=== PATIENT | female | born 1950 | race Caucasian/White ===

== ENCOUNTER → 2017-12-05 09:52 | Outpatient (CLI) | payer MEDICARE, OTHER, SELFPAY ==
[2017-12-05 10:16] LABS: Blood Urea Nitrogen 11 mg/dL (7-18); Creatinine,Serum 0.86 mg/dL (0.55-1.02); Estimated Glomerular Filt Rate 66 ml/min (>60); GFR (African American) 80 ML/MIN (>60)
== END ==
PROVIDERS: Visit Provider Family Medicine
DX: R10.84 Generalized abdominal pain (principal)
CPT/HCPCS: 36415; 82565; 84520

== ENCOUNTER → 2017-12-06 09:35 | Outpatient (CLI) | payer MEDICARE, OTHER, SELFPAY ==
--- NOTE | 2017-12-06 09:48 | CT_ITS ---
CT abdomen pelvis w con COMPARISON: None HISTORY: Abdominal pain for couple months, some diarrhea TECHNIQUE: Multiaxial scans obtained from hemidiaphragms the pelvic floor and were performed with IV and oral contrast. Sagittal and coronal reformats were evaluated as well. FINDINGS: The lower lung amaro are clear. There is mild generalized cardio megaly. There is a small hiatal hernia. The liver spleen stomach and pancreas appear normal. There has been a previous cholecystectomy. The adrenal glands are normal. The kidneys are normal size and show symmetrical function both appearing normal. There is diffuse arteriosclerotic calcification of the abdominal aorta and proximal iliac arteries but there is no aneurysm. Small bowel appears normal. The appendix is normal caliber and air-filled and retrocecal in location. There are scattered stool in the ascending and transverse colon. There are scattered diverticuli of the lower descending and sigmoid colon with is no evidence of diverticulitis. There has been a previous hysterectomy. Urinary bladder is partially decompressed. There is no free fluid in the pelvis. There are mild multilevel degenerative changes of the thoracolumbar junction along with a vacuum phenomenon and degenerative disc changes at L4-5 level. IMPRESSION: 1. Diffuse diverticulosis of the lower descending and sigmoid colon without evidence of diverticulitis 2. Small hiatal hernia
--- NOTE | 2017-12-06 10:32 | HMH.ITSHM ---
SIMVASTATIN,LORAZEPAM,GLIPIRIDE,JANUMET,CITALPRAM
== END ==
PROVIDERS: Family Provider Family Medicine; PCP Family Medicine; Visit Provider Family Medicine
DX: R10.84 Generalized abdominal pain (principal)
CPT/HCPCS: 74177; Q9967

== ENCOUNTER → 2018-04-01 06:48 | Outpatient (CLI) | payer MEDICARE, OTHER, SELFPAY ==
--- NOTE | 2018-04-01 06:53 | NM_ITS ---
History and Indications: This study, diabetes, hyperlipidemia, chest pain. Procedure: Patient received a 0.4 mg of Lexiscan, resting heart rate was 76 bpm, resting blood pressure 111/ 54 with Lexiscan maximum heart rate achieved was 98 bpm which is less than 85% of the maximum predicted heart rate and a blood pressure was 116/55. With Lexiscan patient complained of shortness of breath and nausea. Electrocardiogram: Resting electrocardiogram showed sinus rhythm, rightward bundle-branch block, with Lexiscan there is less than 1.[address] segment depression noted from the baseline EKG. The EKG portion of the Lexiscan Myoview is nondiagnostic. Cardiac stress and resting SPECT images: Cardiac stress and rest SPECT images were obtained using technetium 99 Myoview 31.5 mCi stress and 9.8 mCi at rest. Gated SPECT further analysis of segmental wall motion and calculation of the ejection also done. Cardiac stress and resting SPECT images show decreased tracer activity in the anteroapical and anteroseptal wall which improves on the resting images suggestive of reversible ischemia, computer derived ejection fraction is 55% with mild anteroapical and anteroseptal wall hypokinesis, right ventricle is normal size and contractility. Conclusion: 1. The EKG portion of the Lexiscan Myoview is nondiagnostic. 2. Scintigraphic evidence of mild reversible is involving the anteroapical and anteroseptal wall, computer derived ejection fraction is 55% with segmental wall motion abnormality described above, right ventricle is normal size and contractility. 3. Abnormal Lexiscan Myoview study.
--- NOTE | 2018-04-01 07:14 | HMH.ITSHM ---
SIMVASTATIN CITALOPRAM LORAZEPAM JANUMET GLIPIZIDE
== END ==
PROVIDERS: Family Provider Family Medicine; PCP Family Medicine; Visit Provider Family Medicine
DX: Z00.00 Encounter for general adult medical examination without abnormal findings (principal); R07.9 Chest pain, unspecified
CPT/HCPCS: 78451; 93017; A9502; J2785

== ENCOUNTER → 2018-07-22 11:22 | Outpatient (CLI) | payer MEDICARE, OTHER, SELFPAY ==
[2018-07-22 12:52] LABS: Anion Gap 10.9 mEq/L (5-15); Blood Urea Nitrogen 10 mg/dL (7-18); Calcium 9.1 mg/dL (8.5-10.1); Carbon Dioxide 32 mmol/L (21.0-32.0); Chloride 98 mmol/L (98-107); Creatinine,Serum 0.96 mg/dL (0.55-1.02); Estimated Glomerular Filt Rate 58 ml/min (>60); GFR (African American) 70 ML/MIN (>60); Glucose 280 mg/dL (74-106); Potassium 3.9 mmoL/L (3.5-5.1); Sodium 137 mmol/L (136-145)
== END ==
PROVIDERS: Visit Provider Physician Assistant
DX: I11.9 Hypertensive heart disease without heart failure (principal)
CPT/HCPCS: 36415; 80048

== ENCOUNTER → 2019-01-01 09:54 | Outpatient (CLI) | payer MEDICARE, OTHER, SELFPAY | PROVIDERS: PCP Family Medicine; Visit Provider Family Medicine | DX: R06.02 Shortness of breath (principal); Z87.891 Personal history of nicotine dependence | CPT/HCPCS: 94060 ==

== ENCOUNTER → 2019-01-26 08:55 | Outpatient (CLI) | payer MEDICARE, OTHER, SELFPAY ==
[2019-01-26 10:27] LABS: Anion Gap 11.1 mEq/L (5-15); Blood Urea Nitrogen 7 mg/dL (7-18); Calcium 8.8 mg/dL (8.5-10.1); Carbon Dioxide 35 mmol/L (21.0-32.0); Chloride 101 mmol/L (98-107); Creatinine,Serum 0.85 mg/dL (0.55-1.02); Estimated Glomerular Filt Rate 67 ml/min (>60); GFR (African American) 81 ML/MIN (>60); Glucose 202 mg/dL (74-106); Potassium 4.1 mmoL/L (3.5-5.1); Sodium 143 mmol/L (136-145)
== END ==
PROVIDERS: Visit Provider Urology
DX: E78.5 Hyperlipidemia, unspecified (principal); I11.9 Hypertensive heart disease without heart failure; I25.10 Atherosclerotic heart disease of native coronary artery without angina pectoris; I45.10 Unspecified right bundle-branch block
CPT/HCPCS: 36415; 80048

== ENCOUNTER 2019-05-07 14:00 | Outpatient (RCR) | payer MEDICARE, OTHER, SELFPAY ==
--- NOTE | 2019-04-07 11:05 | HMH.PTOPEV ---
PT Outpatient Evaluation Rehab PT Outpatient Evaluation Start: 04/07/19 10:50 Freq: Status: Active Protocol: Document 04/07/19 10:51 GENINAYLA (Rec: 04/07/19 11:03 GENIJOSSELINEMARRY [id number]) Electronically Signed By José Miguel Mario, PT 04/07/19 10:51 Outpatient Therapy Subjective History Subjective History Patient is a 68 year old female presenting to outpatient PT with reports of chronic L sided cervical spine pain radiating to L upper trapezius mm starting approximately 3 months ago of insidious onset. No recent diagnostics to report. Comorbidities include diabetes , previous heart cath, R TKA and hysterectomy. Chief Complaint Pain Symptom Type Ache,Burning Symptoms Relieved By Rest/Positioning,Prescription Meds Symptoms Aggravated By Physical Activity,Lifting Prior Functional Limitations None Current Functional Limitations Reaching,Lifting,Housework, Recreation Activity Symptom Description Intermittent Level of pain today (0-10) 5 Pain scale - at its best (0-10) 0 Pain scale - at its worst (0-10) 5 Cervical Eval Palpation Cervical Muscles L Upper Trapezius Cervical/Thoracic Palpation Findings Tenderness Posture Head/C-Spine Posture Sitting Position C-Spine Flattened Head/C-Spine Posture Standing Position C-Spine Flattened Flexibility Deficits Upper Trapezius Muscle Length (R) Moderate Tightness,(L) Moderate Tightness Levaetor Scapulae Muscle Length (R) Moderate Tightness,(L) Moderate Tightness Scalene Group Muscle Length (R) Mild Tightness,(L) Mild Tightness Pectoralis Minor Muscle Length (R) Moderate Tightness,(L) Moderate Tightness Passive Joint Mobility Cervical PIVM Dec: R C2/3 L C2/3 R C3/4 L C3/4 R C4/5 L C4/5 R C5/6 L C5/6 R C6/7 L C6/7 R C7/T1 L C7/T1 WNL: R OA L OA
== END 2019-05-07 14:05 | disposition home or self-care (01) ==
LOC: PT 14:00
PROVIDERS: Visit Provider Family Medicine
DX: M54.12 Radiculopathy, cervical region (principal)
CPT/HCPCS: 97010; 97014; 97110; 97163; G0283

== ENCOUNTER → 2019-06-01 09:14 | Outpatient (CLI) | payer MEDICARE, OTHER, SELFPAY ==
--- NOTE | 2019-06-01 09:19 | XR_ITS ---
PROCEDURE: XR CERVICAL SPINE 5V CLINICAL INDICATION: SPONDYLOSIS Neck pain COMPARISON: No exams were available for comparison FINDINGS: Normal alignment. No fracture or dislocation. There is slight decrease in the disc space at C3-C4 C4-C5 and C5-C6 with small anterior osteophytes at C5-C6. Mild foraminal narrowing is noted on the right at C4-C5 and C5-C6 and on the left at C4-C5 and C5-C6. There is mild cervical curvature convex left. Carotid artery calcifications are present. IMPRESSION: 1. Cervical spondylosis as detailed above with degenerative disc disease and foraminal narrowing 2. Carotid artery calcification Dictated by: Benny Herrera MD 06/01/2019 10:34 Electronically signed by Benny Herrera MD in [place] 06/01/2019 10:34
--- NOTE | 2019-06-01 09:19 | XR_ITS ---
PROCEDURE: XR SHOULDER LT MIN 2V CLINICAL INDICATION: BILAT SHOULDER PAIN Left shoulder pain COMPARISON: SHOU3R [id number] VIEWS from 11/13/2016 FINDINGS: No fracture, dislocation, lytic change, or blastic change evident. No significant degenerative change IMPRESSION: Negative left shoulder Dictated by: Benny Herrera MD 06/01/2019 10:35 Electronically signed by Benny Herrera MD in [place] 06/01/2019 10:35
--- NOTE | 2019-06-01 09:19 | XR_ITS ---
PROCEDURE: XR SHOULDER RT MIN 2V CLINICAL INDICATION: BILAT SHOULDER PAIN Right shoulder pain COMPARISON: SHOU3R [id number] VIEWS from 11/13/2016 FINDINGS: There are mild osteoarthritic changes of the glenohumeral joint and acromioclavicular joint with some spurring at the AC joint. Hypertrophic changes are present along the inferior aspect of the a chromium causing subacromial stenosis. These findings are similar when compared to the previous exam. No acute fracture or dislocation. IMPRESSION: Osteoarthritic change with subacromial stenosis Dictated by: Benny Herrera MD 06/01/2019 10:36 Electronically signed by Benny Herrera MD in [place] 06/01/2019 10:36
== END ==
PROVIDERS: PCP Family Medicine; Visit Provider Family Medicine
DX: M25.511 Pain in right shoulder (principal); M25.512 Pain in left shoulder; M47.812 Spondylosis without myelopathy or radiculopathy, cervical region
CPT/HCPCS: 72050; 73030

== ENCOUNTER → 2019-06-11 09:56 | Outpatient (CLI) | payer MEDICARE, OTHER, SELFPAY ==
--- NOTE | 2019-06-11 | CA_ITS ---
APPROVED REPORT EXAM: Comprehensive 2D, Doppler, and color-flow Echocardiogram [employer] Worker: Haylee Wisdom, RT(R) Ht: 5 ft 6 in Wt: 243lbs BSA: 2.17 BP: 143/63 mmHg Indications: Chest Pain, COPD, Murmur, Diabetes, Obesity, Atrial Fibrillation (new onset), Fatigue, Peripheral Edema, Hyperlipidemia, Hypertension/HDD, RBBB 2D Dimensions IVSd 1.30 cm F: 0.6-1.0 LVEF (Visual) 51.30 % PWd 1.30 cm F: 0.6 - 1.0 LVDd 4.60 cm F: 3.9 - 5.3 LVDs 3.40 cm F: 2.2 - 3.5 LVOT 2.00 cm (M/F) 1.5-2.5 M-Mode Dimensions LA Diam 3.80 cm (1.9-4.0) Ao Diam 3.40 cm (2.0-3.7) AV Cusp 2.20 cm (1.5-2.6) LV Diastology E/A Ratio 1.2 MED E' 7.21 (< 7 cm/sec) E'/MED E' Ratio 12.60 (>14) LAT E' 11.50 (<10 cm/sec) E/LAT E' Ratio 7.90 (>14) Mitral Valve MV E Max Reginald. 90.80 (40-130 cm/s) MV A Velocity 75.50 (40-130 cm/s) E/A Ratio 1.20 Tricuspid Valve TR P. Velocity 254.00 cm/s RAP Estimate 15.00 mmHg RVSP 41.00 mmHg Left Ventricle Left atrium is mildly enlarged, left ventricle is normal size, mild concentric left ventricular hypertrophy, visually estimated ejection fraction 55% with no regional wall motion abnormality. Diastolic parameters are within normal range. Right Ventricle Right atrium and right ventricle mildly enlarged with normal contractility. Aortic Valve Aortic valve is minimally thickened and fibrosed, there is no aortic stenosis aortic insufficiency. Mitral Valve Mitral valve is grossly normal, there is mild mitral regurgitation. Tricuspid Valve Tricuspid valve is grossly normal, there is mild tricuspid regurgitation, calculated right ventricular systolic pressure is 44 mmHg consistent with moderately elevated right ventricular systolic pressure. Pulmonic Valve Pulmonic valve is poorly visualized. Great Vessels Aortic root is normal size. Pericardium No significant pericardial effusion noted. Conclusion 1. Mildly enlarged left atrium, normal left ventricular size, visually estimated ejection fraction 55% with no regional wall motion abnormality, diastolic parameters are within normal range. 2. Mildly enlarged right ventricle with normal contractility. 3. Mild mitral and tricuspid regurgitation, calculated right ventricular systolic pressure is 44 mmHg consistent with moderately elevated right ventricular systolic pressure. 4. No significant pericardial effusion noted. Electronically signed by : Jorge Henderson, 06/12/2019 15:25:58
== END ==
PROVIDERS: PCP Family Medicine; Visit Provider Family Medicine
DX: R07.9 Chest pain, unspecified (principal); R07.89 Other chest pain; R06.02 Shortness of breath; R60.9 Edema, unspecified; I48.91 Unspecified atrial fibrillation
CPT/HCPCS: 93306

== ENCOUNTER → 2019-09-08 12:59 | Outpatient (CLI) | payer MEDICARE, OTHER, SELFPAY ==
--- NOTE | 2019-09-08 13:05 | XR_ITS ---
PROCEDURE: XR KNEE LT 3V CLINICAL INDICATION: LT ANTERIOR KNEE Twisting injury COMPARISON: No exams were available for comparison FINDINGS: No fracture or dislocation. No lytic or blastic change. There is normal mineralization. There are mild osteoarthritic changes involving all 3 compartments. A longitudinal lucency is present along the superior lateral aspect of patella. This could represent a nondisplaced fracture or an ununited ossification center. CT may add further evaluation if clinically desired. Other findings:None. IMPRESSION: Mild osteoarthritic changes with lucency along the superior lateral aspect of the patella which could be due to a nondisplaced fracture or ununited area of ossification. Dictated by: Benny Herrera MD 09/08/2019 14:04 Electronically signed by Benny Herrera MD in [place] 09/08/2019 14:04
== END ==
PROVIDERS: PCP Family Medicine; Visit Provider Family Medicine
DX: M25.562 Pain in left knee (principal)
CPT/HCPCS: 73562

== ENCOUNTER → 2019-10-26 08:46 | Outpatient (CLI) | payer MEDICARE, OTHER, SELFPAY ==
[2019-10-26 09:10] LABS: Anion Gap 10.9 mEq/L (5-15); Blood Urea Nitrogen 9 mg/dL (7-18); Calcium 8.9 mg/dL (8.5-10.1); Carbon Dioxide 32 mmol/L (21.0-32.0); Chloride 100 mmol/L (98-107); Creatinine,Serum 0.86 mg/dL (0.55-1.02); Estimated Glomerular Filt Rate 66 ml/min (>60); GFR (African American) 79 ML/MIN (>60); Glucose 193 mg/dL (74-106); Potassium 3.9 mmoL/L (3.5-5.1); Sodium 139 mmol/L (136-145)
== END ==
PROVIDERS: Visit Provider Nurse Practitioner Family
DX: E78.5 Hyperlipidemia, unspecified (principal); I11.9 Hypertensive heart disease without heart failure; I25.10 Atherosclerotic heart disease of native coronary artery without angina pectoris; I45.10 Unspecified right bundle-branch block; I48.91 Unspecified atrial fibrillation
CPT/HCPCS: 36415; 80048

== ENCOUNTER → 2020-02-22 08:38 | Outpatient (CLI) | payer MEDICARE, OTHER, SELFPAY ==
[2020-02-22 09:00] LABS: Chloride 88 mmol/L (98-107); Sodium 135 mmol/L (136-145)
[2020-02-22 09:03] LABS: Blood Urea Nitrogen 13 mg/dl (7-17); Estimated Glomerular Filt Rate 71 ml/min (>60); GFR (African American) 86 ML/MIN (>60)
[2020-02-22 09:04] LABS: Calcium 8.5 mg/dl (8.4-10.2); Glucose 223 mg/dl (74-100)
[2020-02-22 09:11] LABS: Anion Gap 10.6 mEq/L (5-15); Carbon Dioxide 39 mmol/L (22.0-30.0)
[2020-02-22 09:13] LABS: NT Pro Brain Natriuretic Pep. 1030 pg/mL (0-125)
[2020-02-22 09:50] LABS: Potassium 2.6 mmoL/L (3.5-5.1)
== END ==
PROVIDERS: Visit Provider Nurse Practitioner Family
DX: E78.2 Mixed hyperlipidemia (principal); I11.9 Hypertensive heart disease without heart failure; I25.10 Atherosclerotic heart disease of native coronary artery without angina pectoris; R06.00 Dyspnea, unspecified
CPT/HCPCS: 36415; 80048; 83880

== ENCOUNTER → 2020-02-29 11:17 | Outpatient (CLI) | payer MEDICARE, OTHER, SELFPAY ==
[2020-02-29 13:06] LABS: Anion Gap 13.3 mEq/L (5-15); Blood Urea Nitrogen 10 mg/dl (7-17); Calcium 9.4 mg/dl (8.4-10.2); Carbon Dioxide 38 mmol/L (22.0-30.0); Chloride 89 mmol/L (98-107); Estimated Glomerular Filt Rate 71 ml/min (>60); GFR (African American) 86 ML/MIN (>60); Glucose 209 mg/dl (74-100); Potassium 3.3 mmoL/L (3.5-5.1); Sodium 137 mmol/L (136-145)
== END ==
PROVIDERS: Visit Provider Nurse Practitioner Family
DX: I25.10 Atherosclerotic heart disease of native coronary artery without angina pectoris (principal); R06.00 Dyspnea, unspecified; I48.91 Unspecified atrial fibrillation; I45.10 Unspecified right bundle-branch block; I11.9 Hypertensive heart disease without heart failure; E78.5 Hyperlipidemia, unspecified
CPT/HCPCS: 36415; 80048

== ENCOUNTER → 2020-03-08 11:19 | Outpatient (CLI) | payer MEDICARE, OTHER, SELFPAY ==
[2020-03-08 12:44] LABS: Chloride 95 mmol/L (98-107); Potassium 3.3 mmoL/L (3.5-5.1); Sodium 136 mmol/L (136-145)
[2020-03-08 12:47] LABS: Anion Gap 8.3 mEq/L (5-15); Blood Urea Nitrogen 7 mg/dl (7-17); Calcium 8.4 mg/dl (8.4-10.2); Carbon Dioxide 36 mmol/L (22.0-30.0); Estimated Glomerular Filt Rate 83 ml/min (>60); GFR (African American) 101 ML/MIN (>60); Glucose 240 mg/dl (74-100)
== END ==
PROVIDERS: Visit Provider Nurse Practitioner Family
DX: I25.10 Atherosclerotic heart disease of native coronary artery without angina pectoris; R06.00 Dyspnea, unspecified; E78.5 Hyperlipidemia, unspecified; I11.9 Hypertensive heart disease without heart failure; I45.10 Unspecified right bundle-branch block; I48.91 Unspecified atrial fibrillation
CPT/HCPCS: 36415; 80048

== ENCOUNTER → 2020-03-22 13:54 | Outpatient (CLI) | payer MEDICARE, OTHER, SELFPAY ==
[2020-03-22 15:15] LABS: Chloride 91 mmol/L (98-107); Potassium 4.4 mmoL/L (3.5-5.1); Sodium 135 mmol/L (136-145)
[2020-03-22 15:18] LABS: Anion Gap 15.4 mEq/L (5-15); Blood Urea Nitrogen 16 mg/dl (7-17); Calcium 9.9 mg/dl (8.4-10.2); Carbon Dioxide 33 mmol/L (22.0-30.0); Estimated Glomerular Filt Rate 62 ml/min (>60); GFR (African American) 75 ML/MIN (>60); Glucose 224 mg/dl (74-100)
== END ==
PROVIDERS: Visit Provider Nurse Practitioner Family
DX: I10 Essential (primary) hypertension (principal)
CPT/HCPCS: 36415; 80048

== ENCOUNTER → 2020-03-23 10:42 | Outpatient (CLI) | payer MEDICARE, OTHER, SELFPAY | PROVIDERS: PCP Family Medicine; Visit Provider Urology | DX: E78.5 Hyperlipidemia, unspecified (principal); I11.9 Hypertensive heart disease without heart failure; I20.9 Angina pectoris, unspecified; I48.91 Unspecified atrial fibrillation; R00.0 Tachycardia, unspecified; R06.00 Dyspnea, unspecified | CPT/HCPCS: 93270 ==

== ENCOUNTER → 2020-03-30 14:10 | Outpatient (CLI) | payer MEDICARE, OTHER, SELFPAY ==
[2020-03-30 15:04] LABS: Chloride 95 mmol/L (98-107); Potassium 4.3 mmoL/L (3.5-5.1); Sodium 134 mmol/L (136-145)
[2020-03-30 15:07] LABS: Anion Gap 13.3 mEq/L (5-15); Blood Urea Nitrogen 18 mg/dl (7-17); Carbon Dioxide 30 mmol/L (22.0-30.0); Estimated Glomerular Filt Rate 71 ml/min (>60); GFR (African American) 86 ML/MIN (>60)
[2020-03-30 15:08] LABS: Calcium 9.2 mg/dl (8.4-10.2); Glucose 273 mg/dl (74-100)
== END ==
PROVIDERS: Visit Provider Urology
DX: R06.00 Dyspnea, unspecified; E78.5 Hyperlipidemia, unspecified; I11.9 Hypertensive heart disease without heart failure; I20.9 Angina pectoris, unspecified; I48.91 Unspecified atrial fibrillation; R00.0 Tachycardia, unspecified
CPT/HCPCS: 36415; 80048

== ENCOUNTER → 2020-05-10 11:01 | Outpatient (CLI) | payer MEDICARE, OTHER, SELFPAY ==
--- NOTE | 2020-05-10 11:05 | CA_ITS ---
APPROVED REPORT EXAM: Comprehensive 2D, Doppler, and color-flow Echocardiogram [employer] Rolling Machine Operator: Haylee Wisdom RT(R) Ht: 5 ft 6 in Wt: 231lbs BSA: 2.13 BP: 142/40 mmHg Indications: HTN, DM, SOB, hyperlipidemia, SOA, CAD, RBBB, PAF 2D Dimensions LVOT 2.29 cm (M/F) 1.5-2.5 M-Mode Dimensions RVDd 1.44 cm (0.9-2.6) LVDd 5.39 cm (3.5-5.7) LVDs 3.78 cm (3.5-5.7) IVSd 1.10 cm (0.6-1.1) PWd 0.93 cm (0.6-1.1) EF (Teich) 56.50% FS 29.90% EDV (Teich) 140.70 mL ESV (Teich) 61.20 mL LV Diastology E/A Ratio 1.69 Mitral Valve MV A Velocity 67.00 (40-130 cm/s) Left Ventricle Left atrium is mildly enlarged, left ventricle is normal size, mild concentric left ventricular hypertrophy, visually estimated ejection fraction 55% with no regional wall motion abnormality, diastolic parameters are inconclusive. Right Ventricle Right atrium and right ventricular mildly enlarged with normal contractility. Aortic Valve Aortic valve is minimally thickened and fibrosed, there is no aortic stenosis or aortic insufficiency. Mitral Valve Mitral valve leaflets are minimally thickened, there is mild mitral regurgitation. Tricuspid Valve Tricuspid valve is grossly normal, there is mild tricuspid regurgitation, calculated right ventricular systolic pressure is 39 mmHg. Pulmonic Valve Pulmonic valve is poorly visualized. Great Vessels Aortic root is normal size. Pericardium No significant pericardial effusion noted Conclusion 1. Mild biatrial enlargement, normal left ventricular size, mild concentric left ventricular hypertrophy, visually estimated ejection fraction 55% with no regional wall motion abnormality, diastolic parameters are inconclusive. 2. Mildly enlarged right ventricle with normal contractility. 3. Mild mitral and tricuspid regurgitation, calculated right ventricular systolic pressure 39 mmHg. 4. No significant pericardial effusion noted. Electronically signed by : Jorge Henderson, 05/11/2020 05:59:42
== END ==
PROVIDERS: PCP Family Medicine; Visit Provider Nurse Practitioner Family
DX: R06.02 Shortness of breath (principal); E78.2 Mixed hyperlipidemia; I11.9 Hypertensive heart disease without heart failure; I25.10 Atherosclerotic heart disease of native coronary artery without angina pectoris; I45.10 Unspecified right bundle-branch block; I48.0 Paroxysmal atrial fibrillation; I51.89 Other ill-defined heart diseases
CPT/HCPCS: 93306

== ENCOUNTER → 2020-06-22 14:47 | Outpatient (CLI) | payer MEDICARE, OTHER, SELFPAY ==
[2020-06-22 15:49] LABS: Basophils # 0.1 K/mm3 (0-0.2); Basophils % 0.9 % (0.1-2.0); Eosinophils # 0.3 K/mm3 (0.0-0.4); Eosinophils % 3.3 % (0.1-12.0); Hematocrit 30.9 % (37.0-47.0); Hemoglobin 8.9 g/dL (12.2-16.2); Lymphocytes # 1.5 K/mm3 (0.7-4.5); Lymphocytes % 16.9 % (10-50); Mean Corpuscular HGB Conc 28.8 g/dL (31.8-35.4); Mean Corpuscular Hemoglobin 21.6 pg (27.0-31.2); Mean Corpuscular Volume 74.9 fl (81-99); Mean Platelet Volume 7.6 fl (7.4-10.4); Monocytes # 0.4 K/mm3 (0.1-1.0); Neutrophils # 6.5 K/mm3 (1.8-7.8); Neutrophils % 74.9 % (37.0-80.0); Platelet Count 304 K/mm3 (142-424); Red Blood Count 4.12 M/mm3 (4.20-5.40); Red Cell Distribution Width 19.1 % (11.5-17.5); White Blood Count 8.7 K/mm3 (4.8-10.8)
[2020-06-22 16:19] LABS: Chloride 96 mmol/L (98-107); Potassium 4.6 mmoL/L (3.5-5.1); Sodium 138 mmol/L (136-145)
[2020-06-22 16:22] LABS: Anion Gap 15.6 mEq/L (5-15); Blood Urea Nitrogen 13 mg/dl (7-17); Carbon Dioxide 31 mmol/L (22.0-30.0); Estimated Glomerular Filt Rate 71 ml/min (>60); GFR (African American) 86 ML/MIN (>60)
[2020-06-22 16:23] LABS: Calcium 9.5 mg/dl (8.4-10.2); Glucose 351 mg/dl (74-100)
[2020-06-22 16:51] LABS: Thyroid Stimulating Hormone 2.18 uIU/mL (0.465-4.68)
== END ==
PROVIDERS: Visit Provider Nurse Practitioner Family
DX: E78.2 Mixed hyperlipidemia (principal); I11.9 Hypertensive heart disease without heart failure; I25.10 Atherosclerotic heart disease of native coronary artery without angina pectoris; I48.0 Paroxysmal atrial fibrillation; R06.02 Shortness of breath
CPT/HCPCS: 36415; 80048; 84439; 84443; 85025

== ENCOUNTER → 2020-08-01 10:31 | Outpatient (CLI) | payer MEDICARE, OTHER, SELFPAY | PROVIDERS: Visit Provider Surgery | DX: D64.9 Anemia, unspecified (principal) ==

== ENCOUNTER 2020-08-02 08:29 | Day surgery (SDC) | payer MEDICARE, OTHER, SELFPAY ==
[2020-07-28 14:38] VITALS: BMI 36.4
[2020-08-02 08:48] VITALS: BP 126/67; PULSE 77; RESP 18; O2SAT 95
[2020-08-02 09:02] LABS: POC Glucose,Bedside 274 (70-110)
--- NOTE | 2020-08-02 09:18 | HMH.ANESCL ---
[facility] Anesthesia Checklist - Patient Identification Patient Identification: Arm Band - Structural Data Admitted From: Home Planned Operative Procedure/s: EGD Consent for Planned Operative Procedure(s) Verified: Yes Verified Documents: Surgical Consent, History and Physical - NPO Status Verified Time NPO: 00:00 - Additional verifications Anesthesia Reactions: No - Airway Assessment C-Spine Mobility Assessed: Yes (mp2) TMJ Mobility Assessed: Yes Dentition: Edentulous - Neurological Assessment Level of Consciousness: Awake, Alert - Anesthesia Plan Anesthesia Risk discussed: Yes Anesthesia Plan: Verified ASA Class: III Anesthesia Type: MAC [facility] History I have reviewed the patient's past medical history: Yes Medical History: Reports:: Anxiety, Atrial Fibrillation, Chronic Obstructive Pulmonary Disease (COPD), Coronary Artery Disease, Diabetes Mellitus Type 2, Hyperlipidemia, Hypertension Denies:: Cancer, Diabetes Mellitus Type 1, Internal Pacemaker, MRSA, Seizures *Have you ever received a pneumonia vaccine?: Yes *Have you received a flu vaccine this season?: Yes Anesthesia experience/problems:: nac Laterality Cases: Right: Arthroscopy Knee, Total Knee Replacement, Bilateral: Carpal Tunnel Release, Tonsillectomy Other Surgeries: Yes: Cardiac Catheterization, Cholecystectomy, Colonoscopy, Hysterectomy-Total, Other. No: Pacemaker Amputation: No Fractures: No - *Social History Last grade of school completed: 9th or 10th Smoking Status: Never smoker #Yrs smoked (if former smoker): 50 Alcohol Intake: never Alcohol Intake Frequency:: other Substance Use Type: denies use *Occupational Status:: other Housing: house Household Members: spouse *Travel in the last 8 weeks: None - Psychiatric History Pschychiatric History:: Reports:: Anxiety Family Hx:: Cancer
[2020-08-02 09:36] LABS: Coronavirus 19 IgG Antibody Negative (Negative); Coronavirus 19 IgM Antibody Negative (Negative)
[2020-08-02 09:43] VITALS: O2SAT 97
--- NOTE | 2020-08-02 09:53 | HMH.SCOPE ---
- Procedure: Date: 08/02/20 Patient Date of :: 1950 Procedure Performed:: Esophagogastroduodenoscopy with biopsies Indications:: Patient is a 69-year-old female referred by Dr. Rowley for upper endoscopy. Patient is on chronic warfarin anticoagulation therapy. I have performed a couple of colonoscopies on her. Several years ago she had colonoscopy and had sessile serrated adenoma. Earlier this year she had colonoscopy which revealed several adenomatous polyps including 12 mm tubulovillous adenoma. She does have a family history of colon cancer. Recommendation was for 1 year follow-up colonoscopy. Recent blood work reportedly revealed anemia. Review of the chart reveals a hemoglobin of 8.9. She also had iron deficiency. She denies any symptoms of melena but has been started on iron supplementation and states that she subsequently had black stools. She describes symptoms similar to feeling hungry or starving . She states that when she eats something this helps. Her symptoms sounded potentially suspicious for gastric ulcer versus gastritis. I do feel that upper endoscopy would be reasonable. Patient is hesitant to proceed with this as she has had issues with the Lovenox injections causing pain and knots . I do feel that upper endoscopy would be warranted given her constellation of symptoms. This is to be arranged with cardiology managing Lovenox bridge. She has been on iron supplementation. She denies melena prior to iron supplementation. She has been off of her warfarin for 3 days. Performing Provider:: Alverto Crump MD Referring Provider:: Estevan Rowley MD Sedation:: MAC sedation Procedure:: Patient was taken to endoscopy procedure room. She was positioned in a lateral decubitus position. Adequate intravenous sedation was achieved with anesthesia titration of propofol. Olympus endoscope was inserted via the oropharynx advanced through the esophagus. Gastroesophageal junction was encountered at approximately 40 cm from the incisors. Stomach was cannulated and insufflated. Retroflexion revealed moderate sliding hiatal hernia. There was some diffuse moderate nonerosive gastritis. Pylorus was traversed. Duodenal bulb and duodenal sweep are unremarkable. Endoscope was withdrawn into the stomach. Gastric antral mucosal biopsies obtained for KARLI testing for H. pylori. Biopsy was obtained of the mid body for histopathologic analysis of the gastritis. Stomach was desufflated and the endoscope was withdrawn. Findings:: Gastritis Sliding hiatal hernia Recommendations:: No obvious etiology on upper endoscopy to account for iron deficiency anemia. May need capsule endoscopy. Patient is due for a follow-up colonoscopy next year. Complications:: None immediately apparent Estimated blood obtained (mL): 2
[2020-08-02 09:55] VITALS: BP 123/46; PULSE 74; RESP 18; TEMP 36.2; O2SAT 91
[2020-08-02 10:05] VITALS: BP 111/53; PULSE 69; RESP 16; O2SAT 91
[2020-08-02 10:25] VITALS: BP 141/59; PULSE 68; RESP 16; O2SAT 93
== END 2020-08-02 10:25 | disposition home or self-care (01) ==
LOC: OUTP 08:31
PROVIDERS: PCP Family Medicine; Visit Provider Surgery
PROC: 0DJ08ZZ Inspection of Upper Intestinal Tract, Via Natural or Artificial Opening Endoscopic (ICD-10-PCS; CPT 43235; principal; 2020-08-02 09:30)
DX: K29.70 Gastritis, unspecified, without bleeding; K44.9 Diaphragmatic hernia without obstruction or gangrene; Z87.19 Personal history of other diseases of the digestive system; Z80.0 Family history of malignant neoplasm of digestive organs; Z79.01 Long term (current) use of anticoagulants; D50.9 Iron deficiency anemia, unspecified; Z09 Encounter for follow-up examination after completed treatment for conditions other than malignant neoplasm
CPT/HCPCS: 43239; 82962; 86328; 87339

== ENCOUNTER → 2020-08-24 10:13 | Outpatient (CLI) | payer MEDICARE, OTHER, SELFPAY ==
[2020-08-26 05:14] LABS: H. pylori Breath Test Negative (Negative)
== END ==
PROVIDERS: Visit Provider Surgery
DX: D50.9 Iron deficiency anemia, unspecified (principal); Z87.19 Personal history of other diseases of the digestive system
CPT/HCPCS: 83013

== ENCOUNTER → 2020-10-11 11:08 | Outpatient (POV) | payer MEDICARE, OTHER, SELFPAY | PROVIDERS: Visit Provider Dermatology | DX: Z00.00 Encounter for general adult medical examination without abnormal findings (principal) ==

== ENCOUNTER → 2020-12-05 14:40 | Outpatient (CLI) | payer MEDICARE, OTHER, SELFPAY ==
[2020-12-05 17:52] LABS: Coronavirus 19 IgG Antibody Negative (Negative); Coronavirus 19 IgM Antibody Negative (Negative)
== END ==
PROVIDERS: Visit Provider Surgery
DX: Z01.818 Encounter for other preprocedural examination (principal); Z11.52 Encounter for screening for COVID-19; Z12.11 Encounter for screening for malignant neoplasm of colon; K29.70 Gastritis, unspecified, without bleeding
CPT/HCPCS: 36415; 86328

== ENCOUNTER 2020-12-07 06:24 | Day surgery (SDC) | payer MEDICARE, OTHER, SELFPAY ==
[2020-12-01 13:10] VITALS: BMI 35.8
[2020-12-07 06:56] VITALS: BP 134/63; PULSE 65; RESP 18; TEMP 36.2; O2SAT 95
[2020-12-07 07:11] LABS: POC Glucose,Bedside 171 (70-110)
[2020-12-07 07:24] VITALS: O2SAT 97
--- NOTE | 2020-12-07 07:42 | P.PN_ITS ---
[facility] Anesthesia Checklist - Structural Data Admitted From: Home Planned Operative Procedure/s: egd,colonoscopy Consent for Planned Operative Procedure(s) Verified: Yes - Additional verifications Anesthesia Reactions: No - Airway Assessment C-Spine Mobility Assessed: Yes TMJ Mobility Assessed: Yes Dentition: Poor Dentition - Neurological Assessment Level of Consciousness: Awake, Alert, Appropriate - Anesthesia Plan Anesthesia Risk discussed: Yes Anesthesia Plan: Verified ASA Class: III Anesthesia Type: MAC [facility] History I have reviewed the patient's past medical history: Yes Medical History: Reports:: Anxiety, Atrial Fibrillation, Chronic Obstructive Pulmonary Disease (COPD), Coronary Artery Disease, Diabetes Mellitus Type 2, Hyperlipidemia, Hypertension Denies:: Cancer, Diabetes Mellitus Type 1, Internal Pacemaker, MRSA, Seizures *Have you ever received a pneumonia vaccine?: No *Have you received a flu vaccine this season?: Yes Anesthesia experience/problems:: none Laterality Cases: Right: Arthroscopy Knee, Carpal Tunnel Release, Bilateral: Tonsillectomy Other Surgeries: Yes: No Previous Surgery, Cardiac Catheterization, Cholecystectomy, Colonoscopy, Hysterectomy-Total, Other. No: Pacemaker Amputation: No Fractures: No - *Social History Last grade of school completed: High school graduate Smoking Status: Never smoker #Yrs smoked (if former smoker): 50 Alcohol Intake: never Alcohol Intake Frequency:: other Substance Use Type: denies use *Occupational Status:: retired Housing: house Household Members: spouse *Travel in the last 8 weeks: None - Psychiatric History Pschychiatric History:: Reports:: Anxiety Family Hx:: Cancer
[2020-12-07 08:30] VITALS: BP 164/99; PULSE 57; RESP 18; TEMP 36.4; O2SAT 97
--- NOTE | 2020-12-07 08:33 | HMH.SCOPE ---
- Procedure: Date: 12/07/20 Patient Date of :: 1950 Procedure Performed:: 1. Esophagogastroduodenoscopy with biopsies 2. Total colonoscopy with biopsies and multiple polypectomy Indications:: Patient is a 70 year old who presents for followup colonoscopy. She has a history of atrial fibrillation with rapid ventricular response and RBBB and is on chronic warfarin anticoagulation therapy. I had performed previous colonoscopies on her in 2016 and 2019. More recently the patient was noted to have some iron deficiency anemia. She also gave symptoms of epigastric pains and discomfort which was actually improved with eating. Upper endoscopy was performed 08/02/20 which revealed chronic active gastritis and positive H. pylori. She was treated for H. pylori therapy. She had follow-up urease breath test which shows negative H. pylori. She has a family history of colon cancer in her mother who had been diagnosed about 30 years ago. I had performed colonoscopy in December 2016. Colonoscopy was somewhat difficult due to tortuosity and floppiness of the colon as well as some diverticulosis. She had numerous polyps removed at least 4 of which were sessile serrated adenomas and at least 4 tubular adenomas. Follow-up colonoscopy done on 10/27/2019 revealed at least 4 tubular adenomas and a rectal tubulovillous adenoma. Colonoscopy last year was done with a Lovenox bridge. However, patient states that prior to upper endoscopy she merely held her Coumadin. Performing Provider:: Alverto Crump MD Referring Provider:: None Sedation:: MAC sedation Procedure:: Patient was taken to endoscopy procedure room. She was positioned lateral decubitus position. Adequate intravenous sedation was achieved with anesthesia titration of propofol. Olympus endoscope was inserted via the oropharynx. Advanced to the esophagus. Gastroesophageal junction was encountered at approximately 40 cm from the incisors. Stomach was cannulated and insufflated. There was some diffuse moderate nonerosive gastritis. Gastric mucosal biopsies obtained for CLOtest for H. pylori. Pylorus was traversed. There was some mild duodenitis. Biopsy was performed. Additional gastric biopsy was obtained in the mid body for histopathologic analysis. Couple biopsies were obtained at the gastroesophageal junction to rule out Umaña's esophagus. Endoscope was withdrawn. Patient was repositioned for colonoscopy. Variable stiffness Olympus colonoscope was inserted via the anus. It was advanced to the cecum with some difficulty due to floppiness and tortuosity of the colon. Colonic preparation was fair but adequate visualization was achieved with thorough irrigation and suctioning. Ileocecal valve and appendiceal orifice were identified. Colonoscope was withdrawn through the colon with careful surveillance. In the cecum there was a small adenomatous polyp removed with cold cutting snare. In the sigmoid colon there was a tiny diminutive polyp removed with cold biopsy forceps. In the distal sigmoid polyp there was some prominent irregular mucosa. This was likely inconsequential but biopsies were performed to rule out adenomatous change. In the rectosigmoid region there is a small polyp which appeared hyperplastic which was removed with cold cutting snare. Within the rectum site of the previous removal of tubulovillous adenoma was noted with clip still adherent. There was some possible adenomatous change at the base of the clip. This was removed in its entirety with hot snare. Retroflexion did reveal some internal anal papillae. Colonoscope was withdrawn. Findings:: Gastritis Duodenitis Severe diverticulosis Polyps as noted above Distal sigmoid irregular mucosa (biopsy) Recommendations:: Pending the pathology likely repeat colonoscopy 2 or 3 years. However, if the distal sigmoid biopsy revealed adenomatous change may require early interventional follow-up. Complicatio
[2020-12-07 08:40] VITALS: BP 134/69; PULSE 53; RESP 18; TEMP 36.4; O2SAT 96
[2020-12-07 08:50] VITALS: BP 140/72; PULSE 55; RESP 18; TEMP 36.4; O2SAT 99
[2020-12-07 09:00] VITALS: BP 144/78; PULSE 58; RESP 18; TEMP 36.4; O2SAT 99
== END 2020-12-07 09:02 | disposition home or self-care (01) ==
LOC: OUTP 06:26
PROVIDERS: PCP Family Medicine; Visit Provider Surgery
PROC: 0DJ08ZZ Inspection of Upper Intestinal Tract, Via Natural or Artificial Opening Endoscopic (ICD-10-PCS; CPT 43235; principal; 2020-12-07 07:30)
DX: Z12.11 Encounter for screening for malignant neoplasm of colon (principal); K63.5 Polyp of colon; K63.9 Disease of intestine, unspecified; K57.30 Diverticulosis of large intestine without perforation or abscess without bleeding; K29.70 Gastritis, unspecified, without bleeding; K29.80 Duodenitis without bleeding; Z80.0 Family history of malignant neoplasm of digestive organs; Z87.19 Personal history of other diseases of the digestive system; Z86.010 Personal history of colon polyps; Z79.01 Long term (current) use of anticoagulants; I48.20 Chronic atrial fibrillation, unspecified; D50.9 Iron deficiency anemia, unspecified; I45.10 Unspecified right bundle-branch block
CPT/HCPCS: 43239; 45385; 82962; 87339; 88305; 88342

== ENCOUNTER → 2021-02-21 15:07 | Outpatient (POV) | payer MEDICARE, OTHER, SELFPAY | PROVIDERS: Visit Provider Dermatology | DX: Z00.00 Encounter for general adult medical examination without abnormal findings (principal) ==

== ENCOUNTER → 2021-04-28 06:11 | Outpatient (CLI) | payer MEDICARE, OTHER, SELFPAY ==
--- NOTE | 2021-04-28 06:15 | CA_ITS ---
APPROVED REPORT Exam: Pharmacologic Technologist: Juliana Lopez, Ht: 5 ft 5 in Wt: 218 lbs BSA: 2.05 m2 HR: 61 bpm BP: 90/60 mmHg Rhythm: A-FIB WITH RVR,RBBB Medical History Medical History: HTN, Diabetic ??? Insulin Medications: Lorazepam,,,,, Warfarin,,,,, Asa,,,,, Metformin,,,,, Lasix,,,,, INSULIN,,,,, Lipitor,,,,, SpirOLACTONE,,,,, Digoxin,,,,, Venlafaxine,,,,, Ferrous GLUCONATE,,,,, LansAPRAZOLE,,,,, Allergies: LATEX,SULFA,PCN Stress Test Details Test: LEXISCAN HR Resting HR: 71 bpm Max Heart Rate (APMHR): 151.627801 bpm Max HR Achieved: 98 bpm Target HR (85% APMHR): 128.418637 bpm % of APMHR: 64.90 Recovery HR: 66 bpm BP Resting BP: 90.0/60.0 mmHg Max BP: 106.0/57.0 mmHg Recovery BP: 91.0/43.0 mmHg ECG Resting ECG: A-FIB WITH RVR,RBBB Clinical Reason for Termination: Completed Protocol Exercise duration: 04:04 min Highest Stage Achieved: Exercise capacity: 1.0 METs Stress ECG Conclusion DURING INFUSION PATIENT HAD NO SYMPTOMS. NO ARRHYTHMIAS/ECTOPY. <1.[address] SEGMENT CHANGES. NON-DIAGNOSTIC TEST Electronically signed by : Jorge Henderson MD 04/28/2021 13:27:17
--- NOTE | 2021-04-28 06:15 | CA_ITS ---
APPROVED REPORT EXAM: Comprehensive 2D, Doppler, and color-flow Echocardiogram Refueler: Cici Carroll RVT Ht: 5 ft 6 in Wt: 231lbs BSA: 2.13 BP: 142/40 mmHg Indications: CP,CAD,RBBB,PAF,DM,HTN,SOA,HLD TDS 2D Dimensions IVSd 2.69 cm F: 0.6-1.0 LVEF (Visual) 33.10 % PWd 0.86 cm F: 0.6 - 1.0 LA Volume 44.60 mL LVDd 3.47 cm F: 3.9 - 5.3 LA Volume Index 21.03 mL/m2 (M/F) 16-34 LVDs 2.94 cm F: 2.2 - 3.5 LVOT 2.66 cm (M/F) 1.5-2.5 M-Mode Dimensions LA Diam 4.40 cm (1.9-4.0) Ao Diam 3.27 cm (2.0-3.7) TAPSE 2.06 (<1.7) LV Diastology MED E' 10.50 (< 7 cm/sec) LAT E' 9.60 (<10 cm/sec) Aortic Valve AO Peak GR. 5.60 mmHg Pulmonary Valve PV Peak Velocity 60.00 (50-150 cm/s) Tricuspid Valve TR P. Velocity 248.00 cm/s RAP Estimate 10.00 mmHg RVSP 34.60 mmHg Left Ventricle Left atrium is mildly enlarged, left ventricle is normal size, mild concentric left ventricular hypertrophy, visually estimated ejection fraction 55% with no regional wall motion abnormality, diastolic parameters are inconclusive. Right Ventricle Right atrium and right ventricle mildly enlarged with normal contractility. Aortic Valve Aortic valve is minimally thickened and fibrosed, there is no aortic stenosis or aortic insufficiency. Mitral Valve Mitral valve has mitral calcification, leaflets are minimally thickened, there is mild mitral regurgitation. Tricuspid Valve Tricuspid grossly normal, there is mild tricuspid regurgitation, tricuspid regurgitation jet velocity is inadequate for calculation of the right ventricular systolic pressure. Pulmonic Valve Pulmonic valve is poorly visualized. Great Vessels Aortic root is normal size. Pericardium No significant pericardial effusion noted. Conclusion 1. Mild biatrial enlargement, normal left ventricular size, mild concentric left ventricular hypertrophy, visually estimated ejection fraction 55% with no regional wall motion abnormality, diastolic parameters are inconclusive. 2. Mildly enlarged right ventricle with normal contractility. 3. Mild mitral and tricuspid regurgitation. 4. No significant pericardial effusion noted. Electronically signed by : Jorge Henderson MD 04/28/2021 13:55:20
--- NOTE | 2021-04-28 06:15 | NM_ITS ---
APPROVED REPORT Exam: Nuclear Stress Test Indication: HTN, D.M., HYPERLIPIDEMIA, ANGINA, A-FIB, C.P. Patient Location: Outpatient Stress Tech: Maria Del Carmen Arredondonkson NM Tech:RANDY Pickens RT (R)(N)(M) Ht: 5 ft 5 in Wt: 215 lbs Bra Size: 2x HR: 61 bpm BP: 90/60 mmHg BSA: 2.04 m2 BMI: 35.7 History: HTN, D.M., HYPERLIPIDEMIA, ANGINA, A-FIB, C.P. PT COULD NOT LAY PRONE Procedure: Patient received a 0.4 mg of intravenous Lexiscan, resting heart rate 61 bpm, resting blood pressure 90/60 mmHg, with Lexiscan maximum heart rate achived was 77 bpm which is Less than 85 % of the maximum predicted heart rate and blood pressure was 101/61 mmHg. With Lexiscan, patient denied any complaint of chest pain. Electrocardiogram Resting electrocardiogram showed A. fib, with Lexiscan there is less than 1.[address] segment depression noted from the baseline EKG. The EKG portion of the Lexiscan is nondiagnostic. Cardiac Stress and Resting SPECT Images: Cardiac Stress and Resting SPECT images were obtained using technetium 99m Myoview 31.2 mCi stress and 10.34 mCi at rest. Gated SPECT for analysis of segmental wall motion and calculation of the ejection fraction also done, prone images were not obtained. Cardiac stress and rest SPECT pressure fixed defect in the inferior wall with normal contractility on the gated SPECT is likely secondary to soft tissue attenuation, no reversible ischemia seen, computer derived ejection fraction is 53% with no regional wall motion abnormality, right ventricle is mildly enlarged with normal contractility. Conclusion: 1. The EKG portion of the Lexiscan is nondiagnostic. 2. No scintigraphic evidence of reversible ischemia seen, computer derived ejection fraction 53% with no regional wall motion abnormality, right ventricle is mildly enlarged with normal contractility 3. Likely normal myocardial perfusion imaging. Electronically signed by : Jorge Henderson MD 04/28/2021 14:18:49
== END ==
PROVIDERS: PCP Family Medicine; Visit Provider Physician Assistant
DX: E78.2 Mixed hyperlipidemia (principal); I11.9 Hypertensive heart disease without heart failure; I25.118 Atherosclerotic heart disease of native coronary artery with other forms of angina pectoris; I48.0 Paroxysmal atrial fibrillation
CPT/HCPCS: 78452; 93017; 93306; A9502; J2785

== ENCOUNTER → 2022-05-24 06:58 | Outpatient (CLI) | payer MEDICARE, SELFPAY ==
[2022-05-24 11:05] LABS: Alanine Aminotransferase 21 U/L (12-78); Albumin Level 4.4 g/dl (3.5-5.0); Alkaline Phosphatase 95 U/L (38-126); Aspartate Amino Transferase 28 U/L (14-36); Bilirubin,Direct 0.2 mg/dl (0.0-0.4); Bilirubin,Total 0.2 mg/dl (0.2-1.3); Chol/HDL Ratio 5.3 (1-3.5); Cholesterol 132 mg/dl (140-200); HDL Cholesterol 25 mg/dl (40-60); Total Protein,Serum 7.3 g/dl (6.3-8.2); Triglycerides 241 mg/dl (30-150); VLDL Cholesterol 48 mg/dL (0-40)
[2022-05-26 08:28] LABS: Direct LDL Cholesterol 60 mg/dL (100-129)
== END ==
PROVIDERS: PCP Family Medicine; Visit Provider Nurse Practitioner Family
DX: E78.5 Hyperlipidemia, unspecified (principal); G47.33 Obstructive sleep apnea (adult) (pediatric); G47.9 Sleep disorder, unspecified; I11.9 Hypertensive heart disease without heart failure; I25.10 Atherosclerotic heart disease of native coronary artery without angina pectoris; I45.10 Unspecified right bundle-branch block; I48.91 Unspecified atrial fibrillation; R06.00 Dyspnea, unspecified; R40.0 Somnolence; R42 Dizziness and giddiness; R53.83 Other fatigue; R60.9 Edema, unspecified
CPT/HCPCS: 36415; 80061; 80076

== ENCOUNTER → 2022-06-26 15:08 | Outpatient (CLI) | payer MEDICARE, SELFPAY ==
--- NOTE | 2022-06-26 15:12 | XR_ITS ---
FINAL REPORT CLINICAL HISTORY: wrist pain FINDINGS: LEFT WRIST Three views demonstrate no acute fracture or dislocation. The visualized joint spaces are normally aligned. There are mild degenerative changes with moderate degenerative changes of the 1st CMC joint. The soft tissues are unremarkable. IMPRESSION: Mild degenerative change with no acute bony abnormality. Reviewed, Interpreted and Dictated by Alverto Noble III, MD Transcribed by Gabriela Conklin Authenticated and [facility]
== END ==
PROVIDERS: PCP Family Medicine; Visit Provider Orthopaedic Surgery
DX: M25.532 Pain in left wrist (principal)
CPT/HCPCS: 73110

== ENCOUNTER 2022-07-05 15:10 | Outpatient (CLI) | payer MEDICARE, SELFPAY ==
[2022-07-05 15:36] LABS: PHA INR Fingerstick 1.6 (0.9-1.1)
== END 2022-07-05 15:42 ==
LOC: ACC 15:12
PROVIDERS: PCP Family Medicine; Visit Provider Family Medicine
DX: Z79.01 Long term (current) use of anticoagulants (principal); Z51.81 Encounter for therapeutic drug level monitoring
CPT/HCPCS: 85610; G0463

== ENCOUNTER 2022-07-11 15:19 | Outpatient (CLI) | payer MEDICARE, SELFPAY ==
[2022-07-11 15:56] LABS: PHA INR Fingerstick 1.9 (0.9-1.1)
== END 2022-07-11 15:57 ==
LOC: ACC 15:21
PROVIDERS: PCP Family Medicine; Visit Provider Family Medicine
DX: Z51.81 Encounter for therapeutic drug level monitoring (principal); Z79.01 Long term (current) use of anticoagulants
CPT/HCPCS: 85610; 99211; G0463

== ENCOUNTER 2022-08-01 15:18 | Outpatient (CLI) | payer MEDICARE, SELFPAY ==
[2022-08-01 15:56] LABS: PHA INR Fingerstick 1.6 (0.9-1.1)
== END 2022-08-01 15:59 ==
LOC: ACC 15:19
PROVIDERS: PCP Family Medicine; Visit Provider Family Medicine
DX: Z51.81 Encounter for therapeutic drug level monitoring (principal); Z79.01 Long term (current) use of anticoagulants
CPT/HCPCS: 85610; 99211; G0463

== ENCOUNTER 2022-08-15 15:28 | Outpatient (CLI) | payer MEDICARE, SELFPAY ==
[2022-08-15 15:54] LABS: PHA INR Fingerstick 2.8 (0.9-1.1)
== END 2022-08-15 15:56 ==
LOC: ACC 15:28
PROVIDERS: PCP Family Medicine; Visit Provider Family Medicine
DX: Z51.81 Encounter for therapeutic drug level monitoring (principal); Z79.01 Long term (current) use of anticoagulants; I48.91 Unspecified atrial fibrillation
CPT/HCPCS: 85610; 99211; G0463

== ENCOUNTER 2022-08-29 15:23 | Outpatient (CLI) | payer MEDICARE, SELFPAY ==
[2022-08-29 15:44] LABS: PHA INR Fingerstick 2.5 (0.9-1.1)
== END 2022-08-29 15:45 ==
LOC: ACC 15:25
PROVIDERS: PCP Family Medicine; Visit Provider Family Medicine
DX: Z51.81 Encounter for therapeutic drug level monitoring (principal); Z79.01 Long term (current) use of anticoagulants
CPT/HCPCS: 85610; 99211; G0463

== ENCOUNTER → 2022-09-11 10:51 | Outpatient (CLI) | payer MEDICARE, SELFPAY ==
[2022-09-11 11:37] LABS: Basophils # 0.2 K/mm3 (0-0.2); Basophils % 1.9 % (0.1-2.0); Eosinophils # 0.5 K/mm3 (0.0-0.4); Eosinophils % 5.8 % (0.1-12.0); Hematocrit 41.2 % (37.0-47.0); Hemoglobin 14.2 g/dL (12.2-16.2); Lymphocytes # 2.2 K/mm3 (0.7-4.5); Lymphocytes % 27.7 % (10-50); Mean Corpuscular HGB Conc 34.4 g/dL (31.8-35.4); Mean Corpuscular Hemoglobin 31.7 pg (27.0-31.2); Mean Corpuscular Volume 92.3 fl (81-99); Mean Platelet Volume 10.7 fl (7.4-10.4); Monocytes # 0.4 K/mm3 (0.1-1.0); Monocytes % 4.8 % (1.7-9.3); Neutrophils # 4.8 K/mm3 (1.8-7.8); Neutrophils % 59.7 % (37.0-80.0); Platelet Count 204 K/mm3 (142-424); Red Blood Count 4.46 M/mm3 (4.20-5.40); White Blood Count 8.1 K/mm3 (4.8-10.8)
[2022-09-11 11:58] LABS: Chloride 100 mmol/L (98-107)
[2022-09-11 11:59] LABS: Potassium 3.9 mmoL/L (3.5-5.1); Sodium 142 mmol/L (136-145)
[2022-09-11 12:01] LABS: Alanine Aminotransferase 22 U/L (12-78); Anion Gap 10.9 mEq/L (5-15); Aspartate Amino Transferase 24 U/L (14-36); Bilirubin,Unconjugated 0.3 mg/dL (0.0-1.1); Blood Urea Nitrogen 18 mg/dl (7-17); Carbon Dioxide 35 mmol/L (22.0-30.0); Cholesterol 137 mg/dl (140-200); Estimated Glomerular Filt Rate 55 ml/min (>60); GFR (African American) 66 ML/MIN (>60); Triglycerides 190 mg/dl (30-150); VLDL Cholesterol 38 mg/dL (0-40)
[2022-09-11 12:02] LABS: Albumin Level 4.1 g/dl (3.5-5.0); Alkaline Phosphatase 120 U/L (38-126); Bilirubin,Direct 0.1 mg/dl (0.0-0.4); Bilirubin,Indirect 0.2 mg/dL (0.0-0.9); Bilirubin,Total 0.3 mg/dl (0.2-1.3); Calcium 9.5 mg/dl (8.4-10.2); Chol/HDL Ratio 4.9 (1-3.5); Glucose 102 mg/dl (74-100); HDL Cholesterol 28 mg/dl (40-60); Magnesium 1.9 mg/dl (1.6-2.3); Total Protein,Serum 6.8 g/dl (6.3-8.2)
[2022-09-11 12:14] LABS: Direct LDL Cholesterol 58.91 mg/dL (100-129)
[2022-09-11 12:15] LABS: Free T4 (Free Thyroxine) 0.83 ng/dl (0.78-2.19)
[2022-09-11 12:34] LABS: Thyroid Stimulating Hormone 2.85 uIU/mL (0.465-4.68)
== END ==
PROVIDERS: PCP Family Medicine; Visit Provider Nurse Practitioner
DX: E78.2 Mixed hyperlipidemia (principal); I11.9 Hypertensive heart disease without heart failure; I48.0 Paroxysmal atrial fibrillation; I20.8 Other forms of angina pectoris
CPT/HCPCS: 36415; 80048; 80061; 80076; 83735; 84439; 84443; 85025

== ENCOUNTER 2022-10-12 15:17 | Outpatient (CLI) | payer MEDICARE, SELFPAY ==
[2022-10-12 16:14] LABS: PHA INR Fingerstick 1.6 (0.9-1.1)
== END 2022-10-12 16:16 ==
LOC: ACC 15:18
PROVIDERS: PCP Family Medicine; Visit Provider Family Medicine
DX: Z51.81 Encounter for therapeutic drug level monitoring (principal); Z79.01 Long term (current) use of anticoagulants
CPT/HCPCS: 85610; 99211; G0463

== ENCOUNTER 2022-11-05 14:18 | Outpatient (CLI) | payer MEDICARE, SELFPAY | END 2022-11-05 14:56 | LOC: ACC 14:19 | PROVIDERS: PCP Family Medicine; Visit Provider Family Medicine | DX: Z51.81 Encounter for therapeutic drug level monitoring (principal); Z79.01 Long term (current) use of anticoagulants | CPT/HCPCS: 85610; 99211; G0463 ==

== ENCOUNTER 2022-12-03 15:31 | Outpatient (CLI) | payer MEDICARE, SELFPAY ==
[2022-12-03 16:04] LABS: PHA INR Fingerstick 1.8 (0.9-1.1)
== END 2022-12-03 16:06 ==
LOC: ACC 15:31
PROVIDERS: PCP Family Medicine; Visit Provider Family Medicine
DX: Z51.81 Encounter for therapeutic drug level monitoring (principal); Z79.01 Long term (current) use of anticoagulants
CPT/HCPCS: 85610; 99211; G0463

== ENCOUNTER → 2022-12-19 08:40 | Outpatient (CLI) | payer MEDICARE, SELFPAY ==
--- NOTE | 2022-12-19 08:53 | XR_ITS ---
FINAL REPORT TECHNIQUE: Bone mineral density was calculated of the lumbar spine and hip. CLINICAL HISTORY: . post menopausal screening FINDINGS: DEXA BONE DENSITY AXIAL SKELETON Using L1-4, the bone mineral density of the spine is 1.101 g/cm2, corresponding to T-score of 0.5 with a Z-score of 2.7. Using the left hip, the bone mineral density of the femoral neck is 0.772 g/cm2, corresponding to a T-score of -0.7 with a Z-score of 1.2. Using the right hip, the bone mineral density of the femoral neck is 0.685 g/cm2, corresponding to a T-score of -1.5 with a Z-score of 0.4. NOTE: T-score: Standard deviation compared with peak bone mass of young adult mean. *Following the recommendations of the International Society of Bone densitometry, classification of hip BMD is based on the lower of two T-scores; total hip or femoral neck. IMPRESSION: Diminished bone mineral density of the right hip consistent with osteoporosis. FRAX 10 year fracture risk is 1.2% for a hip fracture and 9.1% for a major osteoporotic fracture. Normal bone mineral density of the lumbar spine and left hip. Reviewed, Interpreted and Dictated by Karlee Bruno MD Transcribed by Gabriela Conklin Authenticated and . [facility]
== END ==
PROVIDERS: PCP Family Medicine; Visit Provider Family Medicine
DX: Z78.0 Asymptomatic menopausal state (principal); Z13.820 Encounter for screening for osteoporosis
CPT/HCPCS: 77080

== ENCOUNTER → 2022-12-27 15:16 | Outpatient (CLI) | payer MEDICARE, SELFPAY ==
[2022-12-27 15:54] LABS: Basophils # 0.2 K/mm3 (0-0.2); Basophils % 1.6 % (0.1-2.0); Eosinophils # 0.4 K/mm3 (0.0-0.4); Eosinophils % 3.9 % (0.1-12.0); Hematocrit 48.7 % (37.0-47.0); Hemoglobin 15.5 g/dL (12.2-16.2); Lymphocytes # 1.8 K/mm3 (0.7-4.5); Lymphocytes % 18.6 % (10-50); Mean Corpuscular HGB Conc 31.9 g/dL (31.8-35.4); Mean Corpuscular Hemoglobin 30.5 pg (27.0-31.2); Mean Corpuscular Volume 95.5 fl (81-99); Mean Platelet Volume 9.8 fl (7.4-10.4); Monocytes # 0.4 K/mm3 (0.1-1.0); Monocytes % 4.1 % (1.7-9.3); Neutrophils # 6.9 K/mm3 (1.8-7.8); Neutrophils % 71.8 % (37.0-80.0); Platelet Count 220 K/mm3 (142-424); Red Cell Distribution Width 15.3 % (11.5-17.5); White Blood Count 9.6 K/mm3 (4.8-10.8)
[2022-12-27 16:35] LABS: Chloride 101 mmol/L (98-107); Sodium 141 mmol/L (136-145)
[2022-12-27 16:38] LABS: Blood Urea Nitrogen 15 mg/dl (7-17); Carbon Dioxide 33 mmol/L (22.0-30.0); Estimated Glomerular Filt Rate 55 ml/min (>60); GFR (African American) 66 ML/MIN (>60)
[2022-12-27 16:39] LABS: Calcium 8.8 mg/dl (8.4-10.2); Glucose 145 mg/dl (74-100)
[2022-12-29 15:25] LABS: Peripheral Smear Review Scanned Result
== END ==
PROVIDERS: PCP Family Medicine; Visit Provider Nurse Practitioner
DX: E78.2 Mixed hyperlipidemia (principal); I11.9 Hypertensive heart disease without heart failure; I25.118 Atherosclerotic heart disease of native coronary artery with other forms of angina pectoris; I48.0 Paroxysmal atrial fibrillation; D75.1 Secondary polycythemia
CPT/HCPCS: 36415; 80048; 85025

== ENCOUNTER 2022-12-31 15:18 | Outpatient (CLI) | payer MEDICARE, SELFPAY ==
[2022-12-31 16:09] LABS: PHA INR Fingerstick 2.6 (0.9-1.1)
== END 2022-12-31 16:24 ==
LOC: ACC 15:19
PROVIDERS: PCP Family Medicine; Visit Provider Family Medicine
DX: Z51.81 Encounter for therapeutic drug level monitoring (principal); Z79.01 Long term (current) use of anticoagulants
CPT/HCPCS: 85610; 99211; G0463

== ENCOUNTER 2023-01-28 15:20 | Outpatient (CLI) | payer MEDICARE, SELFPAY ==
[2023-01-28 15:50] LABS: PHA INR Fingerstick 2.4 (0.9-1.1)
== END 2023-01-28 15:52 ==
LOC: ACC 15:21
PROVIDERS: PCP Family Medicine; Visit Provider Family Medicine
DX: Z51.81 Encounter for therapeutic drug level monitoring (principal); Z79.01 Long term (current) use of anticoagulants
CPT/HCPCS: 85610; 99211; G0463

== ENCOUNTER → 2023-02-05 13:41 | Outpatient (POV) | payer MEDICARE, SELFPAY | PROVIDERS: Visit Provider Dermatology | DX: Z00.00 Encounter for general adult medical examination without abnormal findings (principal) ==

== ENCOUNTER 2023-03-13 15:22 | Outpatient (CLI) | payer MEDICARE, SELFPAY ==
[2023-03-13 15:49] LABS: PHA INR Fingerstick 2.8 (0.9-1.1)
== END 2023-03-13 15:52 ==
LOC: ACC 15:23
PROVIDERS: PCP Family Medicine; Visit Provider Family Medicine
DX: Z51.81 Encounter for therapeutic drug level monitoring (principal); Z79.01 Long term (current) use of anticoagulants
CPT/HCPCS: 85610; 99211; G0463

== ENCOUNTER 2023-04-24 15:20 | Outpatient (CLI) | payer MEDICARE, SELFPAY ==
[2023-04-24 15:49] LABS: PHA INR Fingerstick 3.4 (0.9-1.1)
== END 2023-04-24 15:51 ==
LOC: ACC 15:21
PROVIDERS: PCP Family Medicine; Visit Provider Family Medicine
DX: Z79.01 Long term (current) use of anticoagulants (principal); Z51.81 Encounter for therapeutic drug level monitoring
CPT/HCPCS: 85610; 99211; G0463

== ENCOUNTER 2023-05-22 15:25 | Outpatient (CLI) | payer MEDICARE, SELFPAY ==
[2023-05-22 16:13] LABS: PHA INR Fingerstick 2.5 (0.9-1.1)
== END 2023-05-22 16:14 ==
LOC: ACC 15:25
PROVIDERS: PCP Family Medicine; Visit Provider Family Medicine
DX: Z79.01 Long term (current) use of anticoagulants (principal); Z51.81 Encounter for therapeutic drug level monitoring
CPT/HCPCS: 85610; 99211; G0463

== ENCOUNTER 2023-07-29 15:23 | Outpatient (CLI) | payer MEDICARE, SELFPAY ==
[2023-07-29 16:18] LABS: PHA INR Fingerstick 4.3 (0.9-1.1)
[2023-07-29 16:25] LABS: INR 4.78 (0.9-1.1)
[2023-07-29 17:13] LABS: Prothrombin Time 46.6 seconds (10.1-12.5)
== END 2023-07-29 16:25 ==
PROVIDERS: PCP Family Medicine; Visit Provider Family Medicine
DX: Z51.81 Encounter for therapeutic drug level monitoring; Z79.01 Long term (current) use of anticoagulants
CPT/HCPCS: 36415; 85610; 99211; G0463

== ENCOUNTER 2023-08-09 15:18 | Outpatient (CLI) | payer MEDICARE, SELFPAY ==
[2023-08-09 16:02] LABS: PHA INR Fingerstick 2.1 (0.9-1.1)
== END 2023-08-09 16:10 ==
LOC: ACC 15:20
PROVIDERS: PCP Family Medicine; Visit Provider Family Medicine
DX: Z79.01 Long term (current) use of anticoagulants (principal); Z51.81 Encounter for therapeutic drug level monitoring
CPT/HCPCS: 85610; 99211; G0463

== ENCOUNTER 2023-09-13 15:22 | Outpatient (CLI) | payer MEDICARE, SELFPAY ==
[2023-09-13 16:00] LABS: PHA INR Fingerstick 2.8 (0.9-1.1)
== END 2023-09-13 16:03 ==
LOC: ACC 15:23
PROVIDERS: PCP Family Medicine; Visit Provider Family Medicine
DX: Z79.01 Long term (current) use of anticoagulants (principal); Z51.81 Encounter for therapeutic drug level monitoring
CPT/HCPCS: 85610; 99211; G0463

== ENCOUNTER 2023-11-25 10:47 | Outpatient (POV) | payer MEDICARE, SELFPAY ==
[2023-11-25 11:20] VITALS: BP 132/70; PULSE 89; RESP 18; BMI 34.1
--- NOTE | 2023-11-25 11:26 | A.OFFVIS_ITS ---
HPI Data of Consult Patient: new to practice Consult date: 11/25/23 Requesting Physician: Kamryn Charles APRN Primary Care Provider: Estevan Rowley MD Consult Narrative Reason for consult: Low back pain, right hip pain History of present illness: Ms. Davidson is a 73 year old female who presents today as a new patient. She is a referral from [facility]. Today she rates her pain a 9 out of 10. Patient states her pain is all in her low back along her right hip. She describes this as a sharp achy sensation that is worse with increased activity. She states this has been going on for longer than a month with no improvement. Patient denies any specific trauma or injury that initially led to her symptoms. She does state that there is nothing she can do that does not cause worsening pain. She states that she cannot sit or lay or stand without having significant pain. She states the pain does interfere with her ability to perform activities of daily living such as cooking and cleaning. Patient states that the pain is constant. She states that she gets some improvement with elevation of her leg. Patient has tried [id number] medications such as Tylenol along with heat and ice and topicals with minimal relief. Patient was prescribed baclofen and Casmalia however states this did not do anything for the pain. Patient does state that it is throughout her buttocks area on the right side. Patient does have a history of heart disease and cannot tolerate any NSAIDs. Her Connor has been reviewed and is appropriate. CC: Kamryn Charles APRN [facility] Disclaimer: The information contained in this section may have been updated after the patient was seen, as this information can be updated by other users. Medical History CAD (coronary artery disease) Daytime somnolence Diastolic dysfunction Dizziness Edema HHD (hypertensive heart disease) HLD (hyperlipidemia) SHSOHANA (obstructive sleep apnea) Preoperative clearance Restless sleeper Right bundle branch block (RBBB) Family History (Updated 11/25/23 @ 11:20 by Diamond Ramsey RN) Other No significant family history Social History Smoking Status: Never smoker second hand exposure: No alcohol intake: never substance use type: denies use current occupational status: retired Travel in the last 8 weeks: None household members: spouse housing: house current occupation: [employer] current occupational exposures/hazards: No caffeine: Yes Review of Systems Review of Systems Review of systems:: pertinent systems reviewed and negative unless documented below Review of systems (narrative): Review of Systems: General: No recent weight changes, no fever, no sleep disturbances Respiratory: No cough, no shortness of air, no recurring pulmonary infections Cardiovascular/peripheral vascular: No chest pain, no palpitations, no edema, no shortness of breath Gastrointestinal: No new onset incontinence, normal bowel movements reported Genitourinary: No new onset incontinence Musculoskeletal: Low back pain, right hip pain, right buttocks pain Psychiatric: [Normal mood/affect] Neurological: [Denies weakness in extremities], [denies balance issues] Meds Home Medications and Allergies Home Medications Medication Instructions Recorded Confirmed Type lorazepam 1 mg tablet 1 mg PO TID nerves 04/09/18 08/26/23 History aspirin 81 mg tablet,delayed 81 mg PO DAILY Heart. 04/22/18 08/26/23 History release (Adult Low Dose Aspirin) atorvastatin 40 mg tablet 40 mg PO DAILY Cholesterol 01/20/19 08/26/23 History venlafaxine 75 mg capsule,extended 75 mg PO DAILY Depression 02/08/20 08/26/23 History release 24 hr metformin 500 mg tablet 1,000 mg PO BID Diabetes 03/23/20 08/26/23 History insulin human U-100 NPH-regulr 100 unit SQ AM Diabetes 06/22/20 08/26/23 History 70-30 mix 100 unit/mL subcutaneous susp (Novolin 70/30 U-100 Insulin) ferrous sulfate 325 mg (65 mg 325 mg PO DAILY ANEMIA 07/28/20 08/26/23 History iron) tablet warfarin 6 mg tablet 7.5 mg PO DIRECTED a fib 10/19/20 08/26/23 History lansoprazole 30 mg capsule,delayed 30 mg PO DAILY 01/18/21 08/26/23 History release spironolactone 100 mg tablet See Rx Instructions .Route 06/08/21 08/26/23 Rx .COMPLEX #180 tabs sitagliptin phosphate 100 mg 100 mg PO DAILY 12/12/21 08/26/23 History tablet (Januvia) digoxin 125 mcg (0.125 mg) tablet See Rx Instructions .Route 04/17/23 08/26/23 Rx .COMPLEX #90 tabs furosemide 80 mg tablet See Rx Instructions .Route 04/17/23 08/26/23 Rx .COMPLEX #180 tabs metoprolol succinate 50 mg 50 mg PO DAILY #90 tabs 09/30/23 Rx tablet,extended release 24 hr (Toprol XL) New Prescriptions to Start Prescriptions: Allergies Allergy/AdvReac Type Severity Reaction Status Date / Time latex [LATEX] Allergy Unknown I-ITCHING Verified 08/26/23 13:35 Penicillins [PENICILLINS] Allergy Unknown BREAKS OUT Verified 08/26/23 13:35 MOUTH Sulfa (Sulfonamide Allergy Unknown I-ITCHING Verified 08/26/23 13:35 Antibiotics) [SULFA (SULFONAMIDE ANTIBIOTICS)] Objective Vital signs: Pulse Resp BP 89 18 132/70 11/25/23 11:20 11/25/23 11:20 11/25/23 11:20 Narrative: Physical Exam: General: Alert and oriented x3, no acute distress, pleasant and cooperative Lungs: Respirations even and unlabored, symmetrical chest expansion Eyes: PERRL Musculoskeletal: Flexion and extension of lumbar [spine] somewhat guarded secondary to pain, [antalgic gait noted] point tenderness along right SI with positive right Ramesh's, Vidhi's, Gaenslen's, compression and distraction exam Neurological: Speech clear, no gross sensory deficit Assessment and Plan *Assessment and plan (1) Low back pain: Status: Acute Qualifiers: Chronicity: acute Back pain laterality: right Sciatica presence: with sciatica Sciatica laterality: sciatica of right side Qualified Code(s): M54.41 - Lumbago with sciatica, right side Category: Medical Code(s): M54.50 - Low back pain, unspecified (2) Sacroiliitis: Status: Acute Category: Medical Code(s): M46.1 - Sacroiliitis, not elsewhere classified (3) Right hip pain: Status: Acute Category: Medical Code(s): M25.551 - Pain in right hip (4) Right buttock pain: Status: Acute Category: Medical Code(s): M79.18 - Myalgia, other site Plan Patient is experiencing worsening pain in her low back along her right hip and into her buttocks. Patient did have limited range of motion of her lumbar spine along with point tenderness at her right SI and a positive right Ramesh's, Vidhi's, Gaenslen's, compression and distraction exam. I have discussed with the patient that she may benefit from right SI injection. Risk and benefits were discussed with patient and she would like to proceed forward with this plan of care. I will also order the patient a compounded cream. Patient will be scheduled for a right SI injection under fluoroscopy. Patient has been instructed to contact the clinic with any concerns before the n ext appointment. Dr. Slaughter has reviewed this note and agrees with this plan of care. This note was dictated using voice recognition software and make contain errors or omissions.
== END 2023-11-25 23:59 ==
LOC: SC.PAIN 10:50
PROVIDERS: PCP Family Medicine; Visit Provider Nurse Practitioner Family
DX: M54.41 Lumbago with sciatica, right side (principal); M46.1 Sacroiliitis, not elsewhere classified; M25.551 Pain in right hip; M79.18 Myalgia, other site
CPT/HCPCS: 99202; G0463

== ENCOUNTER 2023-12-07 16:13 | Emergency (ER) | payer MEDICARE, SELFPAY ==
[2023-12-07] VITALS (10 sets, daily range): BP systolic 108–196; BP diastolic 55–88; PULSE 71–89; RESP 16; TEMP 36.7–37.1; O2SAT 92–99; BMI 32.3
--- NOTE | 2023-12-07 16:52 | ED_ITS ---
Discharge Plan Disposition Patient Disposition: Home, Self-Care Condition: Fair Prescriptions Prescriptions: New methocarbamol 500 mg tablet 250 mg PO Q12H Qty: 15 0RF lidocaine 5 % adhesive patch,medicated 1 patch topical DAILY Qty: 15 0RF Rx Instructions: leave on most painful area for up to 12 hrs. remove after 12 hours. Leave off for 12 hours before applying a new patch. No Action lorazepam 1 mg tablet 1 mg PO TID aspirin [Adult Low Dose Aspirin] 81 mg tablet,delayed release (DR/EC) 81 mg PO DAILY lansoprazole 30 mg capsule,delayed release(DR/EC) 30 mg PO DAILY Novolin 70/30 U-100 Insulin 100 unit/mL (70-30) suspension 100 unit SQ AM Patient Comments: 30 units PM atorvastatin 40 mg tablet 40 mg PO DAILY warfarin 6 mg tablet 7.5 mg PO DIRECTED venlafaxine 75 mg capsule,extended release 24hr 75 mg PO DAILY metformin 500 mg tablet 1,000 mg PO BID Januvia 100 mg tablet 100 mg PO DAILY spironolactone 100 mg tablet See Rx Instructions .ROUTE .COMPLEX Qty: 180 1RF Dose Instruction: TAKE ONE TABLET BY MOUTH TWICE A DAY Rx Instructions: TAKE ONE TABLET BY MOUTH TWICE A DAY furosemide 80 mg tablet See Rx Instructions .ROUTE .COMPLEX Qty: 180 0RF Dose Instruction: TAKE 1 TABLET TWICE DAILY Rx Instructions: TAKE 1 TABLET TWICE DAILY digoxin 125 mcg (0.125 mg) tablet See Rx Instructions .ROUTE .COMPLEX Qty: 90 1RF Dose Instruction: TAKE 1 TABLET EVERY DAY FOR HEART DISEASE Rx Instructions: TAKE 1 TABLET EVERY DAY FOR HEART DISEASE metoprolol succinate [Toprol XL] 50 mg tablet extended release 24 hr 50 mg PO DAILY Qty: 90 2RF ferrous sulfate 325 MG tablet 325 mg PO DAILY Referrals Follow up/Referrals: Estevan Rowley MD [Primary Care Provider] - See instructions Activity Restrictions/Add. Instructions Additional Instructions/Restrictions: You were evaluated in the ER. Take the newly prescribed medications as directed. Continue taking your home medications as directed. Call the pain clinic and ask for your appointment to be moved up. Make an appointment with your primary care physician for reevaluation in 2 to 3 days. Return to the ER with new, worsening, or otherwise concerning symptoms. Clinical Impressions Clinical Impression: Sacroiliac joint pain, Arthralgia of right hip Discharge ED Provider: Amanuel García Adult HPI General Chief complaint: PAIN Stated complaint: Right hip and leg pain Time Seen by Provider: 12/07/23 16:33 Mode of Arrival: Wheelchair Source of Information: Patient and Spouse Limitations: No Limitations Description of Symptoms (Recalled from ER Triage Doc. by RN): pt presents to ED with c/o right hip pain radiating down leg. pt reports pain ongoing for the past 3-4 months. pt has seen pain management, and does have follow up on december 16. pt reports pain has been unbearable for the past 2-3 days. History of Present Illness HPI narrative: 73-year-old female presents to the ER with concerns of pain in the right lower extremity starting at the right hip radiating all the way down to the foot. Patient states has been going on for multiple months. She states that she has seen pain management and is scheduled to have follow-up for a pain injection but cannot bear the pain anymore. She states she was prescribed hydrocodone at 1 point but they were not able to fill it because of her other prescription for lorazepam. Patient states the pain is unbearable despite having tried heat, ice, topicals. She has also tried Tylenol. Related Data Home Medications Medication Instructions Recorded Confirmed lorazepam 1 mg tablet 1 mg PO TID nerves 04/09/18 08/26/23 aspirin 81 mg tablet,delayed 81 mg PO DAILY Heart. 04/22/18 08/26/23 release (Adult Low Dose Aspirin) atorvastatin 40 mg tablet 40 mg PO DAILY Cholesterol 01/20/19 08/26/23 venlafaxine 75 mg capsule,extended 75 mg PO DAILY Depression 02/08/20 08/26/23 release 24 hr metformin 500 mg tablet 1,000 mg PO BID Diabetes 03/23/20 08/26/23 insulin human U-100 NPH-regulr 100 unit SQ AM Diabetes 06/22/20 08/26/23 70-30 mix 100 unit/mL subcutaneous susp (Novolin 70/30 U-100 Insulin) ferrous sulfate 325 mg (65 mg 325 mg PO DAILY ANEMIA 07/28/20 08/26/23 iron) tablet warfarin 6 mg tablet 7.5 mg PO DIRECTED a fib 10/19/20 08/26/23 lansoprazole 30 mg capsule,delayed 30 mg PO DAILY 01/18/21 08/26/23 release sitagliptin phosphate 100 mg 100 mg PO DAILY 12/12/21 08/26/23 tablet (Januvia) Previous Rx's Medication Instructions Recorded spironolactone 100 mg tablet See Rx Instructions .Route 06/08/21 .COMPLEX #180 tabs digoxin 125 mcg (0.125 mg) tablet See Rx Instructions .Route 04/17/23 .COMPLEX #90 tabs furosemide 80 mg tablet See Rx Instructions .Route 04/17/23 .COMPLEX #180 tabs metoprolol succinate 50 mg 50 mg PO DAILY #90 tabs 09/30/23 tablet,extended release 24 hr (Toprol XL) lidocaine 5 % topical patch 1 patch topical DAILY #15 ea 12/07/23 methocarbamol 500 mg tablet 250 mg (1/2 x 500 mg) PO Q12H #15 12/07/23 tabs Allergies Allergy/AdvReac Type Severity Reaction Status Date / Time latex [LATEX] Allergy Unknown I-ITCHING Verified 08/26/23 13:35 Penicillins [PENICILLINS] Allergy Unknown BREAKS OUT Verified 08/26/23 13:35 MOUTH Sulfa (Sulfonamide Allergy Unknown I-ITCHING Verified 08/26/23 13:35 Antibiotics) [SULFA (SULFONAMIDE ANTIBIOTICS)] [facility] Disclaimer: The information contained in this section may have been updated after the patient was seen, as this information can be updated by other users. Medical History CAD (coronary artery disease) Daytime somnolence Diastolic dysfunction Dizziness Edema HHD (hypertensive heart disease) HLD (hyperlipidemia) SHOSHANA (obstructive sleep apnea) Preoperative clearance Restless sleeper Right bundle branch block (RBBB) Family History (Updated 11/25/23 @ 11:20 by Diamond Ramsey RN) Other No significant family history Social History Smoking Status: Former smoker second hand exposure: No alcohol intake: never substance use type: denies use current occupational status: retired Travel in the last 8 weeks: None household members: spouse housing: house current occupation: [employer] current occupational exposures/hazards: No caffeine: Yes ROS Obtained: Yes All systems reviewed & no additional complaints except as documented Musculoskeletal Musculoskeletal: Reports arthralgias and Reports back pain Physical Exam General General appearance: alert and in no apparent distress Head Head exam: atraumatic and normocephalic Eye Eye exam: Present PERRL and EOMI ENT ENT exam: Present mucous membranes moist Neck Neck exam: Present normal inspection and full ROM Chest Chest inspection: Present symmetric chest wall rise Respiratory Respiratory exam: Absent respiratory distress or stridor Cardiovascular Cardiovascular exam: Present regular rate and normal rhythm Abdominal Exam Abdominal exam: Present soft; Absent distention or tenderness Extremities Exam Extremities exam: Present full ROM and other (Area of swelling versus muscle spasm of the right lateral femur without findings of bruising, deformity, or other signs of trauma) Back Exam Back exam: Present sciatic notch tenderness (R) and straight leg raise (R); Absent sciatic notch tenderness (L) or straight leg raise (L) Comment: Tenderness to palpation near right SI joint, tenderness radiates through the right glutes and down the posterior lateral aspect of the right femur and leg Neurological Exam Neurological exam: Present alert and oriented X3; Absent motor sensory deficit Psychiatric Psychiatric exam: Present normal affect and normal mood Skin Skin exam: Present warm and dry Medical Decision Making Medical Records Medical records reviewed: Yes I reviewed the patient's medical records. Connor Inquiry Pt receiving controlled substance: No Vital Signs: 12/07/23 16:14 12/07/23 16:45 12/07/23 17:00 Temperature 98.8 F Temperature Source Oral Pulse Rate 87 89 Pulse Rate [Left Radial] 71 Respiratory Rate 16 Blood Pressure 133/76 125/78 Blood Pressure [Right Arm] 111/71 Blood Pressure Mean 95 86 Blood Pressure Mean [Right Arm] 84 02 Sat by Pulse Oximetry 95 96 96 Oxygen Delivery Method Room Air Room Air Room Air 12/07/23 17:17 12/07/23 17:39 12/07/23 18:01 Temperature Temperature Source Pulse Rate 88 85 Pulse Rate [Left Radial] Respiratory Rate Blood Pressure 177/70 H 196/88 H 108/66 L Blood Pressure [Right Arm] Blood Pressure Mean 98 80 Blood Pressure Mean [Right Arm] 02 Sat by Pulse Oximetry 94 L 92 L Oxygen Delivery Method Room Air 12/07/23 18:18 12/07/23 18:30 12/07/23 18:45 Temperature Temperature Source Pulse Rate 88 89 Pulse Rate [Left Radial] Respiratory Rate Blood Pressure 108/65 L 120/55 L 112/64 Blood Pressure [Right Arm] Blood Pressure Mean 73 72 76 Blood Pressure Mean [Right Arm] 02 Sat by Pulse Oximetry 98 99 Oxygen Delivery Method Room Air Room Air 12/07/23 19:09 Temperature 98.0 F Temperature Source Pulse Rate 89 Pulse Rate [Left Radial] Respiratory Rate 16 Blood Pressure 112/64 Blood Pressure [Right Arm] Blood Pressure Mean Blood Pressure Mean [Right Arm] 02 Sat by Pulse Oximetry Oxygen Delivery Method Orders (Tests/Meds): ED MEDICATIONS Discontinued Medications Generic Name Dose Route Start Last Admin Trade Name Karla PRN Reason Stop Dose Admin Lidocaine 1 each 12/07/23 16:54 12/07/23 17:06 Lidocaine 5% Transdermal Patch TP 12/07/23 16:55 1 each ONCE ONE Administration Methocarbamol 250 mg 12/07/23 16:54 12/07/23 17:05 Methocarbamol 500mg Tablet PO 12/07/23 16:55 250 mg ONCE ONE Administration ORDERS Category Date Time Status Femur XR right 2 views [XR femur RT 2V] Stat Exams 12/07/23 16:53 Completed Hip XR right minimum 2 views [XR hip RT 2-3V w/pelvis] Exams 12/07/23 16:53 Completed Stat Medical Decision Narrative: In summary, this 73year old female presents to the emergency department today with back pain/hip pain/right leg pain. On initial evaluation patient is hemodynamically stable, afebrile, is resting in bed with her leg up on a pillow. Range of motion through the hip is full with passive movements though patient complains of pain with every movement. There is no deformity. Patient does have focal tenderness of the right SI as well as through the right glutes. I do appreciate an area of swelling versus muscle spasm in the right femur though there is no deformity, bruising, or other sign of trauma. I reviewed prior records including the most recent pain clinic note which demonstrates patient is scheduled for SI injection under fluoroscopy. Differential diagnosis includes but is not limited to fracture, dislocation, sacroiliitis, arthritis, radiculopathy. Patient has no red flag signs for cauda equina. Positive straight leg raise. Based on these concerns, I ordered x-ray of the right hip and right lower extremity as well as pain control medications. Patient received lidocaine patch and low-dose Robaxin. X-ray right hip, pelvis, femur demonstrates degenerative changes on my personal interpretation, I do not appreciate any obvious fracture, dislocation, or other acute osseous abnormality. See radiology read for final interpretation. Radiology read does discuss facet arthropathy in the lower lumbar spine which is likely contributing to patient's ongoing symptoms. On reassessment patient had initially had improvement of symptoms after receiving Robaxin and lidocaine patch, however it again worsened after ambulating to the restroom. Patient is frustrated but reassured by workup. She is appropriate for discharge at this time. I prescribed lidocaine patch and low-dose Robaxin for outpatient management until she is able to get into her pain management clinic. Patient was given instructions on symptomatic management, follow up instructions, and return precautions for the emergency department. Patient indicated understanding and was discharged in stable condi tion. Critical Care Critical Care Time Critical Care Time: No
--- NOTE | 2023-12-07 16:53 | XR_ITS ---
PROCEDURE INFORMATION: Exam: XR Right Femur Exam date and time: 12/07/2023 5:02 PM Age: 73 years old Clinical indication: Pain; Thigh; Right; Additional info: Pain, swollen area R thigh TECHNIQUE: Imaging protocol: Radiologic exam of the right femur. Views: 2 views. COMPARISON: CR XR HIP RT 2-3V W/PELVIS 12/07/2023 5:02 PM FINDINGS: Bones/joints: No fracture or subluxation. Knee prosthesis components appear unremarkable. Soft tissues: No radiopaque foreign body. No definite plain film evidence of soft tissue gas. CT would be more sensitive. IMPRESSION: 1. No fracture or subluxation. Knee prosthesis components appear unremarkable. 2. No radiopaque foreign body. No definite plain film evidence of soft tissue gas. CT would be more sensitive. Mild osteoarthritis of the hips.
--- NOTE | 2023-12-07 16:53 | XR_ITS ---
PROCEDURE INFORMATION: Exam: XR Right Hip Exam date and time: 12/07/2023 5:02 PM Age: 73 years old Clinical indication: Hip pain; Right hip TECHNIQUE: Imaging protocol: Radiologic exam of the right hip. Views: 2 or 3 views hip with pelvis when performed. COMPARISON: [id number] CT abdomen pelvis w con 12/06/2017 10:16 AM FINDINGS: Bones/joints: Mild degenerative changes with no fracture or focal bony lesion seen. Nondisplaced pelvic fractures can be initially occult on xray. Follow up as clinically indicated. Severe facet arthropathy lower lumbar spine. Soft tissues: Unremarkable. IMPRESSION: Mild degenerative changes with no fracture or focal bony lesion seen. Nondisplaced pelvic fractures can be initially occult on xray. Follow up as clinically indicated.
[2023-12-07] MEDS: METHOCARBAMOL 500MG TABLET 250 MG PO (17:05)
[2023-12-07] MEDS: LIDOCAINE 5% TRANSDERMAL PATCH 1 EACH TP (17:06)
== END 2023-12-07 19:10 | disposition home or self-care (01) ==
PROVIDERS: Emergency Provider Emergency Medicine; PCP Family Medicine
DX: M25.551 Pain in right hip (principal); M79.604 Pain in right leg; I25.10 Atherosclerotic heart disease of native coronary artery without angina pectoris; I11.9 Hypertensive heart disease without heart failure; E78.5 Hyperlipidemia, unspecified; G47.30 Sleep apnea, unspecified; Z87.891 Personal history of nicotine dependence
CPT/HCPCS: 73502; 73552; 99284

== ENCOUNTER 2023-12-17 10:12 | Day surgery (SDC) | payer MEDICARE, SELFPAY ==
[2023-12-17 10:39] VITALS: BP 97/64; PULSE 82; RESP 18; TEMP 36.1; O2SAT 97; BMI 32.3
--- NOTE | 2023-12-17 10:51 | P.PCN_ITS ---
Procedure Date: 12/17/23 Time: 10:45 Anesthesiologist:: Ikre Aponte CRNA Complications:: None Pre-procedure Diagnosis:: Right sacroiliitis Post-procedure Diagnosis:: Same. Indications for Procedure:: Patient is a wheelchair-bound female that comes our clinic today for right sacroiliac joint injection. Patient unable to access the fluoroscopy table. We were able to get her to stand and the injection was given in that manner. Patient tolerated procedure without difficulty. There are no complications. Procedure Details:: Procedure: Right sacroliliac joint injection under fluoroscopy Informed consent was obtained and the risk and benefits of the procedure were explained to the patient.~ The patient was taken to the procedure room and noninvasive monitors were placed including noninvasive blood pressure cuff and pulse oximeter.~ The patient was placed prone on the procedure table.~ The~ right hip was cleansed using Betadine as a cleansing solution.~ .~ The skin and subcutaneous tissues were anesthetized using Lidocaine 1.5% and a 25-gauge needle.~ After this, a 22-gauge spinal needle was inserted under fluoroscopic guidance into the inferior aspect of the right SI joint.~ Omnipaque dye was injected and a good spread was seen throughout the joint.~ After this, approximately 5 mL of bupivacaine 0.25% and Depo-Medrol 40 mg was incrementally injected into the sacroiliac joint.~ The patient tolerated the procedure well wi th no complications.~ The patient was observed in the Pain Clinic, then discharged home neurologically intact.~ Plan and Disposition:: Patient was discharged without incident.
[2023-12-17] MEDS: methylPREDNISolone ACETATE 80MG/ML VIAL 80 MG (10:53)
[2023-12-17] MEDS: LIDOCAINE 1% 5ML PF VIAL 5 ML (10:53)
[2023-12-17] MEDS: BUPIVACAINE 0.25% 10ML INJ 25 MG IJ (10:54)
[2023-12-17 11:00] VITALS: BP 131/60; PULSE 80; RESP 18; O2SAT 97
== END 2023-12-17 11:00 | disposition home or self-care (01) ==
PROVIDERS: PCP Family Medicine; Visit Provider Nurse Anesthetist, Certified Registered
DX: M46.1 Sacroiliitis, not elsewhere classified (principal)
CPT/HCPCS: 27096; 77002; G0260; J1040

== ENCOUNTER 2023-12-24 18:31 | Emergency (ER) | payer MEDICARE, SELFPAY ==
[2023-12-24 18:31] VITALS: BP 99/66; PULSE 103; RESP 29; TEMP 36.8; O2SAT 97; BMI 32.3
--- NOTE | 2023-12-24 18:48 | ED_ITS ---
<Statement entered by Kamryn Conner DO - 12/24/23 22:33> I was consulted by the ADAM, and we discussed the complexity of the problems being addressed. I approved the treatment and management plan for this patient's care in the emergency department, thus performing a substantive portion of the medical decision making. Patient arrives critically ill with multiple areas of hematoma, including the right neck, right upper extremity, and right posterior thigh/buttocks. She recently had an injection in that right buttocks. She is also on Coumadin. Concern for supratherapeutic INR at this time. She also has a tight compartment in the right lower extremity at this area of swelling/hematoma, so high concern for compartment syndrome. Ultimately, patient required transfer to higher level of care at [facility] for surgical evaluation and management in the setting of compartment syndrome and supratherapeutic INR. She was transported by EMS in stable condition after anticoagulation reversal with vitamin K and Kcentra. Kamryn Conner DO Discharge Plan Disposition Patient Disposition: Xfer Other Condition: Critical Prescriptions Prescriptions: No Action lorazepam 1 mg tablet 1 mg PO TID aspirin [Adult Low Dose Aspirin] 81 mg tablet,delayed release (DR/EC) 81 mg PO DAILY lansoprazole 30 mg capsule,delayed release(DR/EC) 30 mg PO DAILY Novolin 70/30 U-100 Insulin 100 unit/mL (70-30) suspension 100 unit SQ AM Patient Comments: 30 units PM atorvastatin 40 mg tablet 40 mg PO DAILY warfarin 6 mg tablet 7.5 mg PO DIRECTED venlafaxine 75 mg capsule,extended release 24hr 75 mg PO DAILY metformin 500 mg tablet 1,000 mg PO BID Januvia 100 mg tablet 100 mg PO DAILY spironolactone 100 mg tablet See Rx Instructions .ROUTE .COMPLEX Qty: 180 1RF Dose Instruction: TAKE ONE TABLET BY MOUTH TWICE A DAY Rx Instructions: TAKE ONE TABLET BY MOUTH TWICE A DAY furosemide 80 mg tablet See Rx Instructions .ROUTE .COMPLEX Qty: 180 0RF Dose Instruction: TAKE 1 TABLET TWICE DAILY Rx Instructions: TAKE 1 TABLET TWICE DAILY digoxin 125 mcg (0.125 mg) tablet See Rx Instructions .ROUTE .COMPLEX Qty: 90 1RF Dose Instruction: TAKE 1 TABLET EVERY DAY FOR HEART DISEASE Rx Instructions: TAKE 1 TABLET EVERY DAY FOR HEART DISEASE metoprolol succinate [Toprol XL] 50 mg tablet extended release 24 hr 50 mg PO DAILY Qty: 90 2RF methocarbamol 500 mg tablet 250 mg PO Q12H Qty: 15 0RF lidocaine 5 % adhesive patch,medicated 1 patch topical DAILY Qty: 15 0RF Rx Instructions: leave on most painful area for up to 12 hrs. remove after 12 hours. Leave off for 12 hours before applying a new patch. ferrous sulfate 325 MG tablet 325 mg PO DAILY Referrals Follow up/Referrals: Estevan Rowley MD [Primary Care Provider] - See instructions Clinical Impressions Clinical Impression: Supratherapeutic INR, Compartment syndrome Stand Alone Forms Stand Alone Forms: Transfer Record - ED Discharge ED Provider: Kamryn Conner General Adult HPI General Chief complaint: PAIN Stated complaint: headache Time Seen by Provider: 12/24/23 18:46 History of Present Illness HPI narrative: Patient presents for increasing right hip pain. Patient reports that she fell in June of last year and has had intermittent problems with her right hip since then. Her PCP referred her to pain management and patient received an injection for her right hip pain on Saturday. Patient reports no improvement in fact reports increasing pain and inability to get out of bed or bear weight although she denies trauma. Patient denies chest pain fever chills hemoptysis hematochezia melena nausea vomiting diarrhea. Related Data Home Medications Medication Instructions Recorded Confirmed lorazepam 1 mg tablet 1 mg PO TID nerves 04/09/18 12/17/23 aspirin 81 mg tablet,delayed 81 mg PO DAILY Heart. 04/22/18 12/17/23 release (Adult Low Dose Aspirin) atorvastatin 40 mg tablet 40 mg PO DAILY Cholesterol 01/20/19 12/17/23 venlafaxine 75 mg capsule,extended 75 mg PO DAILY Depression 02/08/20 12/17/23 release 24 hr metformin 500 mg tablet 1,000 mg PO BID Diabetes 03/23/20 12/17/23 insulin human U-100 NPH-regulr 100 unit SQ AM Diabetes 06/22/20 12/17/23 70-30 mix 100 unit/mL subcutaneous susp (Novolin 70/30 U-100 Insulin) ferrous sulfate 325 mg (65 mg 325 mg PO DAILY ANEMIA 07/28/20 12/17/23 iron) tablet warfarin 6 mg tablet 7.5 mg PO DIRECTED a fib 10/19/20 12/17/23 lansoprazole 30 mg capsule,delayed 30 mg PO DAILY 01/18/21 12/17/23 release sitagliptin phosphate 100 mg 100 mg PO DAILY 12/12/21 12/17/23 tablet (Januvia) Previous Rx's Medication Instructions Recorded spironolactone 100 mg tablet See Rx Instructions .Route 06/08/21 .COMPLEX #180 tabs digoxin 125 mcg (0.125 mg) tablet See Rx Instructions .Route 04/17/23 .COMPLEX #90 tabs furosemide 80 mg tablet See Rx Instructions .Route 04/17/23 .COMPLEX #180 tabs metoprolol succinate 50 mg 50 mg PO DAILY #90 tabs 09/30/23 tablet,extended release 24 hr (Toprol XL) lidocaine 5 % topical patch 1 patch topical DAILY #15 ea 12/07/23 methocarbamol 500 mg tablet 250 mg (1/2 x 500 mg) PO Q12H #15 12/07/23 tabs Allergies Allergy/AdvReac Type Severity Reaction Status Date / Time latex [LATEX] Allergy Unknown I-ITCHING Verified 12/17/23 10:39 Penicillins [PENICILLINS] Allergy Unknown BREAKS OUT Verified 12/17/23 10:39 MOUTH Sulfa (Sulfonamide Allergy Unknown I-ITCHING Verified 12/17/23 10:39 Antibiotics) [SULFA (SULFONAMIDE ANTIBIOTICS)] [facility] Disclaimer: The information contained in this section may have been updated after the patient was seen, as this information can be updated by other users. Medical History CAD (coronary artery disease) Daytime somnolence Diastolic dysfunction Dizziness Edema HHD (hypertensive heart disease) HLD (hyperlipidemia) SHOSHANA (obstructive sleep apnea) Preoperative clearance Restless sleeper Right bundle branch block (RBBB) Family History Other No significant family history Social History Smoking Status: Former smoker second hand exposure: No alcohol intake: never substance use type: denies use current occupational status: retired Travel in the last 8 weeks: None household members: spouse housing: house current occupation: [employer] current occupational exposures/hazards: No caffeine: Yes ROS Obtained: Yes Systems reviewed as appropriate & no additional complaints except as documented Physical Exam General General appearance: alert and in no apparent distress Head Head exam: atraumatic and normal inspection Eye Eye exam: Present normal appearance, PERRL and EOMI ENT ENT exam: Present normal exam, normal oropharynx and mucous membranes moist Neck Neck exam: Present normal inspection and full ROM Respiratory Respiratory exam: Present normal lung sounds bilaterally Cardiovascular Cardiovascular exam: Present normal rhythm, tachycardia, normal heart sounds, +S1 and +S2 Abdominal Exam Abdominal exam: Present soft (Obese) and normal bowel sounds; Absent tenderness, guarding or rebound Extremities Exam Extremities exam: Present tenderness; Absent normal inspection or full ROM Back Exam Back exam: Present normal inspection and tenderness; Absent full ROM Neurological Exam Neurological exam: Present alert and oriented X3 Psychiatric Psychiatric exam: Present normal affect and normal mood Skin Skin exam: Present warm, dry and intact Lymphatic Lymphatic Findings: no adenopathy Other Other exam information: Patient has extensive ecchymosis at the right neck, right upper extremity, bilateral lower extremities, right greater than left, and with extreme tautness in the proximal medial right thigh. She has distal pulses on the PT and DP bilaterally is neurovascularly intact distally bilaterally. Medical Decision Making Medical Records Medical records reviewed: Yes I reviewed the patient's medical records. Connor Inquiry Pt receiving controlled substance: No Vital Signs: 12/24/23 18:31 12/24/23 21:24 Temperature 98.3 F 98 F Temperature Source Oral Oral Pulse Rate 94 H Pulse Rate [Right Radial] 103 H Respiratory Rate 29 H 24 Blood Pressure 112/72 Blood Pressure [Right Arm] 99/66 L Blood Pressure Mean [Right Arm] 77 Blood Pressure Source Automatic Cuff Blood Pressure Source [Right Arm] Automatic Cuff Blood Pressure Position Supine 02 Sat by Pulse Oximetry 97 Oxygen Delivery Method Room Air Room Air Lab Data Lab results reviewed: Yes I reviewed the patient's lab results. Lab Results 12/24/23 18:56: WBC 19.0 H, RBC 3.20 L, Hgb 9.9 L, Hct 33.7 L, MCV 105.0 H, MCH 31.0, MCHC 29.5 L, RDW 19.2 H, Plt Count 611 H, MPV 9.3, Neut % (Auto) 87.2 H, L ymph % (Auto) 7.3 L, Taliaferro % (Auto) 3.3, Eos % (Auto) 1.5, Baso % (Auto) 0.6, N eut # (Auto) 16.6 H, Lymph # (Auto) 1.4, Taliaferro # (Auto) 0.6, Eos # (Auto) 0.3, Baso # (Auto) 0.1, Total Counted 100, Neutrophils % (Manual) 88 H, Lymphocytes % (Manual) 10, Monocytes % (Manual) 2, Platelet Estimate Slight increase, Polychromasia 1+, Hypochromasia 1+, Anisocytosis 3+, Macrocytosis 1+, PT 90.0 H, INR 8.00 H, APTT 118.8 H* D, Sodium 134 L, Potassium 4.1, Chloride 102, Carbon Dioxide 25, Anion Gap 11.1, BUN 21 H, Creatinine 0.80, Estimated Creat Clear 73, Estimated GFR 71, Est GFR ( Amer) 85, Glucose 278 H, Calcium 8.9, Total Bilirubin 1.6 H, AST 56 H, ALT 44, Alkaline Phosphatase 116, Total Creatine Kinase 393 H, Total Protein 6.5, Albumin 3.5, Globulin 3.0, Albumin/Globulin Ratio 1.2 12/24/23 19:02: Blood Type B Positive, Antibody Screen Negative 12/24/23 19:47: Lactate 4.1 H 12/24/23 18:56 12/24/23 18:56 Orders (Tests/Meds): ED MEDICATIONS Discontinued Medications Generic Name Dose Route Start Last Admin Trade Name Freq PRN Reason Stop Dose Admin Acetaminophen 1,000 mg 12/24/23 19:15 12/24/23 19:36 Acetaminophen 1,000mg/100ml Vial IV 12/24/23 19:16 1,000 mg ONCE ONE Administration Lactated Ringer's 1,000 mls @ 999 mls/hr 12/24/23 19:15 12/24/23 19:36 Lactated Ringer's 1000 Ml Bag IV 12/24/23 20:15 999 mls/hr .Q1H1M ONE Administration Phytonadione 10 mg/ Sodium 51 mls @ 100 mls/hr 12/24/23 20:12 12/24/23 20:42 Chloride IV 12/24/23 20:42 100 mls/hr ONCE ONE Administration Prothrombin Complex Concent ( 200 mls @ 8.4 mls/min 12/24/23 21:00 12/24/23 21:15 Human) 4,500 unit/ IV 12/24/23 21:23 8.4 mls/min Miscellaneous ONCE ONE Administration Lorazepam 1 mg 12/24/23 21:26 12/24/23 21:28 Lorazepam 2mg/Ml Vial IV 12/24/23 21:27 1 mg ONCE ONE Administration Sodium Chloride 10 ml 12/24/23 21:26 Sodium Chloride 0.9% 10ml Vial IV 01/23/24 21:25 NEEDED PRN to Dilute Lorazepam inj ORDERS Category Date Time Status Type and Screen Stat BBK 12/24/23 19:02 Completed Femur XR right 2 views [XR femur RT 2V] Stat Exams 12/24/23 19:10 Completed Hip XR right minimum 2 views [XR hip RT 2-3V w/pelvis] Exams 12/24/23 19:10 Completed Stat Activated Partial Thrombo Time Stat Lab 12/24/23 18:56 Completed CK [Creatine Kinase] Stat Lab 12/24/23 18:56 Completed Complete Blood Count Auto Diff Stat Lab 12/24/23 18:56 Completed Comprehensive Metabolic Panel Stat Lab 12/24/23 18:56 Completed Lactic Acid Stat Lab 12/24/23 19:47 Completed PT/INR [Prothrombin Time INR] Stat Lab 12/24/23 18:56 Completed Medical Decision Narrative: In summary patient is a 73-year-old female who presents to the emergency department for evaluation of right hip pain . Patient is hypotensive tachycardic upon arrival, and afebrile on arrival. Physical exam is remarkable for multiple areas of ecchymosis. Differential diagnosis includes supratherapeutic INR, occult fracture, sciatica, hemarthrosis etc. Initial workup will be conducted with mental logic labs plain film x-rays. Initial interventions include crystalloid bolus and acetaminophen. Initial workup reviewed by me shows a supratherapeutic INR and no acute fracture. Patient has been given a dose of vitamin K type and screen and we are waiting Kcentra administration. Upon repeat evaluation patient has questionable compartment syndrome in the right upper medial thigh. Given this I discussed patient management with the [facility] and she has been accepted to the [facility] Critical Care Critical Care Time Critical Care Time: Yes Attestation: On 12/24/23, the high probability of a clinically significant, sudden or life threatening deterioration of the following system(s) required my full and direct attention, intervention and personal management. The time I documented below is in addition to time spent performing reported procedures but includes the following listed in this critical care notation. Total Time Total Critical Care Time: 30
[2023-12-24 18:56] VITALS: BMI 32.3
--- NOTE | 2023-12-24 18:57 | PC.NURSE ---
contacted lab that [facility] verbal order for type & screen
--- NOTE | 2023-12-24 19:10 | XR_ITS ---
PROCEDURE INFORMATION: Exam: XR Right Femur Exam date and time: 12/24/2023 7:15 PM Age: 73 years old Clinical indication: Pain; Thigh; Right; Additional info: Right hip pain TECHNIQUE: Imaging protocol: Radiologic exam of the right femur. Views: 2 views. COMPARISON: CR XR FEMUR RT 2V 12/07/2023 5:02 PM FINDINGS: Bones/joints: Postoperative changes consistent with total right knee arthroplasty incompletely visualized. Soft tissues: Unremarkable. IMPRESSION: 1. No evidence of acute osseous injury. 2. Postoperative changes consistent with total right knee arthroplasty incompletely visualized.
--- NOTE | 2023-12-24 19:10 | XR_ITS ---
PROCEDURE INFORMATION: Exam: XR Right Hip Exam date and time: 12/24/2023 7:14 PM Age: 73 years old Clinical indication: Hip pain; Right hip; Additional info: Right hip pain TECHNIQUE: Imaging protocol: Radiologic exam of the right hip. Views: 2 or 3 views hip with pelvis when performed. COMPARISON: CR XR HIP RT 2-3V W/PELVIS 12/07/2023 5:02 PM FINDINGS: Bones/joints: Generalized osteopenia. Mild narrowing involving both hip joints. Soft tissues: Unremarkable. IMPRESSION: 1. No evidence of acute osseous injury. 2. Findings compatible with mild changes of degenerative osteoarthritis. 3. Consider follow-up with magnetic resonance imaging to exclude trochanteric bursitis as well as possible labral tear.
--- NOTE | 2023-12-24 19:17 | PC.NURSE ---
received report on pt at this time.
[2023-12-24 19:19] LABS: Basophils # 0.1 K/mm3 (0-0.2); Basophils % 0.6 % (0.1-2.0); Eosinophils # 0.3 K/mm3 (0.0-0.4); Eosinophils % 1.5 % (0.1-12.0); Hematocrit 33.7 % (37.0-47.0); Hemoglobin 9.9 g/dL (12.2-16.2); Lymphocytes # 1.4 K/mm3 (0.7-4.5); Lymphocytes % 7.3 % (10-50); Mean Corpuscular HGB Conc 29.5 g/dL (31.8-35.4); Mean Platelet Volume 9.3 fl (7.4-10.4); Monocytes # 0.6 K/mm3 (0.1-1.0); Monocytes % 3.3 % (1.7-9.3); Neutrophils # 16.6 K/mm3 (1.8-7.8); Neutrophils % 87.2 % (37.0-80.0); Platelet Count 611 K/mm3 (142-424); Red Cell Distribution Width 19.2 % (11.5-17.5)
[2023-12-24 19:20] LABS: MANUAL DIFFERENTIAL MANUAL DIFFERENTIAL (MANUAL DIFF)
[2023-12-24 19:22] LABS: Chloride 102 mmol/L (98-107); Potassium 4.1 mmoL/L (3.5-5.1); Sodium 134 mmol/L (136-145)
[2023-12-24 19:24] LABS: Blood Urea Nitrogen 21 mg/dl (7-17); Creatinine Clearance Estimated 73 mL/min (50-200); Estimated Glomerular Filt Rate 71 ml/min (>60); GFR (African American) 85 ML/MIN (>60)
[2023-12-24 19:25] LABS: Alanine Aminotransferase 44 U/L (12-78); Albumin Level 3.5 g/dl (3.5-5.0); Albumin/Globulin Ratio 1.2 (1.1-1.8); Alkaline Phosphatase 116 U/L (38-126); Anion Gap 11.1 mEq/L (5-15); Aspartate Amino Transferase 56 U/L (14-36); Bilirubin,Total 1.6 mg/dl (0.2-1.3); Calcium 8.9 mg/dl (8.4-10.2); Carbon Dioxide 25 mmol/L (22.0-30.0); Creatine Kinase 393 U/L (30-135); Glucose 278 mg/dl (74-100); Total Protein,Serum 6.5 g/dl (6.3-8.2)
--- NOTE | 2023-12-24 19:28 | PC.NURSE ---
MD Conner spoke with radiology and requested for images to be power shared to [facility] at this time
[2023-12-24] MEDS: LACTATED RINGERS 1000ML 1,000 ML 999 ML IV (19:36)
[2023-12-24] MEDS: ACETAMINOPHEN 1,000MG/100ML VIAL 1000 MG IV (19:36)
[2023-12-24 19:53] LABS: Anisocytosis 3+; Lymphocytes % 10 % (10-50); Monocytes % 2 % (2-9); Neutrophils % 88 % (42-76); Platelet Estimate Slight Increase; Total Cells Counted 100
[2023-12-24 19:54] LABS: Hypochromasia 1+; Macrocytosis 1+; Polychromasia 1+
--- NOTE | 2023-12-24 19:55 | PC.NURSE ---
[facility] contacted re transfer to [facility]
[2023-12-24 20:12] LABS: Lactic Acid 4.1 mmol/L (0.7-2.1)
--- NOTE | 2023-12-24 20:12 | PC.NURSE ---
Jessica Lau took critical and gave to
--- NOTE | 2023-12-24 20:13 | PC.NURSE ---
called pharmacy at this time per MD Conner to consult on pts pt / inr. to see if they suggest k centra or ffp
--- NOTE | 2023-12-24 20:15 | PC.NURSE ---
Melonie @[facility] pharmacy recommends keiko.
--- NOTE | 2023-12-24 20:32 | PC.NURSE ---
spoke with nisha at [facility]. going to call back with jennifer.
[2023-12-24 20:34] LABS: Activated Partial Thrombo Time 118.8 seconds (22.8-30.6)
--- NOTE | 2023-12-24 20:34 | PC.NURSE ---
notified MD silva of critical ptt of 118.8
[2023-12-24] MEDS: PHYTONADIONE 10 MG in 0.9 % SODIUM CHLORIDE 50 ML 100 MG IV (20:42)
--- NOTE | 2023-12-24 20:43 | PC.NURSE ---
Addendum entered by Maribel Vicente RN 12/24/23 20:45: aware of pts pt and inr, and dx of compartment syndrome Original Note: Melonie with [facility] called back and now not recommending k centra d/t pt not having gi or brain bleed.
--- NOTE | 2023-12-24 20:46 | PC.NURSE ---
Spoke to Melonie with [facility] pharmacy and updated regarding patient condition and that [facility] was recommending Kcentra to be started. Melonie is going to dose this patient and will place the order now. Attending notified
--- NOTE | 2023-12-24 20:53 | PC.NURSE ---
I rounded on the pt. I took her a small amount of ice chips per OK from Dr. Conner. no needs voiced. call turner in reach.
[2023-12-24] MEDS: [UNRECOGNIZED DRUG - OTHER] IV (21:15)
[2023-12-24] MEDS: HUM PROTHROMBIN CPLX IV (21:15)
--- NOTE | 2023-12-24 21:20 | PC.NURSE ---
report given to Genoveva Dixon emtp. pt transferring to [facility] at this time.
[2023-12-24 21:24] VITALS: BP 112/72; PULSE 94; RESP 24; TEMP 36.6; O2SAT 96
[2023-12-24] MEDS: LORazepam 2MG/ML VIAL 1 MG IV (21:28)
--- NOTE | 2023-12-24 21:31 | PC.NURSE ---
Per medic, they are waiting to transport pt until kcentra is finished since it is almost done.
[2023-12-24 23:51] LABS: Reflex Lactic Add Lactic Reflex
== END 2023-12-24 21:34 | disposition other institution (70) ==
PROVIDERS: Physician Assistant; Emergency Provider Emergency Medicine; PCP Family Medicine
DX: T79.A21A Traumatic compartment syndrome of right lower extremity, initial encounter (principal); R79.1 Abnormal coagulation profile; I11.9 Hypertensive heart disease without heart failure; I25.119 Atherosclerotic heart disease of native coronary artery with unspecified angina pectoris; E78.5 Hyperlipidemia, unspecified; W19.XXXA Unspecified fall, initial encounter
CPT/HCPCS: 73502; 73552; 80053; 82550; 83605; 85007; 85025; 85610; 85730; 86850; 96365; 96375; 99285; J0131; J7168

== ENCOUNTER 2024-01-08 13:03 | Outpatient (POV) | payer MEDICARE, SELFPAY ==
[2024-01-08 13:25] VITALS: BP 107/60; PULSE 89; RESP 18; O2SAT 96; BMI 30.7
--- NOTE | 2024-01-08 13:51 | EXP.PAIN.SOA ---
[facility] Pain Management SOAP Note Subjective:: Patient is a pleasant 73-year-old female who presents today for follow-up of right SI injection on 12/17/2023. Patient rates her pain today a 7 out of 10. Patient does state from our last visit that she ended up having to be hospitalized for 5 days at related to a hematoma in her right leg. Patient at that time was on warfarin and states that there were several occasions that she was supposed to come in for lab work to check her PT and INR however due to her worsening pain she was unable to make it in. Patient states that her levels ended up being over 8 and that that was what ended up causing the hematoma. She does state that she now has been switched to Eliquis and seems to be doing well with this. Patient does state that the right SI injection gave no additional relief. She does describe her current pain as an aching, throbbing sensation that does interfere with her ability perform activities of daily living such as cooking and cleaning. Patient is interested in any help we may be able to provide. Patient does state that the compounded cream we ordered in the past did not seem to make much difference. Patient has tried and failed conservative therapy. Patient has been prescribed lorazepam and oxycodone recently from outside providers. Her Connor has been reviewed and is appropriate. Review of Systems: General: No recent weight changes, no fever, no sleep disturbances Respiratory: No cough, no shortness of air, no recurring pulmonary infections Cardiovascular/peripheral vascular: No chest pain, no palpitations, no edema, no shortness of breath Gastrointestinal: No new onset incontinence, normal bowel movements reported Genitourinary: No new onset incontinence Musculoskeletal: Right hip pain, right buttocks pain Psychiatric: [Normal mood/affect] Neurological: [Denies weakness in extremities], [denies balance issues] Objective:: Physical Exam: General: Alert and oriented x3, no acute distress, pleasant and cooperative Lungs: Respirations even and unlabored, symmetrical chest expansion Eyes: PERRL Musculoskeletal: Flexion and extension of lumbar [spine] somewhat guarded secondary to pain, [antalgic gait noted] point tenderness along right piriformis muscle Neurological: Speech clear, no gross sensory deficit Assessment:: Low back pain, right hip pain, right sacroiliitis, right piriformis muscle inflammation Plan:: Patient is experiencing worsening pain in her low back and right hip/buttocks area. Patient continues to have limited range of motion of her lumbar spine but also had point tenderness along her right piriformis muscle. I have discussed with patient that she might benefit from a right piriformis injection. Risk and benefits were discussed with patient and she would like to proceed forward with this plan of care. Patient will be scheduled for right piriformis injection. Patient has been instructed to contact the clinic with any concerns before the next appointment. Dr. Slaughter has reviewed this note and agrees with this plan of care. This note was dictated using voice recognition software and make contain errors or omissions. [facility] Disclaimer: The information contained in this section may have been updated after the patient was seen, as this information can be updated by other users. Medical History CAD (coronary artery disease) Daytime somnolence Diastolic dysfunction Dizziness Edema HHD (hypertensive heart disease) HLD (hyperlipidemia) SHOSHANA (obstructive sleep apnea) Preoperative clearance Restless sleeper Right bundle branch block (RBBB) Family History Other No significant family history Social History Smoking Status: Former smoker second hand exposure: No alcohol intake: never substance use type: denies use current occupational status: unemployed Travel in the last 8 weeks: None household members: spouse housing: house current occupation: [employer] current occupational exposures/hazards: No caffeine: Yes
== END 2024-01-08 23:59 ==
LOC: SC.PAIN 13:03
PROVIDERS: PCP Family Medicine; Visit Provider Nurse Practitioner Family
DX: M54.50 Low back pain, unspecified (principal); M25.551 Pain in right hip; M46.1 Sacroiliitis, not elsewhere classified; M79.18 Myalgia, other site
CPT/HCPCS: 99212; G0463

== ENCOUNTER 2024-01-14 09:00 | Day surgery (SDC) | payer MEDICARE, SELFPAY ==
[2024-01-14 09:15] VITALS: BP 103/62; PULSE 73; RESP 16; O2SAT 97; BMI 30.7
[2024-01-14] MEDS: LIDOCAINE 1% 5ML PF VIAL 5 ML (09:20)
[2024-01-14] MEDS: methylPREDNISolone ACETATE 80MG/ML VIAL 80 MG (09:20)
[2024-01-14 09:21] VITALS: BP 122/76; PULSE 84; RESP 18; O2SAT 98
[2024-01-14] MEDS: BUPIVACAINE 0.25% 10ML INJ 25 MG IJ (09:21)
[2024-01-14 09:22] VITALS: BP 122/76; PULSE 84; RESP 18; O2SAT 95
--- NOTE | 2024-01-14 09:26 | EXP.PAIN.PRO ---
Procedure Date: 01/14/24 Time: 09:22 Anesthesiologist:: Iker Aponte CRNA Complications:: None Pre-procedure Diagnosis:: Right sacroiliitis. Right piriformis syndrome. Chronic right posterior hip pain. Post-procedure Diagnosis:: Same. Indications for Procedure:: Patient is a pleasant 73-year-old female that comes our clinic today with right posterior hip pain. Right buttock pain. Upon examination she has extreme point tenderness over the right sacroiliac joint. She has positive Ramesh's test on the right. Positive right sacroiliac joint compression test. Patient reports having the right piriformis joint injected in the past with minimal to no relief. Procedure Details:: Details of the procedure explained to the patient. The patient taken the procedure room placed in the prone position. The area over the right buttock was cleaned using chlorhexidine as a cleansing solution. The exact point of tenderness was identified using fluoroscopy guidance. This point of tenderness and pain is over the inferior aspect of the sacroiliac joint. Using a 22-gauge 3 and half inch spinal needle the right sacroiliac joint was accessed in the inferior portion. After negative aspiration 3 cc of 1% lidocaine +20 mg of Depo-Medrol was injected. At this time using fluoroscopy guidance the right piriformis muscle was accessed with ease. Needle position was confirmed using contrast dye. 3 cc of 1% lidocaine and 20 mg of Depo-Medrol was injected after negative aspiration. Patient tolerated procedure without difficulty. There are no complications. Plan and Disposition:: Patient was reevaluated 10 minutes post procedure. She reports minimal to no pain in the right posterior hip or right buttock area. She was discharged without incident.
[2024-01-14 09:27] VITALS: BP 113/55; PULSE 73; RESP 18; O2SAT 97
[2024-01-14] MEDS: IOPAMIDOL-200 (41%);10ML VIAL 10 ML IV (09:28)
== END 2024-01-14 09:27 | disposition home or self-care (01) ==
PROVIDERS: PCP Family Medicine; Visit Provider Nurse Anesthetist, Certified Registered
DX: M46.1 Sacroiliitis, not elsewhere classified (principal); G57.01 Lesion of sciatic nerve, right lower limb; M25.551 Pain in right hip; G89.29 Other chronic pain; M79.18 Myalgia, other site
CPT/HCPCS: 20552; 27096; 77002; G0260; J1010; Q9966

== ENCOUNTER 2024-01-27 10:21 | Outpatient (POV) | payer MEDICARE, SELFPAY ==
--- NOTE | 2024-01-27 10:30 | A.OFFVIS_ITS ---
[facility] Pain Management SOAP Note Subjective:: Patient is a pleasant 73-year-old female who presents today for follow-up of right piriformis injection on 01/14/2024. Today she rates her pain a 10 out of 10. Patient states this injection over the last 1 has made any additional improvement. Patient feels like overall her pain is worse. Patient states her pain is all into her lower buttocks area still along the right side. Patient describes it as a constant pain that is worsened with prolonged positioning. She does state it interferes with her ability perform activities of daily living such as cooking and cleaning. Patient did just get diagnosed for a blood clot in her right leg back in November and is on blood thinner. Patient has tried compounded cream with no additional relief. Patient has been prescribed lorazepam from her primary care provider and oxycodone and [place] in the past. Her Connor has been reviewed and is appropriate. Review of Systems: General: No recent weight changes, no fever, no sleep disturbances Respiratory: No cough, no shortness of air, no recurring pulmonary infections Cardiovascular/peripheral vascular: No chest pain, no palpitations, no edema, no shortness of breath Gastrointestinal: No new onset incontinence, normal bowel movements reported Genitourinary: No new onset incontinence Musculoskeletal: Right buttocks pain Psychiatric: [Normal mood/affect] Neurological: [Denies weakness in extremities], [denies balance issues] Objective:: Physical Exam: General: Alert and oriented x3, no acute distress, pleasant and cooperative Lungs: Respirations even and unlabored, symmetrical chest expansion Eyes: PERRL Musculoskeletal: Flexion and extension of lumbar [spine] somewhat guarded secondary to pain, [antalgic gait noted] point tenderness along right lower sacrum Neurological: Speech clear, no gross sensory deficit Assessment:: Low back pain, right hip pain, right buttocks pain, right sacroiliitis, right piriformis syndrome Plan:: Patient continues to experience significant pain in her buttocks area along the right side. Patient did have limited range of motion of her lumbar spine along with point tenderness of her lower right sacrum. I have discussed with patient in future we may be able to try caudal epidural however due to her recent blood clot and being put on blood thinners that we will not be able to do this for at least a couple of months. I will send in a 5-day dose of prednisone 20 mg twice daily and baclofen 10 mg 3 times daily as needed. I will also order the patient x-ray imaging of her lumbar and sacral spine. Patient will return to clinic in 1 week for reevaluation of symptoms and plan of care. Patient has been instructed to contact the clinic with any concerns before the next appointment. Dr. Slaughter has reviewed this note and agrees with this plan of care. This note was dictated using voice recognition software and make contain errors or omissions. [facility] Disclaimer: The information contained in this section may have been updated after the patient was seen, as this information can be updated by other users. Medical History CAD (coronary artery disease) Daytime somnolence Diastolic dysfunction Dizziness Edema HHD (hypertensive heart disease) HLD (hyperlipidemia) SHOSHANA (obstructive sleep apnea) Preoperative clearance Restless sleeper Right bundle branch block (RBBB) Family History Other No significant family history Social History Smoking Status: Former smoker second hand exposure: No alcohol intake: never substance use type: denies use current occupational status: retired Travel in the last 8 weeks: None household members: spouse housing: house current occupation: [employer] current occupational exposures/hazards: No caffeine: Yes
[2024-01-27 10:32] VITALS: BP 139/68; PULSE 81; RESP 18; TEMP 36.6; O2SAT 98; BMI 29.0
== END 2024-01-27 23:59 | disposition home or self-care (01) ==
PROVIDERS: PCP Family Medicine; Visit Provider Nurse Practitioner Family
DX: M54.50 Low back pain, unspecified (principal); M25.551 Pain in right hip; M79.18 Myalgia, other site; M46.1 Sacroiliitis, not elsewhere classified; G57.01 Lesion of sciatic nerve, right lower limb
CPT/HCPCS: 99212; G0463

== ENCOUNTER 2024-01-27 10:55 | Outpatient (CLI) | payer MEDICARE, SELFPAY ==
--- NOTE | 2024-01-27 11:07 | XR_ITS ---
FINAL REPORT CLINICAL HISTORY: LBP AND BUTTOCK PAIN FINDINGS: SACRUM AND COCCYX 2 views were obtained. There is no acute fracture or dislocation. Visualized joint spaces are normally aligned. There are degenerative changes of the SI joints. Soft tissues are unremarkable. IMPRESSION: No acute bony abnormality. Reviewed, Interpreted and Dictated by Alverto Noble III, MD Transcribed by Izzy Merrill Authenticated and [facility]
--- NOTE | 2024-01-27 11:07 | XR_ITS ---
FINAL REPORT TECHNIQUE: 5 views CLINICAL HISTORY: LBP AND BUTTOCK PAIN FINDINGS: 5 views of the lumbar spine were obtained. There is a moderate L3 compression fracture which is age-indeterminate but favored to be chronic. No other fracture is identified. There is levoscoliosis. Diffuse vascular calcifications are noted. IMPRESSION: Moderate L3 compression fracture, age-indeterminate. Consider MRI if clinical concern persists. Reviewed, Interpreted and Dictated by Alverto Noble III, MD Transcribed by Izzy Merrill Authenticated and [facility]
== END 2024-01-27 23:59 | disposition home or self-care (01) ==
LOC: RAD 10:56
PROVIDERS: PCP Family Medicine; Visit Provider Nurse Practitioner Family
DX: M54.50 Low back pain, unspecified (principal); M25.551 Pain in right hip; M79.18 Myalgia, other site; M46.1 Sacroiliitis, not elsewhere classified; G57.01 Lesion of sciatic nerve, right lower limb
CPT/HCPCS: 72110; 72220; 99212; G0463

== ENCOUNTER 2024-02-03 09:50 | Outpatient (POV) | payer MEDICARE, SELFPAY ==
--- NOTE | 2024-02-03 10:35 | A.OFFVIS_ITS ---
[facility] Pain Management SOAP Note Subjective:: Patient is a pleasant 73-year-old female who presents today for x-ray follow-up of lumbar and sacral spine. Today she rates her pain an 8 out of 10. Patient denies any new trauma or injury. She states she still has significant pain that goes from her low back into primarily her right hip and down her leg to the right knee. Patient states that it is an aching, throbbing sensation with increased pain with ambulation or activity. She states the pain does interfere with her ability to perform activities of daily living. Patient is prescribed compounded cream however states it really did not do a whole lot. Patient is prescribed lorazepam from her primary care provider. Patient is requesting if we can possibly do some injections but as well as some pain medicine. Her Connor has been reviewed and is appropriate. Review of Systems: General: No recent weight changes, no fever, no sleep disturbances Respiratory: No cough, no shortness of air, no recurring pulmonary infections Cardiovascular/peripheral vascular: No chest pain, no palpitations, no edema, no shortness of breath Gastrointestinal: No new onset incontinence, normal bowel movements reported Genitourinary: No new onset incontinence Musculoskeletal: Low back pain, right hip pain, right leg pain Psychiatric: [Normal mood/affect] Neurological: [Denies weakness in extremities], [denies balance issues] Objective:: Physical Exam: General: Alert and oriented x3, no acute distress, pleasant and cooperative Lungs: Respirations even and unlabored, symmetrical chest expansion Eyes: PERRL Musculoskeletal: Flexion and extension of lumbar [spine] somewhat guarded secondary to pain, [antalgic gait noted] positive right leg raise with decreased sensation to light touch and decreased reflexes Neurological: Speech clear, no gross sensory deficit Assessment:: Degenerative disc disease of lumbar spine with lumbar radiculopathy symptoms, right hip pain, right buttock pain, right sacroiliitis, right piriformis syndrome, right knee pain, right leg pain Plan:: Patient is experiencing worsening pain low back radiates down her entire right extremity. Patient did have limited range of motion of her lumbar spine along with a positive right leg raise and decreased sensation light touch and decreased reflexes. I have discussed with patient that she may benefit from a right transforaminal epidural steroid injection. Risk and benefits were discussed with the patient and she would like to proceed forward with this plan of care. Patient is currently on blood thinners with Eliquis that is prescribed by Dr. Panda. We will reach out to this office to confirm she can stop this medication prior to this injection. I have also went over with her current x-ray findings that did pull up a age-indeterminate compression fracture of L3. Patient does state that this was from a fall last June and that they were already aware of it. I have discussed with the patient that she may benefit from advanced imaging such as an MRI. We will hold off at this time but may do this in future. I will send in a 2-week supply of tramadol 50 mg twice a day. Patient denies any heart or kidney issues. Patient will be scheduled for a right transforaminal epidural steroid injection L4-L5 and L5-S1 under fluoroscopy. Patient has been instructed to contact the clinic with any concerns before the next appointment. Dr. Slaughter has reviewed this note and agrees with this plan of care. This note was dictated using voice recognition software and make contain errors or omissions. [facility] Disclaimer: The information contained in this section may have been updated after the victor manuel merchant was seen, as this information can be updated by other users. Medical History CAD (coronary artery disease) Daytime somnolence Diastolic dysfunction Dizziness Edema HHD (hypertensive heart disease) HLD (hyperlipidemia) SHOSHANA (obstructive sleep apnea) Preoperative clearance Restless sleeper Right bundle branch block (RBBB) Family History Other No significant family history Social History Smoking Status: Former smoker second hand exposure: No alcohol intake: never substance use type: denies use current occupational status: retired Travel in the last 8 weeks: None household members: spouse housing: house current occupation: [email or web address] current occupational exposures/hazards: No caffeine: Yes
[2024-02-03 10:42] VITALS: BP 119/62; PULSE 60; RESP 18; O2SAT 96; BMI 29.2
== END 2024-02-03 23:59 | disposition home or self-care (01) ==
PROVIDERS: PCP Family Medicine; Visit Provider Nurse Practitioner Family
DX: M51.16 Intervertebral disc disorders with radiculopathy, lumbar region (principal); M25.551 Pain in right hip; M79.18 Myalgia, other site; M46.1 Sacroiliitis, not elsewhere classified; G57.01 Lesion of sciatic nerve, right lower limb; M25.561 Pain in right knee; M79.604 Pain in right leg
CPT/HCPCS: 99212; G0463

== ENCOUNTER 2024-03-11 11:14 | Outpatient (POV) | payer MEDICARE, SELFPAY ==
[2024-03-11 11:30] VITALS: BP 150/71; PULSE 84; RESP 16; O2SAT 93; BMI 28.8
--- NOTE | 2024-03-11 12:04 | A.OFFVIS_ITS ---
[facility] Pain Management SOAP Note Subjective:: Patient is a pleasant 73-year-old female who presents today for transforaminal epidural denial. Today she rates her pain an 8 out of 10. Patient states she continues to experience excruciating pain on a daily basis. Patient states that the last medication of tramadol we sent did not absolutely nothing and that she does not want to continue that medication. Patient states the pain is excruciating and severe and radiates from her low back down into her right leg. She states the pain interferes with her ability to perform activities of daily living. Patient states that the compounded cream we tried did not really seem to make a difference. Patient has had x-ray imaging however has not had any updated advanced imaging of her low back. Her Connor has been reviewed. Review of Systems: General: No recent weight changes, no fever, no sleep disturbances Respiratory: No cough, no shortness of air, no recurring pulmonary infections Cardiovascular/peripheral vascular: No chest pain, no palpitations, no edema, no shortness of breath Gastrointestinal: No new onset incontinence, normal bowel movements reported Genitourinary: No new onset incontinence Musculoskeletal: Low back pain, right leg pain Psychiatric: [Normal mood/affect] Neurological: [Denies weakness in extremities], [denies balance issues] Objective:: Physical Exam: General: Alert and oriented x3, no acute distress, pleasant and cooperative Lungs: Respirations even and unlabored, symmetrical chest expansion Eyes: PERRL Musculoskeletal: Flexion and extension of lumbar [spine] somewhat guarded secondary to pain, [antalgic gait noted] positive right leg raise with decreased sensation to light touch and decreased reflexes Neurological: Speech clear, no gross sensory deficit Assessment:: Degenerative disc disease of lumbar spine with lumbar radiculopathy symptoms, right hip pain, right buttocks pain, right sacroiliitis, right piriformis syndrome, right knee pain, right leg pain Plan:: patient continues to experience significant pain throughout her low back and into her leg. I have discussed with the patient that I will order advanced imaging with MRI without contrast and we will follow-up with this after to review findings. Patient was denied her transforaminal epidural because there was not the advanced imaging to match our assessment findings. We will plan on resubmitting for the transforaminal epidural in future if her symptoms continue to persist. Patient does have significant heart history and I have talked to her that we may be able to send in something however at this time we were only able to send in [place] 5 mg twice a day with a 14-day supply. Patient will return to clinic in 1 month for evaluation of symptoms and plan of care. Risks and benefits of the medication have been explained in detail to the patient. The patient does understand the risk of dependence on the medication when given over a prolonged period. Patient has been advised of risks of oversedation with the prescribed medication. Narcan has been offered to the paitent in the event of oversedation. Patient has been advised that a family member should also be educated regarding administration of Narcan. The patient has been advised to consult with his/her primary care provider and pharmacist regarding drug-drug interaction of medications currently prescribed. Patient has been prescribed a controlled substance after being counseled on the medication, medication safety, and possible side effects. Opioid contract was reviewed and signed by the patient, and that they have agreed to all of the terms set forth by our compliance program. Patient has been instructed to contact the clinic with any concerns before the next appointment. Dr. Slaughter has reviewed this note and agrees with this plan of care. This note was dictated using voice recognition software and make contain errors or omissions. [facility] Disclaimer: The information contained in this section may have been updated after the patient was seen, as this information can be updated by other users. Medical History Restless sleeper SHOSHANA (obstructive sleep apnea) Daytime somnolence Edema Dizziness Preoperative clearance Right bundle branch block (RBBB) Diastolic dysfunction HLD (hyperlipidemia) HHD (hypertensive heart disease) CAD (coronary artery disease) Family History Other No significant family history Social History Smoking Status: Former smoker second hand exposure: No alcohol intake: never substance use type: denies use current occupational status: other Travel in the last 8 weeks: None household members: spouse housing: house current occupation: [employer] current occupational exposures/hazards: No caffeine: Yes
== END 2024-03-11 23:59 | disposition home or self-care (01) ==
PROVIDERS: PCP Family Medicine; Visit Provider Nurse Practitioner Family
DX: M51.16 Intervertebral disc disorders with radiculopathy, lumbar region (principal); M25.551 Pain in right hip; M79.18 Myalgia, other site; M46.1 Sacroiliitis, not elsewhere classified; G57.01 Lesion of sciatic nerve, right lower limb; M25.561 Pain in right knee; M79.604 Pain in right leg
CPT/HCPCS: 99212; G0463

== ENCOUNTER 2024-03-25 08:53 | Outpatient (CLI) | payer MEDICARE, SELFPAY | END 2024-03-25 23:59 | disposition home or self-care (01) | LOC: RAD 08:53 | PROVIDERS: PCP Family Medicine; Visit Provider Nurse Practitioner Family | DX: M54.50 Low back pain, unspecified (principal) ==

== ENCOUNTER 2024-04-09 10:38 | Outpatient (POV) | payer MEDICARE, SELFPAY ==
[2024-04-09 10:54] VITALS: BP 123/57; PULSE 84; RESP 18; O2SAT 93; BMI 28.0
--- NOTE | 2024-04-09 11:46 | EXP.PAIN.SOA ---
[facility] Disclaimer: The information contained in this section may have been updated after the patient was seen, as this information can be updated by other users. Medical History Restless sleeper SHOSHANA (obstructive sleep apnea) Daytime somnolence Edema Dizziness Preoperative clearance Right bundle branch block (RBBB) Diastolic dysfunction HLD (hyperlipidemia) HHD (hypertensive heart disease) CAD (coronary artery disease) Family History Other No significant family history Social History Smoking Status: Former smoker second hand exposure: No alcohol intake: never substance use type: denies use current occupational status: retired Travel in the last 8 weeks: None household members: spouse housing: house current occupation: [employer] current occupational exposures/hazards: No caffeine: Yes PM Subjective & Objective Subjective Subjective:: Patient is a pleasant 73-year-old female who presents today for follow-up of lumbar MRI. Today she rates her pain a 6 out of 10. Patient denies any new trauma or or injury. Patient states that she continues to have significant pain throughout her back. Patient states the pain is severe and does interfere with her activity of daily living such as cooking and cleaning. She states it does radiate down with numbness and tingling. Patient does state that the last medication we sent in of Latonia did help however she ran out of this medication and is back to being in more severe pain. She is interested in refilling this prescription. Her Connor has been reviewed and is appropriate. Review of Systems: General: No recent weight changes, no fever, no sleep disturbances Respiratory: No cough, no shortness of air, no recurring pulmonary infections Cardiovascular/peripheral vascular: No chest pain, no palpitations, no edema, no shortness of breath Gastrointestinal: No new onset incontinence, normal bowel movements reported Genitourinary: No new onset incontinence Musculoskeletal: Low back pain, leg pain Psychiatric: [Normal mood/affect] Neurological: [Denies weakness in extremities], [denies balance issues] Pain at rest (0-10 scale): 6 Objective Objective:: Physical Exam: General: Alert and oriented x3, no acute distress, pleasant and cooperative Lungs: Respirations even and unlabored, symmetrical chest expansion Eyes: PERRL Musculoskeletal: Flexion and extension of lumbar [spine] somewhat guarded secondary to pain, [antalgic gait noted] Neurological: Speech clear, no gross sensory deficit Lumbar MRI April 08, 2024 Findings: There are 5 lumbar-type vertebral bodies. Cord and epidural space: Spinal cord terminates at L1 and has normal signal. Nerve roots of the cauda equina are normal in morphology. Localizer sequences demonstrate a convex left lumbar curve, considering standing plain film correlation. There is lumbar lordosis, grade 1 anterior listhesis of L5 on S1 presumably degenerative due to facet arthrosis. Burst fracture deformity of L3 with severe 55% vertebral body height loss and a 6 mm of posterior cortical retropulsion contributing to 40% osseous canal stenosis. There is a T1 hypointensity within the L3 vertebral body which has a relatively geographic margin at its interface with an inferior L3 endplate with mixed T2/STIR hyperintense and hypointense signal. The background bone marrow signal is normal. Diffuse disc desiccation and lower lumbar predominant disc height loss with osteophyte formation. T12-L1: Maintained disc height with shallow central disc protrusion. Mild facet arthrosis L1-L2: Maintained disc height with shallow disc bulge. No canal or foraminal stenosis mild to moderate facet arthrosis L2-L3: Disc engorgement due to inferior L3 endplate height loss and shallow disc bulge. L3 vertebral body substance is a primary contributor to mild right foraminal stenosis. No significant canal or left foraminal stenosis. Moderate facet arthrosis L3-L4: Maintained disc height with shallow disc bulge. L3 vertebral body subsidence is a primary contributor to the mild right foraminal stenosis, no canal significance or left foraminal stenosis. Moderate facet arthrosis L4-L5: Moderate to severe disc height loss and asymmetric right disc osteophyte complex results in moderate right foraminal stenosis with contact of the right L4 nerve at the extraforaminal zone and a mild left foraminal stenosis. Superimposed right subarticular zone caudally migrated and disc extrusion to the L5 pedicular level with contact of the descending right L5 nerve root. No significant canal stenosis. Advanced facet arthrosis L5-S1: Mild to moderate disc height loss with disc space unroofing due to anterior listhesis and asymmetric left disc osteophyte complex contributing to mild right and moderate left foraminal stenosis with contact of the left L5 nerve at the extraforaminal zone. No significant canal stenosis. If patient's facet arthrosis Has patient had previous pain injection?: No Conservative treatment options previously tried: Home exercise plan Length of treatment: Longer than 6 weeks Meds Home Medications and Allergies Home Medications Medication Instructions Recorded Confirmed Type lorazepam 1 mg tablet 1 mg PO TID nerves 04/09/18 04/09/24 History atorvastatin 40 mg tablet 40 mg PO DAILY Cholesterol 01/20/19 04/09/24 History metformin 500 mg tablet 1,000 mg PO BID Diabetes 03/23/20 04/09/24 History insulin human U-100 NPH-regulr 100 unit SQ AM Diabetes 06/22/20 04/09/24 History 70-30 mix 100 unit/mL subcutaneous susp (Novolin 70/30 U-100 Insulin) ferrous sulfate 325 mg (65 mg 325 mg PO DAILY ANEMIA 07/28/20 04/09/24 History iron) tablet lansoprazole 30 mg capsule,delayed 30 mg PO DAILY 01/18/21 04/09/24 History release spironolactone 100 mg tablet See Rx Instructions .Route 06/08/21 04/09/24 Rx .COMPLEX #180 tabs sitagliptin phosphate 100 mg 100 mg PO DAILY 12/12/21 04/09/24 History tablet (Januvia) furosemide 80 mg tablet See Rx Instructions .Route 04/17/23 04/09/24 Rx .COMPLEX #180 tabs metoprolol succinate 50 mg 50 mg PO DAILY #90 tabs 09/30/23 04/09/24 Rx tablet,extended release 24 hr (Toprol XL) lidocaine 5 % topical patch 1 patch topical DAILY #15 ea 12/07/23 04/09/24 Rx methocarbamol 500 mg tablet 250 mg (1/2 x 500 mg) PO Q12H #15 12/07/23 04/09/24 Rx tabs apixaban 5 mg tablet (Eliquis) 5 mg PO DIRECTED Blood Thinner 01/08/24 04/09/24 History baclofen 10 mg tablet 10 mg PO TID #42 tabs 01/27/24 04/09/24 Rx prednisone 20 mg tablet 20 mg PO BID #14 tabs 01/27/24 04/09/24 Rx alendronate 70 mg tablet 70 mg PO DIRECTED 02/24/24 04/09/24 History tramadol 50 mg tablet 50 mg PO BID PRN pain #60 tabs 02/24/24 04/09/24 Rx venlafaxine 150 mg 150 mg PO DIRECTED 02/24/24 04/09/24 History capsule,extended release 24 hr hydrocodone 5 mg-acetaminophen 325 1 tab PO BID #28 tabs 03/11/24 04/09/24 Rx mg tablet New Prescriptions to Start Prescriptions: Allergies Allergy/AdvReac Type Severity Reaction Status Date / Time latex [LATEX] Allergy Unknown I-ITCHING Verified 02/24/24 14:23 Penicillins [PENICILLINS] Allergy Unknown BREAKS OUT Verified 02/24/24 14:23 MOUTH Sulfa (Sulfonamide Allergy Unknown I-ITCHING Verified 02/24/24 14:23 Antibiotics) [SULFA (SULFONAMIDE ANTIBIOTICS)] Assessment and Plan *Assessment and plan (1) Burst fracture of lumbar vertebra: Status: Acute Qualifiers: Encounter type: subsequent encounter Fracture type: open Fracture healing: with routine healing Qualified Code(s): S32.001D - Stable burst fracture of unspecified lumbar vertebra, subsequent encounter for fracture with routine healing Category: Medical Code(s): S32.001A - Stable burst fracture of unspecified lumbar vertebra, initial encounter for closed fracture (2) Degenerative disc disease, lumbar: Status: Acute Category: Medical Code(s): M51.36 - Other intervertebral disc degeneration, lumbar region (3) Lumbar radiculopathy: Status: Acute Category: Medical Code(s): M54.16 - Radiculopathy, lumbar region Plan Patient continues to experience significant pain throughout her low back and legs. I did review with her significant lumbar imaging that did show a acute to subacute L3 burst fracture. I have discussed with the patient unfortunately due to the extent of this fracture that we do not typically treat this conservatively with injection therapy such as a lumbar epidural. Risk and benefits were discussed with patient and she would like to proceed forward with this plan of care. Patient is currently on Eliquis that is written by Dr. Rowley's office and we will reach out to their office to confirm that she can stop this medication prior to her injection. I have also discussed with the patient due to the extent of her overall lumbar spine that I do think that she may be a beneficial candidate of a intrathecal pain pump trial in the future. Risk and benefits were explained to the patient and she would also like to proceed forward with this option. We will submit for psychological evaluation and if she is deemed an appropriate candidate we will proceed forward with a trial at a later date. I have also discussed at length with the patient that I do think it would be beneficial for her to follow-up with neurosurgery to see all of her options. Patient is in agreement. We will send her for referral to Jeffrey Malcolm at [facility]. I will refill the Latonia 5 mg and change it to 3 times a day and provide a 30-day supply of this medication. Patient will be submitted for lumbar epidural steroid injection L3 under fluoroscopy. Patient has tried and failed conservative therapy and cannot tolerate current physical therapy due to the recent burst fracture. Risks and benefits of the medication have been explained in detail to the patient. The patient does understand the risk of dependence on the medication when given over a prolonged period. Patient has been advised of risks of oversedation with the prescribed medication. Narcan has been offered to the paitent in the event of oversedation. Patient has been advised that a family member should also be educated regarding administration of Narcan. The patient has been advised to consult with his/her primary care provider and pharmacist regarding drug-drug interaction of medications currently prescribed. Patient has been prescribed a controlled substance after being counseled on the medication, medication safety, and possible side effects. Opioid contract was reviewed and signed by the patient, and that they have agreed to all of the terms set forth by our compliance program. Patient has been instructed to contact the clinic with any concerns before the next appointment. Dr. Slaughter has reviewed this note and agrees with this plan of care. This note was dictated using voice recognition software and make contain errors or omissions.
== END 2024-04-09 23:59 | disposition home or self-care (01) ==
PROVIDERS: PCP Family Medicine; Visit Provider Nurse Practitioner Family
DX: M51.36 Other intervertebral disc degeneration, lumbar region; M54.16 Radiculopathy, lumbar region; S32.001A Stable burst fracture of unspecified lumbar vertebra, initial encounter for closed fracture
CPT/HCPCS: 99212; G0463

== ENCOUNTER 2024-04-09 11:24 | Outpatient (CLI) | payer MEDICARE, SELFPAY ==
[2024-04-09 12:21] LABS: Basophils # 0.1 K/mm3 (0-0.2); Basophils % 1.6 % (0.1-2.0); Eosinophils # 0.2 K/mm3 (0.0-0.4); Eosinophils % 3.3 % (0.1-12.0); Hematocrit 43.9 % (37.0-47.0); Hemoglobin 14.3 g/dL (12.2-16.2); Lymphocytes # 1.4 K/mm3 (0.7-4.5); Lymphocytes % 26.4 % (10-50); Mean Corpuscular HGB Conc 32.6 g/dL (31.8-35.4); Mean Corpuscular Hemoglobin 31.3 pg (27.0-31.2); Mean Corpuscular Volume 96.2 fl (81-99); Mean Platelet Volume 8.8 fl (7.4-10.4); Monocytes # 0.2 K/mm3 (0.1-1.0); Monocytes % 3.7 % (1.7-9.3); Neutrophils # 3.5 K/mm3 (1.8-7.8); Platelet Count 253 K/mm3 (142-424); Red Blood Count 4.57 M/mm3 (4.20-5.40); Red Cell Distribution Width 16.7 % (11.5-17.5); White Blood Count 5.5 K/mm3 (4.8-10.8)
[2024-04-09 12:42] LABS: Alanine Aminotransferase 16 U/L (12-78); Albumin Level 3.6 g/dl (3.5-5.0); Alkaline Phosphatase 87 U/L (38-126); Anion Gap 9.9 mEq/L (5-15); Aspartate Amino Transferase 18 U/L (14-36); Bilirubin,Indirect 0.6 mg/dL (0.0-0.9); Bilirubin,Total 0.6 mg/dl (0.2-1.3); Bilirubin,Unconjugated 0.8 mg/dL (0.0-1.1); Blood Urea Nitrogen 7 mg/dl (7-17); Calcium 9.4 mg/dl (8.4-10.2); Carbon Dioxide 32 mmol/L (22.0-30.0); Chloride 104 mmol/L (98-107); Chol/HDL Ratio 2.9 (1-3.5); Cholesterol 105 mg/dl (140-200); Estimated Glomerular Filt Rate 98 ml/min (>60); GFR (African American) 119 ML/MIN (>60); Glucose 199 mg/dl (74-100); HDL Cholesterol 36 mg/dl (40-60); Magnesium 1.7 mg/dl (1.6-2.3); Sodium 143 mmol/L (136-145); Total Protein,Serum 6.1 g/dl (6.3-8.2); Triglycerides 102 mg/dl (30-150); VLDL Cholesterol 20 mg/dL (0-40)
[2024-04-09 12:53] LABS: Direct LDL Cholesterol 40.79 mg/dL (100-129)
[2024-04-09 12:57] LABS: Potassium 2.9 mmoL/L (3.5-5.1)
[2024-04-09 13:01] LABS: Free T4 (Free Thyroxine) 1.06 ng/dl (0.78-2.19)
[2024-04-09 13:13] LABS: Thyroid Stimulating Hormone 0.99 uIU/mL (0.465-4.68)
== END 2024-04-09 23:59 | disposition home or self-care (01) ==
LOC: LAB 11:26
PROVIDERS: PCP Family Medicine; Visit Provider Physician Assistant
DX: E78.2 Mixed hyperlipidemia (principal); I25.118 Atherosclerotic heart disease of native coronary artery with other forms of angina pectoris; I11.9 Hypertensive heart disease without heart failure; I48.0 Paroxysmal atrial fibrillation; S32.001A Stable burst fracture of unspecified lumbar vertebra, initial encounter for closed fracture; M51.36 Other intervertebral disc degeneration, lumbar region; M54.16 Radiculopathy, lumbar region
CPT/HCPCS: 36415; 80048; 80061; 80076; 83735; 84439; 84443; 85025; 99212; G0463

== ENCOUNTER 2024-04-21 10:20 | Day surgery (SDC) | payer MEDICARE, SELFPAY ==
[2024-04-21 10:48] VITALS: BP 100/61; PULSE 87; RESP 18; TEMP 36.3; O2SAT 96; BMI 28.2
[2024-04-21 11:17] VITALS: BP 122/71; PULSE 83; RESP 18; O2SAT 96
[2024-04-21] MEDS: methylPREDNISolone ACETATE 80MG/ML VIAL 80 MG (11:17)
[2024-04-21 11:19] VITALS: BP 122/71; PULSE 98; RESP 18; O2SAT 94
--- NOTE | 2024-04-21 11:24 | EXP.PAIN.PRO ---
Procedure Date: 04/21/24 Time: 11:10 Anesthesiologist:: Iker Aponte CRNA Complications:: None Pre-procedure Diagnosis:: Degenerative disc lumbar spine multilevels. Lumbar radiculopathy. Lumbar spine spondylosis. Lumbar facet arthropathy. Disc bulge multilevel lumbar spine. Post-procedure Diagnosis:: Same. Indications for Procedure:: Patient is a pleasant 73-year-old female comes our clinic today for lumbar epidural steroid injection at the L3-4 level. Patient describes low back pain as constant, dull, aching. Patient also reports bilateral hip and leg radicular symptoms. She rates her pain 8/10. Procedure Details:: Procedure: Lumbar epidural steroid injection under fluoroscopy Informed consent was obtained and the risks and benefits of the procedure were explained to the patient. The patient was taken to the procedure room and noninvasive monitors placed, including noninvasive blood pressure cuff and pulse oximeter. The back was viewed using C-arm Fluoroscopy and prepped using Chloraprep as a cleansing solution and the L4-L5 interspace was palpated. Skin and subcutaneous tissues were anesthetized using lidocaine 1.5% and a 25-gauge needle. After this, an 18-gauge Touhy epidural needle was placed into the L4-L5 interspace and advanced using fluoroscopic guidance and loss of resistance to air until the epidural space was encountered. After confirmation of needle placement in the epidural space, with dye, a solution containing normal saline, 3 mL and Depo-Medrol 80 mg were incrementally injected into the lumbar epidural space. The patient tolerated the procedure well with no complications. The patient was observed in the Pain Clinic and then discharged home neurologically intact. I was unable to access the L3-4 intervertebral space. The epidural was given at the L4-5 level. Patient tolerated procedure without difficulty. Plan and Disposition:: Patient was discharged without incident.
[2024-04-21 11:29] VITALS: BP 128/76; PULSE 79; RESP 18; O2SAT 97
== END 2024-04-21 11:31 | disposition home or self-care (01) ==
PROVIDERS: PCP Family Medicine; Visit Provider Nurse Anesthetist, Certified Registered
DX: M47.26 Other spondylosis with radiculopathy, lumbar region (principal); M51.36 Other intervertebral disc degeneration, lumbar region
CPT/HCPCS: 62323; J1010

== ENCOUNTER 2024-05-13 13:35 | Outpatient (POV) | payer MEDICARE, SELFPAY ==
[2024-05-13 14:06] VITALS: BP 132/53; PULSE 57; RESP 16; O2SAT 96; BMI 28.4
--- NOTE | 2024-05-13 15:51 | A.OFFVIS_ITS ---
[facility] Disclaimer: The information contained in this section may have been updated after the patient was seen, as this information can be updated by other users. Medical History Restless sleeper SHOSHANA (obstructive sleep apnea) Daytime somnolence Edema Dizziness Preoperative clearance Right bundle branch block (RBBB) Diastolic dysfunction HLD (hyperlipidemia) HHD (hypertensive heart disease) CAD (coronary artery disease) Family History Other No significant family history Social History Smoking Status: Former smoker second hand exposure: No alcohol intake: never substance use type: denies use current occupational status: unemployed Travel in the last 8 weeks: None household members: spouse housing: house current occupation: [employer] current occupational exposures/hazards: No caffeine: Yes PM Subjective & Objective Subjective Subjective:: Patient is a pleasant 73-year-old female who presents today for follow-up of psychological evaluation and lumbar epidural steroid injection. Today she rates her pain a 4 out of 10. Patient does state that the lumbar epidural of L4-L5 did provide 50% improvement in the pain is not as severe or as constant. Patient states she has been able to increase her activity somewhat with overall decreased pain. Patient does state that she is still interested in proceeding forward with the pain pump trial. Patient does state the pain is constant when it is present and that it can be very severe and interfere with her ability perform activities of daily living such as cooking and cleaning. Patient has tried and failed conservative therapy including continued at home stretching exercise for longer than 6 weeks. Patient was even tried on oral pain medications 3 times a day however states that that seemed to make no difference. Patient has tried other oral medications, heat and ice and topicals with no changes. Patient was sent for referral to neurosurgery last month however states she has not gotten any additional updates. Her Connor has been reviewed and is appropriate. Review of Systems: General: No recent weight changes, no fever, no sleep disturbances Respiratory: No cough, no shortness of air, no recurring pulmonary infections Cardiovascular/peripheral vascular: No chest pain, no palpitations, no edema, no shortness of breath Gastrointestinal: No new onset incontinence, normal bowel movements reported Genitourinary: No new onset incontinence Musculoskeletal: Chronic low back pain Psychiatric: [Normal mood/affect] Neurological: [Denies weakness in extremities], [denies balance issues] Pain at rest (0-10 scale): 4 Objective Objective:: Physical Exam: General: Alert and oriented x3, no acute distress, pleasant and cooperative Lungs: Respirations even and unlabored, symmetrical chest expansion Eyes: PERRL Musculoskeletal: Flexion and extension of lumbar [spine] somewhat guarded secondary to pain, [antalgic gait noted] Neurological: Speech clear, no gross sensory deficit Has patient had previous pain injection?: Yes Percent improvement in pain since last injection: 50% Conservative treatment options previously tried: Home exercise plan Length of treatment: Longer than 6 weeks Meds Home Medications and Allergies Home Medications ?Medication ?Instructions ?Recorded ?Confirmed ?Type lorazepam 1 mg tablet 1 mg PO TID nerves 04/09/18 05/13/24 History atorvastatin 40 mg tablet 40 mg PO DAILY Cholesterol 01/20/19 05/13/24 History metformin 500 mg tablet 1,000 mg PO BID Diabetes 03/23/20 05/13/24 History insulin human U-100 NPH-regulr 100 unit SQ AM Diabetes 06/22/20 05/13/24 History 70-30 mix 100 unit/mL subcutaneous susp (Novolin 70/30 U-100 Insulin) ferrous sulfate 325 mg (65 mg 325 mg PO DAILY ANEMIA 07/28/20 05/13/24 History iron) tablet lansoprazole 30 mg capsule,delayed 30 mg PO DAILY 01/18/21 05/13/24 History release spironolactone 100 mg tablet See Rx Instructions .Route 06/08/21 05/13/24 Rx .COMPLEX #180 tabs sitagliptin phosphate 100 mg 100 mg PO DAILY 12/12/21 05/13/24 History tablet (Januvia) furosemide 80 mg tablet See Rx Instructions .Route 04/17/23 05/13/24 Rx .COMPLEX #180 tabs lidocaine 5 % topical patch 1 patch topical DAILY #15 ea 12/07/23 05/13/24 Rx methocarbamol 500 mg tablet 250 mg (1/2 x 500 mg) PO Q12H #15 12/07/23 05/13/24 Rx tabs apixaban 5 mg tablet (Eliquis) 5 mg PO DIRECTED Blood Thinner 01/08/24 05/13/24 History baclofen 10 mg tablet 10 mg PO TID #42 tabs 01/27/24 05/13/24 Rx prednisone 20 mg tablet 20 mg PO BID #14 tabs 01/27/24 05/13/24 Rx alendronate 70 mg tablet 70 mg PO DIRECTED 02/24/24 05/13/24 History tramadol 50 mg tablet 50 mg PO BID PRN pain #60 tabs 02/24/24 05/13/24 Rx venlafaxine 150 mg 150 mg PO DIRECTED 02/24/24 05/13/24 History capsule,extended release 24 hr hydrocodone 5 mg-acetaminophen 325 1 tab PO BID #28 tabs 03/11/24 05/13/24 Rx mg tablet metoprolol succinate 50 mg 50 mg PO DAILY #90 tabs 04/21/24 05/13/24 Rx tablet,extended release 24 hr (Toprol XL) metoprolol succinate 50 mg 50 mg PO DAILY #90 tabs 04/21/24 05/13/24 Rx tablet,extended release 24 hr (Toprol XL) New Prescriptions to Start Prescriptions: Allergies Allergy/AdvReac Type Severity Reaction Status Date / Time latex [LATEX] Allergy Unknown I-ITCHING Verified 04/21/24 10:50 Penicillins [PENICILLINS] Allergy Unknown BREAKS OUT Verified 04/21/24 10:50 MOUTH Sulfa (Sulfonamide Allergy Unknown I-ITCHING Verified 04/21/24 10:50 Antibiotics) [SULFA (SULFONAMIDE ANTIBIOTICS)] Assessment and Plan *Assessment and plan (1) Degenerative disc disease, lumbar: Status: Acute Category: Medical Code(s): M51.36 - Other intervertebral disc degeneration, lumbar region (2) Chronic pain syndrome: Status: Acute Category: Medical Code(s): G89.4 - Chronic pain syndrome Plan Patient did have some improvement following her lumbar epidural however does state that she continues to have chronic daily pain throughout her low back. Patient did have a psychological evaluation and was deemed an appropriate candidate for the intrathecal pain pump trial. I did review over with the patient regarding the risk and benefits of this procedure and she would like to proceed forward with this plan of care. Patient has tried and failed conservative therapy including continued at home stretching exercise for longer than 6 weeks. Patient will be submitted for the intrathecal pain pump trial under fluoroscopy. Patient is currently on blood thinners and we will reach out to her provider to confirm she can stop this medication prior to this procedure. Patient agrees with this plan of care. Patient has been instructed to contact the clinic with any concerns before the next appointment. Dr. Slaughter has reviewed this note and agrees with this plan of care. This note was dictated using voice recognition software and make contain errors or omissions. All injections are used with Lidocaine or Bupivacaine and Depo Medrol.
== END 2024-05-13 23:59 | disposition home or self-care (01) ==
LOC: SC.PAIN 13:35
PROVIDERS: PCP Family Medicine; Visit Provider Nurse Practitioner Family
DX: M51.36 Other intervertebral disc degeneration, lumbar region (principal); G89.4 Chronic pain syndrome; I25.10 Atherosclerotic heart disease of native coronary artery without angina pectoris; I11.9 Hypertensive heart disease without heart failure; Z73.89 Other problems related to life management difficulty; Z79.01 Long term (current) use of anticoagulants; Z79.899 Other long term (current) drug therapy; Z87.891 Personal history of nicotine dependence
CPT/HCPCS: 99212; G0463

== ENCOUNTER 2024-05-19 08:07 | Outpatient (CLI) | payer MEDICARE, SELFPAY ==
--- NOTE | 2024-05-19 | CT_ITS ---
FINAL REPORT TECHNIQUE: After the administration of oral and intravenous contrast, axial images were obtained through the abdomen and pelvis by computed tomography. The study was performed with techniques to keep radiation dose as low as reasonably achievable, (ALARA). Individual dose reduction techniques using automated exposure control or adjustment of mA and/or kV according to the patient's size were employed. CLINICAL HISTORY: ABNORMAL WEIGHT LOSS/ABD PAIN FINDINGS: Abdomen: There is scarring in the lung bases. The liver parenchyma is homogeneous. The gallbladder is absent. The spleen, pancreas, adrenals and kidneys appear unremarkable. The aorta is normal in caliber. There is no free fluid or adenopathy. There is a large retroaortic left renal vein. Pelvis: The GI tract demonstrates no obstruction. There is scattered diverticula throughout the sigmoid colon. The appendix is not identified. The urinary bladder is incompletely distended. There is no free fluid or adenopathy. IMPRESSION: Large retroaortic left renal vein. Mild sigmoid diverticulosis. Reviewed, Interpreted and Dictated by Oumar Jain MD Transcribed by Jody Carter Authenticated and [facility]
[2024-05-19 08:37] LABS: Blood Urea Nitrogen 8 mg/dl (7-17); Estimated Glomerular Filt Rate 98 ml/min (>60); GFR (African American) 119 ML/MIN (>60)
[2024-05-19] MEDS: SODIUM CHLORIDE 0.9% 10ML SYR (RAD ONLY) 10 ML IV (09:41)
[2024-05-19] MEDS: IOPAMIDOL-370 (76%);100ML BOTTLE 75 ML IV (09:41)
== END 2024-05-19 23:59 | disposition home or self-care (01) ==
LOC: RAD 08:08
PROVIDERS: PCP Family Medicine; Visit Provider Family Medicine
DX: R10.84 Generalized abdominal pain (principal); R63.4 Abnormal weight loss; Z68.29 Body mass index [BMI] 29.0-29.9, adult
CPT/HCPCS: 36415; 74177; 82565; 84520; Q9967

== ENCOUNTER 2024-06-05 08:48 | Day surgery (SDC) | payer MEDICARE, SELFPAY ==
[2024-06-05] VITALS (7 sets, daily range): BP systolic 105–144; BP diastolic 54–70; PULSE 50–59; RESP 16–18; TEMP 36.5; O2SAT 94–98; BMI 29.7
[2024-06-05 09:18] LABS: POC Glucose,Bedside 150 (70-110)
[2024-06-05] MEDS: CLINDAMYCIN PHOSPHATE/D5W 900 MG/50 ML PIGGYBACK 100 MG IV (09:59)
[2024-06-05] MEDS: FENTANYL 100MCG/2ML VIAL 100 MCG (10:02)
[2024-06-05] MEDS: LIDOCAINE 1% 30ML PF VIAL 30 ML (10:02)
[2024-06-05] MEDS: diphenhydrAMINE 25MG CAPSULE 25 MG PO (10:19)
--- NOTE | 2024-06-05 10:37 | PC.NURSE ---
Pt sitting up in recliner, drinking water. at BS. Reports pain 0 out of 10. Pt was medication per MAR for itching, reports itching is improving.
--- NOTE | 2024-06-05 11:15 | PC.NURSE ---
Dr. Slaughter at BS speaking with pt.
--- NOTE | 2024-06-05 11:17 | PC.NURSE ---
Pt reports 0 out of 10
--- NOTE | 2024-06-05 15:20 | EXP.PAIN.PRO ---
Procedure Date: 06/05/24 Time: 15:20 Anesthesiologist:: Cesar Slaughter MD Complications:: None Pre-procedure Diagnosis:: Degenerative disc disease of lumbar spine with lumbar radiculopathy symptoms Post-procedure Diagnosis:: Same Indications for Procedure:: This patient is a pleasant 73-year-old white female who we are treating for low back pain with lumbar radiculopathy symptoms. She has increasing pain in her back radiating into both hips and down her legs. She has failed all previous conservative treatments including injections, oral medications, physical therapy and she is not a candidate for back surgery surgery given her age and comorbidities. She has had a successful psychological evaluation. She presents for intrathecal pump trial today. Procedure Details:: Procedure Details:: Pain pump trial Informed consent was obtained and the risk and benefits of the procedure was explained to the patient. The patient was taken to the procedure room and placed prone on the procedure table. Patient was prepped and draped in sterile fashion. C-arm fluoroscopy was used to view the lumbar spine. The skin and subcutaneous tissues were anesthetized using lidocaine. I placed a 18-gauge spinal needle into the L4-5 interspace and advanced until clear CSF was obtained. After this intrathecal catheter was inserted and advanced very easily to the L1 vertebral body. The needle was withdrawn. We were able to freely withdraw clear CSF through the catheter. We then injected intrathecal opioid single shot bolus of 25 mcg followed by saline and followed by the previous CSF that was withdrawn. The needle and catheter were then removed and a Band-Aid was placed. Patient tolerated the procedure well with no complications. Plan and Disposition:: Plan and Disposition:: Will follow-up with this patient in 1 week to assess efficacy of this trial. If successful we will plan on permanent implant with intrathecal morphine 1 mg/mL discharge at 100 mcg/day. Catheter tip will be at the T8 vertebral body.
== END 2024-06-05 11:30 | disposition home or self-care (01) ==
PROVIDERS: PCP Family Medicine; Visit Provider Anesthesiology
DX: M51.16 Intervertebral disc disorders with radiculopathy, lumbar region (principal)
CPT/HCPCS: 62323; 82962; J3010

== ENCOUNTER 2024-06-11 12:54 | Outpatient (POV) | payer MEDICARE, SELFPAY ==
--- NOTE | 2024-06-11 13:18 | A.OFFVIS_ITS ---
[facility] Disclaimer: The information contained in this section may have been updated after the patient was seen, as this information can be updated by other users. Medical History Restless sleeper SHOSHANA (obstructive sleep apnea) Daytime somnolence Edema Dizziness Preoperative clearance Right bundle branch block (RBBB) Diastolic dysfunction HLD (hyperlipidemia) HHD (hypertensive heart disease) CAD (coronary artery disease) Family History Other No significant family history Social History Smoking Status: Former smoker second hand exposure: No alcohol intake: never substance use type: denies use current occupational status: other Travel in the last 8 weeks: None household members: spouse housing: house current occupation: [employer] current occupational exposures/hazards: No caffeine: Yes PM Subjective & Objective Subjective Subjective:: Patient is a pleasant 73-year-old female who presents today for follow-up of pain pump trial. Today she rates her pain a 5 out of 10. Patient denies any new trauma or injury. Patient does state that she had 100% relief following this procedure and it did last for 7 hours. Patient states she was able to move around easier with overall decreased pain and felt much more functional. Patient does however state that she is back to her baseline today and states she continues to have the constant pain that is throughout her overall back. Patient has tried and failed conservative therapy including oral medication, heat and ice, topicals, injection therapy and continued at home stretching exercise for longer than 12 weeks.Her Connor has been reviewed and is appropriate. Review of Systems: General: No recent weight changes, no fever, no sleep disturbances Respiratory: No cough, no shortness of air, no recurring pulmonary infections Cardiovascular/peripheral vascular: No chest pain, no palpitations, no edema, no shortness of breath Gastrointestinal: No new onset incontinence, normal bowel movements reported Genitourinary: No new onset incontinence Musculoskeletal: Low back pain Psychiatric: [Normal mood/affect] Neurological: [Denies weakness in extremities], [denies balance issues] Pain at rest (0-10 scale): 5 Objective Objective:: Physical Exam: General: Alert and oriented x3, no acute distress, pleasant and cooperative Lungs: Respirations even and unlabored, symmetrical chest expansion Eyes: PERRL Musculoskeletal: Flexion and extension of lumbar [spine] somewhat guarded secondary to pain, [antalgic gait noted] Neurological: Speech clear, no gross sensory deficit Has patient had previous pain injection?: Yes Percent improvement in pain since last injection: 100% Conservative treatment options previously tried: Home exercise plan Length of treatment: Longer than 12 weeks Meds Home Medications and Allergies Home Medications ?Medication ?Instructions ?Recorded ?Confirmed ?Type lorazepam 1 mg tablet 1 mg PO TID nerves 04/09/18 06/11/24 History atorvastatin 40 mg tablet 40 mg PO DAILY Cholesterol 01/20/19 06/11/24 History metformin 500 mg tablet 1,000 mg PO BID Diabetes 03/23/20 06/11/24 History insulin human U-100 NPH-regulr 100 unit SQ AM Diabetes 06/22/20 06/11/24 History 70-30 mix 100 unit/mL subcutaneous susp (Novolin 70/30 U-100 Insulin) ferrous sulfate 325 mg (65 mg 325 mg PO DAILY ANEMIA 07/28/20 06/11/24 History iron) tablet lansoprazole 30 mg capsule,delayed 30 mg PO DAILY 01/18/21 06/11/24 History release spironolactone 100 mg tablet See Rx Instructions .Route 06/08/21 06/11/24 Rx .COMPLEX #180 tabs sitagliptin phosphate 100 mg 100 mg PO DAILY 12/12/21 06/11/24 History tablet (Januvia) furosemide 80 mg tablet See Rx Instructions .Route 04/17/23 06/11/24 Rx .COMPLEX #180 tabs lidocaine 5 % topical patch 1 patch topical DAILY #15 ea 12/07/23 06/11/24 Rx methocarbamol 500 mg tablet 250 mg (1/2 x 500 mg) PO Q12H #15 12/07/23 06/11/24 Rx tabs baclofen 10 mg tablet 10 mg PO TID #42 tabs 01/27/24 06/11/24 Rx prednisone 20 mg tablet 20 mg PO BID #14 tabs 01/27/24 06/11/24 Rx alendronate 70 mg tablet 70 mg PO DIRECTED 02/24/24 06/11/24 History tramadol 50 mg tablet 50 mg PO BID PRN pain #60 tabs 02/24/24 06/11/24 Rx venlafaxine 150 mg 150 mg PO DIRECTED 02/24/24 06/11/24 History capsule,extended release 24 hr hydrocodone 5 mg-acetaminophen 325 1 tab PO BID #28 tabs 03/11/24 06/11/24 Rx mg tablet metoprolol succinate 50 mg 50 mg PO DAILY #90 tabs 04/21/24 06/11/24 Rx tablet,extended release 24 hr (Toprol XL) metoprolol succinate 50 mg 50 mg PO DAILY #90 tabs 04/21/24 06/11/24 Rx tablet,extended release 24 hr (Toprol XL) apixaban 5 mg tablet (Eliquis) 5 mg PO BID Blood Thinner #60 tabs 06/01/24 06/11/24 Rx New Prescriptions to Start Prescriptions: Allergies Allergy/AdvReac Type Severity Reaction Status Date / Time latex [LATEX] Allergy Unknown I-ITCHING Verified 06/11/24 13:29 Penicillins [PENICILLINS] Allergy Unknown BREAKS OUT Verified 06/11/24 13:29 MOUTH Sulfa (Sulfonamide Allergy Unknown I-ITCHING Verified 06/11/24 13:29 Antibiotics) [SULFA (SULFONAMIDE ANTIBIOTICS)] Assessment and Plan *Assessment and plan (1) Chronic pain syndrome: Status: Acute Category: Medical Code(s): G89.4 - Chronic pain syndrome (2) Lumbar radiculopathy: Status: Acute Category: Medical Code(s): M54.16 - Radiculopathy, lumbar region (3) Degenerative disc disease, lumbar: Status: Acute Category: Medical Code(s): M51.36 - Other intervertebral disc degeneration, lumbar region (4) Burst fracture of lumbar vertebra: Status: Acute Qualifiers: Encounter type: subsequent encounter Fracture healing: with routine healing Fracture type: open Qualified Code(s): S32.001D - Stable burst fracture of unspecified lumbar vertebra, subsequent encounter for fracture with routine healing Category: Medical Code(s): S32.001A - Stable burst fracture of unspecified lumbar vertebra, initial encounter for closed fracture Plan Patient did undergo a intrathecal pump trial with significant improvement in the patient would like to proceed forward with the intrathecal implant. Risk and benefits have been discussed and they still wish to continue with this plan of care. Patient has tried and failed conservative therapies. Patient does have a signed agreement that if we proceed forward with the intrathecal pump that there will be a decrease in oral pain medications if this is applicable with the overall goal 2-no oral opioids once the intrathecal pain pump is established. Prior to the intrathecal trial patient was on a fixed schedule with her medications and patient has been compliant with her medication regimen. Patient has been tried on tramadol and [place] with minimal relief. We will submit for the intrathecal pain pump implant. Patient is currently on blood thinner written by Dr. Chang's office. We will reach out to this provider and confirm she can stop this medication prior to her procedure. Patient has been instructed to contact the clinic with any concerns before the next appointment. Dr. Slaughter has reviewed this note and agrees with this plan of care. This note was dictated using voice recognition software and make contain errors or omissions. All injections are used with Lidocaine or Bupivacaine and Depo Medrol.
[2024-06-11 13:29] VITALS: BP 117/63; PULSE 63; RESP 16; O2SAT 93; BMI 29.8
== END 2024-06-11 23:59 | disposition home or self-care (01) ==
LOC: SC.PAIN 12:55
PROVIDERS: PCP Family Medicine; Visit Provider Nurse Practitioner Family
DX: G89.4 Chronic pain syndrome (principal); S32.001D Stable burst fracture of unspecified lumbar vertebra, subsequent encounter for fracture with routine healing; M51.16 Intervertebral disc disorders with radiculopathy, lumbar region; Z79.899 Other long term (current) drug therapy; Z87.891 Personal history of nicotine dependence
CPT/HCPCS: 99212; G0463

== ENCOUNTER 2024-06-30 14:32 | Outpatient (CLI) | payer MEDICARE, SELFPAY ==
[2024-06-30 14:46] VITALS: BMI 29.3
[2024-06-30 16:46] LABS: Basophils # 0.1 K/mm3 (0-0.2); Basophils % 1.3 % (0.1-2.0); Eosinophils # 0.3 K/mm3 (0.0-0.4); Eosinophils % 3.3 % (0.1-12.0); Hematocrit 42.6 % (37.0-47.0); Hemoglobin 14.4 g/dL (12.2-16.2); Lymphocytes # 1.9 K/mm3 (0.7-4.5); Lymphocytes % 25.1 % (10-50); Mean Corpuscular HGB Conc 33.7 g/dL (31.8-35.4); Mean Corpuscular Hemoglobin 32.2 pg (27.0-31.2); Mean Corpuscular Volume 95.4 fl (81-99); Mean Platelet Volume 9.4 fl (7.4-10.4); Monocytes # 0.4 K/mm3 (0.1-1.0); Monocytes % 5.3 % (1.7-9.3); Neutrophils % 64.9 % (37.0-80.0); Platelet Count 243 K/mm3 (142-424); Red Blood Count 4.46 M/mm3 (4.20-5.40); Red Cell Distribution Width 14.6 % (11.5-17.5); White Blood Count 7.7 K/mm3 (4.8-10.8)
[2024-06-30 16:55] LABS: Chloride 95 mmol/L (98-107); Potassium 3.9 mmoL/L (3.5-5.1); Sodium 138 mmol/L (136-145)
[2024-06-30 16:58] LABS: Anion Gap 11.9 mEq/L (5-15); Blood Urea Nitrogen 15 mg/dl (7-17); Carbon Dioxide 35 mmol/L (22.0-30.0); Creatinine Clearance Estimated 66 mL/min (50-200); Estimated Glomerular Filt Rate 82 ml/min (>60); GFR (African American) 100 ML/MIN (>60)
[2024-06-30 16:59] LABS: Calcium 9.6 mg/dl (8.4-10.2); Glucose 224 mg/dl (74-100)
== END 2024-06-30 23:59 | disposition home or self-care (01) ==
LOC: PREOP 14:33
PROVIDERS: PCP Family Medicine; Visit Provider Anesthesiology
DX: I25.10 Atherosclerotic heart disease of native coronary artery without angina pectoris (principal)
CPT/HCPCS: 80048; 85025

== ENCOUNTER 2024-07-03 06:46 | Day surgery (SDC) | payer MEDICARE, SELFPAY ==
[2024-06-30 12:47] VITALS: BMI 29.3
[2024-06-30 15:01] VITALS: BMI 30.4
[2024-07-03 07:28] VITALS: BP 122/56; PULSE 59; RESP 18; TEMP 36.2; O2SAT 95
[2024-07-03] MEDS: LACTATED RINGERS 1000ML 1,000 ML 25 ML IV (07:39)
[2024-07-03 07:41] LABS: POC Glucose,Bedside 131 (70-110)
[2024-07-03] MEDS: VANCOMYCIN HCL 1,500 MG in 0.9 % SODIUM CHLORIDE 250 ML 125 MG IV (09:05)
[2024-07-03] MEDS: SODIUM CHLORIDE 0.9% 20ML VIAL 40 ML IV (09:25)
[2024-07-03] MEDS: LIDOCAINE 1% W/EPI 1:100,000 20ML VIAL 20 ML ×2 (09:25)
[2024-07-03] MEDS: GENTAMICIN 80 MG/2 ML VIAL (09:25)
--- NOTE | 2024-07-03 09:29 | EXP.ANES.CKL ---
[facility] Disclaimer: The information contained in this section may have been updated after the patient was seen, as this information can be updated by other users. Medical History A-fib Restless sleeper SHOSHANA (obstructive sleep apnea) Daytime somnolence Edema Dizziness Preoperative clearance Right bundle branch block (RBBB) Diastolic dysfunction HLD (hyperlipidemia) HHD (hypertensive heart disease) CAD (coronary artery disease) Surgical History History of cholecystectomy History of bilateral breast reduction surgery History of hysterectomy History of knee replacement Family History Other Family history of cancer Social History (Updated 07/03/24 @ 07:29 by Maria Del Carmen Mccullough RN) Smoking Status: Former smoker second hand exposure: No alcohol intake: never substance use type: denies use current occupational status: retired Travel in the last 8 weeks: None household members: spouse housing: house current occupation: [employer] current occupational exposures/hazards: No caffeine: Yes [facility] Anesthesia Checklist Patient Identification Patient Identification: Verbal (Name & ) Structural Data Admitted From: Home Planned Operative Procedure/s: pain pump implant Consent for Planned Operative Procedure(s) Verified: Yes NPO Status Verified Time NPO: 00:00 Additional verifications Anesthesia Reactions: No Hx Blood Transfusions: Yes Blood Transfusion Reaction: No Airway Assessment Mallampati Score:: Class II C-Spine Mobility Assessed: Yes TMJ Mobility Assessed: Yes Dentition: Edentulous Neurological Assessment Level of Consciousness: Awake, Alert and Appropriate Anesthesia Plan Anesthesia Risk discussed: Yes Anesthesia Plan: Verified ASA Class: III Anesthesia Type: MAC
[2024-07-03 10:03] VITALS: BP 124/50; PULSE 60; RESP 16; TEMP 36.4; O2SAT 99
--- NOTE | 2024-07-03 10:07 | P.OP_ITS ---
Date of procedure: 07/03/24 Pre-op Diagnosis:: Degenerative disc disease of lumbar spine with lumbar radiculopathy symptom Post-op Diagnosis:: Same Procedure performed:: Permanent placement intrathecal pain pump with tunneled intrathecal catheter and pain pump generator placement Surgeon:: Cesar Slaughter MD COMMUNITY ENGAGEMENT MANAGER:: Syd Salinas Anesthesia: MAC Estimated blood loss (mL): 5 Clinical Note:: This patient is a pleasant 73-year-old white female who we are treating for low back pain with lumbar radiculopathy symptoms. She has failed all previous conservative treatments including injections, oral medications, physical therapy and she is not a surgical candidate. She has had a successful psychological evaluation and a successful intrathecal pump trial. She presents for permanent placement of her intrathecal pain pump today. Operative findings:: None Operative note:: Informed consent was obtained the risk and benefits of the procedure was explained to the patient. The patient was taken to the procedure room and placed prone on the procedure table. The patient was prepped and draped in sterile fashion. C arm fluoroscopy was used to view the right flank. [place] between the 12th rib and iliac crest the skin and subcutaneous tissues were anesthetized using lidocaine. I made an incision and dissected out the pump generator pocket. C-arm fluoroscopy was then used to view the lumbar spine. The skin and subcutaneous tissues adjacent to the L4-5 and L5-S1 interspace were anesthetized using lidocaine. I made incision dissected down to the lumbar paraspinous fascia. A 17-gauge spinal needle was inserted and advanced into the L5-S1 interspace until clear CSF was obtained. After this intrathecal catheter was inserted and advanced to the T8 vertebral body. Catheter was in good position it was midline and posterior. The stylet of the catheter and the needle withdrawn. The catheter was secured to the fascia with an anchor device and 2-0 Prolene. I filled the pump with 20 mL of intrathecal morphine 1 mg/mL. I tunneled the catheter from the back to the pump pocket and attached catheter to the pump. We were able to freely withdraw clear CSF through the sideport. The pump was then placed in the pocket with an antibiotic pouch. Both incisions were then closed with 2-0 Vicryl followed by 4-0 nylon and hoa. The pump was interrogated and started at 100 mcg/day. The patient was brought to recovery in stable condition in an abdominal binder. Patient tolerated the procedure well with no complications. Patient was discharged home neurologic intact with good relief of pain symptoms. Plan and disposition: Will follow-up with this patient in 1 week for wound check. Will follow-up in 2 to 3 weeks for suture and staple removal. Condition: stable Disposition: PACU Complications:: None
[2024-07-03 10:13] VITALS: BP 118/63; PULSE 59; RESP 16; TEMP 36.4; O2SAT 97
[2024-07-03 10:23] VITALS: BP 100/46; PULSE 60; RESP 16; TEMP 36.4; O2SAT 95
[2024-07-03 10:33] VITALS: BP 117/49; PULSE 58; RESP 16; TEMP 36.4; O2SAT 95
== END 2024-07-03 10:45 | disposition home or self-care (01) ==
PROVIDERS: PCP Family Medicine; Visit Provider Anesthesiology
PROC: (CPT 62350; principal; 2024-07-03 08:30)
DX: M51.16 Intervertebral disc disorders with radiculopathy, lumbar region (principal)
CPT/HCPCS: 62350; 62362; 82962; 96374; C1755; C1772; J1580; J3370; J7120

== ENCOUNTER 2024-07-09 12:56 | Outpatient (POV) | payer MEDICARE, SELFPAY ==
[2024-07-09 13:42] VITALS: BP 102/53; PULSE 74; RESP 18; O2SAT 93; BMI 33.3
--- NOTE | 2024-07-09 14:07 | EXP.PAIN.SOA ---
[facility] Disclaimer: The information contained in this section may have been updated after the patient was seen, as this information can be updated by other users. Medical History A-fib Restless sleeper SHOSHANA (obstructive sleep apnea) Daytime somnolence Edema Dizziness Preoperative clearance Right bundle branch block (RBBB) Diastolic dysfunction HLD (hyperlipidemia) HHD (hypertensive heart disease) CAD (coronary artery disease) Surgical History History of cholecystectomy History of bilateral breast reduction surgery History of hysterectomy History of knee replacement Family History Other Family history of cancer Social History (Updated 07/03/24 @ 07:29 by Maria Del Carmen Mccullough RN) Smoking Status: Former smoker second hand exposure: No alcohol intake: never substance use type: denies use current occupational status: retired Travel in the last 8 weeks: None household members: spouse housing: house current occupation: [employer] current occupational exposures/hazards: No caffeine: Yes PM Subjective & Objective Subjective Subjective:: Patient is a pleasant 73-year-old female who presents today for 1 week postop of intrathecal pain pump implant. Today she rates her pain a 1 out of 10. Patient states overall she is doing well. Patient states that she feels like a lot of her pain is more incisional and that she is experiencing some itching. She states it has improved some but she did also have this even with the trial. Patient is currently managed with morphine 1 mg/mL with a daily dose of 0.0999 mg/day. She denies any side effects from this medication. Her Connor has been reviewed and is appropriate. Review of Systems: General: No recent weight changes, no fever, no sleep disturbances Respiratory: No cough, no shortness of air, no recurring pulmonary infections Cardiovascular/peripheral vascular: No chest pain, no palpitations, no edema, no shortness of breath Gastrointestinal: No new onset incontinence, normal bowel movements reported Genitourinary: No new onset incontinence Musculoskeletal: Low back pain Psychiatric: [Normal mood/affect] Neurological: [Denies weakness in extremities], [denies balance issues] Pain at rest (0-10 scale): 1 Objective Objective:: Physical Exam: General: Alert and oriented x3, no acute distress, pleasant and cooperative Lungs: Respirations even and unlabored, symmetrical chest expansion Eyes: PERRL Musculoskeletal: Flexion and extension of lumbar [spine] somewhat guarded secondary to pain, [antalgic gait noted] Neurological: Speech clear, no gross sensory deficit Skin: Incision sites are clean, dry, well-approximated with sutures and hoa intact, right lateral incision does have moderate erythema noted Has patient had previous pain injection?: No Conservative treatment options previously tried: Home exercise plan Length of treatment: Longer than 12 weeks Meds Home Medications and Allergies Home Medications ?Medication ?Instructions ?Recorded ?Confirmed ?Type lorazepam 1 mg tablet 1 mg PO TID nerves 04/09/18 07/09/24 History atorvastatin 40 mg tablet 40 mg PO DAILY Cholesterol 01/20/19 07/09/24 History metformin 500 mg tablet 500 mg PO DAILY Diabetes 03/23/20 07/09/24 History ferrous sulfate 325 mg (65 mg 325 mg PO DAILY ANEMIA 07/28/20 07/09/24 History iron) tablet lansoprazole 30 mg capsule,delayed 30 mg PO DAILY 01/18/21 07/09/24 History release spironolactone 100 mg tablet See Rx Instructions .Route 06/08/21 07/09/24 Rx .COMPLEX #180 tabs furosemide 80 mg tablet See Rx Instructions .Route 04/17/23 07/09/24 Rx .COMPLEX #180 tabs alendronate 70 mg tablet 70 mg PO DIRECTED 02/24/24 07/09/24 History tramadol 50 mg tablet 50 mg PO BID PRN pain #60 tabs 02/24/24 07/09/24 Rx metoprolol succinate 50 mg 50 mg PO DAILY #90 tabs 04/21/24 07/09/24 Rx tablet,extended release 24 hr (Toprol XL) apixaban 5 mg tablet (Eliquis) 5 mg PO BID Blood Thinner #60 tabs 06/15/24 07/09/24 Rx fluoxetine 40 mg capsule (Prozac) 60 mg PO DAILY 06/30/24 07/09/24 History clindamycin HCl 300 mg capsule 300 mg PO TID #21 caps 07/03/24 07/09/24 Rx insulin human U-100 NPH-regulr 20 unit SQ BID 07/03/24 07/09/24 History 70-30 mix 100 unit/mL subcutaneous susp (Humulin 70/30 U-100 Insulin) New Prescriptions to Start Prescriptions: Allergies Allergy/AdvReac Type Severity Reaction Status Date / Time latex [LATEX] Allergy Unknown I-ITCHING Verified 07/03/24 07:18 Penicillins [PENICILLINS] Allergy Unknown BREAKS OUT Verified 07/03/24 07:18 MOUTH Sulfa (Sulfonamide Allergy Unknown I-ITCHING Verified 07/03/24 07:18 Antibiotics) [SULFA (SULFONAMIDE ANTIBIOTICS)] Assessment and Plan *Assessment and plan (1) Lumbar radiculopathy: Status: Acute Category: Medical Code(s): M54.16 - Radiculopathy, lumbar region (2) Degenerative disc disease, lumbar: Status: Acute Category: Medical Code(s): M51.36 - Other intervertebral disc degeneration, lumbar region Plan Patient is doing well overall following her intrathecal pain pump implant. I did discuss with patient to continue her postop restrictions the full 6 weeks. Patient acknowledges understanding agrees with care. Patient was counseled regarding the erythema around her lateral incision. Patient does state that the abdominal binder does seem to be irritating over that incision. Patient was counseled that she can add a padded dressing or 4x4 gauze to help cushion this. Patient agrees with this plan of care. Patient will return to clinic in 2 weeks for suture and staple removal. We will see the patient back in the clinic at the next intrathecal refill. Patient has been instructed to contact the clinic with any concerns before the next appointment. Dr. Slaughter has reviewed this note and agrees with this plan of care. This note was dictated using voice recognition software and make contain errors or omissions. -- It Is medically necessary for this patient to continue to have their intrathecal pump refilled at regular intervals. This patient had an intrathecal pain pump implanted after meeting criteria of chronic intractable pain for greater than 3 months and failing conservative treatments. Patient has committed and been compliant to the treatment plan and all planned follow up care. Since implantation of the intrathecal pain pump, the patient has had decreased pain and been more functional. Oral medications have been reduced including intake of oral opioids. Patient continues to do well with intrathecal therapy with decrease in pain symptoms and increase in functional status. Stopping intrathecal medications can lead to life threatening withdrawal, seizures, cardiac arrest, severe pain, and possible . Pumps that are not refilled at regular intervals can be damages and cause and need for replacement. We continually titrate dose and concentration to optimize pain relief and function. We are limited in concentration for certain drugs to safely deliver medications through the pump and stay within the recommendations from the Polyanalgesic Consensus Committee Guidelines. Depending on dose and concentration these pumps may need to be refilled sooner than 3 months as we titrate.
== END 2024-07-09 23:59 | disposition home or self-care (01) ==
LOC: SC.PAIN 12:57
PROVIDERS: PCP Family Medicine; Visit Provider Nurse Practitioner Family
DX: M51.16 Intervertebral disc disorders with radiculopathy, lumbar region (principal); I25.10 Atherosclerotic heart disease of native coronary artery without angina pectoris; I10 Essential (primary) hypertension; Z96.659 Presence of unspecified artificial knee joint; Z87.891 Personal history of nicotine dependence; Z79.899 Other long term (current) drug therapy
CPT/HCPCS: 99212; G0463

== ENCOUNTER 2024-07-17 11:10 | Outpatient (POV) | payer MEDICARE, SELFPAY ==
[2024-07-17 11:42] VITALS: BP 115/55; PULSE 58; RESP 18; TEMP 36.8; O2SAT 99; BMI 32.3
--- NOTE | 2024-07-17 12:24 | A.OFFVIS_ITS ---
[facility] Disclaimer: The information contained in this section may have been updated after the patient was seen, as this information can be updated by other users. Medical History A-fib Restless sleeper SHOSHANA (obstructive sleep apnea) Daytime somnolence Edema Dizziness Preoperative clearance Right bundle branch block (RBBB) Diastolic dysfunction HLD (hyperlipidemia) HHD (hypertensive heart disease) CAD (coronary artery disease) Surgical History History of cholecystectomy History of bilateral breast reduction surgery History of hysterectomy History of knee replacement Family History Other Family history of cancer Social History (Updated 07/03/24 @ 07:29 by Maria Del Carmen Mccullough RN) Smoking Status: Former smoker second hand exposure: No alcohol intake: never substance use type: denies use current occupational status: other Travel in the last 8 weeks: None household members: spouse housing: house current occupation: [employer] current occupational exposures/hazards: No caffeine: Yes PM Subjective & Objective Subjective Subjective:: Patient is a pleasant 73-year-old female who presents today for worsening pain at her incision site. Today she rates her pain a 5 out of 10. Patient denies any new falls or injuries. She does state that she feels like all of it is they are at her lateral incision. Patient states that it is more swollen and has had redness and drainage since our last visit. Patient is currently managed with morphine 1 mg/mL with a daily dose of 0.0999 mg/day. She denies any side effects from this medication. Her Connor has been reviewed and is appropriate. Review of Systems: General: No recent weight changes, no fever, no sleep disturbances Respiratory: No cough, no shortness of air, no recurring pulmonary infections Cardiovascular/peripheral vascular: No chest pain, no palpitations, no edema, no shortness of breath Gastrointestinal: No new onset incontinence, normal bowel movements reported Genitourinary: No new onset incontinence Musculoskeletal: Incisional pain Psychiatric: [Normal mood/affect] Neurological: [Denies weakness in extremities], [denies balance issues] Pain at rest (0-10 scale): 5 Objective Objective:: Physical Exam: General: Alert and oriented x3, no acute distress, pleasant and cooperative Lungs: Respirations even and unlabored, symmetrical chest expansion Eyes: PERRL Musculoskeletal: Flexion and extension of lumbar [spine] somewhat guarded secondary to pain, [antalgic gait noted] Neurological: Speech clear, no gross sensory deficit Skin: Lateral incision is well-approximated with moderate erythema and mild seroma anteriorly, serous drainage noted Has patient had previous pain injection?: No Conservative treatment options previously tried: Home exercise plan Length of treatment: Longer than 6 weeks Meds Home Medications and Allergies Home Medications ?Medication ?Instructions ?Recorded ?Confirmed ?Type lorazepam 1 mg tablet 1 mg PO TID nerves 04/09/18 07/09/24 History atorvastatin 40 mg tablet 40 mg PO DAILY Cholesterol 01/20/19 07/09/24 History metformin 500 mg tablet 500 mg PO DAILY Diabetes 03/23/20 07/09/24 History ferrous sulfate 325 mg (65 mg 325 mg PO DAILY ANEMIA 07/28/20 07/09/24 History iron) tablet lansoprazole 30 mg capsule,delayed 30 mg PO DAILY 01/18/21 07/09/24 History release spironolactone 100 mg tablet See Rx Instructions .Route 06/08/21 07/09/24 Rx .COMPLEX #180 tabs furosemide 80 mg tablet See Rx Instructions .Route 04/17/23 07/09/24 Rx .COMPLEX #180 tabs alendronate 70 mg tablet 70 mg PO DIRECTED 02/24/24 07/09/24 History tramadol 50 mg tablet 50 mg PO BID PRN pain #60 tabs 02/24/24 07/09/24 Rx metoprolol succinate 50 mg 50 mg PO DAILY #90 tabs 04/21/24 07/09/24 Rx tablet,extended release 24 hr (Toprol XL) apixaban 5 mg tablet (Eliquis) 5 mg PO BID Blood Thinner #60 tabs 06/15/24 07/09/24 Rx fluoxetine 40 mg capsule (Prozac) 60 mg PO DAILY 06/30/24 07/09/24 History insulin human U-100 NPH-regulr 20 unit SQ BID 07/03/24 07/09/24 History 70-30 mix 100 unit/mL subcutaneous susp (Humulin 70/30 U-100 Insulin) clindamycin HCl 300 mg capsule 300 mg PO TID #21 caps 07/17/24 Rx New Prescriptions to Start Prescriptions: clindamycin HCl Kamryn Charles Allergies Allergy/AdvReac Type Severity Reaction Status Date / Time latex [LATEX] Allergy Unknown I-ITCHING Verified 07/03/24 07:18 Penicillins [PENICILLINS] Allergy Unknown BREAKS OUT Verified 07/03/24 07:18 MOUTH Sulfa (Sulfonamide Allergy Unknown I-ITCHING Verified 07/03/24 07:18 Antibiotics) [SULFA (SULFONAMIDE ANTIBIOTICS)] Assessment and Plan *Assessment and plan (1) Degenerative disc disease, lumbar: Status: Acute Category: Medical Code(s): M51.36 - Other intervertebral disc degeneration, lumbar region Plan I did discuss with the patient due to the moderate erythema and drainage that I will send in a 7-day dose of clindamycin 300 mg 3 times daily. Patient does have an allergy to sulfa and cannot tolerate Bactrim. Patient will return to clinic on next for reevaluation of symptoms and plan of care. We will see the patient back in the clinic at the next intrathecal refill. Patient has been instructed to contact the clinic with any concerns before the next appointment. Dr. Slaughter has reviewed this note and agrees with this plan of care. This note was dictated using voice recognition software and make contain errors or omissions. -- It Is medically necessary for this patient to continue to have their intrathecal pump refilled at regular intervals. This patient had an intrathecal pain pump implanted after meeting criteria of chronic intractable pain for greater than 3 months and failing conservative treatments. Patient has committed and been compliant to the treatment plan and all planned follow up care. Since implantation of the intrathecal pain pump, the patient has had decreased pain and been more functional. Oral medications have been reduced including intake of oral opioids. Patient continues to do well with intrathecal therapy with decrease in pain symptoms and increase in functional status. Stopping intrathecal medications can lead to life threatening withdrawal, seizures, cardiac arrest, severe pain, and possible . Pumps that are not refilled at regular intervals can be damages and cause and need for replacement. We continually titrate dose and concentration to optimize pain relief and function. We are limited in concentration for certain drugs to safely deliver medications through the pump and stay within the recommendations from the Polyanalgesic Consensus Committee Guidelines. Depending on dose and concentration these pumps may need to be refilled sooner than 3 months as we titrate.
== END 2024-07-17 23:59 | disposition home or self-care (01) ==
PROVIDERS: PCP Family Medicine; Visit Provider Nurse Practitioner Family
DX: M51.369 Other intervertebral disc degeneration, lumbar region without mention of lumbar back pain or lower extremity pain (principal); Z96.659 Presence of unspecified artificial knee joint; Z87.891 Personal history of nicotine dependence
CPT/HCPCS: 99212; G0463

== ENCOUNTER 2024-07-23 10:27 | Outpatient (POV) | payer MEDICARE, SELFPAY ==
[2024-07-23 10:42] VITALS: BP 110/39; PULSE 59; RESP 16; O2SAT 94; BMI 32.3
--- NOTE | 2024-07-23 10:55 | P.PCN_ITS ---
Procedure Date: 07/23/24 Time: 10:55 Anesthesiologist:: Kamryn Charles APRN Complications:: None Pre-procedure Diagnosis:: Degenerative disc disease of lumbar spine with lumbar radiculopathy symptoms Post-procedure Diagnosis:: Same Indications for Procedure:: Patient is a pleasant 73-year-old female who presents today for 1 week follow- up. Today she rates her pain a 2 out of 10. She does state that she has had some improvement of her overall incisional pain from her last visit. She does also state that the incision itself does seem to be doing better but does still have some drainage. Patient has been taking her clindamycin as prescribed. She does state that she has noticed a little bit more swelling in her left hip and left leg. Patient does state that she has had swelling in the past and that she is on a daily fluid pill however she is unsure whether or not if this has an ything to do with the pump. Patient is currently managed with morphine 1 mg/mL with a daily dose of 0.0999 mg/day. She denies any side effects from this medication. Her Connor has been reviewed and is appropriate. Physical Exam: General: Alert and oriented x3, no acute distress, pleasant and cooperative Lungs: Respirations even and unlabored, symmetrical chest expansion Eyes: PERRL Musculoskeletal: Flexion and extension of lumbar [spine] somewhat guarded secondary to pain, [antalgic gait noted] Neurological: Speech clear, no gross sensory deficit Skin: Incision sites are well-approximated with sutures and hoa intact mild erythema at the right lateral incision in the center with some serous drainage noted on dressing Procedure Details:: Informed consent was obtained and the risk and benefits of the procedure were explained to the patient. Patient was taken to the procedure room where noninvasive monitoring was placed including noninvasive blood pressure cuff and pulse oximeter. Patient's pump was interrogated and was reprogrammed to morphine 0.1098 mg/day. The patient tolerated the procedure well with no complications. Plan and Disposition:: Patient tolerated her intrathecal adjustment and reprogram with no complications and was discharged neurologically intact. I did discuss with the patient that her incision does look better from last week and that I do still want her to continue take her clindamycin for the next 3 days. Patient was counseled to contact us if any additional signs and symptoms of infection may present. Patient was counseled to continue her postop restrictions the full 6 weeks. She acknowledges understanding. We will plan on leaving the sutures and hoa in a little bit longer due to the irritation in her incision site along the lateral side. Patient's lower incision is doing well with no complications.Patientwasalsocounseledtokeepusp ostedwhetherornotwiththeincreasetodayifshenoticesanyadditionalswelling in future we may have to switch the medication if it does appear that the swelling is related to the pump medication. Patient will return to clinic in 1 week for reevaluation of symptoms and plan of care. We will see the patient back in the clinic at the next intrathecal refill. Patient has been instructed to contact the clinic with any concerns before the next appointment. Dr. Slaughter has reviewed this note and agrees with this plan of care. This note was dictated using voice recognition software and make contain errors or omissions. -- It Is medically necessary for this patient to continue to have their intrathecal pump refilled at regular intervals. This patient had an intrathecal pain pump implanted after meeting criteria of chronic intractable pain for greater than 3 months and failing conservative treatments. Patient has committed and been compliant to the treatment plan and all planned follow up care. Since implantation of the intrathecal pain pump, the patient has had decreased pain and been more functional. Oral medications have been reduced including intake of oral opioids. Patient continues to do well with intrathecal therapy with decrease in pain symptoms and increase in functional status. Stopping intrathecal medications can lead to life threatening withdrawal, seizures, cardiac arrest, severe pain, and possible . Pumps that are not refilled at regular intervals can be damages and cause and need for replacement. We continually titrate dose and concentration to optimize pain relief and function. We are limited in concentration for certain drugs to safely deliver medications through the pump and stay within the recommendations from the Polyanalgesic Consensus Committee Guidelines. Depending on dose and concentration these pumps may need to be refilled sooner than 3 months as we titrate.
== END 2024-07-23 23:59 | disposition home or self-care (01) ==
PROVIDERS: PCP Family Medicine; Visit Provider Nurse Practitioner Family
DX: M51.16 Intervertebral disc disorders with radiculopathy, lumbar region (principal)
CPT/HCPCS: 62368; 99212; 99213; G0463

== ENCOUNTER 2024-07-30 14:09 | Outpatient (POV) | payer MEDICARE, SELFPAY ==
[2024-07-30 14:49] VITALS: BP 123/63; PULSE 68; RESP 16; O2SAT 94; BMI 34.7
--- NOTE | 2024-07-30 14:55 | A.OFFVIS_ITS ---
[facility] Disclaimer: The information contained in this section may have been updated after the patient was seen, as this information can be updated by other users. Medical History A-fib Restless sleeper SHOSHANA (obstructive sleep apnea) Daytime somnolence Edema Dizziness Preoperative clearance Right bundle branch block (RBBB) Diastolic dysfunction HLD (hyperlipidemia) HHD (hypertensive heart disease) CAD (coronary artery disease) Surgical History History of cholecystectomy History of bilateral breast reduction surgery History of hysterectomy History of knee replacement Family History Other Family history of cancer Social History (Updated 07/03/24 @ 07:29 by Maria Del Carmen Mccullough RN) Smoking Status: Former smoker second hand exposure: No alcohol intake: never substance use type: denies use current occupational status: other Travel in the last 8 weeks: None household members: spouse housing: house current occupation: [employer] current occupational exposures/hazards: No caffeine: Yes PM Subjective & Objective Subjective Subjective:: Patient is a pleasant 73-year-old female who presents today for follow-up. Today she rates her pain a 0 out of 10. She states that her pain level is doing really well with the pump however she did have 2 episodes of falling between our last visit. She states that once she tripped over things around the house causing her to fall and the second 1 when she was getting out of her vehicle or walking outside that she stumbled over some broken concrete causing her to lose her balance. Patient states that she did not have any significant injury however just felt super sore and she feels like she has a lot of stiffness in her hips and legs. Patient states that she really does not feel like this was an issue as much before. She is currently managed with morphine 1 mg/mL with a daily dose of 0.1098 mg/day. She denies any side effects from this medication. Her Connor has been reviewed and is appropriate. Review of Systems: General: No recent weight changes, no fever, no sleep disturbances Respiratory: No cough, no shortness of air, no recurring pulmonary infections Cardiovascular/peripheral vascular: No chest pain, no palpitations, no edema, no shortness of breath Gastrointestinal: No new onset incontinence, normal bowel movements reported Genitourinary: No new onset incontinence Musculoskeletal: Back pain, leg stiffness/weakness Psychiatric: [Normal mood/affect] Neurological: [Denies weakness in extremities], [denies balance issues] Pain at rest (0-10 scale): 0 Objective Objective:: Physical Exam: General: Alert and oriented x3, no acute distress, pleasant and cooperative Lungs: Respirations even and unlabored, symmetrical chest expansion Eyes: PERRL Musculoskeletal: Flexion and extension of [] [spine] somewhat guarded secondary to pain, [antalgic gait noted] Neurological: Speech clear, no gross sensory deficit Skin: Incision sites have intact hoa and suture, midline incision is clean, dry, well-approximated; right lateral incision does have mild erythema noted towards the center of the incision with a small area less than a centimeter of purulent drainage Has patient had previous pain injection?: No Conservative treatment options previously tried: Home exercise plan Length of treatment: Longer than 12 weeks Meds Home Medications and Allergies Home Medications ?Medication ?Instructions ?Recorded ?Confirmed ?Type lorazepam 1 mg tablet 1 mg PO TID nerves 04/09/18 07/30/24 History atorvastatin 40 mg tablet 40 mg PO DAILY Cholesterol 01/20/19 07/30/24 History metformin 500 mg tablet 500 mg PO DAILY Diabetes 03/23/20 07/30/24 History ferrous sulfate 325 mg (65 mg 325 mg PO DAILY ANEMIA 07/28/20 07/30/24 History iron) tablet lansoprazole 30 mg capsule,delayed 30 mg PO DAILY 01/18/21 07/30/24 History release spironolactone 100 mg tablet See Rx Instructions .Route 06/08/21 07/30/24 Rx .COMPLEX #180 tabs furosemide 80 mg tablet See Rx Instructions .Route 04/17/23 07/30/24 Rx .COMPLEX #180 tabs alendronate 70 mg tablet 70 mg PO DIRECTED 02/24/24 07/30/24 History tramadol 50 mg tablet 50 mg PO BID PRN pain #60 tabs 02/24/24 07/30/24 Rx apixaban 5 mg tablet (Eliquis) 5 mg PO BID Blood Thinner #60 tabs 06/15/24 07/30/24 Rx fluoxetine 40 mg capsule (Prozac) 60 mg PO DAILY 06/30/24 07/30/24 History insulin human U-100 NPH-regulr 20 unit SQ BID 07/03/24 07/30/24 History 70-30 mix 100 unit/mL subcutaneous susp (Humulin 70/30 U-100 Insulin) clindamycin HCl 300 mg capsule 300 mg PO TID #21 caps 07/17/24 07/30/24 Rx metoprolol succinate 50 mg 50 mg PO DAILY #90 tabs 07/28/24 07/30/24 Rx tablet,extended release 24 hr (Toprol XL) New Prescriptions to Start Prescriptions: Allergies Allergy/AdvReac Type Severity Reaction Status Date / Time latex [LATEX] Allergy Unknown I-ITCHING Verified 07/03/24 07:18 Penicillins [PENICILLINS] Allergy Unknown BREAKS OUT Verified 07/03/24 07:18 MOUTH Sulfa (Sulfonamide Allergy Unknown I-ITCHING Verified 07/03/24 07:18 Antibiotics) [SULFA (SULFONAMIDE ANTIBIOTICS)] Assessment and Plan *Assessment and plan (1) Lumbar radiculopathy: Status: Acute Category: Medical Code(s): M54.16 - Radiculopathy, lumbar region (2) Degenerative disc disease, lumbar: Status: Acute Category: Medical Code(s): M51.36 - Other intervertebral disc degeneration, lumbar region (3) Chronic pain syndrome: Status: Acute Category: Medical Code(s): G89.4 - Chronic pain syndrome Plan Patient's incisions overall are doing well. Patient is still currently on clindamycin 300 mg 3 times daily to minimize infection risk. Patient was counseled that I believe part of the reason with the right lateral incision is that the Band-Aid adhesive is right over top of that area of irritation. Patient was counseled that we will cleanse the lateral incision with some Hibiclens and add a covaderm. Patient was counseled on one of the dressing to be left alone until her visit next week. Patient is only having very scant drainage. Patient was counseled to continue her antibiotic. I did discuss with the patient due to her history of falls and increased stiffness that I do think she would benefit from physical therapy as we discussed at her last visit however I do want to make sure that her incisions are healing. We will plan on ordering physical therapy in the very near future. patient's current dosage is working well for her in her intrathecal pump and does not need adjustment. Patient was counseled to continue her postop restrictions the full 6 weeks. Patient will return to clinic in 1 week for reevaluation of symptoms and plan of care. We will see the patient back in the clinic at the next intrathecal refill. Patient has been instructed to contact the clinic with any concerns before the next appointment. Dr. Slaughter has reviewed this note and agrees with this plan of care. This note was dictated using voice recognition software and make contain errors or omissions. -- It Is medically necessary for this patient to continue to have their intrathecal pump refilled at regular intervals. This patient had an intrathecal pain pump implanted after meeting criteria of chronic intractable pain for greater than 3 months and failing conservative treatments. Patient has committed and been compliant to the treatment plan and all planned follow up care. Since implantation of the intrathecal pain pump, the patient has had decreased pain and been more functional. Oral medications have been reduced including intake of oral opioids. Patient continues to do well with intrathecal therapy with decrease in pain symptoms and increase in functional status. Stopping intrathecal medications can lead to life threatening withdrawal, seizures, cardiac arrest, severe pain, and possible . Pumps that are not refilled at regular intervals can be damages and cause and need for replacement. We c ontinually titrate dose and concentration to optimize pain relief and function. We are limited in concentration for certain drugs to safely deliver medications through the pump and stay within the recommendations from the Polyanalgesic Consensus Committee Guidelines. Depending on dose and concentration these pumps may need to be refilled sooner than 3 months as we titrate.
== END 2024-07-30 23:59 | disposition home or self-care (01) ==
LOC: SC.PAIN 14:10
PROVIDERS: PCP Family Medicine; Visit Provider Nurse Practitioner Family
DX: G89.4 Chronic pain syndrome; M51.16 Intervertebral disc disorders with radiculopathy, lumbar region; Z96.659 Presence of unspecified artificial knee joint
CPT/HCPCS: 99212; G0463

== ENCOUNTER 2024-08-14 15:00 | Outpatient (POV) | payer MEDICARE, SELFPAY ==
--- NOTE | 2024-08-14 15:22 | A.OFFVIS_ITS ---
[facility] Disclaimer: The information contained in this section may have been updated after the patient was seen, as this information can be updated by other users. Medical History A-fib Restless sleeper SHOSHANA (obstructive sleep apnea) Daytime somnolence Edema Dizziness Preoperative clearance Right bundle branch block (RBBB) Diastolic dysfunction HLD (hyperlipidemia) HHD (hypertensive heart disease) CAD (coronary artery disease) Surgical History History of cholecystectomy History of bilateral breast reduction surgery History of hysterectomy History of knee replacement Family History Other Family history of cancer Social History (Updated 07/03/24 @ 07:29 by Maria Del Carmen Mccullough RN) Smoking Status: Former smoker second hand exposure: No alcohol intake: never substance use type: denies use current occupational status: other household members: spouse housing: house current occupation: [employer] current occupational exposures/hazards: No caffeine: Yes PM Subjective & Objective Subjective Subjective:: Patient is a pleasant 73-year-old female who presents today for follow-up. Today she rates her pain a 3 or 4 out of 10. She states that most of her pain is just at the site of her incisions. Patient still states that the lateral incision has been draining and they do try and keep it covered. Patient was sent and with clindamycin and states that she is completely done with this medication they will. She is currently managed with morphine 1 mg/mL with a daily dose of 0.1098 mg/day. Patient does states she just feels like she is a lot more fatigued since getting this pump and unsteady on her feet. Patient does also make mention that she still feels like that she has been having more swelling in her hip and leg area. Patient does have a longstanding history of swelling and would occasionally be on fluid pills. Patient states from the fall she had in the past she still feels like she has a hard spot on her hip area and is not sure whether or not that was related to the fall. Her Connor has been reviewed and is appropriate. Review of Systems: General: No recent weight changes, no fever, no sleep disturbances Respiratory: No cough, no shortness of air, no recurring pulmonary infections Cardiovascular/peripheral vascular: No chest pain, no palpitations, no edema, no shortness of breath Gastrointestinal: No new onset incontinence, normal bowel movements reported Genitourinary: No new onset incontinence Musculoskeletal: Low back pain Psychiatric: [Normal mood/affect] Neurological: [Denies weakness in extremities], [denies balance issues] Pain at rest (0-10 scale): 3 Objective Objective:: Physical Exam: General: Alert and oriented x3, no acute distress, pleasant and cooperative Lungs: Respirations even and unlabored, symmetrical chest expansion Eyes: PERRL Musculoskeletal: Flexion and extension of lumbar [spine] somewhat guarded secondary to pain, [antalgic gait noted] Neurological: Speech clear, no gross sensory deficit Skin: Lateral incision is draining with serous fluid, sutures and hoa intact mild erythema noted with some skin breakdown below the staple line; midline incision is clean, dry, well-approximated with hoa intact Has patient had previous pain injection?: No Conservative treatment options previously tried: Home exercise plan Length of treatment: Longer than 12 weeks Meds Home Medications and Allergies Home Medications ?Medication ?Instructions ?Recorded ?Confirmed ?Type lorazepam 1 mg tablet 1 mg PO TID nerves 04/09/18 07/30/24 History atorvastatin 40 mg tablet 40 mg PO DAILY Cholesterol 01/20/19 07/30/24 History metformin 500 mg tablet 500 mg PO DAILY Diabetes 03/23/20 07/30/24 History ferrous sulfate 325 mg (65 mg 325 mg PO DAILY ANEMIA 07/28/20 07/30/24 History iron) tablet lansoprazole 30 mg capsule,delayed 30 mg PO DAILY 01/18/21 07/30/24 History release spironolactone 100 mg tablet See Rx Instructions .Route 06/08/21 07/30/24 Rx .COMPLEX #180 tabs furosemide 80 mg tablet See Rx Instructions .Route 04/17/23 07/30/24 Rx .COMPLEX #180 tabs alendronate 70 mg tablet 70 mg PO DIRECTED 02/24/24 07/30/24 History tramadol 50 mg tablet 50 mg PO BID PRN pain #60 tabs 02/24/24 07/30/24 Rx apixaban 5 mg tablet (Eliquis) 5 mg PO BID Blood Thinner #60 tabs 06/15/24 07/30/24 Rx fluoxetine 40 mg capsule (Prozac) 60 mg PO DAILY 10/08/24 11/07/24 History insulin human U-100 NPH-regulr 20 unit SQ BID 07/03/24 07/30/24 History 70-30 mix 100 unit/mL subcutaneous susp (Humulin 70/30 U-100 Insulin) clindamycin HCl 300 mg capsule 300 mg PO TID #21 caps 07/17/24 07/30/24 Rx metoprolol succinate 50 mg 50 mg PO DAILY #90 tabs 07/28/24 07/30/24 Rx tablet,extended release 24 hr (Toprol XL) New Prescriptions to Start Prescriptions: Allergies Allergy/AdvReac Type Severity Reaction Status Date / Time latex (LATEX) Allergy Unknown I-ITCHING Verified 07/03/24 07:18 Penicillins (PENICILLINS) Allergy Unknown BREAKS OUT Verified 07/03/24 07:18 MOUTH Sulfa (Sulfonamide Allergy Unknown I-ITCHING Verified 07/03/24 07:18 Antibiotics) (SULFA (SULFONAMIDE ANTIBIOTICS)) Assessment and Plan *Assessment and plan (1) Lumbar radiculopathy: Status: Acute Category: Medical Code(s): M54.16 - Radiculopathy, lumbar region (2) Degenerative disc disease, lumbar: Status: Acute Category: Medical Code(s): M51.36 - Other intervertebral disc degeneration, lumbar region Plan I did discuss at length with the patient that I will get a copy of her primary care's last note with her most recent lab work. Patient was counseled that we will take out the hoa in the midline incision and take the sutures out of the lateral incision however we are going to leave the hoa still in place. Patient was counseled that the skin breakdown below her hoa does appear to be more related to having the lateral incision constantly covered and the moisture is breaking down the skin. I did discuss with patient and her that I would like her to leave it open to air and make sure before she covers it that it is completely dry in order to prevent any additional skin breakdown. I did review over the fatigue and edema with the patient and did probation counselor them that we may proceed forward with changing her pump medication to Dilaudid as a precaution to see if it makes any additional changes. Patient's incision itself does look better from the last appointment however I will send in 1 additional week of the clindamycin 300 mg 3 times daily. Patient will return to clinic on August 24 for reevaluation of symptoms and plan of care. Patient was also counseled to continue her postop restrictions the full 6 weeks. Patient agrees with this plan of care. We will see the patient back in the clinic at the next intrathecal refill. Patient has been instructed to contact the clinic with any concerns before the next appointment. Dr. Slaughter has reviewed this note and agrees with this plan of care. This note was dictated using voice recognition software and make contain errors or omissions. -- It Is medically necessary for this patient to continue to have their intrathecal pump refilled at regular intervals. This patient had an intrathecal pain pump implanted after meeting criteria of chronic intractable pain for greater than 3 months and failing conservative treatments. Patient has committed and been compliant to the treatment plan and all planned follow up care. Since implantation of the intrathecal pain pump, the patient has had decreased pain and been more functional. Oral medications have been reduced including intake of oral opioids. Patient continues to do well with intrathecal therapy with decrease in pain symptoms and increase in functional status. Stopping intrathecal medications can lead to life threatening withdrawal, seizures, cardiac arrest, severe pain, and possible . Pumps that are not refilled at regular intervals can be damages and cause and need for replacement. We continually titrate dose and concentration to optimize pain relief and function. We are limited in concentration for certain drugs to safely deliver medications through the pump and stay within the recommendations from the Polyanalges[employer] Consensus Committee Guidelines. Depending on dose and concentration these pumps may need to be refilled sooner than 3 months as we titrate.
[2024-08-14 15:38] VITALS: BP 138/78; PULSE 72; RESP 16; O2SAT 96; BMI 32.3
== END 2024-08-14 23:59 | disposition home or self-care (01) ==
PROVIDERS: PCP Family Medicine; Visit Provider Nurse Practitioner Family
DX: M51.16 Intervertebral disc disorders with radiculopathy, lumbar region (principal); Z96.659 Presence of unspecified artificial knee joint; Z87.891 Personal history of nicotine dependence
CPT/HCPCS: 99212; G0463

== ENCOUNTER 2024-08-24 15:03 | Outpatient (POV) | payer MEDICARE, SELFPAY ==
[2024-08-24 15:27] VITALS: BP 113/63; PULSE 59; RESP 14; O2SAT 93; BMI 35.0
--- NOTE | 2024-08-24 16:06 | A.OFFVIS_ITS ---
[facility] Disclaimer: The information contained in this section may have been updated after the patient was seen, as this information can be updated by other users. Medical History A-fib Restless sleeper SHOSHANA (obstructive sleep apnea) Daytime somnolence Edema Dizziness Preoperative clearance Right bundle branch block (RBBB) Diastolic dysfunction HLD (hyperlipidemia) HHD (hypertensive heart disease) CAD (coronary artery disease) Surgical History History of cholecystectomy History of bilateral breast reduction surgery History of hysterectomy History of knee replacement Family History Other Family history of cancer Social History (Updated 08/14/24 @ 15:31 by Kamryn Charles APRN) Smoking Status: Former smoker second hand exposure: No alcohol intake: never substance use type: denies use current occupational status: other Travel in the last 8 weeks: None household members: spouse housing: house current occupation: [employer] current occupational exposures/hazards: No caffeine: Yes PM Subjective & Objective Subjective Subjective:: Patient is a pleasant 73-year-old female who presents today for 2-week follow- up. Today she rates her pain a 2 out of 10. She denies any new trauma or injury. She does state that her incision is still draining and that they have been trying to leave it open to air from time to time as well as keeping it covered when she is up moving. She states that her did clean it really good last night and reapply the bandage. Patient states overall her pain is still doing well with the current dosage. She is currently managed with morphine 1 mg/mL with a daily dose of 0.1098 mg/day. Patient states that she does still feel tired but denies any worsening symptoms and feels like overall it is just more weakness when she is up walking. Her Connor has been reviewed and is appropriate. Review of Systems: General: No recent weight changes, no fever, no sleep disturbances Respiratory: No cough, no shortness of air, no recurring pulmonary infections Cardiovascular/peripheral vascular: No chest pain, no palpitations, no edema, no shortness of breath Gastrointestinal: No new onset incontinence, normal bowel movements reported Genitourinary: No new onset incontinence Musculoskeletal: Low back pain Psychiatric: [Normal mood/affect] Neurological: [Denies weakness in extremities], [denies balance issues] Pain at rest (0-10 scale): 2 Objective Objective:: Physical Exam: General: Alert and oriented x3, no acute distress, pleasant and cooperative Lungs: Respirations even and unlabored, symmetrical chest expansion Eyes: PERRL Musculoskeletal: Flexion and extension of lumbar [spine] somewhat guarded secondary to pain, [antalgic gait noted] Neurological: Speech clear, no gross sensory deficit Skin: Right lateral incision has moderate erythema noted with some bruising and skin breakdown around site of tape, hoa intact Has patient had previous pain injection?: No Conservative treatment options previously tried: Home exercise plan Length of treatment: Longer than 12 weeks Meds Home Medications and Allergies Home Medications ?Medication ?Instructions ?Recorded ?Confirmed ?Type lorazepam 1 mg tablet 1 mg PO TID nerves 04/09/18 08/24/24 History atorvastatin 40 mg tablet 40 mg PO DAILY Cholesterol 01/20/19 08/24/24 History metformin 500 mg tablet 500 mg PO DAILY Diabetes 03/23/20 08/24/24 History ferrous sulfate 325 mg (65 mg 325 mg PO DAILY ANEMIA 07/28/20 08/24/24 History iron) tablet lansoprazole 30 mg capsule,delayed 30 mg PO DAILY 01/18/21 08/24/24 History release spironolactone 100 mg tablet See Rx Instructions .Route 06/08/21 08/24/24 Rx .COMPLEX #180 tabs furosemide 80 mg tablet See Rx Instructions .Route 04/17/23 08/24/24 Rx .COMPLEX #180 tabs alendronate 70 mg tablet 70 mg PO DIRECTED 02/24/24 08/24/24 History tramadol 50 mg tablet 50 mg PO BID PRN pain #60 tabs 02/24/24 08/24/24 Rx apixaban 5 mg tablet (Eliquis) 5 mg PO BID Blood Thinner #60 tabs 06/15/24 08/24/24 Rx fluoxetine 40 mg capsule (Prozac) 60 mg PO DAILY 06/30/24 08/24/24 History insulin human U-100 NPH-regulr 20 unit SQ BID 07/03/24 08/24/24 History 70-30 mix 100 unit/mL subcutaneous susp (Humulin 70/30 U-100 Insulin) metoprolol succinate 50 mg 50 mg PO DAILY #90 tabs 07/28/24 08/24/24 Rx tablet,extended release 24 hr (Toprol XL) clindamycin HCl 300 mg capsule 300 mg PO TID #21 caps 08/14/24 08/24/24 Rx New Prescriptions to Start Prescriptions: Allergies Allergy/AdvReac Type Severity Reaction Status Date / Time latex (LATEX) Allergy Unknown I-ITCHING Verified 07/03/24 07:18 Penicillins (PENICILLINS) Allergy Unknown BREAKS OUT Verified 07/03/24 07:18 MOUTH Sulfa (Sulfonamide Allergy Unknown I-ITCHING Verified 07/03/24 07:18 Antibiotics) (SULFA (SULFONAMIDE ANTIBIOTICS)) Assessment and Plan *Assessment and plan (1) Lumbar radiculopathy: Status: Acute Category: Medical Code(s): M54.16 - Radiculopathy, lumbar region (2) Degenerative disc disease, lumbar: Status: Acute Category: Medical Code(s): M51.36 - Other intervertebral disc degeneration, lumbar region Plan Patient's incision is still draining and does have continued skin breakdown. I did discuss with the patient that due to this fact we will still wait before removing her hoa. I did also discuss with Dr. Slaughter regarding this patient's incision and we will leave the dressing completely off. Patient was counseled to not put any dressing over the incision at all over the next week and that we will plan on seeing her back at that time for possible staple removal. Patient was counseled to continue her postop restrictions. Patient will return to clinic in 1 week for reevaluation of symptoms and plan of care. We will see the patient back in the clinic at the next intrathecal refill. Patient has been instructed to contact the clinic with any concerns before the next appointment. Dr. Slaughter has reviewed this note and agrees with this plan of care. This note was dictated using voice recognition software and make contain errors or omissions. -- It Is medically necessary for this patient to continue to have their intrathecal pump refilled at regular intervals. This patient had an intrathecal pain pump implanted after meeting criteria of chronic intractable pain for greater than 3 months and failing conservative treatments. Patient has committed and been compliant to the treatment plan and all planned follow up care. Since implantation of the intrathecal pain pump, the patient has had decreased pain and been more functional. Oral medications have been reduced including intake of oral opioids. Patient continues to do well with intrathecal therapy with decrease in pain symptoms and increase in functional status. Stopping intrathecal medications can lead to life threatening withdrawal, seizures, cardiac arrest, severe pain, and possible . Pumps that are not refilled at regular intervals can be damages and cause and need for replacement. We continually titrate dose and concentration to optimize pain relief and function. We are limited in concentration for certain drugs to safely deliver medications through the pump and stay within the recommendations from the Polyanalgesic Consensus Committee Guidelines. Depending on dose and concentration these pumps may need to be refilled sooner than 3 months as we titrate.
== END 2024-08-24 23:59 | disposition home or self-care (01) ==
LOC: SC.PAIN 15:05
PROVIDERS: PCP Family Medicine; Visit Provider Nurse Practitioner Family
DX: M51.16 Intervertebral disc disorders with radiculopathy, lumbar region (principal); Z96.659 Presence of unspecified artificial knee joint; Z87.891 Personal history of nicotine dependence; Z79.01 Long term (current) use of anticoagulants
CPT/HCPCS: 99212; G0463

== ENCOUNTER 2024-08-31 14:04 | Outpatient (POV) | payer MEDICARE, SELFPAY ==
[2024-08-31 14:43] VITALS: BP 109/57; PULSE 64; RESP 14; O2SAT 96; BMI 34.3
--- NOTE | 2024-08-31 14:44 | EXP.PAIN.PRO ---
Procedure Date: 08/31/24 Time: 14:35 Anesthesiologist:: Kamryn Charles APRN Complications:: None Pre-procedure Diagnosis:: Degenerative disc disease of lumbar spine with lumbar radiculopathy symptoms Post-procedure Diagnosis:: Same Indications for Procedure:: Patient is a pleasant 73-year-old female who presents today for intrathecal adjustment and follow-up. Today she rates her pain a 0 out of 10. Patient denies any new falls or injuries from our last visit. Patient has been making sure not to cover her lateral incision site and does feel like it is doing a little bit better. She states that overall the only pain she really has is the incision pain when she is laying down. She does state that it is still draining a little bit. Patient is currently managed with morphine 1 mg/mL with a daily dose of 0.1098 mg/day. She does state that she still feels like she has increased fatigue. We have discussed at previous visits about decreasing the pump down to see if she notices any additional changes to rule out the pump causing this fatigue. Patient does states she would like to see about doing this today. Her Connor has been reviewed and is appropriate. Physical Exam: General: Alert and oriented x3, no acute distress, pleasant and cooperative Lungs: Respirations even and unlabored, symmetrical chest expansion Eyes: PERRL Musculoskeletal: Flexion and extension of lumbar [spine] somewhat guarded secondary to pain, [antalgic gait noted] Neurological: Speech clear, no gross sensory deficit Procedure Details:: Informed consent was obtained and the risk and benefits of the procedure were explained to the patient. Patient did have noninvasive monitoring was placed including noninvasive blood pressure cuff and pulse oximeter. Patient's pump was interrogated and was reprogrammed to morphine 0.1043mg/day. The patient tolerated the procedure well with no complications. Plan and Disposition:: Patient tolerated her intrathecal decrease with no complications and was discharged neurologically intact. Her incision site does look better today from last week and I did review over with the patient that I do still want to wait before we take the hoa out due to still having a couple of areas that are draining. I did dependency counselor her that she has 1 area that is scabbed over which is what we are hoping to have the entire incision to do in order to proceed forward with the staple removal. Patient acknowledges understanding agrees with this plan of care. We will decrease her down by 5% and see if this makes any additional changes on the fatigue. I did discuss with patient about decreasing it additionally however they wanted to only do with small amount at this time. We will follow-up at future visits. Patient will return to clinic in 1 week. We will see the patient back in the clinic at the next intrathecal refill. Patient has been instructed to contact the clinic with any concerns before the next appointment. Dr. Slaughter has reviewed this note and agrees with this plan of care. This note was dictated using voice recognition software and make contain errors or omissions. -- It Is medically necessary for this patient to continue to have their intrathecal pump refilled at regular intervals. This patient had an intrathecal pain pump implanted after meeting criteria of chronic intractable pain for greater than 3 months and failing conservative treatments. Patient has committed and been compliant to the treatment plan and all planned follow up care. Since implantation of the intrathecal pain pump, the patient has had decreased pain and been more functional. Oral medications have been reduced including intake of oral opioids. Patient continues to do well with intrathecal therapy with decrease in pain symptoms and increase in functional status. Stopping intrathecal medications can lead to life threatening withdrawal, seizures, cardiac arrest, severe pain, and possible . Pumps that are not refilled at regular intervals can be damages and cause and need for replacement. We continually titrate dose and concentration to optimize pain relief and function. We are limited in concentration for certain drugs to safely deliver medications through the pump and stay within the recommendations from the Polyanalgesic Consensus Committee Guidelines. Depending on dose and concentration these pumps may need to be refilled sooner than 3 months as we titrate.
== END 2024-08-31 23:59 | disposition home or self-care (01) ==
PROVIDERS: PCP Family Medicine; Visit Provider Nurse Practitioner Family
DX: M51.16 Intervertebral disc disorders with radiculopathy, lumbar region (principal)
CPT/HCPCS: 62368; 99213; G0463

== ENCOUNTER 2024-09-07 14:05 | Outpatient (POV) | payer MEDICARE, SELFPAY ==
--- NOTE | 2024-09-07 14:22 | A.OFFVIS_ITS ---
[facility] Disclaimer: The information contained in this section may have been updated after the patient was seen, as this information can be updated by other users. Medical History A-fib Restless sleeper SHOSHANA (obstructive sleep apnea) Daytime somnolence Edema Dizziness Preoperative clearance Right bundle branch block (RBBB) Diastolic dysfunction HLD (hyperlipidemia) HHD (hypertensive heart disease) CAD (coronary artery disease) Surgical History History of cholecystectomy History of bilateral breast reduction surgery History of hysterectomy History of knee replacement Family History Other Family history of cancer Social History (Updated 08/14/24 @ 15:31 by Kamryn Charles APRN) Smoking Status: Former smoker second hand exposure: No alcohol intake: never substance use type: denies use current occupational status: other Travel in the last 8 weeks: None household members: spouse housing: house current occupation: [employer] current occupational exposures/hazards: No caffeine: Yes PM Subjective & Objective Subjective Subjective:: Patient is a pleasant 73-year-old female who presents today for follow-up. Today she rates her pain a 1 out of 10. She denies any new trauma or injury. She does state that at her last appointment we did decrease her down that she really did not notice any additional changes with her fatigue. Patient states that she still just remains tired. Patient is currently managed with morphine 1 mg/mL with a daily dose of 0.1043 mg/day. She denies any side effects. Her Connor has been reviewed and is appropriate. Review of Systems: General: No recent weight changes, no fever, no sleep disturbances Respiratory: No cough, no shortness of air, no recurring pulmonary infections Cardiovascular/peripheral vascular: No chest pain, no palpitations, no edema, no shortness of breath Gastrointestinal: No new onset incontinence, normal bowel movements reported Genitourinary: No new onset incontinence Musculoskeletal: Low back pain Psychiatric: [Normal mood/affect] Neurological: [Denies weakness in extremities], [denies balance issues] Pain at rest (0-10 scale): 1 Objective Objective:: Physical Exam: General: Alert and oriented x3, no acute distress, pleasant and cooperative Lungs: Respirations even and unlabored, symmetrical chest expansion Eyes: PERRL Musculoskeletal: Flexion and extension of lumbar [spine] somewhat guarded secondary to pain, [antalgic gait noted] Neurological: Speech clear, no gross sensory deficit Skin: Lateral incision is clean, dry, well-approximated with hoa intact and scabbing present on medial and lateral aspects Has patient had previous pain injection?: No Conservative treatment options previously tried: Home exercise plan Length of treatment: Longer than 12 weeks Meds Home Medications and Allergies Home Medications ?Medication ?Instructions ?Recorded ?Confirmed ?Type lorazepam 1 mg tablet 1 mg PO TID nerves 04/09/18 08/31/24 History atorvastatin 40 mg tablet 40 mg PO DAILY Cholesterol 01/20/19 08/31/24 History metformin 500 mg tablet 500 mg PO DAILY Diabetes 03/23/20 08/31/24 History ferrous sulfate 325 mg (65 mg 325 mg PO DAILY ANEMIA 07/28/20 08/31/24 History iron) tablet lansoprazole 30 mg capsule,delayed 30 mg PO DAILY 01/18/21 08/31/24 History release spironolactone 100 mg tablet See Rx Instructions .Route 06/08/21 08/31/24 Rx .COMPLEX #180 tabs furosemide 80 mg tablet See Rx Instructions .Route 04/17/23 08/31/24 Rx .COMPLEX #180 tabs alendronate 70 mg tablet 70 mg PO DIRECTED 02/24/24 08/31/24 History tramadol 50 mg tablet 50 mg PO BID PRN pain #60 tabs 02/24/24 08/31/24 Rx apixaban 5 mg tablet (Eliquis) 5 mg PO BID Blood Thinner #60 tabs 06/15/24 08/31/24 Rx fluoxetine 40 mg capsule (Prozac) 60 mg PO DAILY 06/30/24 08/31/24 History insulin human U-100 NPH-regulr 20 unit SQ BID 07/03/24 08/31/24 History 70-30 mix 100 unit/mL subcutaneous susp (Humulin 70/30 U-100 Insulin) metoprolol succinate 50 mg 50 mg PO DAILY #90 tabs 07/28/24 08/31/24 Rx tablet,extended release 24 hr (Toprol XL) clindamycin HCl 300 mg capsule 300 mg PO TID #21 caps 08/14/24 08/31/24 Rx New Prescriptions to Start Prescriptions: Allergies Allergy/AdvReac Type Severity Reaction Status Date / Time latex (LATEX) Allergy Unknown I-ITCHING Verified 07/03/24 07:18 Penicillins (PENICILLINS) Allergy Unknown BREAKS OUT Verified 07/03/24 07:18 MOUTH Sulfa (Sulfonamide Allergy Unknown I-ITCHING Verified 07/03/24 07:18 Antibiotics) (SULFA (SULFONAMIDE ANTIBIOTICS)) Assessment and Plan *Assessment and plan (1) Lumbar radiculopathy: Status: Acute Category: Medical Code(s): M54.16 - Radiculopathy, lumbar region (2) Degenerative disc disease, lumbar: Status: Acute Category: Medical Code(s): M51.369 - Other intervertebral disc degeneration, lumbar region without mention of lumbar back pain or lower extremity pain Plan I did discuss with the patient and her that we are still going to baby her incision due to the fact that she did have more irritation and draining. We have already removed all of her sutures and part of her hoa however have a left and portions of it to allow for additional healing and to make sure that it does not dehiscence. Patient was counseled that everything does look like it is going the right direction and that we will still plan on leaving the hoa intact at this appointment. Patient was counseled to continue her postop restrictions and that we will have her return to clinic in 2 weeks and at that visit if everything is looking good we will start to remove the other hoa. Patient agrees with this plan of care. Patient will return to clinic in 2 weeks for reevaluation of symptoms and plan of care. We will see the patient back in the clinic at the next intrathecal refill. Patient has been instructed to contact the clinic with any concerns before the next appointment. Dr. Slaughter has reviewed this note and agrees with this plan of care. This note was dictated using voice recognition software and make contain errors or omissions. -- It Is medically necessary for this patient to continue to have their intrathecal pump refilled at regular intervals. This patient had an intrathecal pain pump implanted after meeting criteria of chronic intractable pain for greater than 3 months and failing conservative treatments. Patient has committed and been compliant to the treatment plan and all planned follow up care. Since implantation of the intrathecal pain pump, the patient has had decreased pain and been more functional. Oral medications have been reduced including intake of oral opioids. Patient continues to do well with intrathecal therapy with decrease in pain symptoms and increase in functional status. Stopping intrathecal medications can lead to life threatening withdrawal, seizures, cardiac arrest, severe pain, and possible . Pumps that are not refilled at regular intervals can be damages and cause and need for replacement. We continually titrate dose and concentration to optimize pain relief and function. We are limited in concentration for certain drugs to safely deliver medications through the pump and stay within the recommendations from the Polyanalges[employer] Committee Guidelines. Depending on dose and concentration these pumps may need to be refilled sooner than 3 months as we titrate. A UDS is needed to verify patient's compliance with our office pain contract. This is ordered based off specific treatments related to chronic pain with the potential to abuse certain medications.
[2024-09-07 15:51] VITALS: BP 106/63; PULSE 64; RESP 18; O2SAT 92; BMI 34.0
== END 2024-09-07 23:59 | disposition home or self-care (01) ==
LOC: SC.PAIN 14:06
PROVIDERS: PCP Family Medicine; Visit Provider Nurse Practitioner Family
DX: M51.16 Intervertebral disc disorders with radiculopathy, lumbar region (principal); Z87.891 Personal history of nicotine dependence; Z79.01 Long term (current) use of anticoagulants
CPT/HCPCS: 99212; G0463

== ENCOUNTER 2024-09-24 12:49 | Outpatient (POV) | payer MEDICARE, SELFPAY ==
[2024-09-24 13:30] VITALS: BP 102/59; PULSE 60; RESP 14; O2SAT 92; BMI 32.8
--- NOTE | 2024-09-24 13:43 | P.PCN_ITS ---
Procedure Date: 09/24/24 Time: 13:43 Anesthesiologist:: Kamryn Charles APRN Complications:: None Pre-procedure Diagnosis:: Degenerative disc disease of lumbar spine with lumbar radiculopathy symptoms Post-procedure Diagnosis:: Same Indications for Procedure:: Patient is a pleasant 74-year-old female who presents today for intrathecal adjustment and reprogram. Today she rates her pain a 3 out of 10. She denies any new trauma or injury. She does state that she still feels like she is tired a lot with decreased appetite. Patient states that she is unsure if it is related to the pump medication. Patient does also state that her incision has been doing really well and look great later this week. She states that she did end up snacking what she believed was one of the hoa and it bled just a little bit. She denies any other issues. Patient is currently managed with morphine 1 mg/mL with a daily dose of 0.1043 mg/day. Her Connor has been reviewed and is appropriate. Physical Exam: General: Alert and oriented x3, no acute distress, pleasant and cooperative Lungs: Respirations even and unlabored, symmetrical chest expansion Eyes: PERRL Musculoskeletal: Flexion and extension of lumbar [spine] somewhat guarded secondary to pain, [antalgic gait noted] Neurological: Speech clear, no gross sensory deficit Skin: Incision site is clean, dry, well-approximated with hoa intact Procedure Details:: Informed consent was obtained and the risk and benefits of the procedure were explained to the patient. Patient did have noninvasive monitoring was placed including noninvasive blood pressure cuff and pulse oximeter. Patient's pump was interrogated and was reprogrammed to morphine 0.0938 mg/day. The patient tolerated the procedure well with no complications. Plan and Disposition:: I did discuss at length with the patient due to her concerns regarding fatigue and decreased appetite that I would like to see her primary care order some updated labs. She does state that she is seeing him tomorrow and that she is due for lab work. I have requested if she can have the primary care also send our office a copy. We did discuss that she has a longstanding history of c hronic anemia and takes iron daily. Patient was counseled that other factors may be playing a role with the fatigue and decreased appetite. I did compliance counsel the patient that we would decrease her down today and see how she does with the next week. Patient is scheduled to return to clinic next week for her pump refill. Patient was also counseled that we will take out all her hoa today and applied skin glue and Steri-Strips. She was counseled to continue her postop restrictions until her incision is completely healed. She acknowledges understanding agrees with plan of care. Patient was counseled if she does not notice any additional improvements with her symptoms next week however has increased pain that we can increase her back to her prior dosage. We will follow-up with this next week. We will see the patient back in the clinic at the next intrathecal refill. Patient has been instructed to contact the clinic with any concerns before the next appointment. Dr. Slaughter has reviewed this note and agrees with this plan of care. This note was dictated using voice recognition software and make contain errors or omissions. -- It Is medically necessary for this patient to continue to have their intrathecal pump refilled at regular intervals. This patient had an intrathecal pain pump implanted after meeting criteria of chronic intractable pain for greater than 3 months and failing conservative treatments. Patient has committed and been compliant to the treatment plan and all planned follow up care. Since implantation of the intrathecal pain pump, the patient has had decreased pain and been more functional. Oral medications have been reduced including intake of oral opioids. Patient continues to do well with intrathecal therapy with decrease in pain symptoms and increase in functional status. Stopping intrathecal medications can lead to life threatening withdrawal, seizures, cardiac arrest, severe pain, and possible . Pumps that are not refilled at regular intervals can be damages and cause and need for replacement. We continually titrate dose and concentration to optimize pain relief and function. We are limited in concentration for certain drugs to safely deliver medications through the pump and stay within the recommendations from the Polyanalgesic Consensus Committee Guidelines. Depending on dose and concentration these pumps may need to be refilled sooner than 3 months as we titrate. A UDS is needed to verify patient's compliance with our office pain contract. This is ordered based off specific treatments related to chronic pain with the potential to abuse certain medications.
== END 2024-09-24 23:59 | disposition home or self-care (01) ==
PROVIDERS: PCP Family Medicine; Visit Provider Nurse Practitioner Family
DX: M51.16 Intervertebral disc disorders with radiculopathy, lumbar region (principal)
CPT/HCPCS: 62368; 99212; 99213; G0463

== ENCOUNTER 2024-09-29 10:28 | Day surgery (SDC) | payer MEDICARE, SELFPAY ==
[2024-09-29 10:38] VITALS: BP 128/70; PULSE 53; RESP 16; TEMP 36.6; O2SAT 93; BMI 32.5
[2024-09-29 11:05] VITALS: BP 150/72; PULSE 57; RESP 18; O2SAT 95
[2024-09-29 11:11] VITALS: BP 125/69; PULSE 57; RESP 18; O2SAT 93
[2024-09-29 11:15] VITALS: BP 128/70; PULSE 55; RESP 16; O2SAT 94
--- NOTE | 2024-09-29 11:18 | P.PCN_ITS ---
Procedure Date: 09/29/24 Time: 11:10 Anesthesiologist:: Kamryn Charles APRN Complications:: None Pre-procedure Diagnosis:: Degenerative disc disease of lumbar spine with lumbar radiculopathy symptoms Post-procedure Diagnosis:: Same Indications for Procedure:: Patient is a pleasant 74-year-old female who presents today for intrathecal refill and reprogram and follow-up. Today she rates her pain a 0 out of 10. At our last visit we did decrease her pump by 10% to see if it made any additional improvement on her overall fatigue and lack of appetite. Patient states that she noticed no additional changes. She does state that she did end up having blood work at her primary care on Saturday and that he did take her off her iron tablets, metformin and another medication that she cannot remember. She states that these were all removed to see if they would make any difference on her fati alona symptoms. Patient is currently managed with morphine 1 mg/mL with a daily dose of 0.1043 mg/day. She denies any side effects from this medication. Her Connor has been reviewed and is appropriate. Physical Exam: General: Alert and oriented x3, no acute distress, pleasant and cooperative Lungs: Respirations even and unlabored, symmetrical chest expansion Eyes: PERRL Musculoskeletal: Flexion and extension of lumbar [spine] somewhat guarded secondary to pain, [antalgic gait noted] Neurological: Speech clear, no gross sensory deficit Procedure Details:: Informed consent was obtained and the risk and benefits of the procedure were explained to the patient. The patient had noninvasive monitoring placed including noninvasive blood pressure cuff and pulse oximeter. Patient's pump was interrogated. The area over the pump was cleansed with chlorhexidine as a cleansing solution. In sterile fashion the pump was accessed with a 22-gauge ne edle. Approximately 11.1 mls of the pump solution was removed and discarded appropriately. The pump was then refilled with 20 mL's of morphine 1 mg/mL. The needle was withdrawn and a bandage was placed over the puncture site. The infusion rate was reprogrammed and continued at morphine 0.1043 mg/day the patient tolerated well with no complication. Plan and Disposition:: Patient tolerated her procedure well with no complications and was discharged neurologically intact. I did discuss with the patient that we will send for a copy of her most recent labs to review over. We will follow-up with the patient in 2 weeks. Patient was counseled that we could bring her pump to minimal flow to see if this does improve any of her fatigue however at this time she is declined. Patient will not have her next intrathecal refill for another 3 months. Patient agrees with this plan of care. We will see the patient back in the clinic at the next intrathecal refill. Patient has been instructed to contact the clinic with any concerns before the next appointment. Dr. Slaughter has reviewed this note and agrees with this plan of care. This note was dictated using voice recognition software and make contain errors or omissions. -- It Is medically necessary for this patient to continue to have their intrathecal pump refilled at regular intervals. This patient had an intrathecal pain pump implanted after meeting criteria of chronic intractable pain for greater than 3 months and failing conservative treatments. Patient has committed and been c ompliant to the treatment plan and all planned follow up care. Since implantation of the intrathecal pain pump, the patient has had decreased pain and been more functional. Oral medications have been reduced including intake of oral opioids. Patient continues to do well with intrathecal therapy with decrease in pain symptoms and increase in functional status. Stopping intrathecal medications can lead to life threatening withdrawal, seizures, cardiac arrest, severe pain, and possible . Pumps that are not refilled at regular intervals can be damages and cause and need for replacement. We co ntinually titrate dose and concentration to optimize pain relief and function. We are limited in concentration for certain drugs to safely deliver medications through the pump and stay within the recommendations from the Polyanalgesic Consensus Committee Guidelines. Depending on dose and concentration these pumps may need to be refilled sooner than 3 months as we titrate. A UDS is needed to verify patient's compliance with our office pain contract. This is ordered based off specific treatments related to chronic pain with the potential to abuse certain medications.
== END 2024-09-29 11:15 | disposition home or self-care (01) ==
LOC: SC.PAINP 10:32 → SC.PAIN 10:32
PROVIDERS: PCP Family Medicine; Visit Provider Nurse Practitioner Family
DX: M51.16 Intervertebral disc disorders with radiculopathy, lumbar region (principal)
CPT/HCPCS: 62370

== ENCOUNTER 2024-10-13 10:48 | Outpatient (POV) | payer MEDICARE, SELFPAY ==
[2024-10-13 11:28] VITALS: BP 124/58; PULSE 56; RESP 18; TEMP 36.4; O2SAT 91; BMI 32.3
--- NOTE | 2024-10-13 11:36 | EXP.PAIN.SOA ---
[facility] Disclaimer: The information contained in this section may have been updated after the patient was seen, as this information can be updated by other users. Medical History A-fib Restless sleeper SHOSHANA (obstructive sleep apnea) Daytime somnolence Edema Dizziness Preoperative clearance Right bundle branch block (RBBB) Diastolic dysfunction HLD (hyperlipidemia) HHD (hypertensive heart disease) CAD (coronary artery disease) Surgical History History of cholecystectomy History of bilateral breast reduction surgery History of hysterectomy History of knee replacement Family History Other Family history of cancer Social History (Updated 10/13/24 @ 11:31 by Janie Gibbons RN) Smoking Status: Former smoker second hand exposure: No alcohol intake: never substance use type: denies use current occupational status: retired Travel in the last 8 weeks: None household members: spouse housing: house current occupation: [employer] current occupational exposures/hazards: No caffeine: Yes PM Subjective & Objective Subjective Subjective:: Patient is a pleasant 74-year-old female who presents today for 2-week follow-up. Today she does rate her pain a 6 however states it is probably more like L4. She just states that she has more heaviness in her bilateral hips and does state that the hips will increase when she is up walking and moving. She does state from her last appointment that she has continued to do well and feels like her pump site is doing great. She states that Dr. Rowley is still adjusting some of her medication to see if it may be playing a role in her fatigue and decreased appetite. Patient states that she really has not noticed any changes at this point. Patient is currently managed with morphine 1 mg/mL with a daily dose of 0.1043 mg/day. She denies any side effects. Her Connor has been reviewed and is appropriate. Review of Systems: General: No recent weight changes, no fever, no sleep disturbances Respiratory: No cough, no shortness of air, no recurring pulmonary infections Cardiovascular/peripheral vascular: No chest pain, no palpitations, no edema, no shortness of breath Gastrointestinal: No new onset incontinence, normal bowel movements reported Genitourinary: No new onset incontinence Musculoskeletal: Low back pain Psychiatric: [Normal mood/affect] Neurological: [Denies weakness in extremities], [denies balance issues] Pain at rest (0-10 scale): 4 Objective Objective:: Physical Exam: General: Alert and oriented x3, no acute distress, pleasant and cooperative Lungs: Respirations even and unlabored, symmetrical chest expansion Eyes: PERRL Musculoskeletal: Flexion and extension of lumbar [spine] somewhat guarded secondary to pain, [antalgic gait noted] Neurological: Speech clear, no gross sensory deficit Has patient had previous pain injection?: No Conservative treatment options previously tried: Home exercise plan Length of treatment: Longer than 12 weeks Meds Home Medications and Allergies Home Medications ?Medication ?Instructions ?Recorded ?Confirmed ?Type lorazepam 1 mg tablet 1 mg PO TID nerves 04/09/18 10/13/24 History atorvastatin 40 mg tablet 40 mg PO DAILY Cholesterol 01/20/19 10/13/24 History lansoprazole 30 mg capsule,delayed 30 mg PO DAILY 01/18/21 10/13/24 History release spironolactone 100 mg tablet See Rx Instructions .Route 06/08/21 10/13/24 Rx .COMPLEX #180 tabs furosemide 80 mg tablet See Rx Instructions .Route 04/17/23 10/13/24 Rx .COMPLEX #180 tabs alendronate 70 mg tablet 70 mg PO DIRECTED 02/24/24 10/13/24 History tramadol 50 mg tablet 50 mg PO BID PRN pain #60 tabs 02/24/24 10/13/24 Rx apixaban 5 mg tablet (Eliquis) 5 mg PO BID Blood Thinner #60 tabs 06/15/24 10/13/24 Rx fluoxetine 40 mg capsule (Prozac) 60 mg PO DAILY 06/30/24 10/13/24 History insulin human U-100 NPH-regulr 20 unit SQ BID 07/03/24 10/13/24 History 70-30 mix 100 unit/mL subcutaneous susp (Humulin 70/30 U-100 Insulin) metoprolol succinate 50 mg 50 mg PO DAILY #90 tabs 07/28/24 10/13/24 Rx tablet,extended release 24 hr (Toprol XL) New Prescriptions to Start Prescriptions: Allergies Allergy/AdvReac Type Severity Reaction Status Date / Time latex (LATEX) Allergy Unknown I-ITCHING Verified 07/03/24 07:18 Penicillins (PENICILLINS) Allergy Unknown BREAKS OUT Verified 07/03/24 07:18 MOUTH Sulfa (Sulfonamide Allergy Unknown I-ITCHING Verified 07/03/24 07:18 Antibiotics) (SULFA (SULFONAMIDE ANTIBIOTICS)) Assessment and Plan *Assessment and plan (1) Lumbar radiculopathy: Status: Acute Category: Medical Code(s): M54.16 - Radiculopathy, lumbar region (2) Degenerative disc disease, lumbar: Status: Acute Category: Medical Code(s): M51.369 - Other intervertebral disc degeneration, lumbar region without mention of lumbar back pain or lower extremity pain Plan I did discuss with the patient due to still feeling like she has a lot of fatigue and appetite issues that we can decrease her pump down however she has declined this option. Patient would like to wait. We will follow-up with this at future visits. Patient's incision is doing well and completely healed. Patient was counseled that I would like to see her back in 1 month to see how she is progressing and that we did talk about home PT and OT. Patient is requesting if we can wait until the weather warms up and that she will decide between her and her whether or not they want to do it at home or here in the hospital. We will see the patient back in the clinic at the next intrathecal refill. Patient has been instructed to contact the clinic with any concerns before the next appointment. Dr. Slaughter has reviewed this note and agrees with this plan of care. This note was dictated using voice recognition software and make contain errors or omissions. -- It Is medically necessary for this patient to continue to have their intrathecal pump refilled at regular intervals. This patient had an intrathecal pain pump implanted after meeting criteria of chronic intractable pain for greater than 3 months and failing conservative treatments. Patient has committed and been compliant to the treatment plan and all planned follow up care. Since implantation of the intrathecal pain pump, the patient has had decreased pain and been more functional. Oral medications have been reduced including intake of oral opioids. Patient continues to do well with intrathecal therapy with decrease in pain symptoms and increase in functional status. Stopping intrathecal medications can lead to life threatening withdrawal, seizures, cardiac arrest, severe pain, and possible . Pumps that are not refilled at regular intervals can be damages and cause and need for replacement. We continually titrate dose and concentration to optimize pain relief and function. We are limited in concentration for certain drugs to safely deliver medications through the pump and stay within the recommendations from the [employer] Consensus [employer] Guidelines. Depending on dose and concentration these pumps may need to be refilled sooner than 3 months as we titrate. A UDS is needed to verify patient's compliance with our office pain contract. This is ordered based off specific treatments related to chronic pain with the potential to abuse certain medications.
== END 2024-10-13 23:59 | disposition home or self-care (01) ==
LOC: SC.PAIN 10:49
PROVIDERS: PCP Family Medicine; Visit Provider Nurse Practitioner Family
DX: M51.16 Intervertebral disc disorders with radiculopathy, lumbar region (principal); Z87.891 Personal history of nicotine dependence; Z96.659 Presence of unspecified artificial knee joint; Z79.01 Long term (current) use of anticoagulants
CPT/HCPCS: 99212; G0463

== ENCOUNTER 2024-11-13 13:29 | Outpatient (POV) | payer MEDICARE, SELFPAY ==
[2024-11-13 13:45] VITALS: BP 142/74; PULSE 73; RESP 16; O2SAT 94; BMI 34.3
--- NOTE | 2024-11-13 13:49 | P.PCN_ITS ---
Procedure Date: 11/13/24 Time: 13:49 Anesthesiologist:: Kamryn Charles APRN Complications:: None Pre-procedure Diagnosis:: Degenerative disc disease of lumbar spine with lumbar radiculopathy symptoms, chronic pain syndrome Post-procedure Diagnosis:: Same Indications for Procedure:: Patient is a pleasant 74-year-old female who presents today for 1 month follow- up and worsening pain. Today she rates her pain a 7 out of 10. She denies any new trauma or injury. Patient does state that she is just recently had more pain in her low back. She states overall she is continued to do well from her pump implant and states that the incision does seem to be fully healed now. Patient is currently managed with intrathecal morphine 1 mg/mL with a daily dose of 0. 0938 mg/day. She denies any side effects from this medication. She is requesting an increase if possible today. Her Connor has been reviewed and is appropriate. Physical Exam: General: Alert and oriented x3, no acute distress, pleasant and cooperative Lungs: Respirations even and unlabored, symmetrical chest expansion Eyes: PERRL Musculoskeletal: Flexion and extension of lumbar [spine] somewhat guarded secondary to pain, [antalgic gait noted] Neurological: Speech clear, no gross sensory deficit Procedure Details:: informed consent was obtained and the risk and benefits of the procedure were explained to the patient. Patient did have noninvasive monitoring was placed including noninvasive blood pressure cuff and pulse oximeter. Patient's pump was interrogated and was reprogrammed to morphine 0.1033 mg/day. The patient tolerated the procedure well with no complications. Plan and Disposition:: Patient tolerated the procedure well with no complications and was discharged neurologically intact. Patient was counseled that we will plan on having her back in 2 weeks for possible readjustment of her pump settings. Patient agrees with this plan of care. Patient's incision is fully healed and she has been counseled that she is no longer on postop restrictions. Patient does state that from her last appointment her appetite has resumed and she has not had any issues with this. Patient does state that she still has fatigue but seems unrelated to any adjustments on her pump. We will see the patient back in the clinic at the next intrathecal refill. Patient has been instructed to contact the clinic with any concerns before the next appointment. Dr. Slaughter has reviewed this note and agrees with this plan of care. This note was dictated using voice recognition software and make contain errors or omissions. -- It Is medically necessary for this patient to continue to have their intrathecal pump refilled at regular intervals. This patient had an intrathecal pain pump implanted after meeting criteria of chronic intractable pain for greater than 3 months and failing conservative treatments. Patient has committed and been compliant to the treatment plan and all planned follow up care. Since implan tation of the intrathecal pain pump, the patient has had decreased pain and been more functional. Oral medications have been reduced including intake of oral opioids. Patient continues to do well with intrathecal therapy with decrease in pain symptoms and increase in functional status. Stopping intrathecal medications can lead to life threatening withdrawal, seizures, cardiac arrest, severe pain, and possible . Pumps that are not refilled at regular intervals can be damages and cause and need for replacement. We continually titrate dose and concentration to optimize pain relief and function. We are limited in concentration for certain drugs to safely deliver medications through the pump and stay within the recommendations from the Polyanalges[employer] Consensus Committee Guidelines. Depending on dose and concentration these pumps may need to be refilled sooner than 3 months as we titrate. A UDS is needed to verify patient's compliance with our office pain contract. This is ordered based off specific treatments related to chronic pain with the potential to abuse certain medications.
== END 2024-11-13 23:59 | disposition home or self-care (01) ==
PROVIDERS: PCP Family Medicine; Visit Provider Nurse Practitioner Family
DX: M51.16 Intervertebral disc disorders with radiculopathy, lumbar region (principal); G89.4 Chronic pain syndrome
CPT/HCPCS: 62368; 99212; G0463

== ENCOUNTER 2024-11-27 14:15 | Outpatient (POV) | payer MEDICARE, SELFPAY ==
[2024-11-27 14:23] VITALS: BP 109/51; PULSE 53; RESP 14; O2SAT 95; BMI 34.3
--- NOTE | 2024-11-27 14:33 | EXP.PAIN.PRO ---
Procedure Date: 11/27/24 Time: 14:20 Anesthesiologist:: Kamryn Charles APRN Complications:: None Pre-procedure Diagnosis:: Degenerative disc disease of lumbar spine with lumbar radiculopathy symptoms Post-procedure Diagnosis:: Same Indications for Procedure:: HerPatient is a pleasant 74-year-old female who presents today for intrathecal adjustment and reprogram. Today she rates her pain a 2 or 3 out of 10. She denies any new trauma or injury. She does state that she is having a little bit more pain in and around the low back and bilateral hips. Patient does state that she would like to see about getting an increase on her pump. Patient is currently managed with intrathecal morphine 1 mg/mL with a daily dose of morphine 0.1033 mg/day. She denies any side effects. Her has been reviewed and is appropriate. Physical Exam: General: Alert and oriented x3, no acute distress, pleasant and cooperative Lungs: Respirations even and unlabored, symmetrical chest expansion Eyes: PERRL Musculoskeletal: Flexion and extension of lumbar [spine] somewhat guarded secondary to pain, [antalgic gait noted] Neurological: Speech clear, no gross sensory deficit Procedure Details:: Informed consent was obtained and the risk and benefits of the procedure were explained to the patient. Patient did have noninvasive monitoring was placed including noninvasive blood pressure cuff and pulse oximeter. Patient's pump was interrogated and was reprogrammed to morphine 0.1137 mg/day. The patient tolerated the procedure well with no complications. Plan and Disposition:: Patient tolerated the procedure well with no complications and was discharged neurologically intact. Patient will return to clinic on or before their next intrathecal refill date. We will see the patient back in the clinic at the next intrathecal refill. Patient has been instructed to contact the clinic with any concerns before the next appointment. Dr. Slaughter has reviewed this note and agrees with this plan of care. This note was dictated using voice recognition software and make contain errors or omissions. -- It Is medically necessary for this patient to continue to have their intrathecal pump refilled at regular intervals. This patient had an intrathecal pain pump implanted after meeting criteria of chronic intractable pain for greater than 3 months and failing conservative treatments. Patient has committed and been compliant to the treatment plan and all planned follow up care. Since implantation of the intrathecal pain pump, the patient has had decreased pain and been more functional. Oral medications have been reduced including intake of oral opioids. Patient continues to do well with intrathecal therapy with decrease in pain symptoms and increase in functional status. Stopping intrathecal medications can lead to life threatening withdrawal, seizures, cardiac arrest, severe pain, and possible . Pumps that are not refilled at regular intervals can be damages and cause and need for replacement. We continually titrate dose and concentration to optimize pain relief and function. We are limited in concentration for certain drugs to safely deliver medications through the pump and stay within the recommendations from the Polyanalgesic Consensus Committee Guidelines. Depending on dose and concentration these pumps may need to be refilled sooner than 3 months as we titrate. A UDS is needed to verify patient's compliance with our office pain contract. This is ordered based off specific treatments related to chronic pain with the potential to abuse certain medications.
== END 2024-11-27 23:59 | disposition home or self-care (01) ==
PROVIDERS: PCP Family Medicine; Visit Provider Nurse Practitioner Family
DX: M51.16 Intervertebral disc disorders with radiculopathy, lumbar region (principal)
CPT/HCPCS: 62368; 99212; 99213; G0463

== ENCOUNTER 2025-01-01 08:59 | Day surgery (SDC) | payer MEDICARE, SELFPAY ==
--- NOTE | 2025-01-01 09:02 | P.PCN_ITS ---
Procedure Date: 01/01/25 Time: 09:20 Anesthesiologist:: Kamryn Charles APRN Complications:: None Pre-procedure Diagnosis:: Degenerative disc disease of lumbar spine with lumbar radiculopathy symptoms Post-procedure Diagnosis:: Same Indications for Procedure:: Patient is a pleasant 74-year-old female who presents today for intrathecal refill and reprogram. Today she rates her pain a 9 out of 10. She denies any new trauma or injury. She does state for the last visit she has been having a lot more hip pain bilaterally. She states that it is tender to touch and anytime she is up and moving or prolonged positioning that they just throb and ache. Patient states the pain does interfere with her ability perform activities of daily living such as cooking and cleaning. Patient is interested in additional injection therapy. Patient is currently managed with morphine 1 mg/mL with a daily dose of 0.1137 mg/day. She denies any side effects from this medication. Her Connor has been reviewed and is appropriate. Physical Exam: General: Alert and oriented x3, no acute distress, pleasant and cooperative Lungs: Respirations even and unlabored, symmetrical chest expansion Eyes: PERRL Musculoskeletal: Flexion and extension of lumbar [spine] somewhat guarded secondary to pain, [antalgic gait noted] Neurological: Speech clear, no gross sensory deficit Procedure Details:: Informed consent was obtained and the risk and benefits of the procedure were explained to the patient. The patient had noninvasive monitoring placed including noninvasive blood pressure cuff and pulse oximeter. Patient's pump was interrogated. The area over the pump was cleansed with chlorhexidine as a cleansing solution. In sterile fashion the pump was accessed with a 22-gauge needle. Approximately 11.5 mls of the pump solution was removed and discarded appropriately. The pump was then refilled with 20 mL's of morphine 1 mg/mL. The needle was withdrawn and a bandage was placed over the puncture site. The infusion rate was reprogrammed and increased 10% to morphine 0.1251 mg/day. The patient tolerated well with no complication. Plan and Disposition:: Patient tolerated the procedure well with no complications and was discharged neurologically intact. Patient was counseled due to her increased pain in her bilateral hips with point tenderness along her greater trochanteric bursa's that she may benefit from additional injection therapy at these locations. Risk and benefits were discussed with the patient and she would like to proceed forward with this plan of care. Patient has tried and failed conservative therapy including oral medications, heat and ice, topicals, at home stretching exercise for longer than 12 weeks that was physician guided. We will schedule the patient for bilateral greater trochanteric bursa injections under fluoroscopy. Patient will also be given a second appointment for her pump refill date. We will see the patient back in the clinic at the next intrathecal refill. Patient has been instructed to contact the clinic with any concerns before the next appointment. Dr. Slaughter has reviewed this note and agrees with this plan of care. This note was dictated using voice recognition software and make contain errors or omissions. -- It Is medically necessary for this patient to continue to have their intrathecal pump refilled at regular intervals. This patient had an intrathecal pain pump implanted after meeting criteria of chronic intractable pain for greater than 3 months and failing conservative treatments. Patient has committed and been compl iant to the treatment plan and all planned follow up care. Since implantation of the intrathecal pain pump, the patient has had decreased pain and been more functional. Oral medications have been reduced including intake of oral opioids. Patient continues to do well with intrathecal therapy with decrease in pain symptoms and increase in functional status. Stopping intrathecal medications can lead to life threatening withdrawal, seizures, cardiac arrest, severe pain, and possible . Pumps that are not refilled at regular intervals can be damages and cause and need for replacement. We continually titrate dose and concentration to optimize pain relief and function. We are limited in concentration for certain drugs to safely deliver medications through the pump and stay within the recommendations from the Polyanalges[employer] Consensus Committee Guidelines. Depending on dose and concentration these pumps may need to be refilled sooner than 3 months as we titrate. A UDS is needed to verify patient's compliance with our office pain contract. This is ordered based off specific treatments related to chronic pain with the potential to abuse certain medications.
[2025-01-01 09:09] VITALS: BP 114/64; PULSE 64; RESP 16; TEMP 36.8; O2SAT 98; BMI 30.3
[2025-01-01 09:13] VITALS: BP 114/64; PULSE 71; RESP 18; O2SAT 95
[2025-01-01 09:15] VITALS: BP 114/64; PULSE 71; RESP 18; O2SAT 95
[2025-01-01 09:29] VITALS: BP 104/55; PULSE 64; RESP 16; O2SAT 90
== END 2025-01-01 09:29 | disposition home or self-care (01) ==
PROVIDERS: PCP Family Medicine; Visit Provider Nurse Practitioner Family
DX: M51.16 Intervertebral disc disorders with radiculopathy, lumbar region (principal); Z73.89 Other problems related to life management difficulty
CPT/HCPCS: 62370; 99212; G0463

== ENCOUNTER → 2025-02-02 11:42 | Day surgery (SDC) | payer MEDICARE, SELFPAY ==
[2025-02-02 11:51] VITALS: BP 171/86; PULSE 56; RESP 16; TEMP 36.8; O2SAT 93; BMI 34.3
--- NOTE | 2025-02-02 12:10 | PC.NURSE ---
PROVIDER SPOKE WITH PT. PROCEDURE RESCHEDULED DUE TO PT BLOOD SUGAR
[2025-02-02 15:24] LABS: POC Glucose,Bedside 262 (70-110)
== END ==
LOC: SC.PAINP 11:43
PROVIDERS: PCP Family Medicine; Visit Provider Nurse Anesthetist, Certified Registered
DX: Z53.09 Procedure and treatment not carried out because of other contraindication (principal); R73.9 Hyperglycemia, unspecified
CPT/HCPCS: 82962

== ENCOUNTER 2025-03-09 08:28 | Day surgery (SDC) | payer MEDICARE, SELFPAY ==
[2025-03-09 08:37] VITALS: BP 126/56; PULSE 61; RESP 16; TEMP 36.7; O2SAT 96; BMI 32.3
--- NOTE | 2025-03-09 08:50 | P.PCN_ITS ---
Procedure Date: 03/09/25 Time: 08:50 Anesthesiologist:: Iker Aponte CRNA Complications:: None Pre-procedure Diagnosis:: Bilateral trochanteric bursitis Post-procedure Diagnosis:: Same Indications for Procedure:: This patient is a very pleasant 74-year-old female who comes our clinic today for bilateral trochanteric bursa injections of cortisone local anesthetic. Patient describes bilateral lateral hip pain as constant, dull, aching. She reports having difficulty with ambulation due to the bilateral lateral hip pain. She has extreme point tenderness over the bilateral trochanteric bursa areas. We also managed the patient with intrathecal morphine sulfate 1 mg/mL at a rate of 0.1137 mg/day. She is doing very well with her current settings. She is not reporting side effects or complications. She is not requesting any changes. Patient is awake alert oriented x 3. No acute distress. Flexion-extension lumbar spine guarded secondary to pain. Deep tendon reflexes upper and lower extremities normal. Motor strength upper lower extremities normal. There is no gross sensory deficit. Patient presents in a wheelchair today. She reports using a cane for stability with ambulation. Procedure Details:: Procedure: Bilateral trochanteric bursa joint injections under fluoroscopy Informed consent was obtained and the risks and benefits of the procedure were explained to the patient.~ The patient was taken to the procedure room and noninvasive monitors were placed including a noninvasive blood pressure cuff and pulse oximeter.~ The patient was placed prone on the procedure table. Both hips were cleansed using Betadine as a cleansing solution. C-arm fluoroscopy was used to view the right trochanteric bursa joint.~ The skin and subcutaneous tissues were anesthetized using lidocaine 1.5% and a 25-gauge needle.~ After this, a 22- gauge spinal needle was inserted under fluoroscopic guidance into the inferior aspect of the right trochanteric bursa.~ Omnipaque dye was injected and good spread was seen throughout the joint.~ After this, approximately 5 mL of bupivacaine, 0.25% and Depo-Medrol, 40 mg was incrementally injected into the right sacroiliac joint. We then moved to the left trochanteric bursa joint.~ The skin and subcutaneous tissues were anesthetized using lidocaine 1.5% and a 25-gauge needle.~ After this, a 22-gauge spinal needle was inserted under fluoroscopic guidance into the inferior aspect of the left trochanteric bursa joint.~ Omnipaque dye was injected and good spread was seen throughout the joint. After this, approximately 5 mL of bupivacaine, 0.25% and Depo-Medrol, 40 mg was incrementally injected into the left sacroiliac joint.~ The patient tolerated the procedure well with no complications. The patient was observed in the Pain Clinic and then was discharged home neurologically intact. Plan and Disposition:: Patient was discharged without incident.
[2025-03-09] MEDS: DEXAMETHASONE 10MG/ML 1ML VIAL 10 MG (08:52)
[2025-03-09] MEDS: BUPIVACAINE 0.25% 10ML INJ 25 MG IJ (08:52)
[2025-03-09] MEDS: LIDOCAINE 1% 5ML PF VIAL 5 ML (08:52)
[2025-03-09 08:53] VITALS: BP 91/53; PULSE 66; RESP 18; O2SAT 90
[2025-03-09 08:56] LABS: POC Glucose,Bedside 96 (70-110)
[2025-03-09 08:57] VITALS: BP 91/53; PULSE 59; RESP 18; O2SAT 90
[2025-03-09 08:59] VITALS: BP 101/59; PULSE 56; RESP 16; O2SAT 91
== END 2025-03-09 08:59 | disposition home or self-care (01) ==
PROVIDERS: PCP Family Medicine; Visit Provider Nurse Anesthetist, Certified Registered
DX: M70.62 Trochanteric bursitis, left hip (principal); M70.61 Trochanteric bursitis, right hip; I25.10 Atherosclerotic heart disease of native coronary artery without angina pectoris; I48.91 Unspecified atrial fibrillation; I11.9 Hypertensive heart disease without heart failure; E78.5 Hyperlipidemia, unspecified; G47.33 Obstructive sleep apnea (adult) (pediatric); Z88.2 Allergy status to sulfonamides; Z88.0 Allergy status to penicillin; Z87.891 Personal history of nicotine dependence; Z91.040 Latex allergy status; Z79.01 Long term (current) use of anticoagulants; Z79.899 Other long term (current) drug therapy
CPT/HCPCS: 20610; 82962; J0665; J1100; J2003

== ENCOUNTER 2025-03-17 12:49 | Outpatient (CLI) | payer MEDICARE, SELFPAY ==
--- OUTSIDE RECORDS SUMMARY | 2025-03-17 12:53 | XMS_ITS | Clinical Summary ---
Author Organization Healthcare Address [address] [place] [address] Care Team Providers Care Dental Aide Name Role Phone Unavailable Primary Care Provider Unavailabl e Allergies Active Allergy Reactions Criticality Noted Date Comments Latex Itching Medium 12/24/2023 Penicillins Shortness of breath High 12/24/2023 Sulfa Drugs Itching Medium 12/24/2023 Medications alendronate (Fosamax) 70 MG tablet Take 1 tablet (70 mg) by mouth every 7 (seven) days. Take in the morning with a full glass of water, on an empty stomach, and do not take anything else by mouth or lie down for the next 30 min. Active atorvastatin (Lipitor) 40 MG tablet Take 1 tablet (40 mg) by mouth 1 (one) time each day. Active LORazepam (Ativan) 1 MG tablet Take one-half tablet (0.5 mg) by mouth in the morning and afternoon as needed and take one tablet (1 mg) by mouth at bedtiime Active metFORMIN (Glucophage) 500 MG tablet Take 1 tablet (500 mg) by mouth 1 (one) time each day. Active metoprolol succinate XL (Toprol-XL) 50 MG 24 hr tablet Take 1 tablet (50 mg) by mouth 1 (one) time each day. Do not crush or chew. Active venlafaxine XR (Effexor-XR) 75 MG 24 hr capsule Take 1 capsule (75 mg) by mouth 1 (one) time each day. Do not crush or chew. Active insulin NPH-insulin regular (Novolin 70-30,Humulin 70-30) (70-30) 100 UNIT/ML injection vial Subcutaneously inject 100 units in the morning and 80 units in the evening. Pt stated dose keeps changing, now 30 to 40 units Active ferrous sulfate 325 (65 Fe) MG tablet Take 1 tablet (325 mg) by mouth 1 (one) time each day. Active albuterol 108 (90 Base) MCG/ACT inhaler Inhale 2 puffs every 6 (six) hours if needed for wheezing. Active multivitamin (Theragran) tablet Take 1 tablet by mouth 1 (one) time each day. Active apixaban (Eliquis) 5 MG tabletIndication s:Permanent atrial fibrillation (CMS/HCC) Take 1 tablet (5 mg) by mouth 2 (two) times a day. 180 tablet 02/26/20 Active Active Problems Problem Noted Date Diagnosed Date Right bundle branch block (RBBB) 02/26/2024 SHOSHANA (obstructive sleep apnea) 02/26/2024 HLD (hyperlipidemia) 02/26/2024 HHD (hypertensive heart disease) 02/26/2024 Diastolic dysfunction 02/26/2024 CAD (coronary artery disease) 02/26/2024 Supratherapeutic INR 12/26/2023 Intramuscular hematoma 12/25/2023 Venous stasis dermatitis of both lower extremiti es 09/30/2023 Overview (02/26/2024): Last Assessment & Plan: Use topical triamcinolone cream twice daily Stage 3a chronic kidney disease (CKD) 09/30/2023 Permanent atrial fibrillation 03/08/2022 Overview (02/26/2024): Last Assessment & Plan: Refer to [facility] for Warfarin Managment. Rate controlled. Follow-up with H&H cardiology as instructed Panlobular emphysema 03/08/2022 Overview (02/26/2024): Last Assessment & Plan: COPD is stable . Continue current medications. Essential hypertension 03/08/2022 Overview (02/26/2024): Last Assessment & Plan: Hypertension is unchanged. Continue current treatment regimen. Blood pressure will be reassessed in 3 months. Anxiety 03/08/2022 Overview (02/26/2024): Last Assessment & Plan: Refilled lorazepam. Patient has been asked to reduce her dose to 2 mg twice daily or 1/2 mg at a time. Follow-up in 3 months Immunizations Immunization Administration Dates Next Due Influenza, injectable, quadrivalent 08/14/2016 Influenza, injectable, quadr ivalent, preservative free 08/08/2023,07/11/2022,08/14/2016 Moderna COVID-19 Vaccine Bivalent 6months+ 07/11 Moderna Covid-19 Vaccine 12y +, Ck Protein, Preservative free 08/08/2023 Pneumococcal, Unspecified 02/23/2016 Tdap 01/29/2017 Family History Medical History Relation Name Comments Diabetes Maternal Grandmother Relation Name Status Comments Maternal Grandmother Social History Tobacco Use Types Packs/Day Years Used Date Smoking Tobacco: Former Cigarettes 2 20 Smokeless Tobacco: Never Tobacco Cessation:Counseling Given: Not Answered Comments:Quit 8 yr ago Alcohol Use Standard Drinks/Week Comments Never 0 (1 standard drink = 0.6 oz pur e alcohol) Humiliation, Afraid, Rape, and Kick questionnair e Answer Date Recorded Within the last year, have y ou been afraid of your partner or ex-partner? No 12/26/2023 Within the last year, have y ou been humiliated or emotionally abused in other ways by your partner or ex-partner? No Within the last year, have y ou been kicked, hit, slapped, or otherwise physically hurt by your partner or ex-partner? No 12/26/2023 Within the last year, have y ou been raped or forced to have any kind of sexual activity by your partner or ex-partner? No 12/26/2023 Social Connection and Isolation Panel Answer Date Recorded In a typical week, how many times do you talk on the phone with family, friends, or neighbors? Three times a week 02/26/20 24 How often do you get togethe r with friends or relatives? Three times a week 02/26/2024 How often do you attend [facility] or spiritism services? 1 to 4 times per year 02/26/2024 Do you belong to any clubs o r organizations such as latter-day groups, unions, fraternal or athletic groups, or school groups? No 02/26/2024 How often do you attend meet ings of the clubs or organizations you belong to? 1 to 4 times per year 02/26/2024 Are you , , di vorced, , never , or living with a partner? 02/26/2024 Overall Financial Resource Strain (CARDIA) Answe r Date Recorded How hard is it for you to pa y for the very basics like food, housing, medical care, and heating? Not hard at all 02/26/2024 PHQ-2 Answer Date Recorded Patient Health Questionnaire-2 Score 2 02/26/2024 [facility] - Occupational Stress Questionnaire Answer Date Recorded Do you feel stress - tense, restless, nervous, or anxious, or unable to sleep at night because your mind is troubled all the time - these days? Not at all 02/26/2024 Exercise Vital Sign Answer Date Recorde d On average, how many days pe r week do you engage in moderate to strenuous exercise (like a brisk walk)? 0 days 02/26/2024 On average, how many minutes do you engage in exercise at this level? 0 min 02/26/2024 Hunger Vital Sign Answer Date Recorded Within the past 12 months, y ou worried that your food would run out before you got the money to buy more. Never true 12/26/19 24 Within the past 12 months, t he food you bought just didn't last and you didn't have money to get more. Never true 12/26/2023 PRAPARE - Transportation Answer Date Re corded In the past 12 months, has l ack of transportation kept you from medical appointments or from getting medications? No 12/2023 In the past 12 months, has l ack of transportation kept you from meetings, work, or from getting things needed for daily living? No 12/26/2023 Housing Stability Vital Sign Answer Jeremy e Recorded In the last 12 months, was t here a time when you were not able to pay the mortgage or rent on time? No 12/26/2023 In the last 12 months, how many places have you lived? 1 12/26/2023 In the last 12 months, was t here a time when you did not have a steady place to sleep or slept in a longterm (including now)? No 12/26/2023 CAGE ASSESSMENT Answer Date Recorded Cage unable to access Not on file 12/26/2023 Cage max number of drinks Not on file 2023 Cage Beverages a week Not on file 12/26/2023 Have you ever felt you should CUT down on your d rinking? 0 12/26/2023 Have you been ANNOYED by people criticizing your drinking? 0 12/26/2023 Have you felt GUILTY about your drinking? 0 12/26/2023 Have you had a drink first t abilio in the morning (EYE-SLOT ATTENDANT) to steady your nerves or to get rid of a hangover? 0 12/26/2023 CAGE Questionnaire Score 0 024 Utilities Answer Date Recorded In the past 12 months has e [employer], gas, oil, or water company threatened to shut off services in your home? No 12/26/2023 Comments No Sex and Gender Information Value Date Recorded Sex Assigned at Not on file Legal Sex Female 8:53 PM EDT Gender Identity Not on file Sexual Orientation Not on file Last Filed Vital Signs Vital Sign Reading Time Taken Comments Blood Pressure 100/64 02/26/2024 2:24 PM EDT Pulse 92 02/26/2024 2:24 PM EDT Temperature 36.7 C (98 F) 12/29/2023 3:54 PM EDT Respiratory Rate 20 12/26/2023 10:13 PM EDT Oxygen Saturation 92% 02/26/2024 2:24 PM EDT Inhaled Oxygen Concentration - - Weight 81.2 kg (179 lb 0.2 oz) 02/26/2024 2:24 P M EDT Height 167.6 cm (5' 6 ) 02/26/2024 2:24 PM EDT Body Mass Index 28.89 02/26/2024 2:24 PM EDT Plan of Treatment Health Maintenance Due Date Last Done Comments [facility]-Infant/Child/Adol SDOH Screenings 1950 [facility]- SDOH Screenings 1969 [facility]-Adult SDOH Screenings 1969 [facility]-Pneumococcal Vaccine: 50+ Years (1 of 2 - PCV) 1970 02/23/2016 CT Colonography 1996 Colonoscopy 1996 FIT-DNA 1996 FIT 1996 FOBT 1996 Sigmoidoscopy 1996 [facility]-Colorectal Cancer Screening 1996 [facility]-Breast Cancer Screening 2001 [facility]-Zoster Vaccines (1 of 2) 2001 [facility]-RSV Vaccine: 60+ Years or (1 - Risk 60-74 years 1-dose series) 2011 [facility]-Bone Density Scan 12/20/2023 12/19/2022, 023 [id number] Vaccine ( season) 2024 08/08/2023, 07/11/2022, 07/26/2021, Additional history exists [facility]-Medicare Annual Wellness (AWV) 06/10/2024 06/10/2023 [facility]-Depression Screening 02/25/2025 02/26/2024 [facility]-Influenza Vaccine (Season Ended) 2025 08/08/2023, 07/11/2022, 08/14/2016, Additional history exists [facility]-DTaP,Tdap,and Td Vaccines (2 - Td or Tdap) 01/29/2027 01/29/2017 [facility]-Diabetes: Hemoglobin A1C Discontinued 06/10/2023 [facility]-Hepatitis C Screening Completed 12/24/2023 [facility]-Obesity Intervention Completed 02/26/2024, 0410/2023 HPV Vaccines Aged Out No longer eligi ble based on patient's age to complete this topic [facility]-HIB Vaccines Aged Out No longer e ligible based on patient's age to complete this topic [facility]-Hepatitis A Vaccines Aged Out No longer eligible based on patient's age to complete this topic [facility]-IPV Vaccines Aged Out No longer e ligible based on patient's age to complete this topic [facility]-Rotavirus Vaccines Aged Out No lo nger eligible based on patient's age to complete this topic Procedures Procedure Name Priority Date/Time Associated Diagnosis Comments HEPATITIS C ANTIBODY - ED W/REFLEX TO HCV QUANT PCR STAT 12/24/2023 11:58 PM EDT from Last 3 Months or Most Recently Relevant to Health Maintenance Results * Hepatitis C Antibody - ED (12/24/2023 11:58 PM EDT) Hepatitis C Antibody Negative Negative 12/25/2023 12:58 AM EDT HEALTHCARE LAB Blood Venous blood specimen / Unknown Venipuncture / Unknown 12/24/2023 11:58 PM EDT 12/25/2023 12:19 AM EDT us Julai Mckeon MD LAB BLOOD ORDERABLES Final Resu lt [facility] [address] [place] [address] from Last 3 Months or Most Recently Relevant to Health [place] [id number] [facility] Advance Directives * Full Code (Latest Code Status on File) Date Activated Date Inactivated Comments 12/25/2023 3:08 AM 12/29/2023 6:13 PM Question Answer Comments Patient has decision-making capacity? Yes
--- NOTE | 2025-03-17 13:00 | CA_ITS ---
FINAL REPORT CLINICAL HISTORY: EDEMA,PT ON ELIQUIS FINDINGS: Multiple transverse and longitudinal scans were performed of the femoral popliteal deep venous system, with augmentation and compression maneuvers. Normal phasic flow was noted in the visualized deep venous system. No intraluminal increased echogenicity is noted to suggest thrombus. There is normal compression and augmentation of the venous structures. No abnormal venous collaterals are seen. IMPRESSION: No evidence of deep venous thrombosis of the bilateral lower extremities. Reviewed, Interpreted and Dictated by Ebony Nava MD Transcribed by Izzy Merrill Authenticated and . [facility]
--- NOTE | 2025-03-17 13:45 | CA_ITS ---
FINAL REPORT TECHNIQUE: Arterial duplex Doppler evaluation of the lower extremities with spectral analysis. CLINICAL HISTORY: CLAUDICATION,DM FINDINGS: Right lower extremity, flow velocities (cm per second): Common femoral artery: 104 Proximal SFA: 113 Distal SFA: 107 Popliteal: 81 Anterior tibial artery: 83 Posterior tibial artery: 101 Left lower extremity, flow velocities (cm per second): Common femoral artery: 96 Proximal SFA: 103 Distal SFA: 85 Popliteal: 77 Anterior tibial artery: 116 Posterior tibial artery: Minimal compressions 64 IMPRESSION: Waveforms are noted to be biphasic and triphasic. No levels of stenosis or occlusion are identified. Reviewed, Interpreted and Dictated by Ebony Nava MD Transcribed by Izzy Merrill Authenticated and [facility]
--- OUTSIDE RECORDS SUMMARY | 2025-03-17 13:52 | XMS_ITS | CCD ---
Author Organization Unknown Care Team Providers Care Bridge Worker Name Role Phone Non Engaged, [facility] Primary Care Provider Unav ailable Unavailable Chronic Care Management Unavaila ble Summary Purpose DataExchange Insurance Providers Payer name Policy type / Coverage type Covered constitution party ID Effective Begin Date Effective End Date [facility] [id number] Unknown Unknown Family History Family History data not found Medication Administered No Medication Administered data Reason For Visit No Reason For Visit data Medical Equipment No Medical Equipment data Advance Directives No Advance Directive data
== END 2025-03-17 23:59 | disposition home or self-care (01) ==
LOC: RT 12:50
PROVIDERS: PCP Family Medicine; Visit Provider Physician Assistant
DX: I73.9 Peripheral vascular disease, unspecified (principal); L81.9 Disorder of pigmentation, unspecified; E11.9 Type 2 diabetes mellitus without complications; R60.0 Localized edema
CPT/HCPCS: 93925; 93970

== ENCOUNTER 2025-03-29 11:28 | Outpatient (POV) | payer MEDICARE, SELFPAY ==
--- OUTSIDE RECORDS SUMMARY | 2025-03-29 11:41 | XMS_ITS | Clinical Summary ---
Author Organization Healthcare Address [address] [place] [address] Care Team Providers Care Garbage Collector Driver Name Role Phone Unavailable Primary Care Provider [...] (02/26/2024): Last Assessment & Plan: Refer to [facility] for Warfarin Managment. Rate [...] How often do you attend [facility] or gnosticism services? 1 to 4 times per year 02/26/2024 Do you belong to any clubs o r organizations such as cheondoism groups, unions, fraternal or athletic groups, or [...] Recorded Patient Health Questionnaire-2 Score 2 02/26/2024 [facility] Occup[facility] ional Health - Occupational Stress [...] place to sleep or slept in a residential (including now)? No 12/26/2023 CAGE ASSESSMENT Answer [...] drink first t abilio in the morning (EYE-CLOTH SPREADER) to steady your nerves or to get rid of a hangover? 0 12/26/2023 CAGE Questionnaire Score 0 024 Utilities Answer Date Recorded In the past 12 months has e [employer], gas, oil, or water company threatened to [...] Health Maintenance Due Date Last Done Comments [facility]-/Child/Adol SDOH Screenings 1950 [facility]- SDOH Screenings 1969 [...] 2011 [facility]-Bone Density Scan 12/20/2023 12/19/2022, 023 [id number] Vaccine ( season) 2024 08/08/2023, 07/11/2022, 07/26/2021, Additional history exists [facility]-Medicare Annual Wellness (AWV) 06/10/2024 06/10/2023 [facility]-Depression Screening 02/25/2025 02/26/2024 [facility]-Influenza Vaccine (#1) 05/24/202508/08, 07/11/2022, 08/14/2016, Additional history exists [facility]-DTaP,Tdap,and Td [...] PM EDT 12/25/2023 12:19 AM EDT us Julia Mckeon MD LAB BLOOD ORDERABLES Final Resu lt [facility] [address] [place] [address] from Last 3 Months or Most Recently Relevant to [place] [id number] [facility] Advance Directives * Full Code (Latest Code Status on File) Date Activated Date Inactivated Comments 12/25/2023 3:08 AM 12/29/2023 6:13 PM Question Answer Comments Patient has decision-making capacity? Yes
--- NOTE | 2025-03-29 12:02 | EXP.PAIN.PRO ---
Procedure Date: 03/29/25 Time: 11:50 Anesthesiologist:: Kamryn Charles APRN Complications:: None Pre-procedure Diagnosis:: Degenerative disc disease of lumbar spine with lumbar radiculopathy symptoms Post-procedure Diagnosis:: Same Indications for Procedure:: Patient is a pleasant 74-year-old female who presents today for follow-up of bilateral bursa injections on 03/09/2025. Today she rates her pain a 5 out of 10. She denies any new injuries or falls. She states that she did not notice any additional improvement with this injections. Patient states she is still having the same pain. Patient is currently managed with morphine 1 mg/mL with a daily dose of 0.1251 mg/day. She denies any side effects. Her Connor has been reviewed and is appropriate. Physical Exam: General: Alert and oriented x3, no acute distress, pleasant and cooperative Lungs: Respirations even and unlabored, symmetrical chest expansion Eyes: PERRL Musculoskeletal: Flexion and extension of lumbar [spine] somewhat guarded secondary to pain, [antalgic gait noted] Neurological: Speech clear, no gross sensory deficit Procedure Details:: informed consent was obtained and the risk and benefits of the procedure were explained to the patient. Patient did have noninvasive monitoring was placed including noninvasive blood pressure cuff and pulse oximeter. Patient's pump was interrogated and was reprogrammed to morphine 0.1314 mg/day. The patient tolerated the procedure well with no complications. Plan and Disposition:: Patient tolerated the procedure well with no complications and was discharged neurologically intact. Patient will return to clinic on her next intrathecal refill later this month. Patient did have low blood pressure during today's visit. I did senior counsel commercial her to continue to monitor this at home and to make sure to follow-up with primary care if it does stay low. Patient felt like this was a random occurrence and generally does not have any problems. We will continue to follow-up with this in future. We will see the patient back in the clinic at the next intrathecal refill. Patient has been instructed to contact the clinic with any concerns before the next appointment. Dr. Slaughter has reviewed this note and agrees with this plan of care. This note was dictated using voice recognition software and make contain errors or omissions. -- It Is medically necessary for this patient to continue to have their intrathecal pump refilled at regular intervals. This patient had an intrathecal pain pump implanted after meeting criteria of chronic intractable pain for greater than 3 months and failing conservative treatments. Patient has committed and been compliant to the treatment plan and all planned follow up care. Since implantation of the intrathecal pain pump, the patient has had decreased pain and been more functional. Oral medications have been reduced including intake of oral opioids. Patient continues to do well with intrathecal therapy with decrease in pain symptoms and increase in functional status. Stopping intrathecal medications can lead to life threatening withdrawal, seizures, cardiac arrest, severe pain, and possible . Pumps that are not refilled at regular intervals can be damages and cause and need for replacement. We continually titrate dose and concentration to optimize pain relief and function. We are limited in concentration for certain drugs to safely deliver medications through the pump and stay within the recommendations from the Polyanalgesic Consensus Committee Guidelines. Depending on dose and concentration these pumps may need to be refilled sooner than 3 months as we titrate. A UDS is needed to verify patient's compliance with our office pain contract. This is ordered based off specific treatments related to chronic pain with the potential to abuse certain medications.
--- OUTSIDE RECORDS SUMMARY | 2025-03-29 12:41 | XMS_ITS | CCD ---
Author Organization Unknown Care Team Providers Care Septic Technician Name Role Phone Non Engaged, [facility] Primary Care Provider Unav ailable Unavailable Chronic Care Management Unavaila ble Summary Purpose DataExchange Insurance Providers Payer name Policy type / Coverage type Covered constitution party ID Effective Begin Date Effective End Date [facility] [id number] Unknown Unknown Family History Family History data not found Medication Administered No Medication Administered data Reason For Visit No Reason For Visit data Medical Equipment No Medical Equipment data Advance Directives No Advance Directive data
--- OUTSIDE RECORDS SUMMARY | 2025-03-29 12:41 | XMS_ITS | CCD ---
Author Organization Unknown Care Team Providers Care Overseer Kosher Kitchen Name Role Phone Non Engaged, [facility] Primary Care Provider Unav ailable Unavailable Chronic Care Management Unavaila ble Summary Purpose DataExchange Insurance Providers Payer name Policy type / Coverage type Covered democrat ID Effective Begin Date Effective End Date [facility] [id number] Unknown Unknown Family History Family History data not found Medication Administered No Medication Administered data Reason For Visit No Reason For Visit data Medical Equipment No Medical Equipment data Advance Directives No Advance Directive data
[2025-03-29 13:11] VITALS: BP 84/44; BP 94/46; PULSE 91; RESP 12; O2SAT 58; BMI 33.3
== END 2025-03-29 23:59 | disposition home or self-care (01) ==
PROVIDERS: PCP Family Medicine; Visit Provider Nurse Practitioner Family
DX: M51.16 Intervertebral disc disorders with radiculopathy, lumbar region (principal)
CPT/HCPCS: 62368; 99213; G0463

== ENCOUNTER 2025-04-08 14:30 | Outpatient (CLI) | payer MEDICARE, SELFPAY ==
--- OUTSIDE RECORDS SUMMARY | 2025-04-08 14:33 | XMS_ITS | Clinical Summary ---
Author Organization Healthcare Address [address] [place] [address] Care Team Providers Care Forming Machine Upkeep Mechanic Helper Name Role Phone Unavailable Primary Care Provider [...] (02/26/2024): Last Assessment & Plan: Refer to [facility] Anticoagulant Clinic for Warfarin Managment. Rate [...] week 02/26/2024 How often do you attend [facility] or temple services? 1 to 4 times per year 02/26/2024 Do you belong to any clubs o r organizations such as yarsani groups, unions, fraternal or athletic groups, or [...] Recorded Patient Health Questionnaire-2 Score 2 02/26/2024 [facility] - Occupational Stress [...] place to sleep or slept in a alf (including now)? No 12/26/2023 CAGE ASSESSMENT Answer [...] drink first t abilio in the morning (EYE-ASSISTANT PROFESSOR OF SPANISH) to steady your nerves or to get rid of a hangover? 0 12/26/2023 CAGE Questionnaire Score 0 024 Utilities Answer Date Recorded In the past 12 months has e [employer], gas, oil, or water company threatened to [...] 2011 [facility]-Bone Density Scan 12/20/2023 12/19/2022, 023 [id number] Vaccine ( season) 2024 08/08/2023, 07/11/2022, 07/26/2021, [...] Final Resu lt [facility] [address] [place] [address] from Last 3 Months or Most Recently Relevant to [place] [id number] [facility] Advance Directives * Full Code (Latest Code Status on File) Date Activated Date Inactivated Comments 12/25/2023 3:08 AM 12/29/2023 6:13 PM Question Answer Comments Patient has decision-making capacity? Yes
--- OUTSIDE RECORDS SUMMARY | 2025-04-08 15:33 | XMS_ITS | CCD ---
Author Organization Unknown Care Team Providers Care Ruling Machine Set Up Operator Name Role Phone Non Engaged, [facility] Primary Care Provider Unav ailable Unavailable Chronic Care Management Unavaila ble Summary Purpose DataExchange Insurance Providers Payer name Policy type / Coverage type Covered green party ID Effective Begin Date Effective End Date [facility] [id number] Unknown Unknown Family History Family History data not found Medication Administered No Medication Administered data Reason For Visit No Reason For Visit data Medical Equipment No Medical Equipment data Advance Directives No Advance Directive data
--- OUTSIDE RECORDS SUMMARY | 2025-04-08 15:33 | XMS_ITS | CCD ---
Author Organization Unknown Care Team Providers Care Forest Science Professor Name Role Phone Non Engaged, [facility] Primary Care Provider Unav ailable Unavailable Chronic Care Management Unavaila ble Summary Purpose DataExchange Insurance Providers Payer name Policy type / Coverage type Covered republican ID Effective Begin Date Effective End Date [facility] [id number] Unknown Unknown Family History Family History data not found Medication Administered No Medication Administered data Reason For Visit No Reason For Visit data Medical Equipment No Medical Equipment data Advance Directives No Advance Directive data
== END 2025-04-08 23:59 | disposition home or self-care (01) ==
LOC: RT 14:30
PROVIDERS: PCP Family Medicine; Visit Provider Physician Assistant
DX: I48.91 Unspecified atrial fibrillation (principal); I48.92 Unspecified atrial flutter; I49.1 Atrial premature depolarization; I47.19 Other supraventricular tachycardia; I49.3 Ventricular premature depolarization; I47.20 Ventricular tachycardia, unspecified
CPT/HCPCS: 93270

== ENCOUNTER 2025-04-16 08:43 | Day surgery (SDC) | payer MEDICARE, SELFPAY ==
[2025-04-16 08:59] VITALS: BP 123/49; PULSE 56; RESP 18; O2SAT 92
[2025-04-16 09:01] VITALS: BP 155/77; PULSE 56; RESP 16; O2SAT 100; BMI 34.3
--- NOTE | 2025-04-16 09:04 | EXP.PM.HP ---
History of Present Illness *Admission Date: 04/16/25 *Reason for visit:: Intrathecal refill; DDD *History of present illness: Same [facility] Disclaimer: The information contained in this section may have been updated after the patient was seen, as this information can be updated by other users. Medical History Claudication Discoloration of skin Pain of intrathecal infusion pump pocket after insertion A-fib Restless sleeper SHOSHANA (obstructive sleep apnea) Daytime somnolence Edema Dizziness Preoperative clearance Right bundle branch block (RBBB) Diastolic dysfunction HLD (hyperlipidemia) HHD (hypertensive heart disease) CAD (coronary artery disease) Surgical History History of cholecystectomy History of bilateral breast reduction surgery History of hysterectomy History of knee replacement Family History Other Family history of cancer Social History Smoking Status: Former smoker second hand exposure: No alcohol intake: never substance use type: denies use current occupational status: other Travel in the last 8 weeks?: None household members: spouse housing: house current occupation: [employer] current occupational exposures/hazards: No caffeine: Yes Have you lived/traveled outside [place] in past 30 days?: No Contact w/someone who lives/traveled outside US past 30 days?: No Exposure to someone with infectious disease in past 14 days?: No Do you have a fever (greater than 100.4 F or 38 C)?: No Have you tested positive for COVID-19?: No Exposed to someone with COVID-19 in past 14 days?: No Do you have a sore throat?: No Do you have a cough?: No Do you have any weakness?: No Do you have any diarrhea?: No Are you experiencing any unusual bleeding?: No Do you have any muscle aches/pain?: No Do you have any abdominal pain?: No Are you experiencing loss of taste or smell?: No Other Medical History Have you received the Flu Vaccine for this season: No Have you received the Pneumonia Vaccine: No Review of Systems Review of Systems Review of systems:: pertinent systems reviewed and negative unless documented below Review of systems (narrative): Review of Systems: General: No recent weight changes, no fever, no sleep disturbances Respiratory: No cough, no shortness of air, no recurring pulmonary infections Cardiovascular/peripheral vascular: No chest pain, no palpitations, no edema, no shortness of breath Gastrointestinal: No new onset incontinence, normal bowel movements reported Genitourinary: No new onset incontinence Musculoskeletal: Chronic back pain Psychiatric: [Normal mood/affect] Neurological: [Denies weakness in extremities], [denies balance issues] Meds Home Medications and Allergies Home Medications ?Medication ?Instructions ?Recorded ?Confirmed ?Type lorazepam 1 mg tablet 1 mg PO TID nerves 04/09/18 04/16/25 History atorvastatin 40 mg tablet 40 mg PO DAILY Cholesterol 01/20/19 04/16/25 History lansoprazole 30 mg capsule,delayed 30 mg PO DAILY 01/18/21 04/16/25 History release spironolactone 100 mg tablet See Rx Instructions .Route 06/08/21 04/16/25 Rx .COMPLEX #180 tabs furosemide 80 mg tablet See Rx Instructions .Route 04/17/23 04/16/25 Rx .COMPLEX #180 tabs fluoxetine 40 mg capsule (Prozac) 60 mg PO DAILY 06/30/24 04/16/25 History insulin human U-100 NPH-regulr 20 unit SQ BID 07/03/24 04/16/25 History 70-30 mix 100 unit/mL subcutaneous susp (Humulin 70/30 U-100 Insulin) metoprolol succinate 50 mg 50 mg PO DAILY #90 tabs 01/19/25 04/16/25 Rx tablet,extended release 24 hr (Toprol XL) apixaban 5 mg tablet (Eliquis) 5 mg PO BID Blood Thinner #180 tabs 02/12/25 04/16/25 Rx New Prescriptions to Start Prescriptions: Allergies Allergy/AdvReac Type Severity Reaction Status Date / Time latex (LATEX) Allergy Unknown I-ITCHING Verified 03/09/25 14:36 Penicillins (PENICILLINS) Allergy Unknown BREAKS OUT Verified 03/09/25 14:36 MOUTH Sulfa (Sulfonamide Allergy Unknown I-ITCHING Verified 03/09/25 14:36 Antibiotics) (SULFA (SULFONAMIDE ANTIBIOTICS)) Exam Data for Last 24 hours Vital signs and Labs for Last 24 Hours: Pulse Resp BP Pulse Ox O2 Del Method 56 L 16 155/77 H 100 Room Air 04/16/25 09:01 04/16/25 09:01 04/16/25 09:01 04/16/25 09:01 04/16/25 09:01 I & O for Last 24 hours: Intake & Output 04/13/25 04/14/25 04/15/25 04/16/25 23:59 23:59 23:59 23:59 Weight 213 lb Constitutional Constitutional: no acute distress *Routine HEENT Exam Head: Present normocephalic and atraumatic Eye: Present PERRL ENT: Present mucous membranes moist *Routine Neck Exam Neck: Present supple *Routine Respiratory Exam Respiratory: Present CTA bilaterally *Routine Cardiovascular Exam Cardiovascular: Present RRR *Routine Abdominal Exam Abdominal: Present soft *Routine Rectal Exam Rectal:: deferred *Routine Genitalia Exam Genitalia:: deferred Routine Back/Spine/Pelvis Exam Back/Spine: Present pain with flexion *Routine Skin Exam Skin: Present intact, dry and warm *Routine Neurological Exam Neurological: Present alert and oriented X3 Routine Psychiatric Exam Psychiatric: Present normal affect and normal thought process Assessment and Plan *Assessment and plan (1) Lumbar radiculopathy: Status: Acute Category: Medical Code(s): M54.16 - Radiculopathy, lumbar region (2) Degenerative disc disease, lumbar: Status: Acute Category: Medical Code(s): M51.369 - Other intervertebral disc degeneration, lumbar region without mention of lumbar back pain or lower extremity pain Plan Patient has been instructed to contact the clinic with any concerns before the next appointment. Dr. Slaughter has reviewed this note and agrees with this plan of care. This note was dictated using voice recognition software and make contain errors or omissions. All injections are used with Lidocaine, Bupivacaine and dexamethasone. Occasionally urine drug screen is needed to verify patient's compliance with our office pain contract. This is ordered based off specific treatments related to chronic pain with the potential to abuse certain medications.
--- NOTE | 2025-04-16 09:06 | P.PCN_ITS ---
Procedure Date: 04/16/25 Time: 08:53 Anesthesiologist:: Kamryn Charles APRN Complications:: None Pre-procedure Diagnosis:: Degenerative disc disease of lumbar spine with lumbar radiculopathy symptoms, chronic pain syndrome Post-procedure Diagnosis:: Same; catheter volume discrepancy, complication of intrathecal catheter Indications for Procedure:: Patient is a pleasant 74-year-old female who presents today for intrathecal refill and reprogram. Today she rates her pain a 7 out of 10. Patient does state that she had a fall a month or so ago. Patient denies any specific injury or trauma from this fall. She does state that she is just had increased pain and is requesting an increase. Patient is currently managed with morphine 1 mg/mL with a daily dose of 0.1314 mg/day. She denies any side effects. Her Connor has been reviewed and is appropriate. Physical Exam: General: Alert and oriented x3, no acute distress, pleasant and cooperative Lungs: Respirations even and unlabored, symmetrical chest expansion Eyes: PERRL Musculoskeletal: Flexion and extension of lumbar [spine] somewhat guarded secondary to pain, [antalgic gait noted] Neurological: Speech clear, no gross sensory deficit Procedure Details:: Informed consent was obtained and the risk and benefits of the procedure were explained to the patient. The patient had noninvasive monitoring placed including noninvasive blood pressure cuff and pulse oximeter. Patient's pump was interrogated. The area over the pump was cleansed with chlorhexidine as a cleansing solution. In sterile fashion the pump was accessed with a 22-gauge needle. Fluoroscopy was used and it was found that her pump had flipped. We did manually manipulate under fluoroscopic guidance to have the pump put up right. Approximately 16.6 mls of the pump solution was removed and discarded appropriately. The pump was then refilled with 20 mL's of morphine 1 mg/mL. The needle was withdrawn and a bandage was placed over the puncture site. The infusion rate was reprogrammed and decreased down to morphine 0.0918 mg/day. The patient tolerated well with no complication. Plan and Disposition:: Patient tolerated the procedure well with no complications and was discharged neurologically intact. I did go over with both the patient and her spouse that her pump had flipped and that I did manually manipulated it back. I was able to fill her pump back up however she did have a large discrepancy which is most likely related to a kink in the catheter when it flipped. Patient was anticipated to have a little over 6 mL of solution and we did end up with 16.6 mL of solution. This would explain her increased pain however as a precaution I have discussed with them both that I would like to get her in for a catheter dye study to confirm that the kink is now resolved. Patient and spouse both agree with this plan of care. Dr. Slaughter is not here until middle of April so we will send her to the [facility] to have this done and follow-up with her here in our office after. Patient was counseled if there is still complications with the catheter that there is a chance that we would have to go in for a revision due to it not functioning correctly or being cannot. We will follow-up with this in future. Patient was counseled that I did decrease her pump down today due to the fact that we do not know if it is functioning correctly. We will see the patient back in the clinic at the next intrathecal refill. Patient has been instructed to contact the clinic with any concerns before the next appointment. Dr. Slaughter has reviewed this note and agrees with this plan of care. This note was dictated using voice recognition software and make contain errors or omissions. -- It Is medically necessary for this patient to continue to have their intrathecal pump refilled at regular intervals. This patient had an intrathecal pain pump implanted after meeting criteria of chronic intractable pain for greater than 3 months and failing conservative treatments. Patient has committed and been compliant to the treatment plan and all planned follow up care. Since implantation of the intrathecal pain pump, the patient has had decreased pain and been more functional. Oral medications have been reduced including intake of oral opioids. Patient continues to do well with intrathecal therapy with decrease in pain symptoms and increase in functional status. Stopping intrathecal medications can lead to life threatening withdrawal, seizures, cardiac arrest, severe pain, and possible . Pumps that are not refilled at regular intervals can be damages and cause and need for replacement. We continually titrate dose and concentration to optimize pain relief and function. We are limited in concentration for certain drugs to safely deliver medications through the pump and stay within the recommendations from the Polyanalges[employer] Consensus Committee Guidelines. Depending on dose and concentration these pumps may need to be refilled sooner than 3 months as we titrate. A UDS is needed to verify patient's compliance with our office pain contract. This is ordered based off specific treatments related to chronic pain with the potential to abuse certain medications.
[2025-04-16 09:47] VITALS: BP 113/74; PULSE 60; RESP 18; O2SAT 93
== END 2025-04-16 09:47 | disposition home or self-care (01) ==
LOC: SC.PAIN 09:09 → SC.PAINP 09:48
PROVIDERS: PCP Family Medicine; Visit Provider Nurse Practitioner Family
DX: Z45.1 Encounter for adjustment and management of infusion pump (principal); M51.16 Intervertebral disc disorders with radiculopathy, lumbar region; G89.4 Chronic pain syndrome; I48.91 Unspecified atrial fibrillation; I25.10 Atherosclerotic heart disease of native coronary artery without angina pectoris; E78.5 Hyperlipidemia, unspecified; I11.9 Hypertensive heart disease without heart failure; G47.33 Obstructive sleep apnea (adult) (pediatric); I45.10 Unspecified right bundle-branch block; Z87.891 Personal history of nicotine dependence; Z88.0 Allergy status to penicillin; Z88.2 Allergy status to sulfonamides; Z91.040 Latex allergy status; Z79.4 Long term (current) use of insulin; Z79.899 Other long term (current) drug therapy
CPT/HCPCS: 62370

== ENCOUNTER 2025-04-19 13:48 | Outpatient (CLI) | payer MEDICARE, SELFPAY ==
--- OUTSIDE RECORDS SUMMARY | 2025-04-19 13:51 | XMS_ITS | Encounter Summary ---
[facility] [address] [place] [address] Care Team Providers Care Golf Teacher Name Role Phone Estevan Rowley MD Primary Care Provider + Reason for Visit * Reason Comments Med Refill Encounter Details Date Type Department Care Team (Late Contact Info) Description 04/01/2025 Refill [facility] [address] [place] [phone] Estevan Rowley MD [address] [facility] [address] Anxiety Social History Tobacco Use Types Packs/Day Years Used Date Smoking Tobacco: Never Smokeless Tobacco: Never Alcohol Use Standard Drinks/Week Comments Never 0 (1 standard drink = 0.6 oz pur e alcohol) PHQ-2 Answer Date Recorded Retired PHQ-9: Brief Depression Severity Measure Score 13 06/10/2023 PHQ-2 Answer Date Recorded Patient Health Questionnaire-2 Score 0 01/18/2025 Comments Unknown Sex and Gender Information Value Date Recorded Sex Assigned at Not on file Legal Sex Female 11:01 AM EDT Gender Identity Not on file Sexual Orientation Not on file documented as of this encounter Plan of Treatment Upcoming Encounters Date Type Department Care Team (Late Contact Info) Description 04/27/2025 9:45 AM EDT Office Visit [facility] [address] [place] [address] Estevan Rowley MD [address] [place] [address] documented as of this encounter Visit Diagnoses Diagnosis Anxiety Anxiety state, unspecified documented in this encounter Additional Health Concerns Assessment Noted Time PHQ-2 Depression Total Score: 1 01/06/20 24 11:09 AM EDT documented as of this encounter Care Teams Golf Teacher Relationship Specialty Start Date End Date Estevan Rowley MD [address] [place] [address] PCP - General Family Medicine 03/08/22 documented as of this encounter
--- OUTSIDE RECORDS SUMMARY | 2025-04-19 13:51 | XMS_ITS | Clinical Summary ---
Author Organization [facility] Address [address] [place] [address] Care Team Providers Care Bible Teacher Name Role Phone Estevan Rowley MD Primary Care Provider + Allergies Active Allergy Reactions Criticality Noted Date Comments Latex Rash Low 03/08/2022 Penicillins Other (See Comments) 03/08/2022 Oral irritation Sulfa Antibiotics Rash Low 03/08/2022 Medications Blood Glucose Monitoring Suppl (Accu-Chek Gi Plus) w/Device kitIndications: Type 2 diabetes mellitus with hyperglycemia, with long-term current use of insulin,Long-te rm insulin use Use device to check glucose twice daily 1 kit 10/18/19 24 Active metoprolol succinate XL (TOPROL-XL) 50 MG 24 hr tablet Take 1 tablet by mouth Daily. 09/30/19 24 Active apixaban (ELIQUIS) 5 MG tablet tablet Take 1 tablet by mouth Every 12 (Twelve) Hours. 02/26/20 24 Active atorvastatin (LIPITOR) 40 MG tabletIndicatio ns:Type 2 diabetes mellitus with diabetic neuropathy, with long-term current use of insulin Take 1 tablet by mouth Every Night. 90 tablet 3 07/13/20 24 Active insulin NPH-insulin regular (HumuLIN 70/30) (70-30) 100 UNIT/ML injectionIndica tions:Type 2 diabetes mellitus with hyperglycemia, with long-term current use of insulin,Long-te rm insulin use Take 40 units in a.m. and 30 units in p.m. 10/19/19 25 Active tiotropium bromide monohydrate (Spiriva Respimat) 2.5 MCG/ACT aerosol solution inhalerIndicati ons:Panlobular emphysema Inhale 2 puffs Daily. 4 g 11 10/19/19 25 Active potassium chloride (KLOR-CON M20) 20 MEQ CR tabletIndicatio ns:Hypokalemia Take 1 tablet by mouth Daily. 30 tablet 2 11/13/19 25 Active BD Veo Insulin Syringe U/F 31G X 15/64 1 ML miscIndications :Type 2 diabetes mellitus with hyperglycemia, with long-term current use of insulin USE DIRECTED TWICE DAILY 200 each 12/25/19 25 Active LORazepam (Ativan) 1 MG tabletIndicatio ns:Anxiety Take 1 tablet by mouth Every 8 (Eight) Hours As Needed for Anxiety. 90 tablet 3 01/19/20 25 Active furosemide (LASIX) 80 MG tablet Take 1 tablet by mouth Daily. Take 1 tablet in a.m. daily 90 tablet 1 01/19/20 25 Active empagliflozin (Jardiance) 10 MG tablet tabletIndicatio ns:Type 2 diabetes mellitus with hyperglycemia, with long-term current use of insulin,Stage 3a chronic kidney disease (CKD) Take 1 tablet by mouth Daily. 30 tablet 3 01/19/20 25 Active glucose blood (Accu-Chek Gi Plus) test stripIndication s:Type 2 diabetes mellitus with hyperglycemia, with long-term current use of insulin,Long-te rm insulin use Used to check glucose TID / Dx: E11.65 300 each 01/19/20 25 Active Accu-Chek Softclix Lancets lancetsIndicati ons:Type 2 diabetes mellitus with hyperglycemia, with long-term current use of insulin,Long-te rm insulin use Use to check glucose TID / Dx: E11.65 300 each 01/19/20 25 Active albuterol sulfate HFA 108 (90 Base) MCG/ACT inhalerIndicati ons:Panlobular emphysema INHALE 2 PUFFS EVERY 4 (FOUR) HOURS NEEDED FOR WHEEZING. 8.5 g 2 02/12/20 25 Active promethazine (PHENERGAN) 12.5 MG tabletIndicatio ns:Nausea TAKE 1 TABLET BY MOUTH EVERY SIX HOURS NEEDED FOR NAUSEA OR VOMITING. 30 tablet 1 03/15/20 25 Active FLUoxetine (PROzac) 20 MG capsuleIndicati ons:Anxiety TAKE 1 CAPSULE BY MOUTH ONCE DAILY (WITH 40 MG CAPSULE) 90 capsule 04/01/20 25 Active FLUoxetine (PROzac) 40 MG capsuleIndicati ons:Anxiety TAKE 1 CAPSULE BY MOUTH ONCE DAILY 90 capsule 04/01/20 25 Active FLUoxetine (PROzac) 40 MG capsuleIndicati ons:Anxiety Take 1 capsule by mouth Daily. 90 capsule 1 07/13/20 24 025 Discontinued FLUoxetine (PROzac) 20 MG capsuleIndicati ons:Anxiety TAKE 1 CAPSULE BY MOUTH ONCE DAILY (WITH 40 MG CAPSULE) 90 capsule 01/16/20 25 025 Discontinued Active Problems Problem Noted Date Diagnosed Date Obesity (BMI 30.0-34.9) 07/13/2024 Venous stasis dermatitis of both lower extremiti es 09/30/2023 Assessment & Plan (09/30/2023 1:14 PM EST): Use topical triamcinolone cream twice daily Stage 3a chronic kidney disease (CKD) 09/30/2023 Assessment & Plan (01/18/2025 11:26 AM EDT): Condition is stable Restart SGLT2 therapy Continue DARCI inhibitor Long-term insulin use 03/12/2023 Type 2 diabetes mellitus wit h hyperglycemia, with long-term current use of insulin 03/08/2022 Assessment & Plan (01/18/2025 11:25 AM EDT): Control of diabetes is stable with minimal increase in A1c. Discontinue metformin due to GI side effect Restart Jardiance 10 mg daily for both glycemic control and stage IIIa CKD. Reduce consumption of ice cream or find a sugar-free alternative Assessment & Plan (10/19/2024 10:16 AM EST): Diabetes is stable. Medication changes per orders. Diabetes will be reassessed in 3 months Restart metformin 500 mg daily Increase a.m. dose of insulin to 40 units RTO 3 months Assessment & Plan (09/30/2023 1:14 PM EST): Diabetes is improving but not at goal . Medication changes per orders. Diabetes will be reassessed in 3 months. Patient will restart metformin at 500 mg daily. Prescription for a CGM will will be sent to a [employer] company. This would likely help improve glycemic control Assessment & Plan (12/10/2022 1:10 PM EDT): Diabetes is worsening. Reminded to get yearly retinal exam. Medication changes per orders. Diabetes will be reassessed in 3 months. CBC has been ordered to rule out erythrocytosis as possible cause of rise in A1c as patient feels like her blood sugars have been stable. Jardiance will be increased to 25 mg Assessment & Plan (09/07/2022 2:45 PM EST): Diabetes is unchanged. Medication changes per orders. Diabetes will be reassessed in 3 months. Patient was unable to take Jardiance as prescribed due to some complications with the patient assistance program. We will have her reapply through patient assistance and she was given a copy of a paper prescription. Assessment & Plan (03/08/2022 12:56 PM EDT): Diabetes is worsening. Medication changes per orders. Diabetes will be reassessed in 3 months. Anxiety 03/08/2022 Assessment & Plan (03/08/2022 12:58 PM EDT): Refilled lorazepam. Patient has been asked to reduce her dose to 2 mg twice daily or 1/2 mg at a time. Follow-up in 3 months Essential hypertension 03/08/2022 Assessment & Plan (10/19/2024 10:16 AM EST): Hypertension is stable and controlled Continue current treatment regimen. Blood pressure will be reassessed in 6 months. Assessment & Plan (09/30/2023 1:15 PM EST): Hypertension is unchanged. Continue current treatment regimen. Blood pressure will be reassessed in 3 months. Assessment & Plan (12/10/2022 1:11 PM EDT): Hypertension is Controlled. Continue current treatment regimen. Blood pressure will be reassessed in 3 months. Blood pressure is good in office. She has symptoms of hypotension. With addition of Jardiance patient may be able to discontinue her furosemide. This will be addressed with cardiology. Assessment & Plan (03/08/2022 12:55 PM EDT): Hypertension is improving with treatment. Continue current treatment regimen. Blood pressure will be reassessed at the next regular appointment. Panlobular emphysema 03/08/2022 Assessment & Plan (10/19/2024 10:17 AM EST): COPD is improving with treatment. Plan: Continue taking the following medication/s; Spiriva and as needed albuterol. Discussed medication dosage, use, side effects, and goals of treatment in detail. Warning signs of respiratory distress were reviewed with the patient. Nightly oxygen ordered . Patient Treatment Goals: symptom prevention, minimizing limitation in activity, prevention of exacerbations and use of ER/inpatient care, maintenance of optimal pulmonary function, and minimization of adverse effects of treatment Followup in 3 months. Due to patient's baseline anxiety it is unlikely she would tolerate CPAP Assessment & Plan (09/30/2023 1:14 PM EST): COPD is stable . Continue current medications. Assessment & Plan (03/08/2022 1:00 PM EDT): COPD is Stable and asymptomatic. Patient remains asymptomatic Permanent atrial fibrillation 03/08/2022 Assessment & Plan (03/08/2022 12:55 PM EDT): Refer to [facility] for Warfarin Managment. Rate controlled. Follow-up with H&H cardiology as instructed Class 2 severe obesity due t o excess calories with serious comorbidity and body mass index (BMI) of 36.0 to 36.9 in adult 03/08/2022 Assessment & Plan (06/08/2022 9:50 AM EDT): Patient's (Body mass index is 35.18 kg/m .) indicates that they are morbidly obese (BMI > 40 or > 35 with obesity - related health condition) with health conditions that include hypertension, diabetes mellitus and dyslipidemias . Weight is improving with treatment. BMI is is above average; BMI management plan is completed. We discussed portion control and increasing exercise. Assessment & Plan (03/08/2022 12:57 PM EDT): Patient's (Body mass index is 36.44 kg/m .) indicates that they are morbidly obese (BMI > 40 or > 35 with obesity - related health condition) with health conditions that include hypertension, diabetes mellitus and dyslipidemias . Weight is unchanged. BMI is is above average; BMI management plan is completed. We discussed portion control and increasing exercise. Type 2 diabetes mellitus wit h diabetic neuropathy, with long-term current use of insulin 03/08/2022 Assessment & Plan (03/08/2022 12:57 PM EDT): Diabetes is worsening. Discussed foot care. Diabetes will be reassessed in 3 months. Refer to podiatry at [facility] Encounters Date Type Department Care Team Description 04/01/2025 Refill [facility] [address] [phone] Estevan Rowley MD Anxiety 03/15/2025 Refill [facility] [address] [phone] Estevan Rowley MD Nausea 02/09/2025 Refill [facility] [address] [phone] Estevan Rowley MD [facility] emphysema 01/21/2025 Telephone [facility] [address] [phone] Estevan Rowley MD 01/18/2025 9:45 AM EDT Office Visit [facility] [address] [phone] Estevan Rowley MD Type 2 diabetes mellitus with hyperglycemia, with long-term current use of insulin (Primary Dx); Anxiety; Stage 3a chronic kidney disease (CKD) 01/18/2025 Travel from Last 3 Months Immunizations Immunization Administration Dates Next Due COVID-19 (ANNA) 07/26/2021,11/30/2020 COVID-19 (MODERNA) 12YRS+ (SPIKEVAX) 06/17/2024, 08/08/2023 COVID-19 (MODERNA) BIVALENT 12+YRS 07/11/2022 Flu Vaccine Quad PF >36MO 08/14/2016 Fluzone >6mos 06/17/2024 Fluzone (or Fluarix & Flulav al for VFC) >6mos 08/08/2023,07/11/2022,08/14/2016 Influenza, Unspecified 07/11/2022 Pneumococcal, Unspecified 02/23/2016 Tdap 01/29/2017 Family History Medical History Relation Name Comments No Known Problems Father Arthritis Mother Diabetes Paternal Grandmother Relation Name Status Comments Father Mother Paternal Grandmother Social History Tobacco Use Types Packs/Day [...] Sign Reading Time Taken Comments Blood Pressure 110/60 01/18/2025 9:34 AM EDT Pulse 56 01/18/2025 9:34 AM EDT Temperature 36.3 C (97.3 F) 01/18/2025 9:34 AM EDT Respiratory Rate 20 01/18/2025 9:34 AM EDT Oxygen Saturation 95% 10/19/2024 8:57 AM EST Inhaled Oxygen Concentration - - Weight 94.4 kg (208 lb 3.2 oz) 01/18/2025 9:34 A M EDT Height 165.1 cm (5' 5 ) 01/18/2025 9:34 AM EDT Body Mass Index 34.65 01/18/2025 9:34 AM EDT Plan of Treatment Upcoming Encounters Date Type Department Care Team (Late st Contact Info) Description 04/27/2025 9:45 AM EDT Office Visit [facility] [address] [place] [phone] Estevan Rowley MD [address] [place] [id number] Health Maintenance Due Date Last Done Comments DIABETIC EYE EXAM 1961 Pneumococcal Vaccine 50+ (1 of 2 - PCV) 1970 02/23/2016 COLOGUARD 1996 COLON CANCER SCREENING [address] COLONOGRAPHY 1996 FECAL OCCULT BLOOD TEST 1996 FIT Testing (1 year) 1996 ZOSTER VACCINE (1 of 2) 2001 COVID-19 Vaccine ( season) 2024 06/17/2024, 08/08/2023, 07/11/2022, Additional history exists DXA SCAN 12/19/2024 12/19/2022, 11/22, 12/19/2022 INFLUENZA VACCINE 06/23/2025 06/17/2024, , 07/11/2022, Additional history exists ANNUAL WELLNESS VISIT 07/13/2025 07/13/2024 , 07/13/2024, 06/10/2023, Additional history exists DIABETIC FOOT EXAM 07/13/2025 07/13/2024, 1 , 07/13/2024, Additional history exists MAMMOGRAM 07/13/2025 Postponed from 1991 (Patient Refused) HEMOGLOBIN A1C 07/20/2025 01/18/2025, 09/24, 07/13/2024, Additional history exists URINE MICROALBUMIN-CREATININE RATIO (uACR) 01/18/2026 01/18/2025 TDAP/TD VACCINES (2 - Td or Tdap) 01/29/2027 01/29/2017 COLONOSCOPY 10/27/2029 10/27/2019 COLORECTAL CANCER SCREENING 10/27/2029 HEPATITIS C SCREENING Completed 12/24/2023 Procedures Procedure Name Priority Date/Time Associated Diagnosis Comments SCANNED - LABS 03/09/2025 SCANNED - LABS 01/31/2025 POCT GLYCOSYLATED HEMOGLOBIN (HGB A1C) Routine 01/18/2025 9:58 AM EDT Type 2 diabetes mellitus with hyperglycemia, with long-term current use of insulin POC ALBUMIN/CREATININE RATIO Routine 01/18/2025 9:55 AM EDT Type 2 diabetes mellitus with hyperglycemia, with long-term current use of insulin DEXA BONE DENSITY AXIAL Routine 12/19/2022 Postmenopausal Screening for osteoporosis from Last 3 Months or Most Recently Relevant to Health Maintenance Results * LABS SCANNED (03/09/2025) Only the most recent of2 resultswithin the time period is included. us Estevan Rowley MD LAB BLOOD ORDERABLES Fin al Result * (ABNORMAL) POC Glycosylated Hemoglobin (Hb A1C) (01/18/2025 9:58 AM EDT) Hemoglobin A1C 8.1(A) 4.5 - 5.7 % [facility] Lot Number [id number] [facility] Expiration Date 08/25/2026 [facility] Blood 01/18/2025 9:58 AM EDT us Estevan Rowley MD POINT OF CARE TEST ORDER KRISTEN Final Result [facility]
[address] [place] [address], * (ABNORMAL) POC Albumin/Creatinine Ratio Urine (01/18/2025 9:55 AM EDT) POC ALBUMIN, URINE 150 mg/L POC CREATININE, URINE 100 mg/dL POC Urine Albumin Creatinine Ratio > 300 mg/g <30 Comment:high abnormal Lot Number [id number] Expiration Date 12/21/2025 Urine 01/18/2025 9:55 AM EDT us Estevan Rowley MD POINT OF CARE TEST ORDER KRISTEN Final Result * DEXA Bone Density Axial (12/19/2022) Anatomical Region Laterality Modality Wrist, Hip, L-spine N/A Radiographic Imaging Estevan Rowlye MD IMG DXA ORDERABLES Final Result from Last 3 Months or Most Recently Relevant to [place] [address] [facility] MEDICARE ADVANTAGE HMO Advance Directives Documents on File Type Date Recorded Patient National Park Ranger Expl anation LIVING WILL - SCAN 09/11/2022 8:39 AM ANYI HURTADO, 09/04/2022 Care Teams Bible Teacher Relationship Specialty Start Date End Date Estevan Rowley MD [address] [place] [address] PCP - General Family Medicine 03/08/22
--- OUTSIDE RECORDS SUMMARY | 2025-04-19 13:51 | XMS_ITS | Encounter Summary ---
Author Organization [facility] Address [address] [place] [address] Care Team Providers Care Edge Molder Name Role Phone Estevan Rowley MD Primary Care Provider + Reason for Visit * Reason Comments Med Refill Encounter Details Date Type Department Care Team (Late Contact Info) Description 03/15/2025 Refill [facility] [address] [place] [phone] Estevan Rowley MD [address] [facility] [place] [address] Nausea Social History Tobacco Use Types Packs/Day Years [...] Description 04/27/2025 9:45 AM EDT Office Visit [facility] MED[facility] [address] [place] [phone] Estevan Rowley MD [address] [place] [address] documented as of this encounter Visit Diagnoses Diagnosis Nausea Nausea alone documented in this encounter Additional Health Concerns Assessment Noted Time PHQ-2 Depression Total Score: 1 01/06/20 24 11:09 AM EDT documented as of this encounter Care Teams Edge Molder Relationship Specialty Start Date End Date Estevan Rowley MD [address] [place] [address] PCP - General Family Medicine 03/08/22 documented as of this encounter
--- OUTSIDE RECORDS SUMMARY | 2025-04-19 13:51 | XMS_ITS | Clinical Summary ---
Author Organization Healthcare Address [address] [place] [address] Care Team Providers Care Fiber Technologist Name Role Phone Unavailable Primary Care Provider [...] (02/26/2024): Last Assessment & Plan: Refer to [facility] Anticoagulant Clinic for Warfarin Managment. Rate [...] week 02/26/2024 How often do you attend [facility] or christian services? 1 to 4 times per year 02/26/2024 Do you belong to any clubs o r organizations such as sabianist groups, unions, fraternal or athletic groups, or [...] Recorded Patient Health Questionnaire-2 Score 2 02/26/2024 [facility] - Occupational [...] place to sleep or slept in a assisted (including now)? No 12/26/2023 CAGE ASSESSMENT Answer [...] drink first t abilio in the morning (EYE-INCLUSION SPECIAL EDUCATION TEACHER) to steady your nerves or to get rid of a hangover? 0 12/26/2023 CAGE Questionnaire Score 0 024 Utilities Answer Date Recorded In the past 12 months has e [employer], gas, oil, or water company threatened to [...] 2011 UKY-Bone Density Scan 12/20/2023 12/19/2022, 023 [id number] Vaccine ( season) 2024 08/08/2023, 07/11/2022, 07/26/2021, [...] Final Resu lt [facility] [address] [place] [address] from Last 3 Months or Most Recently Relevant to [place] [phone] [facility] MEDICARE Advance Directives * Full Code (Latest Code Status on File) Date Activated Date Inactivated Comments 12/25/2023 3:08 AM 12/29/2023 6:13 PM Question Answer Comments Patient has decision-making capacity? Yes
--- NOTE | 2025-04-19 14:30 | CA_ITS ---
APPROVED REPORT EXAM: Comprehensive 2D, Doppler, and color-flow Echocardiogram Preparation Department Supervisor: Preethi Juan CRT Ht: 5 ft 6 in Wt: 208lbs BSA: 2.03 BP: 111/50 mmHg Indications: Pre-Op breast ca Congestive Heart Failure, Hypertensio 2D Dimensions LA Volume 70.30 mL LA Volume Index 33.80 mL/m2 (M/F) 16-34 M-Mode Dimensions RVDd 2.49 cm (0.9-2.6) LA Diam 4.21 cm (1.9-4.0) LVDd 5.55 cm (3.5-5.7) LVDs 4.65 cm (3.5-5.7) IVSd 1.72 cm (0.6-1.1) PWd 1.02 cm (0.6-1.1) EF (Teich) 33.70% FS 16.20% EDV (Teich) 150.50 mL TAPSE 1.93 (<1.7) ESV (Teich) 99.80 mL LV Diastology E Decel Time 150 (160-240 msec) E/A Ratio 3.90 MED A' 3.00 cm/s LAT A' 6.70 cm/s Aortic Valve AO Peak GR. 4.90 mmHg Mitral Valve MV E Max Reginald. 118.0 (40-130 cm/s) MV A Velocity 30.0 (40-130 cm/s) E/A Ratio 3.90 MV PHT 44.0 ms Tricuspid Valve TR P. Velocity 236.00 cm/s RAP Estimate 10.00 mmHg RVSP 32.20 mmHg Left Ventricle The left ventricle is normal size. The left ventricular systolic function is normal. The left ventricular ejection fraction is within the normal range. There is increased LV wall thickness. There is normal LV segmental wall motion. Diastolic function is indeterminate. LVEF is 55%. Right Ventricle The right ventricle is moderately to severely dilated. Right ventricle is borderline hypokinetic. Atria The left atrium is moderately dilated. Right atrium is moderately dilated. There is no Doppler evidence of interatrial shunt. Aortic Valve Aortic valve is mildly thickened. Trace aortic regurgitation. There is no aortic valvular stenosis. Mitral Valve The mitral valve is normal in structure. Trace mitral regurgitation. Tricuspid Valve Tricuspid valve is grossly normal in structure and function. Mild tricuspid regurgitation. RVSP 30-35 mmHg. Pulmonic Valve The pulmonary valve is normal in structure. Trace pulmonic regurgitation. Great Vessels The aortic root is normal in size. The IVC is dilated. Pericardium There is no pericardial effusion. Other Information Study Quality: Technically Difficult Conclusion Technically difficult study due to poor acoustic windows. Normal LV systolic function. Moderate to severe RV dilation with low normal RV function. Biatrial dilation. Mild TR. When directly compared to prior study from 04/28/2021, the significant degree of RV dilation is new. Electronically signed by : Roxana Riddle MD 04/20/2025 20:22:02
--- OUTSIDE RECORDS SUMMARY | 2025-04-19 14:49 | XMS_ITS | CCD ---
Author Organization Unknown Care Team Providers Care Safety And Health Manager Name Role Phone Non Engaged, [employer] Primary Care Provider Unav ailable Unavailable Chronic Care Management Unavaila ble Summary Purpose DataExchange Insurance Providers Payer name Policy type / Coverage type Covered democrat ID Effective Begin Date Effective End Date [facility] [id number] Unknown Unknown Family History Family History data not found Medication Administered No Medication Administered data Reason For Visit No Reason For Visit data Medical Equipment No Medical Equipment data Advance Directives No Advance Directive data
--- OUTSIDE RECORDS SUMMARY | 2025-04-19 14:49 | XMS_ITS | CCD ---
Author Organization Unknown Care Team Providers Care Home Service Advisor Name Role Phone Non Engaged, [employer] Primary Care Provider Unav ailable Unavailable Chronic Care Management Unavaila ble Summary Purpose DataExchange Insurance Providers Payer name Policy type / Coverage type Covered constitution party ID Effective Begin Date Effective End Date [facility] [id number] Unknown Unknown Family History Family History data not found Medication Administered No Medication Administered data Reason For Visit No Reason For Visit data Medical Equipment No Medical Equipment data Advance Directives No Advance Directive data
== END 2025-04-19 23:59 | disposition home or self-care (01) ==
LOC: RT 13:48
PROVIDERS: PCP Family Medicine; Visit Provider Physician Assistant
DX: Z01.810 Encounter for preprocedural cardiovascular examination (principal); I07.1 Rheumatic tricuspid insufficiency; I11.0 Hypertensive heart disease with heart failure; I50.30 Unspecified diastolic (congestive) heart failure; C50.919 Malignant neoplasm of unspecified site of unspecified female breast
CPT/HCPCS: 93306

== ENCOUNTER 2025-05-12 11:20 | Outpatient (POV) | payer MEDICARE, SELFPAY ==
--- OUTSIDE RECORDS SUMMARY | 2025-04-27 09:45 | XMS_ITS | Encounter Summary ---
Author Organization [facility] Address [address] [place] [address] Care Team Providers Care Operators Teacher Name Role Phone Estevan Rowley MD Primary Care Provider + Reason for Visit * Reason Comments Follow-up Diabetes Encounter Details Date Type Department Care Team (Late st Contact Info) Description 04/27/2025 9:45 AM EDT Office Visit [facility] [address] [place] [address] Estevan Rowley MD [address] [place] [address] Type 2 diabetes mellitus with hyperglycemia, with long-term current use of insulin (Primary Dx); Multiple falls; Chronic right-sided low back pain without sciatica; Abnormality of gait and mobility; Venous stasis dermatitis of both lower extremities; Stage 3a chronic kidney disease (CKD); Type 2 diabetes mellitus with diabetic neuropathy, with long-term current use of insulin; Anxiety; Nausea Social History Tobacco Use Types Packs/Day [...] on file documented as of this encounter Last Filed Vital Signs Vital Sign Reading Time Taken Comments Blood Pressure 112/60 04/27/2025 9:25 AM EDT Pulse 58 04/27/2025 9:25 AM EDT Temperature 36.7 C (98.1 F) 04/27/2025 9:25 AM EDT Respiratory Rate 20 04/27/2025 9:25 AM EDT Oxygen Saturation - - Inhaled Oxygen Concentration - - Weight 98.2 kg (216 lb 9.6 oz) 04/27/2025 9:25 A M EDT Height 165.1 cm (5' 5 ) 04/27/2025 9:25 AM EDT Body Mass Index 36.04 04/27/2025 9:25 AM EDT documented in this encounter Progress Notes * Estevan Rowley MD - 04/27/2025 9:45 AM EDT Chief Complaint Patient presents with Follow-up Diabetes Subjective Mercedes Davidson is a 74 y.o. who presents for chronic care. She reports high blood sugars, possibly as high as 300. Patient eats pasta regularly. Weight has increased 8 pounds since her last visit. She eats ice cream but is unclear how often. She denies hypoglycemia. She has had 3 falls this year the most recent resulting in displacement of her pain pump which may require repeat operation to reconnect or exchange. She complains of pruritic legs. The following portions of the patient's history were reviewed and updated as appropriate: allergies, current medications, past family history, past medical history, past social history, past surgicalhistory, and problem list. Review of Systems Objective Vital Signs: BP 112/60 Pulse 58 Temp 98.1 ??F (36.7 ??C) Resp 20 Ht 165.1 cm (65 ) Wt 98.2 kg (216 lb 9.6 oz) BMI 36.04 kg/m?? Physical Exam Constitutional: Appearance: Normal appearance. HENT: Head: Normocephalic and atraumatic. Right Ear: Tympanic membrane and ear canal normal. Left Ear: Tympanic membrane and ear canal normal. Nose: Nose normal. Mouth/Throat: Mouth: Mucous membranes are moist. Pharynx: Oropharynx is clear. Eyes: Conjunctiva/sclera: Conjunctivae normal. Cardiovascular: Rate and Rhythm: Normal rate and regular rhythm. Heart sounds: Normal heart sounds. No murmur heard. Pulmonary: Effort: Pulmonary effort is normal. No respiratory distress. Breath sounds: Normal breath sounds. Musculoskeletal: Cervical back: Normal range of motion and neck supple. No tenderness. Lymphadenopathy: Cervical: No cervical adenopathy. Skin: General: Skin is warm and dry. Findings: Lesion present. Comments: Patient has excoriations of the legs below the knees on both sides with right being more significantly affected than left. Edema is present in both legs with right being more significant than left. Neurological: Mental Status: She is alert. Comments: Gait was observed. When passing by furniture or through doorways patient will use objectsto steady herself even with use of her cane. Patient is noticeably unsteady with turning and pivoting. Psychiatric: Mood and Affect: Mood normal. Result Review Assessment and Plan Diagnoses and all orders for this visit: 1. Type 2 diabetes mellitus with hyperglycemia, with long-term current use of insulin (Primary) Comments: Likely [id number]. Assess with A1c and medication changes to follow Orders: - Hemoglobin A1c - Renal Function Panel - Hemoglobin and hematocrit, blood - Insulin Syringe-Needle U-100 (BD Veo Insulin Syringe U/F) 31G X 15/64 1 ML misc; Inject 1 each under the skin into the appropriate area as directed 2 (Two) Times a Day. as directed Dispense: 200 each; Refill: 3 - empagliflozin (Jardiance) 10 MG tablet tablet; Take 1 tablet by mouth Daily. Dispense: 30 tablet;Refill: 3 2. Multiple falls Comments: Chronic pain, unsteady gait, and her multiple falls she will be prescribed rollator walker Orders: - Misc. Devices (Rollator Ultra-Light) misc; Use daily for fall prevention Dispense: 1 each; Refill: 0 3. Chronic right-sided low back pain without sciatica - Misc. Devices (Rollator Ultra-Light) misc; Use daily for fall prevention Dispense: 1 each; Refill: 0 4. Abnormality of gait and mobility - Misc. Devices (Rollator Ultra-Light) misc; Use daily for fall prevention Dispense: 1 each; Refill: 0 5. Venous stasis dermatitis of both lower extremities - betamethasone dipropionate (DIPROSONE) 0.05 % cream; Apply 1 Application topically to the appropriate area as directed 2 (Two) Times a Day. Dispense: 45 g; Refill: 1 6. Stage 3a chronic kidney disease (CKD) Comments: Stable. Continue Jardiance. DARCI inhibitor previously discontinued due to hypotension Orders: - empagliflozin (Jardiance) 10 MG tablet tablet; Take 1 tablet by mouth Daily. Dispense: 30 tablet;Refill: 3 7. Type 2 diabetes mellitus with diabetic neuropathy, with long-term current use of insulin - atorvastatin (LIPITOR) 40 MG tablet; Take 1 tablet by mouth Every Night. Dispense: 90 tablet; Refill: 3 8. Anxiety Comments: stable. Continue fluoxetine 60 mg daily and 3 times daily lorazepam Orders: - LORazepam (Ativan) 1 MG tablet; Take 1 tablet by mouth Every 8 (Eight) Hours As Needed for Anxiety. Dispense: 90 tablet; Refill: 3 9. Nausea - promethazine (PHENERGAN) 12.5 MG tablet; Take 1 tablet by mouth every 6 (six) to 8 (eight) hours as needed (or vomiting). Dispense: 30 tablet; Refill: 1 Other orders - Zoster Vac Recomb Adjuvanted 50 MCG/0.5ML reconstituted suspension; Inject 0.5 mL into the appropriate muscle as directed by prescriber 1 (One) Time for 1 dose. Dispense: 1 each; Refill: 0 Follow Up Return in about 3 months (around 07/28/2025) for Next scheduled follow up dIABETES. Patient was given instructions and counseling regarding her condition or for health maintenance advice. Please see specific information pulled into the AVS if appropriate. documented in this encounter Plan of Treatment Upcoming Encounters Date Type Department Care Team (Late st Contact Info) Description 07/30/2025 10:00 AM EST Office Visit [facility] [address] [place] [phone] Estevan Rowley MD [address] [id number] documented as of this encounter Procedures Procedure Name Priority Date/Time Associated Diagnosis Comments HEMOGLOBIN AND HEMATOCRIT, BLOOD Routine 04/27/2025 10:20 AM EDT Type 2 diabetes mellitus with hyperglycemia, with long-term current use of insulin HEMOGLOBIN A1C Routine 04/27/2025 10:20 AM EDT Type 2 diabetes mellitus with hyperglycemia, with long-term current use of insulin RENAL FUNCTION PANEL Routine 04/27/2025 10:20 AM EDT Type 2 diabetes mellitus with hyperglycemia, with long-term current use of insulin documented in this encounter Results * Hemoglobin and hematocrit, blood (04/27/2025 10:20 AM EDT) Hemoglobin 14.3 11.1 - 15.9 g/dL [facility] Hematocrit 45.6 34.0 - 46.6 % [facility] Blood 04/27/2025 10:2 0 AM EDT 04/27/2025 Narrative [facility] (AMB[facility]ORY) - 04/28/2025 10:36 AM EDT Performed at: - [address] [id number] Wind Tunnel Engineer: Nick Ortega PhD, Phone: [phone] Patient Fasting: N us Estevan Rowley MD LAB BLOOD ORDERABLES Fin al Result [facility] (AMBULATORY) [address] [id number], [facility] [address] [place] [address], * (ABNORMAL) Renal Function Panel (04/27/2025 10:20 AM EDT) Glucose 148(H) 70 - 99 mg/dL [facility] BUN 17 8 - 27 mg/dL [facility] Creatinine 1.04(H) 0.57 - 1.00 mg/dL [facility] EGFR Result 57(L) >59 mL/min/1.7 3 [facility] BUN/Creatinine Ratio 16 12 - 28 [facility] Sodium 142 134 - 144 mmol/L [facility] Potassium 3.5 3.5 - 5.2 mmol/L [facility] Chloride 96 96 - 106 mmol/L [facility] Total CO2 32(H) 20 - 29 mmol/L [facility] Calcium 9.4 8.7 - 10.3 mg/dL [facility] Phosphorus 4.2 3.0 - 4.3 mg/dL [facility] Albumin 4.0 3.8 - 4.8 g/dL [facility] Blood 04/27/2025 10:2 0 AM EDT 04/27/2025 Narrative [facility] [employer] (AMBULATORY) - 04/28/2025 10:36 AM EDT Performed at: [address] [id number] Wind Tunnel Engineer: Nick Ortega PhD, Phone: [phone] Patient Fasting: N Estevan Rowley MD LAB BLOOD ORDERABLES Fin al Result [facility] [address] [place] [address], [facility] [address] [place] [address], * (ABNORMAL) Hemoglobin A1c (04/27/2025 10:20 AM EDT) [facility] Hemoglobin A1C 9.7(H) 4.8 - 5.6 % [facility] Comment: Prediabetes: 5.7 - 6.4 Diabetes: >6.4 Glycemic control for adults with diabetes: <7.0 Blood 04/27/2025 10:2 0 AM EDT 04/27/2025 Narrative [facility] (AMBULATORY) - 04/28/2025 10:36 AM EDT Performed at: [address] [id number] Wind Tunnel Engineer: Nick Ortega PhD, Phone: [phone] Patient Fasting: N Estevan Rowley MD LAB BLOOD ORDERABLES Fin al Result [facility] (AMBULATORY) [address] [place] [address], [place] [phone] [facility] [address] [place] [address], [place] [phone] documented in this encounter Visit Diagnoses Diagnosis Type 2 diabetes mellitus with hyperglycemia, with long-term current use of insulin- Primary Multiple falls Chronic right-sided low back pain without sciatica Abnormality of gait and mobility Venous stasis dermatitis of both lower extremities Stage 3a chronic kidney disease (CKD) Type 2 diabetes mellitus with diabetic neuropathy, with long-term current use of insulin Anxiety Anxiety state, unspecified Nausea Nausea alone documented in this encounter Additional Health Concerns Assessment Noted Time PHQ-2 Depression Total Score: 1 01/06/20 24 11:09 AM EDT documented as of this encounter Care Teams Operators Teacher Relationship Specialty Start Date End Date Estevan Rowley MD [address] [place] [address] [place] [address] PCP - General Family Medicine 03/08/22 documented as of this encounter
--- OUTSIDE RECORDS SUMMARY | 2025-05-12 11:26 | XMS_ITS | Encounter Summary ---
Author Organization [facility] Address [address] [place] [address] Care Team Providers Care Wheel Cleaner Name Role Phone Estevan Rowley MD Primary Care Provider + Encounter Details Date Type Department Care Team (Late st Contact Info) Description 04/29/2025 Results Follow-Up [facility] [address] [facility] [place] [address] Estevan Rowley MD [address] [place] [address] Social History Tobacco Use Types Packs/Day Years [...] Description 07/30/2025 10:00 AM EST Office Visit [facility] [address] [place] [address] Estevan Rowley MD [address] [place] [address] documented as of this encounter Visit Diagnoses Diagnosis Type 2 diabetes mellitus with hyperglycemia, with long-term current use of insulin Long-term insulin use documented in this encounter Additional Health Concerns Assessment Noted Time PHQ-2 Depression Total Score: 1 01/06/20 24 11:09 AM EDT documented as of this encounter Care Teams Wheel Cleaner Relationship Specialty Start Date End Date Estevan Rowley MD [address] [place] [address] PCP - General Family Medicine 03/08/22 documented as of this encounter
--- OUTSIDE RECORDS SUMMARY | 2025-05-12 11:26 | XMS_ITS | Clinical Summary ---
Author Organization [facility] Address [address] [place] [address] Care Team Providers Care Hand Packager Name Role Phone Unavailable Primary Care Provider [...] (02/26/2024): Last Assessment & Plan: Refer to [facility] for Warfarin Managment. Rate controlled. [...] week 02/26/2024 How often do you attend [facility] or buddhist services? 1 to 4 times per year 02/26/2024 Do you belong to any clubs o r organizations such as yazidi groups, unions, fraternal or athletic groups, or [...] Recorded Patient Health Questionnaire-2 Score 2 02/26/2024 [facility] - Occupational Stress [...] place to sleep or slept in a fdc (including now)? No 12/26/2023 CAGE ASSESSMENT Answer [...] drink first t abilio in the morning (EYE-FINANCIAL ADVISOR TRAINEE) to steady your nerves or to get rid of a hangover? 0 12/26/2023 CAGE Questionnaire Score 0 024 Utilities Answer Date Recorded In the past 12 months has e [facility], gas, oil, or water company threatened to [...] 2011 [facility]-Bone Density Scan 12/20/2023 12/19/2022, 023 [id number] Vaccine ( season) 2024 08/08/2023, 07/11/2022, 07/26/2021, [...] Final Resu lt [facility] [address] [place] [address] from Last 3 Months or Most Recently Relevant to [place] [id number] [facility] MEDICARE Advance Directives * Full Code (Latest Code Status on File) Date Activated Date Inactivated Comments 12/25/2023 3:08 AM 12/29/2023 6:13 PM Question Answer Comments Patient has decision-making capacity? Yes
--- OUTSIDE RECORDS SUMMARY | 2025-05-12 11:26 | XMS_ITS | Encounter Summary ---
Author Organization [facility] Address [address] [place] [phone] Care Team Providers Care Institute Scientist Name Role Phone Estevan Rowley MD Primary Care Provider + Encounter Details Date Type Department Care Team (Latest Contact Info) Description 04/27/2025 Travel Social History Tobacco Use Types Packs/Day Years [...] Description 07/30/2025 10:00 AM EST Office Visit [facility] [address] [place] [address] Estevan Rowley MD [address] [place] [address] documented as of this encounter Visit Diagnoses Not on filedocumented in this encounter Additional Health Concerns Assessment Noted Time PHQ-2 Depression Total Score: 1 01/06/20 24 11:09 AM EDT documented as of this encounter Care Teams Institute Scientist Relationship Specialty Start Date End Date Estevan Rowley MD [address] [place] [address] PCP - General Family Medicine 03/08/22 documented as of this encounter
--- OUTSIDE RECORDS SUMMARY | 2025-05-12 11:26 | XMS_ITS | Encounter Summary ---
Author Organization [facility] Address [address] [place] [address] Care Team Providers Care Scada Technician Name Role Phone Estevan Rowley MD Primary Care Provider + Reason for Visit * Reason Onset Date Comments REQUEST FOR PROGRESS NOTE AND PRESCRIPTION ORDER FOR WALKER 04/27/2025 Encounter Details Date Type Department Care Team (Late st Contact Info) Description 04/27/2025 Telephone [facility] [address] [place] [address] Estevan Rowley MD [address] [place] [address] REQUEST FOR PROGRESS NOTE AND PRESCRIPTION ORDER FOR WALKER Social History Tobacco Use Types Packs/Day Years [...] on file documented as of this encounter Miscellaneous Notes * Telephone Encounter - Lauren Robertson MA - 04/28/2025 10:37 AM EDT Elan and pt aware office note has been faxed (via [employer]) * Telephone Encounter - Estevan Rowley MD - 04/28/2025 10:13 AM EDT Please fax completed progress note from 04/27/25 to [place] * Telephone Encounter - Dana Juarez - 04/27/2025 1:32 PM EDT SPOUSE OF PATIENT HAS CALLED REQUESTING IF A PROGRESS NOTE AND PRESCRIPTION ORDER CAN BE SENT TO [employer] IN [place] FOR A WALKER ROLLATOR. SPOUSE IS REQUESTING A CALL BACK ONCE PROGRESS NOTE AND ORDER HAS BEEN SENT. [employer] PHONE NUMBER IS [phone] CALL BACK NUMBER IS [phone] documented in this encounter Plan of Treatment Upcoming Encounters Date Type Department Care Team (Late st Contact Info) Description 07/30/2025 10:00 AM EST Office Visit [facility] [address] [place] [phone] Estevan Rowley MD [address] [place] [address] documented as of this encounter Visit Diagnoses Not on filedocumented in this encounter Additional Health Concerns Assessment Noted Time PHQ-2 Depression Total Score: 1 01/06/20 24 11:09 AM EDT documented as of this encounter Care Teams Scada Technician Relationship Specialty Start Date End Date Estevan Rowley MD [address] [place] [address] PCP - General Family Medicine 03/08/22 documented as of this encounter
--- OUTSIDE RECORDS SUMMARY | 2025-05-12 11:26 | XMS_ITS | Clinical Summary ---
[facility] Organization [facility] Address [address] [place] [address] Care Team Providers Care Customer Service Teller Name Role Phone Estevan Rowley MD Primary Care Provider + Allergies Active Allergy Reactions Criticality Noted Date Comments Latex Rash Low 03/08/2022 Penicillins Other (See Comments) 03/08/2022 Oral irritation Sulfa Antibiotics Rash Low 03/08/2022 Medications Blood Glucose Monitoring Suppl (Accu-Chek Gi Plus) w/Device kitIndications:Ty pe 2 diabetes mellitus with hyperglycemia, with long-term current use of insulin,Long-term insulin use Use device to check glucose twice daily 1 kit 10/18/19 24 Active metoprolol succinate XL (TOPROL-XL) 50 MG 24 hr tablet Take 1 tablet by mouth Daily. 09/30/19 24 Active apixaban (ELIQUIS) 5 MG tablet tablet Take 1 tablet by mouth Every 12 (Twelve) Hours. 02/26/20 24 Active tiotropium bromide monohydrate (Spiriva Respimat) 2.5 MCG/ACT aerosol solution inhalerIndication s:Panlobular emphysema Inhale 2 puffs Daily. 4 g 11 10/19/19 25 Active potassium chloride (KLOR-CON M20) 20 MEQ CR tabletIndications :Hypokalemia Take 1 tablet by mouth Daily. 30 tablet 2 11/13/19 25 Active furosemide (LASIX) 80 MG tablet Take 1 tablet by mouth Daily. Take 1 tablet in a.m. daily 90 tablet 1 01/19/20 25 Active glucose blood (Accu-Chek Ig Plus) test stripIndications: Type 2 diabetes mellitus with hyperglycemia, with long-term current use of insulin,Long-term insulin use Used to check glucose TID / Dx: E11.65 300 each 3 01/19/20 25 Active Accu-Chek Softclix Lancets lancetsIndication s:Type 2 diabetes mellitus with hyperglycemia, with long-term current use of insulin,Long-term insulin use Use to check glucose TID / Dx: E11.65 300 each 3 01/19/20 25 Active albuterol sulfate HFA 108 (90 Base) MCG/ACT inhalerIndication s:Panlobular emphysema INHALE 2 PUFFS EVERY 4 (FOUR) HOURS NEEDED FOR WHEEZING. 8.5 g 2 02/12/20 25 Active FLUoxetine (PROzac) 20 MG capsuleIndication s:Anxiety TAKE 1 CAPSULE BY MOUTH ONCE DAILY (WITH 40 MG CAPSULE) 90 capsule 04/01/20 25 Active FLUoxetine (PROzac) 40 MG capsuleIndication s:Anxiety TAKE 1 CAPSULE BY MOUTH ONCE DAILY 90 capsule 04/01/20 25 Active Misc. Devices (Rollator Ultra-Light) miscIndications:M ultiple falls,Chronic right-sided low back pain without sciatica,Abnormal ity of gait and mobility Use daily for fall prevention 1 each 04/27/20 25 Active betamethasone dipropionate (DIPROSONE) 0.05 % creamIndications: Venous stasis dermatitis of both lower extremities Apply 1 Application topically to the appropriate area as directed 2 (Two) Times a Day. 45 g 1 04/27/20 25 Active Insulin Syringe-Needle U-100 (BD Veo Insulin Syringe U/F) 31G X 15/64 1 ML miscIndications:T ype 2 diabetes mellitus with hyperglycemia, with long-term current use of insulin Inject 1 each under the skin into the appropriate area as directed 2 (Two) Times a Day. as directed 200 each 3 04/27/20 25 Active empagliflozin (Jardiance) 10 MG tablet tabletIndications :Type 2 diabetes mellitus with hyperglycemia, with long-term current use of insulin,Stage 3a chronic kidney disease (CKD) Take 1 tablet by mouth Daily. 30 tablet 3 04/27/20 25 Active atorvastatin (LIPITOR) 40 MG tabletIndications :Type 2 diabetes mellitus with diabetic neuropathy, with long-term current use of insulin Take 1 tablet by mouth Every Night. 90 tablet 3 04/27/20 25 Active LORazepam (Ativan) 1 MG tabletIndications :Anxiety Take 1 tablet by mouth Every 8 (Eight) Hours As Needed for Anxiety. 90 tablet 3 04/27/20 25 Active promethazine (PHENERGAN) 12.5 MG tabletIndications :Nausea Take 1 tablet by mouth every 6 (six) to 8 (eight) hours as needed (or vomiting). 30 tablet 1 04/27/20 25 Active insulin NPH-insulin regular (HumuLIN 70/30) (70-30) 100 UNIT/ML injectionIndicati ons:Type 2 diabetes mellitus with hyperglycemia, with long-term current use of insulin,Long-term insulin use Take 55 units in a.m. and 40 units in p.m. 30 mL 2 04/29/20 25 Active atorvastatin (LIPITOR) 40 MG tabletIndications :Type 2 diabetes mellitus with diabetic neuropathy, with long-term current use of insulin Take 1 tablet by mouth Every Night. 90 tablet 3 07/13/20 24 025 Discontinu ed(Reorder ) insulin NPH-insulin regular (HumuLIN 70/30) (70-30) 100 UNIT/ML injectionIndicati ons:Type 2 diabetes mellitus with hyperglycemia, with long-term current use of insulin,Long-term insulin use Take 40 units in a.m. and 30 units in p.m. 10/19/19 25 025 Discontinu ed(Reorder ) BD Veo Insulin Syringe U/F 31G X 15/64 1 ML miscIndications:T ype 2 diabetes mellitus with hyperglycemia, with long-term current use of insulin USE DIRECTED TWICE DAILY 200 each 12/25/19 25 025 Discontinu ed(Reorder ) LORazepam (Ativan) 1 MG tabletIndications :Anxiety Take 1 tablet by mouth Every 8 (Eight) Hours As Needed for Anxiety. 90 tablet 3 01/19/20 25 025 Discontinu ed(Reorder ) empagliflozin (Jardiance) 10 MG tablet tabletIndications :Type 2 diabetes mellitus with hyperglycemia, with long-term current use of insulin,Stage 3a chronic kidney disease (CKD) Take 1 tablet by mouth Daily. 30 tablet 3 01/19/20 25 025 Discontinu ed(Reorder ) promethazine (PHENERGAN) 12.5 MG tabletIndications :Nausea TAKE 1 TABLET BY MOUTH EVERY SIX HOURS NEEDED FOR NAUSEA OR VOMITING. 30 tablet 1 03/15/20 025 Discontinu ed(Reorder ) Zoster Vac Recomb Adjuvanted 50 MCG/0.5ML reconstituted suspension Inject 0.5 mL into the appropriate muscle as directed by prescriber 1 (One) Time for 1 dose. 1 each 04/27/20 25 025 Active Problems Problem Noted Date Diagnosed Date [...] CGM will will be sent to a DME company. This would likely help improve glycemic [...] Plan (03/08/2022 12:55 PM EDT): Refer to [facility] for Warfarin Managment. Rate [...] in 3 months. Refer to podiatry at [facility] Encounters Date Type Department Care Team Description 04/30/2025 Telephone [facility] [address] [place] [phone] Estevan Rowley MD ROLLATOR 04/29/2025 Results Follow-Up [facility] [address] [place] [phone] Estevan Rowley MD 04/27/2025 9:45 AM EDT Office Visit [facility] [address] [place] [phone] Estevan Rowley MD Type 2 diabetes mellitus with hyperglycemia, with long-term current use of insulin (Primary Dx); Multiple falls; Chronic right-sided low back pain without sciatica; Abnormality of gait and mobility; Venous stasis dermatitis of both lower extremities; Stage 3a chronic kidney disease (CKD); Type 2 diabetes mellitus with diabetic neuropathy, with long-term current use of insulin; Anxiety; Nausea 04/27/2025 Telephone [facility] MED[facility] [address] [place] [phone] Estevan Rowley MD REQUEST FOR PROGRESS NOTE AND PRESCRIPTION ORDER FOR WALKER 04/27/2025 Travel 04/01/2025 Refill [facility] [address] [place] [phone] Estevan Rowley MD Anxiety 03/15/2025 Refill [facility] [address] [place] [phone] Estevan Rowley MD Nausea 02/09/2025 Refill [facility] [address] [place] [address] Estevan Rowley MD Panlobular emphysema from Last 3 Months Immunizations Immunization Administration [...] 20 04/27/2025 9:25 AM EDT Oxygen Saturation 95% 10/19/2024 8:57 AM EST Inhaled Oxygen Concentration - - Weight 98.2 kg (216 lb 9.6 oz) 04/27/2025 9:25 A M EDT Height 165.1 cm (5' 5 ) 04/27/2025 9:25 AM EDT Body Mass Index 36.04 04/27/2025 9:25 AM EDT Plan of Treatment Upcoming Encounters Date Type Department Care Team (Late st Contact Info) Description 07/30/2025 10:00 AM EST Office Visit [facility] [address] [facility] [place] [place] [address] Estevan Rowley MD [address] [place] [address] Health Maintenance Due Date Last Done Comments [...] Additional history exists DXA SCAN 12/19/2024 12/19/2022, 12/19/2022 INFLUENZA VACCINE 06/23/2025 06/17/2024, , 07/11/2022, Additional history exists ANNUAL WELLNESS VISIT 07/13/2025 07/13/2024 , 07/13/2024, 06/10/2023, Additional history exists DIABETIC FOOT EXAM 07/13/2025 07/13/2024, 1 , 07/13/2024, Additional history exists MAMMOGRAM 07/13/2025 Postponed from 1991 (Patient Refused) HEMOGLOBIN A1C 10/28/2025 04/27/2025, 04/04/2025, 10/19/2024, Additional history exists URINE MICROALBUMIN-CREATININE RATIO (uACR) [...] hyperglycemia, with long-term current use of insulin SCANNED - LABS 03/09/2025 POC ALBUMIN/CREATININE RATIO Routine 01/18/2025 9:55 AM EDT Type 2 diabetes mellitus with hyperglycemia, with long-term current use of insulin DEXA BONE DENSITY AXIAL Routine 12/19/2022 Postmenopausal Screening for osteoporosis from Last 3 Months or Most Recently Relevant to Health Maintenance Results * Hemoglobin and hematocrit, blood (04/27/2025 10:20 AM EDT) Pathologist [facility] Hemoglobin 14.3 11.1 - 15.9 g/dL [facility] Hematocrit 45.6 34.0 - 46.6 % [facility] Blood 04/27/2025 10:2 0 AM EDT 04/27/2025 Narrative [facility] (AMBULATORY) - 04/28/2025 10:36 AM EDT Performed at: [address] [place] [id number] [employer] Director: Nick Ortega PhD, Phone: [phone] Patient Fasting: N Estevan Rowley MD LAB BLOOD ORDERABLES Fin al Result Performing Organization Address City/[facility]/ZIP Co de Phone Number [facility] [address] [place] [address], [facility] [address] [place] [address], * (ABNORMAL) Hemoglobin A1c (04/27/2025 10:20 AM EDT) Hemoglobin A1C 9.7(H) 4.8 - 5.6 % [facility] Comment: Prediabetes: 5.7 - 6.4 Diabetes: >6.4 Glycemic control for adults with diabetes: <7.0 Blood 04/27/2025 10:2 0 AM EDT 04/27/2025 Narrative [facility] (AMBULATORY) - 04/28/2025 10:36 AM EDT Performed at: 01 - [facility] [address] [place] [id number] School [employer] Director: Nick Ortega PhD, Phone: [phone] Patient Fasting: N Estevan Rowley MD LAB BLOOD ORDERABLES Fin al Result Performing Organization Address [facility] Co de Phone Number [facility] (AMBULATORY) [address] [place] [address], [facility] [address] [place] [id number], * (ABNORMAL) Renal Function Panel (04/27/2025 10:20 [...] 10:2 0 AM EDT 04/27/2025 Narrative [facility] (AMBULATORY) - 04/28/2025 10:36 AM EDT Performed at: 01 - [address] [id number] [employer] Director: Nick Ortega PhD, Phone: [phone] Patient Fasting: N Estevan Rowley MD LAB BLOOD ORDERABLES Fin al Result [facility] (AMBULATORY) [address] [place] [address], [facility] [address] [place] [address], * LABS SCANNED (03/09/2025) Estevan Rowley MD LAB BLOOD ORDERABLES Fin al Result * (ABNORMAL) POC Albumin/Creatinine Ratio Urine (01/18/2025 9:55 AM EDT) POC ALBUMIN, URINE 150 mg/L POC CREATININE, URINE 100 mg/dL POC Urine Albumin Creatinine Ratio > 300 mg/g <30 Comment:high abnormal Lot Number [id number] Expiration Date 12/21/2025 Urine 01/18/2025 9:55 AM EDT Estevan Rowley MD POINT OF CARE TEST ORDER KRISTEN Final Result * DEXA Bone Density Axial (12/19/2022) Anatomical Region Laterality Modality Wrist, Hip, L-spine N/A Radiographic Imaging Estevan Rowley MD IMG DXA ORDERABLES Final Result from Last 3 Months or Most Recently Relevant to Health Maintenance Insurance [employer] [employer] [id number] [employer] MEDICARE ADVANTAGE HMO Advance Directives Documents on File Type Date Recorded Patient Edger Automatic Expl anation LIVING WILL - SCAN 09/11/2022 8:39 AM JULIA CHAVEZ [facility], 09/04/2022 Care Teams Customer Service Teller Relationship Specialty Start Date End Date Estevan Rowley MD [address] [facility] [place] [address] PCP - General Family Medicine 03/08/22
--- OUTSIDE RECORDS SUMMARY | 2025-05-12 11:26 | XMS_ITS | Encounter Summary ---
[facility] Address [address] [place] [address] Care Team Providers Care Looper Fixer Name Role Phone Estevan Rowley MD Primary Care Provider + Reason for Visit * Reason Comments Med Refill Encounter Details Date Type Department Care Team (Late Contact Info) Description 04/01/2025 Refill [facility] [address] [place] [address] Estevan Rowley MD [address] [place] [address] Anxiety Social History Tobacco Use [...] Department Care Team (Late Contact Info) Description 07/30/2025 10:00 AM EST Office Visit [facility] [address] [place] [address] Estevan Rowley MD [address] [place], [place] [id number] documented as of this encounter Visit Diagnoses Diagnosis Anxiety Anxiety state, unspecified documented in this encounter Additional Health Concerns Assessment Noted Time PHQ-2 Depression Total Score: 1 01/06/20 24 11:09 AM EDT documented as of this encounter Care Teams Looper Fixer Relationship Specialty Start Date End Date Estevan Rowley MD [address] [place] [address] PCP - General Family Medicine 03/08/22 documented as of this encounter
--- OUTSIDE RECORDS SUMMARY | 2025-05-12 11:26 | XMS_ITS | Encounter Summary ---
[facility] Address [address] [place] [id number] Care Team Providers Care Talent Acquisition Project Manager Name Role Phone Estevan Maldonado MD Primary Care Provider + Reason for Visit * Reason Onset Date Comments ROLLATOR 04/30/2025 Encounter Details Date Type Department Care Team (Late st Contact Info) Description 04/30/2025 Telephone [facility] [address] [place] [address] Estevan Maldonado MD [address] [place] [address] ROLLATOR Social History Tobacco Use Types Packs/Day Years [...] encounter Miscellaneous Notes * Telephone Encounter - Ligia Diaz MA - 05/05/2025 11:37 AM EDT Caity called back and the pt has already hand carried in the order and gotten the rollator. Nothing else is needed. * Telephone Encounter - Cici Almeida RegSched Rep - 05/04/2025 1:40 PM EDT Caller: KISHAN DAVIDSON Relationship: Emergency Contact Best call back number: [phone] Equipment requested: ROLLATOR Reason for the request: DOCTOR Prescribing Provider: ESTEVAN MALDONADO Additional information or concerns: PATIENTS STATES THE DOCTOR NEEDS TO CALL CAITY AT . * Telephone Encounter - Ligia Diaz MA - 04/30/2025 5:36 PM EDT Pt's office note was faxed over but I cannot find the order for the walker. Can it be rewritten? * Telephone Encounter - Alverto Barbosa RegSched Rep - 04/30/2025 3:43 PM EDT Caller: KISHAN DAVIDSON Relationship: Emergency Contact Best call back number: [phone] What was the call regarding: KISHAN SPOKE WITH [facility] [employer] IN [place]. THEY HAVE NOT RECEIVED THE ORDER FOR THE ROLLATOR. PLEASE MAKE SURE THIS IS SENT. Is it okay if the provider responds through MyChart: NO documented in this encounter Plan of Treatment Upcoming Encounters Date Type Department Care Team (Late st Contact Info) Description 07/30/2025 10:00 AM EST Office Visit [facility] [address] [facility] [place], [place] [phone] Estevan Maldonado MD [address] [facility] [place] [address] documented as of this encounter Visit Diagnoses Not on filedocumented in this encounter Additional Health Concerns Assessment Noted Time PHQ-2 Depression Total Score: 1 01/06/20 24 11:09 AM EDT documented as of this encounter Care Teams Talent Acquisition Project Manager Relationship Specialty Start Date End Date Estevan Maldonado MD [address] [facility] [place] [address] PCP - General Family Medicine 03/08/22 documented as of this encounter
--- OUTSIDE RECORDS SUMMARY | 2025-05-12 11:26 | XMS_ITS | Encounter Summary ---
[facility] Address [address] [place] [address] Care Team Providers Care Master Ocean Yacht Name Role Phone Estevan Rowley MD Primary Care Provider + Reason for Visit * Reason Comments Med Refill Encounter Details Date Type Department Care Team (Late Contact Info) Description 03/15/2025 Refill [facility] [address] [place] [address] Estevan Rowley MD [address] [place] [address] Nausea Social History Tobacco Use Types [...] 07/30/2025 10:00 AM EST Office Visit [facility] [address] [place] [address] Estevan Rowley MD [address] [place] [address] documented as of this encounter Visit Diagnoses Diagnosis Nausea Nausea alone documented in this encounter Additional Health Concerns Assessment Noted Time PHQ-2 Depression Total Score: 1 01/06/20 24 11:09 AM EDT documented as of this encounter Care Teams Master Ocean Yacht Relationship Specialty Start Date End Date Estevan Rowley MD [address] [place] [address] PCP - General Family Medicine 03/08/22 documented as of this encounter
--- NOTE | 2025-05-12 12:25 | EXP.PAIN.SOA ---
[facility] Disclaimer: The information contained in this section may have been updated after the patient was seen, as this information can be updated by other users. Medical History Claudication Discoloration of skin Pain of intrathecal infusion pump pocket after insertion A-fib Restless sleeper SHOSHANA (obstructive sleep apnea) Daytime somnolence Edema Dizziness Preoperative clearance Right bundle branch block (RBBB) Diastolic dysfunction HLD (hyperlipidemia) HHD (hypertensive heart disease) CAD (coronary artery disease) Surgical History History of cholecystectomy History of bilateral breast reduction surgery History of hysterectomy History of knee replacement Family History Other Family history of cancer Social History Smoking Status: Former smoker second hand exposure: No alcohol intake: never substance use type: denies use current occupational status: other Travel in the last 8 weeks?: None household members: spouse housing: house current occupation: [employer] current occupational exposures/hazards: No caffeine: Yes Have you lived/traveled outside US in past 30 days?: No Contact w/someone who lives/traveled outside US past 30 days?: No Exposure to someone with infectious disease in past 14 days?: No Do you have a fever (greater than 100.4 F or 38 C)?: No Have you tested positive for COVID-19?: No Exposed to someone with COVID-19 in past 14 days?: No Do you have a sore throat?: No Do you have a cough?: No Do you have any weakness?: No Do you have any diarrhea?: No Are you experiencing any unusual bleeding?: No Do you have any muscle aches/pain?: No Do you have any abdominal pain?: No Are you experiencing loss of taste or smell?: No PM Subjective & Objective Subjective Subjective:: Patient is a pleasant 74-year-old female who presents today for follow-up. Patient does rate her pain today a 7 out of 10. She denies any new falls or injuries. From her last visit she did go to our [place] location where she did complete a catheter dye study and her catheter was found to be blocked. Dr. Slaughter did tell the patient that we were needing to do a revision in order to replace the catheter as there does appear to be a kink or other discrepancy that is not allowing the medication to FreeFlow. Patient does state today that she definitely would like to proceed forward with this option as prior to this her pump was providing significant relief with her pain. Patient is on minimal flow with morphine 1 mg with a daily dose 0.0918 mg/day. Her Connor has been reviewed and is appropriate. Review of Systems: General: No recent weight changes, no fever, no sleep disturbances Respiratory: No cough, no shortness of air, no recurring pulmonary infections Cardiovascular/peripheral vascular: No chest pain, no palpitations, no edema, no shortness of breath Gastrointestinal: No new onset incontinence, normal bowel movements reported Genitourinary: No new onset incontinence Musculoskeletal: Low back pain Psychiatric: [Normal mood/affect] Neurological: [Denies weakness in extremities], [denies balance issues] Pain at rest (0-10 scale): 7 Objective Objective:: Physical Exam: General: Alert and oriented x3, no acute distress, pleasant and cooperative Lungs: Respirations even and unlabored, symmetrical chest expansion Eyes: PERRL Musculoskeletal: Flexion and extension of lumbar [spine] somewhat guarded secondary to pain, [antalgic gait noted] Neurological: Speech clear, no gross sensory deficit Has patient had previous pain injection?: No Conservative treatment options previously tried: Home exercise plan Length of treatment: Longer than 12 weeks Meds Home Medications and Allergies Home Medications ?Medication ?Instructions ?Recorded ?Confirmed ?Type lorazepam 1 mg tablet 1 mg PO TID nerves 04/09/18 04/16/25 History atorvastatin 40 mg tablet 40 mg PO DAILY Cholesterol 01/20/19 04/16/25 History lansoprazole 30 mg capsule,delayed 30 mg PO DAILY 01/18/21 04/16/25 History release spironolactone 100 mg tablet See Rx Instructions .Route 06/08/21 04/16/25 Rx .COMPLEX #180 tabs furosemide 80 mg tablet See Rx Instructions .Route 04/17/23 04/16/25 Rx .COMPLEX #180 tabs fluoxetine 40 mg capsule (Prozac) 60 mg PO DAILY 06/30/24 04/16/25 History insulin human U-100 NPH-regulr 20 unit SQ BID 07/03/24 04/16/25 History 70-30 mix 100 unit/mL subcutaneous susp (Humulin 70/30 U-100 Insulin) metoprolol succinate 50 mg 50 mg PO DAILY #90 tabs 01/19/25 04/16/25 Rx tablet,extended release 24 hr (Toprol XL) apixaban 5 mg tablet (Eliquis) 5 mg PO BID Blood Thinner #180 tabs 02/12/25 04/16/25 Rx New Prescriptions to Start Prescriptions: Allergies Allergy/AdvReac Type Severity Reaction Status Date / Time latex (LATEX) Allergy Unknown I-ITCHING Verified 03/09/25 14:36 Penicillins (PENICILLINS) Allergy Unknown BREAKS OUT Verified 03/09/25 14:36 MOUTH Sulfa (Sulfonamide Allergy Unknown I-ITCHING Verified 03/09/25 14:36 Antibiotics) (SULFA (SULFONAMIDE ANTIBIOTICS)) Assessment and Plan *Assessment and plan (1) Degenerative disc disease, lumbar: Status: Acute Category: Medical Code(s): M51.369 - Other intervertebral disc degeneration, lumbar region without mention of lumbar back pain or lower extremity pain (2) Lumbar radiculopathy: Status: Acute Category: Medical Code(s): M54.16 - Radiculopathy, lumbar region Plan I did review over with the patient regarding the risk and benefits of the catheter revision procedure and she would like to proceed forward with this plan of care. Patient was previously getting very significant relief with her pump therapy. Patient did have a significant discrepancy at her last pump refill as well as a catheter dye study completed that did show it was no longer functioning properly. Patient has already been submitted for the catheter revision however we are still waiting for approval. We did discuss that most likely we would be planning on putting her on for the June [address] Slaughter however once we have clarification and approval through her insurance we will call to confirm. Patient is currently on Eliquis written by Dr. Chang's office and we will reach out to that provider and confirm she can stop this medication prior to this surgery. Patient agrees with this plan of care. Patient has been instructed to contact the clinic with any concerns before the next appointment. Dr. Slaughter has reviewed this note and agrees with this plan of care. This note was dictated using voice recognition software and make contain errors or omissions. All injections are used with Lidocaine, Bupivacaine and dexamethasone. Occasionally urine drug screen is needed to verify patient's compliance with our office pain contract. This is ordered based off specific treatments related to chronic pain with the potential to abuse certain medications.
--- OUTSIDE RECORDS SUMMARY | 2025-05-12 12:25 | XMS_ITS | CCD ---
Author Organization Unknown Care Team Providers Care Goat Herder Name Role Phone Non Engaged, [facility] Primary Care Provider Unav ailable Unavailable Chronic Care Management Unavaila ble Summary Purpose DataExchange Insurance Providers Payer name Policy type / Coverage type Covered libertarian ID Effective Begin Date Effective End Date [facility] [id number] Unknown Unknown Family History Family History data not found Medication Administered No Medication Administered data Reason For Visit No Reason For Visit data Medical Equipment No Medical Equipment data Advance Directives No Advance Directive data
--- OUTSIDE RECORDS SUMMARY | 2025-05-12 12:25 | XMS_ITS | CCD ---
Author Organization Unknown Care Team Providers Care Tree Feller Name Role Phone Non Engaged, [employer] Primary Care Provider Unav ailable Unavailable Chronic Care Management Unavaila ble Summary Purpose DataExchange Insurance Providers Payer name Policy type / Coverage type Covered republican ID Effective Begin Date Effective End Date [facility] [id number] Unknown Unknown Family History Family History data not found Medication Administered No Medication Administered data Reason For Visit No Reason For Visit data Medical Equipment No Medical Equipment data Advance Directives No Advance Directive data
[2025-05-12 13:44] VITALS: BP 125/59; PULSE 63; RESP 18; O2SAT 86; BMI 32.3
== END 2025-05-12 23:59 | disposition home or self-care (01) ==
LOC: SC.PAIN 11:20
PROVIDERS: PCP Family Medicine; Visit Provider Nurse Practitioner Family
DX: M51.26 Other intervertebral disc displacement, lumbar region (principal)
CPT/HCPCS: 99212; G0463

== ENCOUNTER 2025-05-28 06:42 | Outpatient (CLI) | payer MEDICARE, SELFPAY ==
--- OUTSIDE RECORDS SUMMARY | 2025-04-27 09:45 | XMS_ITS | Encounter Summary ---
Author Organization [facility] Address [address] [place] [address] Care Team Providers Care Street Vendor Name Role Phone Estevan Rowley MD Primary Care Provider + Reason for Visit * Reason Comments Follow-up Diabetes Encounter Details Date Type Department Care Team (Late st Contact Info) Description 04/27/2025 9:45 AM EDT Office Visit [facility] [address] [place] [address] Estevan Rowley MD [address] [place] [address] Type 2 diabetes mellitus with [...] current use of insulin (Primary) Comments: Likely yud-sq-[id number]. Assess with A1c and medication changes to [...] Description 07/30/2025 10:00 AM EST Office Visit [facility] [address] [phone] Estevan Rowley MD [address] [id number] documented as of this encounter Procedures Procedure [...] 04/28/2025 10:36 AM EDT Performed at: - [address] [id number] Construction Framer: Nick Ortega PhD, Phone: [phone] Patient Fasting: N us Estevan Rowley MD LAB BLOOD ORDERABLES Fin al Result [facility] (AMBULATORY) [address] [phone], [facility] [address] [place] [address], * (ABNORMAL) Renal Function Panel (04/27/2025 10:20 [...] 10:2 0 AM EDT 04/27/2025 Narrative [facility] [employer] (AMBULATORY) - 04/28/2025 10:36 AM EDT Performed at: [address] [id number] Construction Framer: Nick Ortega PhD, Phone: [phone] Patient Fasting: N Estevan Rowley MD LAB BLOOD ORDERABLES Fin al Result [facility] [address] [place] [address], [facility] [address] [place] [address], * (ABNORMAL) Hemoglobin A1c (04/27/2025 10:20 AM EDT) [facility] Hemoglobin A1C 9.7(H) 4.8 - 5.6 % [facility] Comment: Prediabetes: 5.7 - 6.4 Diabetes: >6.4 Glycemic control for adults with diabetes: <7.0 Blood 04/27/2025 10:2 0 AM EDT 04/27/2025 Narrative [facility] (AM[facility]) - 04/28/2025 10:36 AM EDT Performed at: [address] [id number] Construction Framer: Nick Ortega PhD, Phone: [phone] Patient Fasting: N Estevan Rowley MD LAB BLOOD ORDERABLES Fin al Result [facility] (AM[facility]UL[facility]ORY) [address] [place] [address], [place] [phone] [facility] [address] [place] [address], [place] [phone] documented in this encounter Visit Diagnoses Diagnosis [...] documented as of this encounter Care Teams Street Vendor Relationship Specialty Start Date End Date Estevan Rowley MD [address] [place] [address] [place] [address] PCP - General Family Medicine 03/08/22 documented as of this encounter
--- NOTE | 2025-05-28 | CA_ITS ---
APPROVED REPORT Exam: Pharmacologic Technologist: Lauren Liao Ht: 5 ft 6 in Wt: 229 lbs BSA: 2.12 m2 HR: 57 bpm BP: 130/58 mmHg Medical History Medications: Apixaban, Atorvastatin, Jardiance, Prozac, Humulin, Lansoprazole, Lorazepam, Toprol XL. Stress Test Details Test: Lexiscan HR Resting HR: 57 bpm Max Heart Rate (APMHR): 147 bpm Max HR Achieved: 63 bpm Target HR (85% APMHR): 125 bpm % of APMHR: 43 Recovery HR: 61 bpm BP Resting BP: 130.0/58.0 mmHg Max BP: 146.0/77.0 mmHg Recovery BP: 121.0/60.0 mmHg ECG Resting ECG: A-fib rate controlled. Stress ECG Conclusion Lungs with exp. wheezing upper bilateral. 0825 T[address] [place] Berry, PAC/Fina Berg RN Albuterol 0.083% nubulizer prior to starting Lexiscan myoview. Symptoms: None. Arrhythmias/Ectopy: PAC/ PVC. ST-T Changes: less than 0.5mm upsloping ST segment changes. Conclusion: Nondiagnostic ECG/Lexiscan. Electronically signed by : Roxana Riddle MD 05/28/2025 23:29:37
--- OUTSIDE RECORDS SUMMARY | 2025-05-28 06:44 | XMS_ITS | Encounter Summary ---
[facility] Address [address] [place] [address] Care Team Providers Care Campus Supervisor Name Role Phone Estevan Rowley MD Primary Care Provider + Reason for Visit * Reason Comments Med Refill Encounter Details Date Type Department Care Team (Late st Contact Info) Description 04/01/2025 Refill [facility] [address] [place] [phone] Estevan Rowley MD [address] [place] [address] Anxiety Social History Tobacco Use [...] Description 07/30/2025 10:00 AM EST Office Visit [facility] [address] [place] [address] Estevan Rowley MD [address] [place], [place] [id number] documented as of this encounter Visit Diagnoses Diagnosis Anxiety Anxiety state, unspecified documented in this encounter Additional Health Concerns Assessment Noted Time PHQ-2 Depression Total Score: 1 01/06/20 24 11:09 AM EDT documented as of this encounter Care Teams Campus Supervisor Relationship Specialty Start Date End Date Estevan Rowley MD [address] [place] [address] PCP - General Family Medicine 03/08/22 documented as of this encounter
--- OUTSIDE RECORDS SUMMARY | 2025-05-28 06:44 | XMS_ITS | Clinical Summary ---
Author Organization Healthcare Address [address] [place] [address] Care Team Providers Care Nurse Chemical Dependency Name Role Phone Unavailable Primary Care Provider [...] (02/26/2024): Last Assessment & Plan: Refer to [facility] for Warfarin [...] 02/26/2024 How often do you attend [facility] or islam services? 1 to 4 times per year 02/26/2024 Do you belong to any clubs o r organizations such as islam groups, unions, fraternal or athletic groups, or [...] Recorded Patient Health Questionnaire-2 Score 2 02/26/2024 [facility] - Occupational [...] place to sleep or slept in a custodial (including now)? No 12/26/2023 CAGE ASSESSMENT Answer [...] drink first t abilio in the morning (EYE-CORNER CUTTER) to steady your nerves or to get rid of a hangover? 0 12/26/2023 CAGE Questionnaire Score 0 024 Utilities Answer Date Recorded In the past 12 months has e [employer], gas, oil, or water company threatened to [...] 2011 UKY-Bone Density Scan 12/20/2023 12/19/2022, 023 [id number] Vaccine ( season) 2024 08/08/2023, 07/11/2022, 07/26/2021, [...] Final Resu lt [facility] [address] [place] [address] from Last 3 Months or Most Recently Relevant to Health [place] [id number] [facility] Advance Directives * Full Code (Latest Code Status on File) Date Activated Date Inactivated Comments 12/25/2023 3:08 AM 12/29/2023 6:13 PM Question Answer Comments Patient has decision-making capacity? Yes
--- OUTSIDE RECORDS SUMMARY | 2025-05-28 06:45 | XMS_ITS | Encounter Summary ---
[facility] Address [address] [place] [address] Care Team Providers Care Catalogue Librarian Name Role Phone Estevan Rowley MD Primary Care Provider + Encounter Details Date Type Department Care Team (Late st Contact Info) Description 04/29/2025 Results Follow-Up [facility] MED[facility] [address] [facility] [place] [address] Estevan Rowley MD [address] [place] [address] Social History Tobacco Use Types Packs/Day [...] Description 07/30/2025 10:00 AM EST Office Visit [facility] [address] [place] [address] Estevan Rowley MD [address] [place] [address] documented as of this encounter Visit Diagnoses Diagnosis Type 2 diabetes mellitus with hyperglycemia, with long-term current use of insulin Long-term insulin use documented in this encounter Additional Health Concerns Assessment Noted Time PHQ-2 Depression Total Score: 1 01/06/20 24 11:09 AM EDT documented as of this encounter Care Teams Catalogue Librarian Relationship Specialty Start Date End Date Estevan Rowley MD [address] [place] [address] PCP - General Family Medicine 03/08/22 documented as of this encounter
--- OUTSIDE RECORDS SUMMARY | 2025-05-28 06:45 | XMS_ITS | Encounter Summary ---
[facility] Address [address] [place] [address] Care Team Providers Care Highway Construction Inspector Name Role Phone Estevan Rowley MD Primary Care Provider + Reason for Visit * Reason Onset Date Comments REQUEST FOR PROGRESS NOTE AND PRESCRIPTION ORDER FOR WALKER 04/27/2025 Encounter Details Date Type Department Care Team (Late st Contact Info) Description 04/27/2025 Telephone [facility]INE [address] [place] [address] Estevan Rowley MD [address] [place] [address] REQUEST FOR PROGRESS NOTE AND [...] aware office note has been faxed (via [employer]) * Telephone Encounter - Estevan Rowley MD - 04/28/2025 10:13 AM EDT Please fax completed progress note from 04/27/25 to [place] * Telephone Encounter - Dana Juarez - 04/27/2025 1:32 PM EDT SPOUSE OF PATIENT HAS CALLED REQUESTING IF A PROGRESS NOTE AND PRESCRIPTION ORDER CAN BE SENT TO [employer] IN [place] FOR A WALKER ROLLATOR. SPOUSE IS REQUESTING A CALL BACK ONCE PROGRESS NOTE AND ORDER HAS BEEN SENT. [employer] PHONE NUMBER IS [phone] CALL BACK NUMBER IS [phone] documented in this encounter Plan of Treatment Upcoming Encounters Date Type Department Care Team (Late st Contact Info) Description 07/30/2025 10:00 AM EST Office Visit [facility] [address] [place] [phone] Estevan Rowley MD [address] [place] [address] documented as of this encounter Visit Diagnoses Not on filedocumented in this encounter Additional Health Concerns Assessment Noted Time PHQ-2 Depression Total Score: 1 01/06/20 24 11:09 AM EDT documented as of this encounter Care Teams Highway Construction Inspector Relationship Specialty Start Date End Date Estevan Rowlye MD [address] [place] [address] PCP - General Family Medicine 03/08/22 documented as of this encounter
--- OUTSIDE RECORDS SUMMARY | 2025-05-28 06:45 | XMS_ITS | Encounter Summary ---
[facility] Address [address] [place] [id number] Care Team Providers Care Security Compliance Engineer Name Role Phone Estevan Rowley MD Primary [...] Description 07/30/2025 10:00 AM EST Office Visit [facility] [address] [place] [address] Estevan Rowley MD [address] [place] [address] documented as of this encounter Visit Diagnoses Not on filedocumented in this encounter Additional Health Concerns Assessment Noted Time PHQ-2 Depression Total Score: 1 01/06/20 24 11:09 AM EDT documented as of this encounter Care Teams Security Compliance Engineer Relationship Specialty Start Date End Date Estevan Rowley MD [address] [place] [address] PCP - General Family Medicine 03/08/22 documented as of this encounter
--- OUTSIDE RECORDS SUMMARY | 2025-05-28 06:45 | XMS_ITS | Encounter Summary ---
[facility] Address [address] [place] [phone] Care Team Providers Care Clinical Psychology Professor Name Role Phone Estevan Maldonado MD Primary Care Provider + Reason for Visit * Reason Onset Date Comments ROLLATOR 04/30/2025 Encounter Details Date Type Department Care Team (Late st Contact Info) Description 04/30/2025 Telephone [facility] [address] [place] [address] Estevan Maldonado MD [address] [place] [address] ROLLATOR Social History Tobacco Use [...] Relationship: Emergency Contact Best call back number: [phone] Equipment requested: ROLLATOR Reason for the request: [...] Relationship: Emergency Contact Best call back number: [phone] What was the call regarding: KISHAN SPOKE WITH [facility] IN [place]. THEY HAVE NOT RECEIVED THE ORDER FOR THE ROLLATOR. PLEASE MAKE SURE THIS IS SENT. Is it okay if the provider responds through MyChart: NO documented in this encounter Plan of Treatment Upcoming Encounters Date Type Department Care Team (Late st Contact Info) Description 07/30/2025 10:00 AM EST Office Visit [facility] [address] [facility] [place] [phone] Estevan Maldonado MD [address] [facility] [place] [address] documented as of this encounter Visit Diagnoses Not on filedocumented in this encounter Additional Health Concerns Assessment Noted Time PHQ-2 Depression Total Score: 1 01/06/20 24 11:09 AM EDT documented as of this encounter Care Teams Clinical Psychology Professor Relationship Specialty Start Date End Date Estevan Maldonado MD [address] [facility] [place] [address] PCP - General Family Medicine 03/08/22 documented as of this encounter
--- OUTSIDE RECORDS SUMMARY | 2025-05-28 06:46 | XMS_ITS | Clinical Summary ---
[facility] Address [address] [place] [address] Care Team Providers Care Gear And Spline Grinder Name Role Phone Estevan Rowley MD Primary Care Provider + Allergies Active Allergy Reactions Criticality Noted Date Comments Latex Rash Low 03/08/2022 Penicillins Other (See Comments) 03/08/2022 Oral irritation Sulfa Antibiotics Rash Low 03/08/2022 Medications Blood Glucose Monitoring Suppl (Accu-Chek Gi Plus) w/Device kitIndications:T ype 2 diabetes mellitus with hyperglycemia, with long-term current use of insulin,Long-ter m insulin use Use device to check glucose twice daily 1 kit 10/18/19 24 Active metoprolol succinate XL (TOPROL-XL) 50 MG 24 hr tablet Take 1 tablet by mouth Daily. 09/30/19 24 Active apixaban (ELIQUIS) 5 MG tablet tablet Take 1 tablet by mouth Every 12 (Twelve) Hours. 02/26/20 24 Active tiotropium bromide monohydrate (Spiriva Respimat) 2.5 MCG/ACT aerosol solution inhalerIndicatio ns:Panlobular emphysema Inhale 2 puffs Daily. 4 g 11 10/19/19 25 Active potassium chloride (KLOR-CON M20) 20 MEQ CR tabletIndication s:Hypokalemia Take 1 tablet by mouth Daily. 30 tablet 2 11/13/19 25 Active furosemide (LASIX) 80 MG tablet Take 1 tablet by mouth Daily. Take 1 tablet in a.m. daily 90 tablet 1 01/19/20 25 Active glucose blood (Accu-Chek Gi Plus) test stripIndications :Type 2 diabetes mellitus with hyperglycemia, with long-term current use of insulin,Long-ter m insulin use Used to check glucose TID / Dx: E11.65 300 each 3 01/19/20 25 Active Accu-Chek Softclix Lancets lancetsIndicatio ns:Type 2 diabetes mellitus with hyperglycemia, with long-term current use of insulin,Long-ter m insulin use Use to check glucose TID / Dx: E11.65 300 each 3 01/19/20 25 Active albuterol sulfate HFA 108 (90 Base) MCG/ACT inhalerIndicatio ns:Panlobular emphysema INHALE 2 PUFFS EVERY 4 (FOUR) HOURS NEEDED FOR WHEEZING. 8.5 g 2 02/12/20 25 Active FLUoxetine (PROzac) 20 MG capsuleIndicatio ns:Anxiety TAKE 1 CAPSULE BY MOUTH ONCE DAILY (WITH 40 MG CAPSULE) 90 capsule 04/01/20 25 Active FLUoxetine (PROzac) 40 MG capsuleIndicatio ns:Anxiety TAKE 1 CAPSULE BY MOUTH ONCE DAILY 90 capsule 04/01/20 25 Active Misc. Devices (Rollator Ultra-Light) miscIndications: Multiple falls,Chronic right-sided low back pain without sciatica,Abnorma lity of gait and mobility Use daily for fall prevention 1 each 04/27/20 25 Active betamethasone dipropionate (DIPROSONE) 0.05 % creamIndications :Venous stasis dermatitis of both lower extremities Apply 1 Application topically to the appropriate area as directed 2 (Two) Times a Day. 45 g 1 04/27/20 25 Active Insulin Syringe-Needle U-100 (BD Veo Insulin Syringe U/F) 31G X 15/64 1 ML miscIndications: Type 2 diabetes mellitus with hyperglycemia, with long-term current use of insulin Inject 1 each under the skin into the appropriate area as directed 2 (Two) Times a Day. as directed 200 each 3 04/27/20 25 Active empagliflozin (Jardiance) 10 MG tablet tabletIndication s:Type 2 diabetes mellitus with hyperglycemia, with long-term current use of insulin,Stage 3a chronic kidney disease (CKD) Take 1 tablet by mouth Daily. 30 tablet 3 04/27/20 25 Active atorvastatin (LIPITOR) 40 MG tabletIndication s:Type 2 diabetes mellitus with diabetic neuropathy, with long-term current use of insulin Take 1 tablet by mouth Every Night. 90 tablet 3 04/27/20 25 Active LORazepam (Ativan) 1 MG tabletIndication s:Anxiety Take 1 tablet by mouth Every 8 (Eight) Hours As Needed for Anxiety. 90 tablet 3 04/27/20 25 Active promethazine (PHENERGAN) 12.5 MG tabletIndication s:Nausea Take 1 tablet by mouth every 6 (six) to 8 (eight) hours as needed (or vomiting). 30 tablet 1 04/27/20 25 Active insulin NPH-insulin regular (HumuLIN 70/30) (70-30) 100 UNIT/ML injectionIndicat ions:Type 2 diabetes mellitus with hyperglycemia, with long-term current use of insulin,Long-ter m insulin use Take 55 units in a.m. and 40 units in p.m. 30 mL 2 04/29/20 25 Active insulin NPH-insulin regular (HumuLIN 70/30) (70-30) 100 UNIT/ML injectionIndicat ions:Type 2 diabetes mellitus with hyperglycemia, with long-term current use of insulin,Long-ter m insulin use Take 40 units in a.m. and 30 units in p.m. 10/19/19 25 025 Discontin ued(Reord er) Active Problems Problem Noted Date Diagnosed Date [...] CGM will will be sent to a [facility]. This would likely help improve glycemic control [...] Plan (03/08/2022 12:55 PM EDT): Refer to [facility] for Warfarin Managment. Rate controlled. [...] in 3 months. Refer to podiatry at [facility] Encounters Date Type Department Care Team Description 04/30/2025 Telephone [facility] [address] [phone] Estevan Rowley MD ROLLATOR 04/29/2025 Results Follow-Up [facility] [address] [phone] Estevan Rowley MD 04/27/2025 9:45 AM EDT Office Visit [facility] [address] [phone] Estevan Rowley MD Type 2 diabetes mellitus with hyperglycemia, with long-term current use of insulin (Primary Dx); Multiple falls; Chronic right-sided low back pain without sciatica; Abnormality of gait and mobility; Venous stasis dermatitis of both lower extremities; Stage 3a chronic kidney disease (CKD); Type 2 diabetes mellitus with diabetic neuropathy, with long-term current use of insulin; Anxiety; Nausea 04/27/2025 Telephone [facility] [address] [place] [address] Estevan Rowley MD REQUEST FOR PROGRESS NOTE AND PRESCRIPTION ORDER FOR WALKER 04/27/2025 Travel 04/01/2025 Refill [facility] [address] [place] [address] Estevan Rowley MD Anxiety 03/15/2025 Refill [facility] [address] [place] [address] Estevan Rowley MD Nausea from Last 3 Months Immunizations Immunization Administration [...] 07/30/2025 10:00 AM EST Office Visit [facility] [address] [facility] [place] [address] Estevan Rowley MD [address] [facility] [address] [place], [place] [id number] Health Maintenance Due Date Last Done Comments DIABETIC EYE EXAM 1961 Pneumococcal Vaccine 50+ (1 of 2 - PCV) 1970 02/23/2016 COLOGUARD 1996 COLON CANCER SCREENING [address] COLONOGRAPHY 1996 FECAL OCCULT BLOOD TEST 1996 FIT Testing (1 year) 1996 ZOSTER VACCINE (1 of 2) 2001 DXA SCAN 12/19/2024 12/19/2022, 12/19/2022 COVID-19 Vaccine ( season) 2025 06/17/2024, 08/08/2023, 07/11/2022, Additional history exists INFLUENZA VACCINE 06/23/2025 06/17/2024, , 07/11/2022, Additional [...] Blood 04/27/2025 10:2 0 AM EDT 04/27/2025 [facility] (AMBULATORY) - 04/28/2025 10:36 AM EDT Performed at: [address] [place] [id number] Teacher Tutor: Nick Ortega PhD, Phone: [phone] Patient Fasting: N Estevan Rowley MD LAB BLOOD ORDERABLES Fin al Result Performing Organization Address [facility] Co de Phone Number [facility] (AMBULATORY) [address] [place] [address], [facility] [address] [place] [address], [place] [phone] * (ABNORMAL) Hemoglobin A1c (04/27/2025 10:20 AM EDT) [facility] Hemoglobin A1C 9.7(H) 4.8 - 5.6 % [facility] Comment: Prediabetes: 5.7 - 6.4 Diabetes: >6.4 Glycemic control for adults with diabetes: <7.0 Blood 04/27/2025 10:2 0 AM EDT 04/27/2025 Narrative [facility] (AMBULATORY) - 04/28/2025 10:36 AM EDT Performed at: [facility] [id number] Teacher Tutor: Nick Ortega PhD, Phone: [phone] Patient Fasting: N Estevan Rowley MD LAB BLOOD ORDERABLES Fin al Result Performing Organization Address [facility]/ZIP Co de Phone Number [facility] [address] [place] [address], [facility] [address] [place] [address], [place] [phone] * (ABNORMAL) Renal Function Panel (04/27/2025 10:20 [...] 10:2 0 AM EDT 04/27/2025 Narrative [facility] (AMBULATORY) - 04/28/2025 10:36 AM EDT Performed at: 01 - [address] [id number] Teacher Tutor: Nick Ortega PhD, Phone: [phone] Patient Fasting: N Estevan Rowley MD LAB BLOOD ORDERABLES Fin al Result [facility] [address] [id number], [facility] [address] [place], [place] [id number], * LABS SCANNED (03/09/2025) Estevan Rowley MD [...] Relevant to [place] [address] [employer] HMO Advance Directives Documents on File Type Date Recorded Patient Landscape Supervisor Expl anation LIVING WILL - SCAN 09/11/2022 8:39 AM ANYI HURTADO, 09/04/2022 Care Teams Gear And Spline Grinder Relationship Specialty Start Date End Date Estevan Rowley MD [address] [place] [address] [place] [address] PCP - General Family Medicine 03/08/22
--- NOTE | 2025-05-28 07:00 | NM_ITS ---
APPROVED REPORT Exam: Nuclear Stress Test Indication: soa..palpitations..fatigue Patient Location: Outpatient Stress Tech: Lauren Yeung [place] Tech:RANDY Tomas RT(R)(N) Ht: 5 ft 5 in Wt: 210 lbs Bra Size: 3x HR: 57 bpm BP: 130/58 mmHg BSA: 2.02 m2 TID: 1.11 BMI: 34.9 History: soa..palpitations..fatigue Procedure: Patient received 0.4 mg of intravenous Lexiscan, resting heart rate 57 bpm, resting blood pressure 130/58 mmHg, with Lexiscan maximum heart rate achieved was 63 bpm which is 85 % of the maximum predicted heart rate and blood pressure was 146/77 mmHg. The patient was not able to lay on her abdomen for prone images. Cardiac Stress and Resting SPECT Images: Cardiac Stress and Resting SPECT images were obtained using technetium 99m Myoview 32.6 mCi stress and 10.92 mCi at rest. The patient could not lie on her abdomen. Therefore, prone facility could not be performed. This may affect the diagnostic interpretation of the study findings. Resting and stress imaging in supine positions demonstrate a medium sized, moderate, predominantly fixed perfusion defect in the basal to mid inferior and inferolateral LV [place]. There is also a small sized, moderate, reversible perfusion defect in the basal septal LV wall. Gated imaging demonstrates normal global LV systolic function. LVEF is calculated at 64%. Conclusion: Medium sized, moderate, predominantly fixed perfusion defect in the basal to mid inferior and inferolateral LV [place]. There is also a small sized, moderate, reversible perfusion defect in the basal septal LV wall. Findings are suggestive of partial reversible ischemia. Gated imaging demonstrates normal global LV systolic function. LVEF is calculated at 64%. Electronically signed by : Roxana Riddle MD 05/28/2025 23:27:06
[2025-05-28] MEDS: SODIUM CHLORIDE 0.9% 10ML SYR (RAD ONLY) 10 ML IV ×2 (09:26)
[2025-05-28] MEDS: ISOTOPE MYOVIEW (PER STUDY) 1 DOSE IV (09:26)
[2025-05-28 09:33] VITALS: BP 130/58; PULSE 57; RESP 16
== END 2025-05-28 23:59 | disposition home or self-care (01) ==
LOC: RAD 06:42
PROVIDERS: PCP Family Medicine; Visit Provider Physician Assistant
DX: I49.1 Atrial premature depolarization (principal); I49.3 Ventricular premature depolarization; J44.9 Chronic obstructive pulmonary disease, unspecified; I11.0 Hypertensive heart disease with heart failure; I50.30 Unspecified diastolic (congestive) heart failure; I48.0 Paroxysmal atrial fibrillation; I25.10 Atherosclerotic heart disease of native coronary artery without angina pectoris; E78.5 Hyperlipidemia, unspecified; R94.31 Abnormal electrocardiogram [ECG] [EKG]; R94.39 Abnormal result of other cardiovascular function study
CPT/HCPCS: 78452; 93017; 93018; A9502; J2785

== ENCOUNTER 2025-06-02 14:27 | Outpatient (CLI) | payer MEDICARE, SELFPAY ==
--- OUTSIDE RECORDS SUMMARY | 2025-04-27 09:45 | XMS_ITS | Encounter Summary ---
Author Organization [facility] Address [address] [place] [address] Care Team Providers Care Singe Machine Operator Name Role Phone Estevan Rowley MD Primary Care Provider + Reason for Visit * Reason Comments Follow-up Diabetes Encounter Details Date Type Department Care Team (Late st Contact Info) Description 04/27/2025 9:45 AM EDT Office Visit [facility] [address] [place] [address] Estevan Rowley MD [address] [place] [address] Type 2 diabetes mellitus with [...] current use of insulin (Primary) Comments: Likely [id number]. Assess with A1c and medication changes to [...] Description 07/30/2025 10:00 AM EST Office Visit [facility] [address] [phone] Estevan Rowley MD [address] [id number] documented as of this encounter Procedures Procedure [...] 04/28/2025 10:36 AM EDT Performed at: - [address] [id number] Brand Manager: Nick Ortega PhD, Phone: [phone] Patient Fasting: N us Estevan Rowley MD LAB BLOOD ORDERABLES Fin al Result [facility] [facility] (AMBULATORY) [address] [id number], [facility] [address] [place] [address], * (ABNORMAL) Renal Function Panel (04/27/2025 10:20 [...] 10:2 0 AM EDT 04/27/2025 Narrative [facility] (AMBULATORY) - 04/28/2025 10:36 AM EDT Performed at: [address] [id number] Brand Manager: Nick Ortega PhD, Phone: [phone] Patient Fasting: N Estevan Rowley MD LAB BLOOD ORDERABLES Fin al Result [facility] [address] [place] [address], [facility] [address] [place] [address], * (ABNORMAL) Hemoglobin A1c (04/27/2025 10:20 AM EDT) [facility] Hemoglobin A1C 9.7(H) 4.8 - 5.6 % [facility] Comment: Prediabetes: 5.7 - 6.4 Diabetes: >6.4 Glycemic control for adults with diabetes: <7.0 Blood 04/27/2025 10:2 0 AM EDT 04/27/2025 Narrative [facility] (AMBULATORY) - 04/28/2025 10:36 AM EDT Performed at: [address] [id number] Brand Manager: Nick Ortega PhD, Phone: [phone] Patient Fasting: N Estevan Rowley MD LAB BLOOD ORDERABLES Fin al Result [facility] (AM[facility]UL[facility]ORY) [address] [place] [address], [place] [phone] [facility] [address] [place] [address], [place] [phone] documented in this encounter Visit Diagnoses Diagnosis [...] documented as of this encounter Care Teams Singe Machine Operator Relationship Specialty Start Date End Date Estevan Rowley MD [address] [place] [address] [place] [address] PCP - General Family Medicine 03/08/22 documented as of this encounter
--- OUTSIDE RECORDS SUMMARY | 2025-06-02 14:29 | XMS_ITS | Clinical Summary ---
Author Organization Healthcare Address [address] [place] [address] Care Team Providers Care Cardiac Exercise Physiologist Name Role Phone Unavailable Primary Care Provider [...] (02/26/2024): Last Assessment & Plan: Refer to [facility] Antico[facility] Clinic for Warfarin Managment. Rate [...] week 02/26/2024 How often do you attend [facility] or gnosticist services? 1 to 4 times per year 02/26/2024 Do you belong to any clubs o r organizations such as zoroastrianism groups, unions, fraternal or athletic groups, or [...] Recorded Patient Health Questionnaire-2 Score 2 02/26/2024 [facility] - Occupational [...] drink first t abilio in the morning (EYE-UNIT CONTROL CLERK) to steady your nerves or to get rid of a hangover? 0 12/26/2023 CAGE Questionnaire Score 0 024 Utilities Answer Date Recorded In the past 12 months has e Hotreader, gas, oil, or water company threatened to [...] 2011 [facility]-Bone Density Scan 12/20/2023 12/19/2022, 023 [facility]-Medicare Annual Wellness (AWV) 06/10/2024 06/10/2023 [facility]-Depression Screening 02/25/2025 02/26/2024 [id number] Vaccine ( season) 2025 08/08/2023, 07/11/2022, 07/26/2021, Additional history exists [facility]-Influenza Vaccine (#1) 05/24/202508/08, 07/11/2022, 08/14/2016, Additional history exists [facility]-DTaP,Tdap,and Td Vaccines (2 - Td or Tdap) 01/29/2027 01/29/2017 [facility]-Hepatitis C Screening Completed 12/24/2023 [facility]-Diabetes: Hemoglobin A1C Discontinued 01/06/2024, 09/30/2023, 06/10/2023 [facility]-Obesity Intervention Completed 02/26/2024, 0410/2023 HPV Vaccines [...] Final Resu lt [facility] [address] [place] [address] from Last 3 Months or Most Recently Relevant to [place] [id number] [facility] MEDIC[facility] Advance Directives * Full Code (Latest Code Status on File) Date Activated Date Inactivated Comments 12/25/2023 3:08 AM 12/29/2023 6:13 PM Question Answer Comments Patient has decision-making capacity? Yes
--- NOTE | 2025-06-02 14:30 | CT_ITS ---
FINAL REPORT TECHNIQUE: Thin section axial images were obtained from the lung apices through the upper abdomen without contrast. This study was performed with techniques to keep radiation doses as low as reasonably achievable (ALARA). Individualized dose reduction techniques using automated exposure control or adjustment of mA and/or kV according to the patient's size were employed. CLINICAL HISTORY: COPD COMPARISON: None FINDINGS: There is no mediastinal, hilar, or axillary lymphadenopathy. No pleural or pericardial effusion. The heart is enlarged. Changes of emphysema are present. There are areas of bilateral lower lobe atelectasis. Limited, unenhanced evaluation of the upper abdomen is without acute abnormality. There is no acute osseous abnormality. IMPRESSION: Bilateral lower lobe atelectasis, without other acute abnormality. Reviewed, Interpreted and Dictated by Karlee Bruno MD Transcribed by Mily Alfonso Authenticated and [facility]
--- OUTSIDE RECORDS SUMMARY | 2025-06-02 14:31 | XMS_ITS | Encounter Summary ---
[facility] Address [address] [place] [id number] Care Team Providers Care Long Chain Quiller Tender Name Role Phone Estevan Rowley MD Primary [...] Description 07/30/2025 10:00 AM EST Office Visit [facility] [address] [place] [address] Estevan Rowley MD [address] [place] [address] documented as of this encounter Visit Diagnoses Not on filedocumented in this encounter Additional Health Concerns Assessment Noted Time PHQ-2 Depression Total Score: 1 01/06/20 24 11:09 AM EDT documented as of this encounter Care Teams Long Chain Quiller Tender Relationship Specialty Start Date End Date Estevan Rowley MD [address] [place] [address] PCP - General Family Medicine 03/08/22 documented as of this encounter
--- OUTSIDE RECORDS SUMMARY | 2025-06-02 14:31 | XMS_ITS | Encounter Summary ---
[facility] Address [address] [place] [address] Care Team Providers Care Test And Balance Engineer Name Role Phone Estevan Rowley MD Primary Care Provider + Encounter Details Date Type Department Care Team (Late st Contact Info) Description 04/29/2025 Results Follow-Up [facility] [address] [place] [address] Estevan Rowley MD [address] [place] [address] Social History Tobacco Use Types Packs/Day [...] 07/30/2025 10:00 AM EST Office Visit [facility] [address] [place] [address] Estevan Rowley MD [address] [place] [address] documented as of this encounter Visit Diagnoses Diagnosis Type 2 diabetes mellitus with hyperglycemia, with long-term current use of insulin Long-term insulin use documented in this encounter Additional Health Concerns Assessment Noted Time PHQ-2 Depression Total Score: 1 01/06/20 24 11:09 AM EDT documented as of this encounter Care Teams Test And Balance Engineer Relationship Specialty Start Date End Date Estevan Rowley MD [address] [place] [address] PCP - General Family Medicine 03/08/22 documented as of this encounter
--- OUTSIDE RECORDS SUMMARY | 2025-06-02 14:31 | XMS_ITS | Encounter Summary ---
[facility] Address [address] [place] [address] Care Team Providers Care Mc Kay Stitcher Name Role Phone Estevan Rowley MD Primary Care Provider + Reason for Visit * Reason Onset Date Comments REQUEST FOR PROGRESS NOTE AND PRESCRIPTION ORDER FOR WALKER 04/27/2025 Encounter Details Date Type Department Care Team (Late st Contact Info) Description 04/27/2025 Telephone [facility] [address] [place] [address] Estevan Rowley MD [address] [place] [address] REQUEST FOR PROGRESS NOTE AND [...] aware office note has been faxed (via [employer]) * Telephone Encounter - Estevan Rowley MD - 04/28/2025 10:13 AM EDT Please fax completed progress note from 04/27/25 to [place] * Telephone Encounter - Dana Juarez - 04/27/2025 1:32 PM EDT SPOUSE OF PATIENT HAS CALLED REQUESTING IF A PROGRESS NOTE AND PRESCRIPTION ORDER CAN BE SENT TO [employer] IN [place] FOR A WALKER ROLLATOR. SPOUSE IS REQUESTING A CALL BACK ONCE PROGRESS NOTE AND ORDER HAS BEEN SENT. [facility] PHONE NUMBER IS [phone] CALL BACK NUMBER IS [phone] documented in this encounter Plan of Treatment Upcoming Encounters Date Type Department Care Team (Late st Contact Info) Description 07/30/2025 10:00 AM EST Office Visit [facility] [address] [place] [phone] Estevan Rowley MD [address] [place] [address] documented as of this encounter Visit Diagnoses Not on filedocumented in this encounter Additional Health Concerns Assessment Noted Time PHQ-2 Depression Total Score: 1 01/06/20 24 11:09 AM EDT documented as of this encounter Care Teams Mc Kay Stitcher Relationship Specialty Start Date End Date Estevan Rowley MD [address] [place] [address] PCP - General Family Medicine 03/08/22 documented as of this encounter
--- OUTSIDE RECORDS SUMMARY | 2025-06-02 14:31 | XMS_ITS | Encounter Summary ---
[facility] [address] [place] [phone] Care Team Providers Care Doubling Machine Operator Name Role Phone Estevan Maldonado MD Primary Care Provider + Reason for Visit * Reason Onset Date Comments ROLLATOR 04/30/2025 Encounter Details Date Type Department Care Team (Late st Contact Info) Description 04/30/[address] [facility] [address] [place] [address] Estevan Maldonado MD [address] [place] [address] ROLLATOR Social History Tobacco Use [...] Relationship: Emergency Contact Best call back number: [phone] Equipment requested: ROLLATOR Reason for the request: [...] Relationship: Emergency Contact Best call back number: [phone] What was the call regarding: KISHAN SPOKE WITH [facility] [employer] IN [place]. THEY HAVE NOT RECEIVED THE ORDER FOR THE ROLLATOR. PLEASE MAKE SURE THIS IS SENT. Is it okay if the provider responds through MyChart: NO documented in this encounter Plan of Treatment Upcoming Encounters Date Type Department Care Team (Late st Contact Info) Description 07/30/2025 10:00 AM EST Office Visit [facility] [address] [facility] [place] [phone] Estevan Maldonado MD [address] [facility] [place] [address] documented as of this encounter Visit Diagnoses Not on filedocumented in this encounter Additional Health Concerns Assessment Noted Time PHQ-2 Depression Total Score: 1 01/06/20 24 11:09 AM EDT documented as of this encounter Care Teams Doubling Machine Operator Relationship Specialty Start Date End Date Estevan Maldonado MD [address] [facility] [place] [place] [address] PCP - General Family Medicine 03/08/22 documented as of this encounter
--- OUTSIDE RECORDS SUMMARY | 2025-06-02 14:32 | XMS_ITS | Clinical Summary ---
[facility] Address [address] [place] [id number] Care Team Providers Care Lift Truck Mechanic Name Role Phone Estevan Rowley MD Primary [...] to check glucose twice daily 1 kit 4 Active metoprolol succinate XL (TOPROL-XL) 50 MG 24 hr tablet Take 1 tablet by mouth Daily. 4 Active apixaban (ELIQUIS) 5 MG tablet tablet Take 1 tablet by mouth Every 12 (Twelve) Hours. 4 Active tiotropium bromide monohydrate (Spiriva Respimat) 2.5 MCG/ACT aerosol solution inhalerIndicatio ns:Panlobular emphysema Inhale 2 puffs Daily. 4 g 11 5 Active potassium chloride (KLOR-CON M20) 20 MEQ CR tabletIndication s:Hypokalemia Take 1 tablet by mouth Daily. 30 tablet 2 5 Active furosemide (LASIX) 80 MG tablet Take 1 tablet by mouth Daily. Take 1 tablet in a.m. daily 90 tablet 1 5 Active glucose blood (Accu-Chek Gi Plus) test stripIndications :Type 2 diabetes mellitus with hyperglycemia, with long-term current use of insulin,Long-ter m insulin use Used to check glucose TID / Dx: E11.65 300 each 3 5 Active Accu-Chek Softclix Lancets lancetsIndicatio ns:Type 2 diabetes mellitus with hyperglycemia, with long-term current use of insulin,Long-ter m insulin use Use to check glucose TID / Dx: E11.65 300 each 3 5 Active albuterol sulfate HFA 108 (90 Base) MCG/ACT inhalerIndicatio ns:Panlobular emphysema INHALE 2 PUFFS EVERY 4 (FOUR) HOURS NEEDED FOR WHEEZING. 8.5 g 2 5 Active FLUoxetine (PROzac) 20 MG capsuleIndicatio ns:Anxiety TAKE 1 CAPSULE BY MOUTH ONCE DAILY (WITH 40 MG CAPSULE) 90 capsule 5 Active FLUoxetine (PROzac) 40 MG capsuleIndicatio ns:Anxiety TAKE 1 CAPSULE BY MOUTH ONCE DAILY 90 capsule 5 Active Misc. Devices (Rollator Ultra-Light) miscIndications: Multiple falls,Chronic right-sided low back pain without sciatica,Abnorma lity of gait and mobility Use daily for fall prevention 1 each 5 Active betamethasone dipropionate (DIPROSONE) 0.05 % creamIndications :Venous stasis dermatitis of both lower extremities Apply 1 Application topically to the appropriate area as directed 2 (Two) Times a Day. 45 g 1 5 Active Insulin Syringe-Needle U-100 (BD Veo Insulin Syringe U/F) 31G X 15/64 1 ML miscIndications: Type 2 diabetes mellitus with hyperglycemia, with long-term current use of insulin Inject 1 each under the skin into the appropriate area as directed 2 (Two) Times a Day. as directed 200 each 3 5 Active empagliflozin (Jardiance) 10 MG tablet tabletIndication s:Type 2 diabetes mellitus with hyperglycemia, with long-term current use of insulin,Stage 3a chronic kidney disease (CKD) Take 1 tablet by mouth Daily. 30 tablet 3 5 Active atorvastatin (LIPITOR) 40 MG tabletIndication s:Type 2 diabetes mellitus with diabetic neuropathy, with long-term current use of insulin Take 1 tablet by mouth Every Night. 90 tablet 3 5 Active LORazepam (Ativan) 1 MG tabletIndication s:Anxiety Take 1 tablet by mouth Every 8 (Eight) Hours As Needed for Anxiety. 90 tablet 3 5 Active promethazine (PHENERGAN) 12.5 MG tabletIndication s:Nausea Take 1 tablet by mouth every 6 (six) to 8 (eight) hours as needed (or vomiting). 30 tablet 1 5 Active insulin NPH-insulin regular (HumuLIN 70/30) (70-30) 100 UNIT/ML injectionIndicat ions:Type 2 diabetes mellitus with hyperglycemia, with long-term current use of insulin,Long-ter m insulin use Take 55 units in a.m. and 40 units in p.m. 30 mL 2 5 Active Active Problems Problem Noted Date Diagnosed [...] CGM will will be sent to a [employer]. This would likely help improve glycemic control [...] Plan (03/08/2022 12:55 PM EDT): Refer to [facility] for Warfarin Managment. Rate controlled. [...] in 3 months. Refer to podiatry at [facility] Encounters Date Type Department Care Team Description 04/30/2025 Telephone [facility] [address] [phone] Estevan Rowley MD ROLLATOR 04/29/2025 Results Follow-Up [facility] [address] [phone] Estevan Rowley MD 04/27/2025 9:45 AM EDT Office Visit [facility] [address] [phone] Estevan Rowley MD Type 2 diabetes mellitus with hyperglycemia, with long-term current use of insulin (Primary Dx); Multiple falls; Chronic right-sided low back pain without sciatica; Abnormality of gait and mobility; Venous stasis dermatitis of both lower extremities; Stage 3a chronic kidney disease (CKD); Type 2 diabetes mellitus with diabetic neuropathy, with long-term current use of insulin; Anxiety; Nausea 04/27/2025 Telephone [facility] [address] [place] [address] Estevan Rowley MD REQUEST FOR PROGRESS NOTE AND PRESCRIPTION ORDER FOR WALKER 04/27/2025 Travel 04/01/2025 Refill [facility] [address] [place] [address] Estevan Rowley MD Anxiety 03/15/2025 Refill [facility] [address] [place] [address] Estevan Rowley MD Nausea from Last 3 [...] Description 07/30/2025 10:00 AM EST Office Visit [facility] [address] [facility] [place] [id number] Estevan Rowley MD [address] [facility] [place] [address] Health Maintenance Due Date Last Done [...] Blood 04/27/2025 10:2 0 AM EDT 04/27/2025 [facility] (AMBULATORY) - 04/28/2025 10:36 AM EDT Performed at: 01 - [place] [id number] [place], [place] [id number] [employer] Jointer: Nick Ortega PhD, Phone: [phone] Patient Fasting: N Estevan Rowley MD LAB BLOOD ORDERABLES Fin al Result Performing Organization Address [facility]/ZIP Co de Phone Number [facility] [address] [place] [address], [facility] [address] [place] [address], * (ABNORMAL) Hemoglobin A1c (04/27/2025 10:20 AM EDT) Hemoglobin A1C 9.7(H) 4.8 - 5.6 % [facility] Comment: Prediabetes: 5.7 - 6.4 Diabetes: >6.4 Glycemic control for adults with diabetes: <7.0 Blood 04/27/2025 10:2 0 AM EDT 04/27/2025 Narrative [facility] - 04/28/2025 10:36 AM EDT Performed at: - [facility] [address] [place], [place] [id number] [employer] Jointer: Nick Ortega PhD, Phone: [phone] Patient Fasting: N Estevan Rowley MD LAB BLOOD ORDERABLES Fin al Result Performing Organization Address [facility] Co de Phone Number [facility] (AMBULATORY) [address] [place] [address], [place] [phone] [facility] [address] [place] [address], * (ABNORMAL) Renal Function Panel (04/27/2025 10:20 [...] 10:2 0 AM EDT 04/27/2025 Narrative [facility] (AMBULATORY) - 04/28/2025 10:36 AM EDT Performed at: 01 - [address] [id number] [employer] Jointer: Nick Ortega PhD, Phone: [phone] Patient Fasting: N Estevan Rowley MD LAB BLOOD ORDERABLES Fin al Result [facility] (AMBULATORY) [address] [place] [address], [place] [phone] [facility] [address] [place] [address], [place] [phone] * LABS SCANNED (03/09/2025) Estevan Rowley MD [...] Relevant to [place] [address] [place] [address] [employer] HMO Advance Directives Documents on File Type Date Recorded Patient Bullard Machine Operator Expl anation LIVING WILL - SCAN 09/11/2022 8:39 AM ANYI HURTADO, 09/04/2022 Care Teams Lift Truck Mechanic Relationship Specialty Start Date End Date Estevan Rowley MD [address] [facility] [address] PCP - General Family Medicine 03/08/22
--- OUTSIDE RECORDS SUMMARY | 2025-06-02 15:29 | XMS_ITS | CCD ---
Author Organization Unknown Care Team Providers Care Form Setter Supervisor Name Role Phone Non Engaged, [facility] Primary Care Provider Unav ailable Unavailable Chronic Care Management Unavaila ble Summary Purpose DataExchange Insurance Providers Payer name Policy type / Coverage type Covered republican ID Effective Begin Date Effective End Date [facility] [id number] Unknown Unknown Family History Family History data not found Medication Administered No Medication Administered data Reason For Visit No Reason For Visit data Medical Equipment No Medical Equipment data Advance Directives No Advance Directive data
[2025-06-02] MEDS: ALBUTEROL 0.083% 2.5 MG/3 ML NEB IH (16:04)
--- NOTE | 2025-06-02 16:04 | PC.NURSE ---
Pre and Post Spirometry completed. Albuterol 0.083% given via HHN, per written protocol, Pt tolerated tx well.
== END 2025-06-02 23:59 | disposition home or self-care (01) ==
LOC: RAD 14:27
PROVIDERS: PCP Family Medicine; Visit Provider Physician Assistant
DX: J98.11 Atelectasis (principal); R94.31 Abnormal electrocardiogram [ECG] [EKG]; J44.9 Chronic obstructive pulmonary disease, unspecified; I11.0 Hypertensive heart disease with heart failure; I50.30 Unspecified diastolic (congestive) heart failure; I48.0 Paroxysmal atrial fibrillation; R94.2 Abnormal results of pulmonary function studies; I25.10 Atherosclerotic heart disease of native coronary artery without angina pectoris; E78.5 Hyperlipidemia, unspecified
CPT/HCPCS: 71250; 94010

== ENCOUNTER 2025-06-23 08:20 | Day surgery (SDC) | payer MEDICARE, SELFPAY ==
[2025-06-23] VITALS (12 sets, daily range): BP systolic 105–157; BP diastolic 56–70; PULSE 54–68; RESP 16–20; O2SAT 92–98; BMI 36.6
--- NOTE | 2025-06-23 07:08 | IR_ITS ---
APPROVED REPORT Patient Location: Outpatient Sap Trainer: RANDY Montez RT (R) PROCEDURES Left heart catheterization Left ventriculogram Selective coronary angiogram INDICATION Abnormal Myoview, Preoperative evaluation Informed consent was obtained prior to the procedure. COMPLICATIONS NONE Estimated Blood Loss: LESS THAN 10 ML TECHNIQUE One percent lidocaine used to anesthetize the right anterior aspect of the wrist. The right radial artery was accessed via the Seldinger technique. A 6 [place] Islander sheath was placed in the right radial artery. 2.5 mg of Verapamil, 800 mcg of nitroglycerin, 1mg Lidocaine and 5000 U Heparin were given through the arterial sheath. The JL3 catheter was also used to perform left heart catheterization, left ventriculogram and selective coronary angiogram. At the end of the procedure the sheath was removed good hemostasis was achieved using Traclet band, patient was transferred to the postop holding area in stable condition. ANGIOGRAPHIC RESULTS The left main artery Normal The left anterior descending artery Is mild proximal eccentric 20% stenosis with mid vessel 10% luminal regularities. CINDY II flow is present throughout the entire LAD The circumflex artery Nondominant with mild 10% luminal regularities The right coronary artery Dominant with 10% diffuse luminal regularities The LINDER ventriculogram reveals Normal 65% The left ventricular end-diastolic pressure Moderate to severely elevated at 30 mmHg IMPRESSION Nonobstructive coronary artery disease CINDY II flow down the LAD consistent with endothelial dysfunction and possibly secondary to elevated LVEDP Normal ejection fraction Elevated LVEDP PLAN 1. Recommend treatment of endothelial dysfunction and diastolic dysfunction 2. Cardiac standpoint patient is a low and acceptable risk to proceed with pain pump placement 3. Risk factor modification Electronically signed by : Domingo Chang MD 06/23/2025 10:36:51
[2025-06-23 08:50] LABS: Hematocrit 45.7 % (37.0-47.0); Hemoglobin 14.2 g/dL (12.2-16.2); Immature Granulocytes % 0.4 %; Mean Corpuscular HGB Conc 31.1 g/dL (31.8-35.4); Mean Corpuscular Hemoglobin 28.4 pg (27.0-31.2); Mean Corpuscular Volume 91.4 fl (81-99); Nucleated Red Blood Cells % 0 %; Platelet Count 236 K/mm3 (142-424); Red Blood Count 5.00 M/mm3 (4.20-5.40); Red Cell Distribution Width-SD 55.7 fL; White Blood Count 7.5 K/mm3 (4.8-10.8)
[2025-06-23 09:10] LABS: Anion Gap 12.0 mEq/L (5-15); Blood Urea Nitrogen 15 mg/dl (7-17); Calcium 9.4 mg/dl (8.4-10.2); Carbon Dioxide 37 mmol/L (22.0-30.0); Chloride 95 mmol/L (98-107); Creatinine Clearance Estimated 81 mL/min (50-200); Creatinine,Serum 0.90 mg/dl (0.52-1.04); Estimated Glomerular Filt Rate 61 ml/min (>60); GFR (African American) 74 ML/MIN (>60); Glucose 112 mg/dl (74-100); Potassium 4.0 mmoL/L (3.5-5.1); Sodium 140 mmol/L (136-145)
[2025-06-23] MEDS: HEPARIN 1,000 UNITS/500ML NS (CATH LAB) 3000 UNIT IV (09:50)
[2025-06-23] MEDS: NITROGLYCERIN 800MCG/8ML SYR (CATH LAB) 800 MCG IA (09:50)
[2025-06-23] MEDS: LIDOCAINE 1% 10ML MDV 10 ML IJ (09:50)
[2025-06-23] MEDS: 0.9 % SODIUM CHLORIDE 500 ML 25 ML IV (09:50)
[2025-06-23] MEDS: VERAPAMIL 2.5MG/ML 2ML VIAL 2.5 MG IV (09:50)
[2025-06-23] MEDS: HEPARIN 1,000 UNITS/ML 10ML VIAL (CATH LAB) 5000 UNIT IV (09:52)
[2025-06-23] MEDS: FENTANYL 100MCG/2ML VIAL 50 MCG IV (10:16)
[2025-06-23] MEDS: MIDAZOLAM HCL 1MG/ML 5ML VIAL 1 MG IV (10:16)
[2025-06-23] MEDS: IOPAMIDOL-370 (76%);100ML BOTTLE 50 ML IV (10:49)
== END 2025-06-23 13:14 | disposition home or self-care (01) ==
LOC: CATHLAB 08:21
PROVIDERS: PCP Family Medicine; Visit Provider Internal Medicine
PROC: 4A023N7 Measurement of Cardiac Sampling and Pressure, Left Heart, Percutaneous Approach (ICD-10-PCS; CPT 93452; principal; 2025-06-23 08:30)
DX: Z01.810 Encounter for preprocedural cardiovascular examination (principal); T85.695A Other mechanical complication of other nervous system device, implant or graft, initial encounter; I25.118 Atherosclerotic heart disease of native coronary artery with other forms of angina pectoris; I48.0 Paroxysmal atrial fibrillation; Z88.1 Allergy status to other antibiotic agents; Z91.040 Latex allergy status; Z79.899 Other long term (current) drug therapy; Z79.4 Long term (current) use of insulin; J44.9 Chronic obstructive pulmonary disease, unspecified; I87.8 Other specified disorders of veins; G47.33 Obstructive sleep apnea (adult) (pediatric); I45.10 Unspecified right bundle-branch block; Z87.891 Personal history of nicotine dependence; E78.2 Mixed hyperlipidemia; I11.0 Hypertensive heart disease with heart failure; I50.32 Chronic diastolic (congestive) heart failure; I42.9 Cardiomyopathy, unspecified
CPT/HCPCS: 93458; 80048; 85025; 99152; C1725; C1769; J1200; J1644; J2003; J3010; J7040; Q9967

== ENCOUNTER 2025-07-27 11:38 | Outpatient (CLI) | payer MEDICARE, SELFPAY ==
--- OUTSIDE RECORDS SUMMARY | 2025-07-27 11:40 | XMS_ITS | CCD ---
Author Organization Unknown Care Team Providers Care Economic Historian Name Role Phone Non Engaged, [facility] Primary Care Provider Unav ailable Unavailable Chronic Care Management Unavaila ble Summary Purpose DataExchange Insurance Providers Payer name Policy type / Coverage type Covered republican ID Effective Begin Date Effective End Date [facility] [id number] Unknown Unknown Family History Family History data not found Medication Administered No Medication Administered data Reason For Visit No Reason For Visit data Medical Equipment No Medical Equipment data Advance Directives No Advance Directive data
--- OUTSIDE RECORDS SUMMARY | 2025-07-27 11:41 | XMS_ITS | Encounter Summary ---
[facility] Address [address] [place] [address] Care Team Providers Care Bath Steward/Stewardess Name Role Phone Estevan Rowley MD Primary Care Provider + Reason for Visit * Reason Comments Med Refill Encounter Details Date Type Department Care Team (Late st Contact Info) Description 06/10/2025 Refill [facility] [address] [place] [address] Estevan Rowley MD [address] [place] [place] [address] Panlobular emphysema Social History Tobacco Use Types Packs/Day Years [...] Description 07/30/2025 10:00 AM EST Office Visit [facility] [address] [place] [address] Estevan Rowley MD [address] [place] [address] documented as of this encounter Visit Diagnoses Diagnosis Panlobular emphysema Other emphysema documented in this encounter Additional Health Concerns Assessment Noted Time PHQ-2 Depression Total Score: 1 01/06/20 24 11:09 AM EDT documented as of this encounter Care Teams Bath Steward/Stewardess Relationship Specialty Start Date End Date Estevan Rowley MD [address] [place] [address] PCP - General Family Medicine 03/08/22 documented as of this encounter
--- OUTSIDE RECORDS SUMMARY | 2025-07-27 11:41 | XMS_ITS | Encounter Summary ---
[facility] Address [address] [place] [address] Care Team Providers Care Electric Welder Helper Name Role Phone Estevan Rowley MD Primary Care Provider + Reason for Visit * Reason Comments Med Refill Encounter Details Date Type Department Care Team (Late st Contact Info) Description 07/18/2025 Refill [facility] [address] [place] [address] Estevan Rowley MD [address] [facility] [place] [address] Type 2 diabetes mellitus with diabetic neuropathy, with long-term current use of insulin Social History Tobacco Use Types Packs/Day Years [...] 07/30/2025 10:00 AM EST Office Visit [facility] [address] [place] [phone] Estevan Rowley MD [address] [place] [address] documented as of this encounter Visit Diagnoses Diagnosis Type 2 diabetes mellitus with diabetic neuropathy, with long-term current use of insulin documented in this encounter Additional Health Concerns Assessment Noted Time PHQ-2 Depression Total Score: 1 01/06/20 24 11:09 AM EDT documented as of this encounter Care Teams Electric Welder Helper Relationship Specialty Start Date End Date Estevan Rowley MD [address] [place] [address] PCP - General Family Medicine 03/08/22 documented as of this encounter
--- OUTSIDE RECORDS SUMMARY | 2025-07-27 11:41 | XMS_ITS | Encounter Summary ---
[facility] Organization [facility] Address [address] [place] [address] Care Team Providers Care Dairy Store Manager Name Role Phone Estevan Rowley MD Primary Care Provider + Reason for Visit * Reason Comments Med Refill Encounter Details Date Type Department Care Team (Late Contact Info) Description 06/06/2025 Refill [facility] [address] [place] [address] Estevan Rowley MD [address] [place] [address] Age related osteoporosis, unspecified pathological fracture presence Social History Tobacco Use Types Packs/Day Years [...] 07/30/2025 10:00 AM EST Office Visit [facility] [address] [place] [address] Estevan Rowley MD [address] [place] [address] documented as of this encounter Visit Diagnoses Diagnosis Age related osteoporosis, unspecified pathological fracture presence documented in this encounter Additional Health Concerns Assessment Noted Time PHQ-2 Depression Total Score: 1 01/06/20 24 11:09 AM EDT documented as of this encounter Care Teams Dairy Store Manager Relationship Specialty Start Date End Date Estevan Rowley MD [address] [place], [place] [id number] PCP - General Family Medicine 03/08/22 documented as of this encounter
--- OUTSIDE RECORDS SUMMARY | 2025-07-27 11:41 | XMS_ITS | Data Portability ---
Author Organization [place] - [facility], [facility] Address [address] [place] [address] Assessment Encounter Date Assessment Date Assessment LastModified by Organization Details LastModified Time 04/28/2025 04/28/2025 This patient presents from our [place] office as she has had some increasing pain after several falls. There was also volume discrepancy at her last refill. This patient had intrathecal catheter dye study done today. We were not able to withdraw CSF and medications through the catheter access port. The patient has had several falls and it was suspected that her catheter is disrupted or kinked. She has had a volume discrepancy at her last refill expected was 6 mL and actual with 16 mL of Medication that was found in the reservoir. We did interrogate her pump we did not make any changes. She is currently going at 0.1 mg/day of intrathecal morphine. We will seek approval for revision/repla cement of her intrathecal catheter. We will relay this to the [place] office. abux Not available 04/28/2025 17:45:23 Plan of Treatment Reminders Order Date Submit Date Provider Last Modified By Organization Details Last Modified Time Details Appointments None recorded. Lab None recorded. Referral None recorded. Procedures None recorded. Surgeries revision or repositioni ng of tunneled intrathecal or epidural catheter (SURG) 2024 025 [email or web address] Not available 11:05:27 Imaging None recorded. Medication Orders None recorded. Patient TargetsNo targets recorded. Patient Instructions Encounter Date Encounter Id Patient Instructions Last Modified By Organization Details Last Modified Time 04/28/2025 [id number] back pain: care instructions abux Not available 04/28/2025 17:44:54 learning about relief for back pain abux Not available 04/28/2025 17:44:54 Reason for Referral None Reported. Problems Name Problem SNOMED Code Status Onset Date Resolution Date Notes Provider Name and Address Organization Details Recorded Time Degeneration of lumbar intervertebral disc 08741594 Active 2024 Cesar Slaughter MD [address] [facility],[address], [address], [place] [facility] 17:44:48 Complication of catheter 16004645 Active 2024 Cesar Slaughter MD [address] [facility],[address], [address], [place] [facility] 17:44:49 Problem Notes None recorded. Procedures Surgical History Date Name Laterality Status Provider Name and Address Organization Details Recorded Time 04/28/20 25 Intrathecal catheter dye study completed Cesar Slaughter MD [address] [facility],[address], [address], [place] [facility] 04/28/2025 17:42:34 reduction plasty of bilateral breasts completed OLGARADHA ISRAELS [place] - [facility] 04/23/2025 08:07:46 cholecystectomy completed OLGA OSORIO [place] - [facility] 04/23/2025 08:07:55 hysterectomy completed OLGA OSORIO [place] [facility] 04/23/2025 08:08:03 implantation of intrathecal implantable infusion pump completed OLGARADHA [place] [facility] 04/23/2025 08:08:14 total knee replacement completed OLGA OSORIO [place] [facility] 04/23/2025 08:08:23 Imaging Results None recorded. Procedure Notes None recorded. Medical Equipment None Reported. Allergies Allergen ID Allergen Name Allergen Category Reaction Reaction Severity Criticality Documentation Date Start Date Code Code System Note Provider Name and Address Organization Details Recorded Time 7600 Product containin g penicilli n (product) medicatio n Not available Not available Not available 04/23/2025 69913 8001 SNOMED OLGA JO null, [place] - [facility] 08:07:13 7601 Substance with sulfonami de structure and antibacte rial mechanism of action (substanc e) medicatio n Not available Not available Not available 04/23/2025 04996 8003 SNOMED OLGA cisneros, [place] - [facility] 5 08:07:19 7602 latex environme nt,medica tion Not available Not available Not available 04/23/2025 55788 91 RxNorm OLGA cisneros, [place] - [facility] 5 08:07:23 Medications Name Sig Start Date Stop Date Status Note LastModified by Organization Details LastModified Time fluoxetine 40 mg capsule TAKE 1 CAPSULE BY MOUTH ONCE DAILY active Not Available Not Available No t Available atorvastatin 40 mg tablet active Not Available Not Available Not Available methocarbamol 500 mg tablet TAKE 1/2 (ONE-HALF ) TABLET BY MOUTH EVERY 12 HOURS active Not Available Not Available No t Available metformin 500 mg tablet active Not Available Not Available No t Available venlafaxine ER 75 mg capsule,extend ed release 24 hr active Not Available Not Available Not Available alprazolam 1 mg tablet TAKE 1 TABLET BY MOUTH ONCE A ONE TIME DOSE active Not Available Not Available No t Available metoprolol succinate ER 50 mg tablet,extende d release 24 hr TAKE 1 TABLET BY MOUTH ONCE DAILY active Not Available Not Available No t Available hydrocodone 5 mg-acetaminoph en 325 mg tablet TAKE 1 TABLET BY MOUTH THREE TIMES DAILY active Not Available Not Available No t Available promethazine 12.5 mg tablet TAKE 1 TABLET BY MOUTH EVERY 6 HOURS NEEDED FOR NAUSEA FOR VOMITING active Not Available Not Available No t Available prednisone 20 mg tablet active Not Available Not Available No t Available alendronate 70 mg tablet active Not Available Not Available No t Available spironolactone 100 mg tablet active Not Available Not Availabl e Not Available venlafaxine ER 150 mg capsule,extend ed release 24 hr TAKE 1 CAPSULE BY MOUTH ONCE DAILY active Not Available Not Available No t Available Accu-Chek Softclix Lancets USE 1 TO CHECK GLUCOSE TWICE DAILY active Not Available Not Available No t Available tramadol 50 mg tablet active Not Available Not Available Not Available triamcinolone acetonide 0.1 % topical cream active Not Available Not Available Not Available lamotrigine 25 mg tablet TAKE 1 TABLET BY MOUTH ONCE DAILY NIGHTLY FOR 14 DAYS THEN INCREASE TO TWO TABLETS EACH NIGHT active Not Available Not Available No t Available alprazolam 0.5 mg tablet TAKE 1 TABLET BY MOUTH THREE TIMES DAILY NEEDED FOR ANXIETY active Not Available Not Available No t Available potassium chloride ER 20 mEq tablet,extende d release(part/c ryst) TAKE 1 TABLET BY MOUTH TWICE DAILY active Not Available Not Available No t Available baclofen 10 mg tablet TAKE 1 TABLET BY MOUTH THREE TIMES DAILY active Not Available Not Available No t Available nystatin 100,000 unit/gram topical cream active Not Available Not Availabl e Not Available Humulin 70/30 U-100 Insulin 100 unit/mL subcutaneous suspension INJECT 100 UNITS IN THE MORNING AND 80 UNITS IN THE EVENING active Not Available Not Available No t Available hydrocortisone 2.5 % topical cream active Not Available Not Available Not Available lorazepam 1 mg tablet TAKE 1 TABLET BY MOUTH EVERY 8 HOURS NEEDED FOR ANXIETY FOR 7 DAYS active Not Available Not Available No t Available albuterol sulfate HFA 90 mcg/actuation aerosol inhaler INHALE 2 PUFFS BY MOUTH EVERY 4 HOURS NEEDED FOR WHEEZING active Not Available Not Available No t Available fluoxetine 20 mg capsule TAKE 1 CAPSULE BY MOUTH ONCE DAILY WITH 40MG CAPSULE active Not Available Not Available No t Available oxycodone 5 mg tablet active Not Available Not Available Not Available Eliquis 5 mg tablet TAKE 1 TABLET BY MOUTH TWICE DAILY FOR BLOOD THINNER active Not Available Not Available No t Available Accu-Chek Guide test strips USE 1 STRIP TWICE DAILY active Not Available Not Available No t Available Accu-Chek Guide Me Glucose Meter USE DEVICE TO CHECK GLUCOSE TWICE DAILY active Not Available Not Available No t Available FreeStyle Cindy 2 Sensor kit active Not Available Not Available Not Available FreeStyle Cindy 2 [place] active Not Available Not Availab le Not Available Ultra-Fine Insulin Syringe 1 mL 31 gauge x 15/64 USE DIRECTED TWICE DAILY active Not Available Not Available No t Available Vitals Date Recorded Body height Body mass index (BMI) Body weight Heart rate Oxygen saturation Oxygen saturation in Arterial blood by Pulse oximetry Pain severity - 0-10 verbal numeric rating [Score] - Reported Systolic And Diastolic Provider Name and Address Organization Details Last Updated DateTime 5 165.1 cm 34.6 kg/m2 70162.2 1 g 60 /min 96 % 96 % 7 110/62 mm[Hg] [facility] 15:51:10 Social History Question Answer Notes LastModified by Organizat ion Details LastModified Time Tobacco Smoking Status Never Smoker [facility] 04/23/2025 08:08:36 In The 14 Days Before Symptom Onset, Have You Had Close Contact With A Laboratory-confirm ed COVID-19 While That Case Was Ill? No [email or web address] Information n ot available 04/23/2025 In The 14 Days Before Symptom Onset, Have You Had Close Contact With A Person Who Is Under Investigation For COVID-19 While That Person Was Ill? No [email or web address] Information not available 04/23/2025 Have You Been To An Area Known To Be High Risk For COVID-19? No [email or web address] Information not available 04/23/2025 Sex: Unknown Functional Status Question Answer Note LastModified by Organizat ion Details LastModified Time Do you use any illicit or recreational drugs? No Information not available 04/23/2025 Do you or have you ever used any other forms of tobacco or nicotine? No [email or web address] Information not available 04/23/2025 What is your level of alcohol consumption? None [email or web address] Information not available 04/23/2025 Mental Status None recorded. Family History Nothing Reported. Medical History Condition Response Coronary Artery Disease N Gout N Head Trauma/Injury N Depression Y COPD Y Anxiety Disorder Y Arthritis N Acid Reflux (GERD) N Cancer N Stroke N Headaches N Fibromyalgia N Kidney Disease Y Ulcers N Bleeding Disorder N Tuberculosis N AIDS/HIV N Asthma N Substance Abuse N Hepatitis N Hernia N Back Injury N High Cholesterol N Liver Disease N Thyroid Problems N Anemia N Heart Attack ([place]) N Diabetes Y Heart Disease N Hypertension N Osteoporosis N Gynecological HistoryNo gynecological history recorded. Obstetrics History GPAL:G 0 P 0 0 0 0 Past Encounters Encounter ID Performer Location Encounter Start Date Encounter Closed Date Diagnosis/Indication Diagnosis SNOMED-CT Code Diagnosis ICD10 Code Diagnosis IMO Codes Diagnosis Note [id number] Cesar Slaughter MD [address] [place] [address] [place] [phone] 04/28/2025 15:46:02 04/29/2025 08:20:39 Lumbar radiculopathy 009668972 M54.16 84077 Degenerati on of lumbar intervertebral disc 91315401 M51.369 6334790076 Complicati on of catheter 20635804 T85.9XXA 08570339 Health Concerns Section Related Observation LastModified by Organization Detai ls LastModified Time None Recorded Concern Status LastModified by Organization Details LastModified Time None Recorded Advance Directives Directive None Recorded Payers Insurance Date Sequence Insurance Name Policy Number Policy Saxena Covered Member ID Saxena Member ID Guarantor Name 05/26/2025 1 [place] [id number] Mercedes Davidson [id number] Mercedes Davidson 04/28/2025 2 [place] Mercedes Davidson [id number] Mercedesandrzej Davidson Notes Date Note Type Note Provider Name and Address Organization Details Recorded Time 04/28/2025 text/html Back PainReporte d by PatientHPIFor location, patient reportspain radiating to the legsbut reportslumbar. For quality, patient reportssharp,dull,achi ng,throbbing, andconstant. For severity, patient reportsworsening,pain level 7/10, andmoderate (5-7). For associated symptoms, patient reportsweak limbs,numbness of the legs/feet, andtinglingbut reportsno fever,no incontinence,no shortness of breath,no unintentional weight loss,no chills,no night sweats,no gait instability,no bowel/bladder symptoms, andno recent increase in stress. For duration, patient reportschronic. For onset/timing, patient reportsrecurrent episode. For context, patient reportstrauma. For alleviating factors, patient reportsrelieved by changing position. For aggravating factors, patient reportsmovement/positi oning,twisting,flexing back,extending back,worse at night,lifting,housewor k,walking,standing,sit ting, andweather. For previous injury, patient reportsno prior injury to back. For prior imaging, patient reportsmri. Cesar Slaughter MD [address], [address], [place] [facility] 04/28/2025 17:45:51 OBGyn Episode No OBEpisode recorded.
--- OUTSIDE RECORDS SUMMARY | 2025-07-27 11:41 | XMS_ITS | Encounter Summary ---
[facility] Organization [facility] Address [address] [place] [address] Care Team Providers Care Chart Reader Name Role Phone Estevan Rowley MD Primary Care Provider + Reason for Visit * Reason Comments Med Refill Encounter Details Date Type Department Care Team (Late st Contact Info) Description 07/16/2025 Refill [facility] [address] [place] [address] Estevan Rowley MD [address] [facility] [place] [address] Type 2 diabetes mellitus with hyperglycemia, with long-term current use of insulin Social [...] Description 07/30/2025 10:00 AM EST Office Visit [facility] [address] [place] [address] Estevan Rowley MD [address] [place] [address] documented as of this encounter Visit Diagnoses Diagnosis Type 2 diabetes mellitus with hyperglycemia, with long-term current use of insulin documented in this encounter Additional Health Concerns Assessment Noted Time PHQ-2 Depression Total Score: 1 01/06/20 24 11:09 AM EDT documented as of this encounter Care Teams Chart Reader Relationship Specialty Start Date End Date Estevan Rowley MD [address] [place] [address] PCP - General Family Medicine 03/08/22 documented as of this encounter
--- OUTSIDE RECORDS SUMMARY | 2025-07-27 11:41 | XMS_ITS | Clinical Summary ---
Author Organization [facility] Address [address] [place] [id number] Care Team Providers Care District Sales Leader Name Role Phone Estevan Rowley MD Primary [...] TID / Dx: E11.65 300 each 01/19/20 Active Accu-Chek Softclix Lancets lancetsIndicati ons:Type 2 diabetes mellitus with hyperglycemia, with long-term current use of insulin,Long-te rm insulin use Use to check glucose TID / Dx: E11.65 300 each 01/19/20 Active Misc. Devices (Rollator Ultra-Light) miscIndications :Multiple falls,Chronic right-sided low back pain without sciatica,Abnorm ality of gait and mobility Use daily for fall prevention 1 each 04/27/20 25 Active Insulin Syringe-Needle U-100 (BD Veo Insulin Syringe U/F) 31G X 15/64 1 ML miscIndications :Type 2 diabetes mellitus with hyperglycemia, with long-term current use of insulin Inject 1 each under the skin into the appropriate area as directed 2 (Two) Times a Day. as directed 200 each 04/27/20 Active empagliflozin (Jardiance) 10 MG tablet tabletIndicatio ns:Type 2 diabetes mellitus with hyperglycemia, with long-term current use of insulin,Stage 3a chronic kidney disease (CKD) Take 1 tablet by mouth Daily. 30 tablet 3 04/27/20 25 Active LORazepam (Ativan) 1 MG tabletIndicatio ns:Anxiety Take 1 tablet by mouth Every 8 (Eight) Hours As Needed for Anxiety. 90 tablet 04/27/20 25 Active promethazine (PHENERGAN) 12.5 MG tabletIndicatio ns:Nausea Take 1 tablet by mouth every 6 (six) to 8 (eight) hours as needed (or vomiting). 30 tablet 1 04/27/20 25 Active insulin NPH-insulin regular (HumuLIN 70/30) (70-30) 100 UNIT/ML injectionIndica tions:Type 2 diabetes mellitus with hyperglycemia, with long-term current use of insulin,Long-te rm insulin use Take 55 units in a.m. and 40 units in p.m. 30 mL 2 04/29/20 25 Active albuterol sulfate HFA 108 (90 Base) MCG/ACT inhalerIndicati ons:Panlobular emphysema INHALE 2 PUFFS EVERY 4 (FOUR) HOURS NEEDED FOR WHEEZING. 8.5 g 1 06/10/20 25 Active betamethasone dipropionate (DIPROSONE) 0.05 % creamIndication s:Venous stasis dermatitis of both lower extremities APPLY TO AFFECTED AREA TWICE DAILY 45 g 07/07/20 25 Active FLUoxetine (PROzac) 20 MG capsuleIndicati ons:Anxiety TAKE 1 CAPSULE BY MOUTH ONCE DAILY (WITH 40 MG CAPSULE) 90 capsule 07/07/20 25 Active FLUoxetine (PROzac) 40 MG capsuleIndicati ons:Anxiety TAKE 1 CAPSULE BY MOUTH ONCE DAILY 90 capsule 07/07/20 25 Active atorvastatin (LIPITOR) 40 MG tabletIndicatio ns:Type 2 diabetes mellitus with diabetic neuropathy, with long-term current use of insulin TAKE 1 TABLET BY MOUTH EVERY NIGHT. 90 tablet 3 07/21/20 25 Active FLUoxetine (PROzac) 20 MG capsuleIndicati ons:Anxiety TAKE 1 CAPSULE BY MOUTH ONCE DAILY (WITH 40 MG CAPSULE) 90 capsule 04/01/20 25 025 Discontinued FLUoxetine (PROzac) 40 MG capsuleIndicati ons:Anxiety TAKE 1 CAPSULE BY MOUTH ONCE DAILY 90 capsule 04/01/20 25 025 Discontinued betamethasone dipropionate (DIPROSONE) 0.05 % creamIndication s:Venous stasis dermatitis of both lower extremities Apply 1 Application topically to the appropriate area as directed 2 (Two) Times a Day. 45 g 1 04/27/20 25 025 Discontinued atorvastatin (LIPITOR) 40 MG tabletIndicatio ns:Type 2 diabetes mellitus with diabetic neuropathy, with long-term current use of insulin Take 1 tablet by mouth Every Night. 90 tablet 3 04/27/20 25 025 Discontinued Active Problems Problem Noted [...] CGM will will be sent to a [place] [employer]. This would likely help improve glycemic control [...] Plan (03/08/2022 12:55 PM EDT): Refer to [facility] for Warfarin Managment. [...] in 3 months. Refer to podiatry at [facility] Encounters Date Type Department Care Team Description 07/18/2025 Refill [facility] [address] [place] [address] Estevan Rowley MD Type 2 diabetes mellitus with diabetic neuropathy, with long-term current use of insulin 07/16/2025 Refill [facility] [address] [place] [address] Estevan Rowley MD Type 2 diabetes mellitus with hyperglycemia, with long-term current use of insulin 07/06/2025 Refill [facility] [address] [place] [address] Estevan Rowley MD Venous stasis dermatitis of both lower extremities; Anxiety 06/10/2025 Refill [facility] [address] [place] [place] [address] Estevan Rowley MD Panlobular emphysema 06/06/2025 Refill [facility] [address] [place] [address] Estevan Rowley MD Age related osteoporosis, unspecified pathological fracture presence 04/30/2025 Telephone [facility] [address] [place], [place] [address] Estevan Rowley MD ROLLATOR 04/29/2025 Results Follow-Up [facility] [address] [place] [address] Estevan Rowley MD 04/27/2025 9:45 AM EDT Office Visit [facility] [address] [place] [address] Estevan Rowley MD Type 2 diabetes mellitus with hyperglycemia, with long-term current use of insulin (Primary Dx); Multiple falls; Chronic right-sided low back pain without sciatica; Abnormality of gait and mobility; Venous stasis dermatitis of both lower extremities; Stage 3a chronic kidney disease (CKD); Type 2 diabetes mellitus with diabetic neuropathy, with long-term current use of insulin; Anxiety; Nausea 04/27/2025 Telephone [facility] [address] [place] [address] Estevan Rowley MD REQUEST FOR PROGRESS NOTE AND PRESCRIPTION ORDER FOR DEN 04/27/2025 Travel from Last 3 Months Immunizations Immunization [...] 07/30/2025 10:00 AM EST Office Visit [facility] [address] [place] [address] Estevan Rowley MD [address] [place] [address] Health Maintenance Due Date Last Done Comments DIABETIC EYE EXAM 1961 Pneumococcal Vaccine 50+ (1 of 2 - PCV) 1970 02/23/2016 MAMMOGRAM 1991 COLOGUARD 1996 COLON CANCER SCREENING 5 YEA R SIGMOIDOSCOPY 1996 CT COLONOGRAPHY 1996 FECAL OCCULT BLOOD TEST 1996 FIT Testing (1 year) 1996 ZOSTER VACCINE (1 of 2) 2001 DXA SCAN 12/19/2024 12/19/2022, 12/19/2022 INFLUENZA VACCINE 04/23/2025 06/17/2024, , 07/11/2022, Additional history exists COVID-19 Vaccine (2023-2 5 season) 2025 06/17/2024, 08/08/2023, 07/11/2022, Additional history exists ANNUAL WELLNESS VISIT 07/13/2025 07/13/2024 , 07/13/2024, 06/10/2023, Additional history exists DIABETIC FOOT EXAM 07/13/2025 07/13/2024, 1 , 07/13/2024, Additional history exists HEMOGLOBIN A1C 10/28/2025 04/27/2025, 042 04/2025, 10/19/2024, Additional history exists URINE MICROALBUMIN-CREATININ E RATIO (uACR) 01/18/2026 01/18/2025 TDAP/TD VACCINES (2 - Td or Tdap) 01/29/2027 017 COLONOSCOPY 10/27/2029 10/27/2019 COLORECTAL CANCER SCREENING 10/27/2029 HEPATITIS C SCREENING Completed 12/24/2023 Procedures Procedure Name Priority Date/Time Associated Diagnosis Comments SCANNED - LABS 06/23/2025 SCANNED - LABS 06/23/2025 SCANNED - IMAGING 06/02/2025 HEMOGLOBIN AND HEMATOCRIT, BLOOD Routine 04/27/2025 10:20 [...] to Health Maintenance Results * LABS SCANNED (06/23/2025) Only the most recent of2 resultswithin the time period is included. Estevan Rowley MD LAB BLOOD ORDERABLES Fin al Result * IMAGING SCANNED (06/02/2025) Anatomical Region Laterality Modality Radiographic Lori ging Estevan Rowley MD IMG DIAGNOSTIC IMAGING O RDERABLES Final Result * Hemoglobin and hematocrit, blood (04/27/2025 10:20 AM EDT) Hemoglobin 14.3 11.1 - 15.9 g/dL [facility] Hematocrit 45.6 34.0 - 46.6 % [facility] Blood 04/27/2025 10:2 0 AM EDT 04/27/2025 Narrative [facility] ([facility]) - 04/28/2025 10:36 AM EDT Performed at: - [facility] [address] [place] [id number] Custodian: Nick Ortega PhD, Phone: [phone] Patient Fasting: N Estevan Rowley MD LAB BLOOD ORDERABLES Fin al Result Performing Organization Address [facility] Co de Phone Number [facility] [address] [place] [address], [facility] [address] [place] [address], * (ABNORMAL) Hemoglobin A1c (04/27/2025 10:20 AM EDT) Hemoglobin A1C 9.7(H) 4.8 - 5.6 % [facility] Comment: Prediabetes: 5.7 - 6.4 Diabetes: >6.4 Glycemic control for adults with diabetes: <7.0 Blood 04/27/2025 10:2 0 AM EDT 04/27/2025 Narrative [facility] ([facility]) - 04/28/2025 10:36 AM EDT Performed at: - [facility] [id number] Custodian: Nick Ortega PhD, Phone: [phone] Patient Fasting: N Estevan Rowley MD LAB BLOOD ORDERABLES Fin al Result Performing Organization Address [facility] Co de Phone Number [facility] ([facility] [address] [place] [address], [facility] [address] [place] [address], * (ABNORMAL) Renal Function Panel (04/27/2025 10:20 [...] 10:2 0 AM EDT 04/27/2025 Narrative [facility] (AMBULATORY) - 04/28/2025 10:36 AM EDT Performed at: - [address] [id number] Custodian: Nick Ortega PhD, Phone: [phone] Patient Fasting: N Estevan Rowley MD LAB BLOOD ORDERABLES Fin al Result [facility] ([facility] [address] [place] [address], [facility] [address] [place] [id number], * (ABNORMAL) POC Albumin/Creatinine Ratio Urine (01/18/2025 [...] Relevant to Health Maintenance Insurance [place] [id number] [employer] MEDICARE ADVANTAGE HMO Advance Directives Documents on File Type Date Recorded Patient Job Training Specialist Expl anation LIVING WILL - SCAN 09/11/2022 8:39 AM JULIA CHAVEZ [facility], 09/04/2022 Care Teams District Sales Leader Relationship Specialty Start Date End Date Estevan Rowley MD [address] [facility] [place] [address] PCP - General Family Medicine 03/08/22
--- OUTSIDE RECORDS SUMMARY | 2025-07-27 11:41 | XMS_ITS | Encounter Summary ---
[facility] Address [address] [place] [address] Care Team Providers Care Closer On Name Role Phone Estevan Rowley MD Primary Care Provider + Reason for Visit * Reason Comments Med Refill Encounter Details Date Type Department Care Team (Late Contact Info) Description 07/06/2025 Refill [facility] [address] [place] [address] Estevan Rowley MD [address] [facility] [place] [address] Venous stasis dermatitis of both lower extremities; Anxiety Social History Tobacco Use Types Packs/Day [...] 10:00 AM EST Office Visit [facility] [address] [place] [address] Estevan Rowley MD [address] [place] [address] documented as of this encounter Visit Diagnoses Diagnosis Venous stasis dermatitis of both lower extremities Anxiety Anxiety state, unspecified documented in this encounter Additional Health Concerns Assessment Noted Time PHQ-2 Depression Total Score: 1 01/06/20 24 11:09 AM EDT documented as of this encounter Care Teams Closer On Relationship Specialty Start Date End Date Estevan Rowley MD [address] [place] [address] PCP - General Family Medicine 03/08/22 documented as of this encounter
--- OUTSIDE RECORDS SUMMARY | 2025-07-27 11:41 | XMS_ITS | Clinical Summary ---
Author Organization Healthcare Address [address] [place] [address] Care Team Providers Care Drawing In Hand Name Role Phone Unavailable Primary Care Provider [...] (coronary artery disease) 02/26/2024 Supratherapeutic INR 12/26/2023 Venous stasis dermatitis of both lower extremiti es 09/30/2023 Overview (02/26/2024): Last Assessment & Plan: Use topical triamcinolone cream twice daily Stage 3a chronic kidney disease (CKD) 09/30/2023 Permanent atrial fibrillation 03/08/2022 Overview (02/26/2024): Last Assessment & Plan: Refer to [facility] for Warfarin Managment. Rate controlled. Follow-up with H&H cardiology as instructed Sydneybular emphysema 03/08/2022 Overview (02/26/2024): Last Assessment & [...] at a time. Follow-up in 3 months Resolved Problems Problem Noted Date Diagnosed Date Resolved Date Intramuscular hematoma 12/25/202306/13 Immunizations Immunization Administration Dates Next Due Influenza, [...] or neighbors? Three times a week 02/26/20 How often do you get togethe r with friends or relatives? Three times a week 02/26/2024 How often do you attend chur ch or quaker services? 1 to 4 times per year 02/26/2024 Do you belong to any clubs o r organizations such as muslim groups, unions, fraternal or athletic groups, or [...] Recorded Patient Health Questionnaire-2 Score 2 02/26/2024 [facility] - [...] drink first t abilio in the morning (EYE-PROPERTY CLAIMS ADJUSTER) to steady your nerves or to get rid of a hangover? 0 12/26/2023 CAGE Questionnaire Score 0 024 Utilities Answer Date Recorded In the past 12 months has th e [employer], gas, oil, or water [employer] threatened to shut off services in your [...] 1-dose series) 2011 [facility]-Bone Density Scan 12/20/2023 12/19/2022 [facility]-Medicare Annual Wellness (AWV) 06/10/2024 06/10/2023 [facility]-Depression Screening 02/25/2025 02/26/2024 [id number] Vaccine ( season) 2025 08/08/2023, 07/11/2022, 07/26/2021, [...] Final Resu lt [facility] [address] [place] [address] from Last 3 Months or Most Recently Relevant to [place] [address] [place] [id number] [employer] MEDICARE Advance Directives * Full Code (Latest Code Status on File) Date Activated Date Inactivated Comments 12/25/2023 3:08 AM 12/29/2023 6:13 PM Question Answer Comments Patient has decision-making capacity? Yes
[2025-07-27 12:31] LABS: Hematocrit 44.3 % (37.0-47.0); Hemoglobin 13.7 g/dL (12.2-16.2); Immature Granulocytes % 0.3 %; Mean Corpuscular HGB Conc 30.9 g/dL (31.8-35.4); Mean Corpuscular Hemoglobin 29.0 pg (27.0-31.2); Mean Corpuscular Volume 93.7 fl (81-99); Nucleated Red Blood Cells % 0 %; Platelet Count 198 K/mm3 (142-424); Red Blood Count 4.73 M/mm3 (4.20-5.40); Red Cell Distribution Width-SD 62.5 fL; White Blood Count 7.6 K/mm3 (4.8-10.8)
[2025-07-27 12:47] LABS: Anion Gap 12.0 mEq/L (5-15); Blood Urea Nitrogen 27 mg/dl (7-17); Calcium 9.2 mg/dl (8.4-10.2); Carbon Dioxide 36 mmol/L (22.0-30.0); Chloride 89 mmol/L (98-107); Creatinine,Serum 1.20 mg/dl (0.52-1.04); Estimated Glomerular Filt Rate 44 ml/min (>60); GFR (African American) 53 ML/MIN (>60); Glucose 280 mg/dl (74-100); Potassium 4.0 mmoL/L (3.5-5.1); Sodium 133 mmol/L (136-145)
== END 2025-07-27 23:59 | disposition home or self-care (01) ==
LOC: PREOP 11:38
PROVIDERS: PCP Family Medicine; Visit Provider Anesthesiology
DX: Z01.812 Encounter for preprocedural laboratory examination (principal)
CPT/HCPCS: 80048; 85025

== ENCOUNTER 2025-08-06 06:02 | Day surgery (SDC) | payer MEDICARE, SELFPAY ==
[2025-07-27 14:56] VITALS: BMI 34.6
[2025-08-06 06:25] VITALS: BP 135/51; PULSE 64; RESP 20; TEMP 36.9; O2SAT 94; BMI 34.6
[2025-08-06] MEDS: LACTATED RINGERS 1000ML 1,000 ML 25 ML IV (06:42)
[2025-08-06 06:51] LABS: POC Glucose,Bedside 110 gm/dL (70-110)
--- NOTE | 2025-08-06 07:15 | P.PNANES_ITS ---
[facility] Disclaimer: The information contained in this section may have been updated after the patient was seen, as this information can be updated by other users. Medical History Pre-op exam Endothelial dysfunction of coronary artery Right ventricular dilation Abnormal ECG COPD (chronic obstructive pulmonary disease) Claudication Discoloration of skin Pain of intrathecal infusion pump pocket after insertion A-fib Restless sleeper SHOSHANA (obstructive sleep apnea) Daytime somnolence Edema Dizziness Preoperative clearance Right bundle branch block (RBBB) Diastolic dysfunction HLD (hyperlipidemia) HHD (hypertensive heart disease) CAD (coronary artery disease) Surgical History History of cholecystectomy History of bilateral breast reduction surgery History of hysterectomy History of knee replacement Family History Other Family history of cancer Social History (Updated 08/06/25 @ 06:41 by Claudia Zhang RN) Smoking Status: Former smoker second hand exposure: No alcohol intake: never substance use type: denies use current occupational status: other Travel in the last 8 weeks?: None household members: spouse housing: house current occupation: [employer] current occupational exposures/hazards: No caffeine: Yes Have you lived/traveled outside US in past 30 days?: No Contact w/someone who lives/traveled outside US past 30 days?: No Exposure to someone with infectious disease in past 14 days?: No Do you have a fever (greater than 100.4 F or 38 C)?: No Have you tested positive for COVID-19?: No Exposed to someone with COVID-19 in past 14 days?: No Do you have a sore throat?: No Do you have a cough?: No Do you have any weakness?: No Are you experiencing any nausea/vomitting?: No Do you have any diarrhea?: No Are you experiencing any unusual bleeding?: No Do you have any muscle aches/pain?: No Do you have any abdominal pain?: No Are you experiencing loss of taste or smell?: No [facility] Anesthesia Checklist Patient Identification Patient Identification: Arm Band and Verbal (Name & ) Structural Data Admitted From: Home Planned Operative Procedure/s: Pain pump catheter replacement Verified Documents: Surgical Consent NPO Status Verified Time NPO: 00:00 Chart Verification Results Verified: CBC, BMP and ECG Additional verifications Fingerstick Blood Glucose: 110 Anesthesia Reactions: No Hx Blood Transfusions: Yes Blood Transfusion Reaction: No Airway Assessment Mallampati Score:: Class II C-Spine Mobility Assessed: Yes TMJ Mobility Assessed: Yes Dentition: Edentulous Neurological Assessment Level of Consciousness: Awake, Alert and Appropriate Hx Seizures: No Numbness or tingling in extremities: No Anesthesia Plan Anesthesia Risk discussed: Yes Anesthesia Plan: Verified ASA Class: III Anesthesia Type: MAC
[2025-08-06] MEDS: CLINDAMYCIN PHOSPHATE/D5W 900 MG/50 ML PIGGYBACK 100 MG IV (07:22)
[2025-08-06] MEDS: LIDOCAINE 1% W/EPI 1:100,000 20ML VIAL 40 ML (07:45)
[2025-08-06] MEDS: SODIUM CHLORIDE 0.9% 20ML VIAL 40 ML IV (07:45)
[2025-08-06] MEDS: GENTAMICIN 80 MG/2 ML VIAL (07:47)
[2025-08-06 08:38] VITALS: BP 104/47; PULSE 77; RESP 16; O2SAT 98
--- NOTE | 2025-08-06 08:51 | EXP.HP ---
History of Present Illness *Admission Date: 08/06/25 *Reason for visit:: Intrathecal catheter revision/replacement *History of present illness: This patient has a nonfunctioning intrathecal pain pump system. We will/replace her intrathecal catheter [facility] Disclaimer: The information contained in this section may have been updated after the patient was seen, as this information can be updated by other users. Medical History Pre-op exam Endothelial dysfunction of coronary artery Right ventricular dilation Abnormal ECG COPD (chronic obstructive pulmonary disease) Claudication Discoloration of skin Pain of intrathecal infusion pump pocket after insertion A-fib Restless sleeper SHOSHANA (obstructive sleep apnea) Daytime somnolence Edema Dizziness Preoperative clearance Right bundle branch block (RBBB) Diastolic dysfunction HLD (hyperlipidemia) HHD (hypertensive heart disease) CAD (coronary artery disease) Surgical History History of cholecystectomy History of bilateral breast reduction surgery History of hysterectomy History of knee replacement Family History Other Family history of cancer Social History (Updated 08/06/25 @ 06:41 by Claudia Zhang RN) Smoking Status: Former smoker second hand exposure: No alcohol intake: never substance use type: denies use current occupational status: other Travel in the last 8 weeks?: None household members: spouse housing: house current occupation: [email or web address] current occupational exposures/hazards: No caffeine: Yes Have you lived/traveled outside US in past 30 days?: No Contact w/someone who lives/traveled outside US past 30 days?: No Exposure to someone with infectious disease in past 14 days?: No Do you have a fever (greater than 100.4 F or 38 C)?: No Have you tested positive for COVID-19?: No Exposed to someone with COVID-19 in past 14 days?: No Do you have a sore throat?: No Do you have a cough?: No Do you have any weakness?: No Are you experiencing any nausea/vomitting?: No Do you have any diarrhea?: No Are you experiencing any unusual bleeding?: No Do you have any muscle aches/pain?: No Do you have any abdominal pain?: No Are you experiencing loss of taste or smell?: No Other Medical History Have you received the Flu Vaccine for this season: Yes Have you received the Pneumonia Vaccine: No Review of Systems Review of Systems Review of systems:: pertinent systems reviewed and negative unless documented below Meds Home Medications and Allergies Home Medications ?Medication ?Instructions ?Recorded ?Confirmed ?Type lorazepam 1 mg tablet 1 mg PO TID nerves 04/09/18 08/06/25 History atorvastatin 40 mg tablet 40 mg PO DAILY Cholesterol 01/20/19 08/06/25 History lansoprazole 30 mg capsule,delayed 30 mg PO DAILY 01/18/21 08/06/25 History release fluoxetine 40 mg capsule (Prozac) 60 mg PO DAILY 06/30/24 08/06/25 History metoprolol succinate 50 mg 50 mg PO DAILY #90 tabs 01/19/25 08/06/25 Rx tablet,extended release 24 hr (Toprol XL) apixaban 5 mg tablet (Eliquis) 5 mg PO BID Blood Thinner #180 tabs 02/12/25 08/06/25 Rx empagliflozin 10 mg tablet 10 mg PO DAILY 05/18/25 08/06/25 History (Jardiance) spironolactone 25 mg tablet 25 mg PO DAILY #30 tabs 06/23/25 08/06/25 Rx (Aldactone) furosemide 40 mg tablet (Lasix) 40 mg PO .every afternoon #30 tabs 06/30/25 08/06/25 Rx furosemide 80 mg tablet 80 mg PO DAILY #30 tabs 06/30/25 08/06/25 Rx glycopyrrolate 9 mcg-formoterol 2 puff inhalation BID #10.7 grams 07/27/25 08/06/25 Rx 4.8 mcg HFA aerosol inhaler (Bevespi Aerosphere) insulin human U-100 NPH-regulr 20 unit SQ BID 07/27/25 08/06/25 History 70-30 mix 100 unit/mL subcutaneous susp (Humulin 70/30 U-100 Insulin) clindamycin HCl 150 mg capsule 150 mg PO TID #15 caps 08/06/25 Rx (Cleocin HCl) New Prescriptions to Start Prescriptions: clindamycin HCl [Cleocin HCl] Bux,Cesar Allergies Allergy/AdvReac Type Severity Reaction Status Date / Time latex (LATEX) Allergy Unknown I-ITCHING Verified 08/06/25 06:20 Penicillins (PENICILLINS) Allergy Unknown BREAKS OUT Verified 08/06/25 06:20 MOUTH Sulfa (Sulfonamide Allergy Unknown I-ITCHING Verified 08/06/25 06:20 Antibiotics) (SULFA (SULFONAMIDE ANTIBIOTICS)) Exam Data for Last 24 hours Vital signs and Labs for Last 24 Hours: Temp Pulse Resp BP Pulse Ox O2 Del Method 98.5 F 64 20 135/51 L 94 L Room Air 08/06/25 06:25 08/06/25 06:25 08/06/25 06:25 08/06/25 06:25 08/06/25 06:25 08/06/25 06:25 Laboratory Results - last 24 hr 08/06/25 06:28: POC Glucose 110 I & O for Last 24 hours: Intake & Output 08/03/25 08/04/25 08/05/25 08/06/25 11:59 11:59 11:59 11:59 Intake Total 50 / 50 Balance 50 / 50 Weight 208 lb *Routine HEENT Exam Head: Present normocephalic Eye: Present EOMI and normal accommodation ENT: Present mucous membranes moist *Routine Respiratory Exam Respiratory: Present CTA bilaterally *Routine Cardiovascular Exam Cardiovascular: Present RRR and Normal S2 *Routine Abdominal Exam Abdominal: Present soft *Routine Rectal Exam Rectal:: deferred *Routine Genitalia Exam Genitalia:: deferred Assessment and Plan *Assessment and plan (1) Degenerative disc disease, lumbar: Status: Acute Qualifiers: Disc-related pain type: discogenic back pain and lower extremity pain Qualified Code(s): M51.362 - Other intervertebral disc degeneration, lumbar region with discogenic back pain and lower extremity pain Category: Medical Code(s): M51.369 - Other intervertebral disc degeneration, lumbar region without mention of lumbar back pain or lower extremity pain (2) Lumbar radiculopathy: Status: Acute Category: Medical Code(s): M54.16 - Radiculopathy, lumbar region Plan Revision/replacement intrathecal catheter
[2025-08-06 08:53] VITALS: BP 107/60; PULSE 67; RESP 18; O2SAT 98
--- NOTE | 2025-08-06 08:53 | P.OP_ITS ---
Date of procedure: 08/06/25 Pre-op Diagnosis:: Nonfunctioning intrathecal pain pump system Post-op Diagnosis:: Same Procedure performed:: Replacement intrathecal catheter Surgeon:: Cesar Slaughter MD ELECTROPLATING LABORER:: Hollis Sena Anesthesia: MAC Estimated blood loss (mL): 5 Clinical Note:: This patient is a pleasant 74-year-old white female who had a fall and since then her intrathecal pain pump system is been nonfunctioning. They did do it catheter dye study and were unable to withdraw from the sideport. It was then decided to do intrathecal catheter revision/replacement. Will also refill her pump with morphine 1 mg/mL and restart. Operative findings:: Pump was flipped and catheter was welled up in the pocket. Operative note:: Informed consent was obtained the risk and benefits of procedure were explained to the patient. The patient was taken the operating room placed prone on the procedure table. She was prepped and draped in sterile fashion. C-arm fluoroscopy was used to view the intrathecal pain pump generator. The skin and subcutaneous tissues overlying the generator were anesthetized using lidocaine. I made an incision dissected out the pain pump generator. It was discovered that the pain pump was split and the catheter was brought up in the pocket. We disconnected the catheter and tied it off with 0 silk ties x 3. The pump was then refilled with intrathecal morphine 1 mg/mL, 20 mL. C-arm fluoroscopy was used to view the lumbar spine. The skin and subcutaneous tissues adjacent to the L4-5 interspace were anesthetized using lidocaine. I made an incision dissected down to the lumbar paraspinous fascia. A 17-gauge spinal needle was inserted and advanced into the L4-5 interspace until clear CSF was obtained. After this intrathecal cath was inserted and advanced very easily to the T8 vertebral body. Catheter was in good position over the midline and posterior. The stylette of the catheter and the needle were withdrawn. The catheter was secured to the fascia with 2-0 Prolene. I tunneled the catheter from the back to the pump pocket attached catheter. The pump was then placed in the pocket with an antibiotic pouch. Both incisions were closed with 2-0 Vicryl followed 4-0 nylon and hoa. Patient tolerated procedure well with no complications. Pump was interrogated and started back at 50 mcg/day of intrathecal morphine. Patient was discharged home neurologic intact with good relief of pain symptoms. We sent her home on clindamycin 150 mg 3 times a day for 5 days. Plan and disposition: Will follow-up with this patient in 1 week for wound check and reprogramming. Will follow-up with her in 2 to 3 weeks for suture and staple removal. Condition: stable Disposition: PACU Complications:: none
[2025-08-06 09:08] VITALS: BP 101/56; PULSE 69; O2SAT 96
[2025-08-06 11:12] LABS: POC Glucose,Bedside 134 gm/dL (70-110)
== END 2025-08-06 09:08 | disposition home or self-care (01) ==
PROVIDERS: PCP Family Medicine; Visit Provider Anesthesiology
PROC: (CPT 62350; principal; 2025-08-06 07:30)
DX: T85.695A Other mechanical complication of other nervous system device, implant or graft, initial encounter (principal); M51.362 Other intervertebral disc degeneration, lumbar region with discogenic back pain and lower extremity pain; W19.XXXA Unspecified fall, initial encounter; Y75.1 Therapeutic (nonsurgical) and rehabilitative neurological devices associated with adverse incidents; J44.9 Chronic obstructive pulmonary disease, unspecified; I48.91 Unspecified atrial fibrillation; G47.33 Obstructive sleep apnea (adult) (pediatric); I45.10 Unspecified right bundle-branch block; I11.9 Hypertensive heart disease without heart failure; I25.10 Atherosclerotic heart disease of native coronary artery without angina pectoris; E78.5 Hyperlipidemia, unspecified; Z79.4 Long term (current) use of insulin; Z79.84 Long term (current) use of oral hypoglycemic drugs; Z79.899 Other long term (current) drug therapy; Z79.01 Long term (current) use of anticoagulants; Z87.891 Personal history of nicotine dependence
CPT/HCPCS: 62350; 95991; 82962; 96374; C1755; J0736; J1580; J2003; J2004; J2250; J2704; J7120

== ENCOUNTER 2025-08-13 14:59 | Outpatient (RCR) | payer MEDICARE, SELFPAY ==
--- NOTE | 2025-08-13 16:17 | HMH.OPLYMPH ---
Rehab Lymphedema Evaluation Rehab Lymphedema Evaluation Start: 08/13/25 16:00 Freq: Status: Active Protocol: Document 08/13/25 16:00 PHOMYRANDA (Rec: 08/13/25 16:17 PHORNE [id number]) E-signed By Teofilo Acuna, PT Subjective/History History History This is the initial PT eval for Mercedes Davidson, 74 yowf who presents with c/o B LE increased edema with open sores x ~ 3 mos with insidious onset. She reports increased pain in B LE all the time and no relief from edema with elevating her legs. She recently had a new intrathecal pain pump placed due to chronic low back pain. She has PMH of CAD, SHOSHANA, SURI, RBBB, A-fib, COPD. She presents ambulating with RW at this time. Subjective Subjective Pt reports pain at this time is 9/10 in B LE and does not decrease at any time. She presents with 3/4 TTP to B lower legs with 2+ pitting edema to B feet and lower legs. She has significant discoloration of B feet with severe blanchable erythema noted. Multiple open sores with copious amts of drainage on B lower legs ~0.5 cm x 0.5 cm x 0.1 cm. LLIS: 78 Lymphedema Eval Classification of Lymphedema Secondary Lymphedema Yes Stemmer's sign Stemmer's Sign yes Stage of Lymphedema Lymphedema stages Stage II (Pitting edema, increased fibrosis w/ decreased pitting) Skin Changes Dry Skin Yes Taut, Shiny Skin Yes Redness Yes: severe in B feet Discoloration of Yes: severe in B feet Skin Other Changes Yes Pain Scale Pain Scale (0-10) 9 Affected Extremities Areas Affected by Right Lower Extremity,Left Lower Extremity Lymphedema/Edema Lower Extremity Measurements Right MTP Measurement (cm) 21.9 Heel Measurement (cm 31.3 ) 10 cm Proximal to 26.9 Lateral Malleoli Measurement (cm) 20 cm Proximal to 35.4 Lateral Malleoli Measurement (cm) 30 cm Proximal to 38.0 Lateral Malleoli Measurement (cm) 40 cm Proximal to 0 Lateral Malleoli Measurement (cm) 50 cm Proximal to 0 Lateral Malleoli Measurement (cm) 60 cm Proximal to 0 Lateral Malleoli Measurement (cm) Lower Extremity 153.5 Measurement Total ( cm) Left MTP Measurement (cm) 22.8 Heel Measurement (cm 32.8 ) 10 cm Proximal to 26.2 Lateral Malleoli Measurement (cm) 20 cm Proximal to 35.2 Lateral Malleoli Measurement (cm) 30 cm Proximal to 39.7 Lateral Malleoli Measurement (cm) 40 cm Proximal to 0 Lateral Malleoli Measurement (cm) 50 cm Proximal to 0 Lateral Malleoli Measurement (cm) 60 cm Proximal to 0 Lateral Malleoli Measurement (cm) Lower Extremity 156.7 Measurement Total ( cm) Manual Lymphatic Drainage Treatment Area MLD Treatment Area Right Lower Extremity,Left Lower Extremity Wound Problems/Impairments Impairments Problems/ Palpation Tenderness,Impaired Range of Motion,Impaired Impairmments Strength,Impaired Endurance,Impaired Transfers,Impaired Gait Pattern,Impaired Walking,Impaired Standing, Impaired Sitting,Impaired Lifting,Impaired Dressing, Impaired Shower/Bathing,Impaired Household Care, Impaired Stair Climbing,Impaired Incline Stepping, Impaired Stepping on Uneven Surface,Impaired Squatting, Impaired Recreational Activities,Impaired Balance, Increased Edema,Lymphedema Present,Wound Care Needs, Subjective C/O Pain,Impaired Self Care/Self Management Prognosis Rehab Potential Good Comment Skilled therapy is indicated to reduce overall edema in B LE in order to improve transfers, gait, and all functional mobility to return pt to PLOF. Clinical Impression Consistent with Yes Diagnosis Consistent with also Additional details: I89.0 Lymphedema Lymphedema Patient Goals Lymphedema Patient Goals Lymphedema Short In 2 wks pt will complete these goals in order to aid Term Patient Goals improvement in function specifically with all ADLs: 1) Decrease pitting edema in B LE to 1+ 2) Decrease pain in B LE to 8/10 at worst Lymphedema Supply Crib Attendant In 2 wks pt will complete these goals in order to aid Patient Goals improvement in function specifically with all ADLs: 1) Decrease pitting edema in B LE to none 2) Decrease pain in B LE to 6/10 at worst 3) Decrease circumferential measurements in B LE total by 10 cm ea. Outpatient Therapy Plan of Care Treatment Plan May Include Therapeutic Exercise Yes Including Home Exercise Program Manual Therapy Yes Techniques Neuromuscular Re- Yes education Therapeutic Yes Activities to Return to Previous Functional/Work Level ADL/Self Care Yes Education Manual Lymphatic Yes Drainage Eval/Re-Eval Yes Frequency Times per week 2 Duration Number of Weeks 4 Addendums This patient is a No candidate for social or vocational rehab ? Patient/Guardian Yes verbally acknowledges understanding of treatment program and consents to further treatment? Patient/Guardian Yes verbally acknowledges understanding of diagnosis, prognosis and goals for treatment? Eval Complexity PT Charges 53837 - High Complexity PHYSICIAN CERTIFICATION: I certify the specified therapy services for Mercedes Davidson are required, authorized, and reviewed every 30 days.
== END 2025-08-13 23:59 | disposition home or self-care (01) ==
LOC: PT 14:59
PROVIDERS: PCP Family Medicine; Visit Provider Physician Assistant
DX: T14.8XXD Other injury of unspecified body region, subsequent encounter (principal); M54.50 Low back pain, unspecified; G89.29 Other chronic pain; X58.XXXD Exposure to other specified factors, subsequent encounter
CPT/HCPCS: 97163

== ENCOUNTER 2025-09-07 14:00 | Outpatient (RCR) | payer MEDICARE, SELFPAY | END 2025-09-07 23:59 | disposition home or self-care (01) | LOC: PT 14:00 | PROVIDERS: PCP Family Medicine; Visit Provider Physician Assistant | DX: R60.0 Localized edema (principal); T14.8XXA Other injury of unspecified body region, initial encounter; X58.XXXA Exposure to other specified factors, initial encounter | CPT/HCPCS: 97140 ==